=== PATIENT | female | born 2000 | race Caucasian/White ===

== ENCOUNTER 2018-02-20 19:41 | Emergency (ER) | payer OTHER ==
[2018-02-20 21:13] LABS: Urine Blood NEGATIVE (NEG); Urine Glucose NEGATIVE (NEG); Urine Protein NEGATIVE (NEG); Urine Specific Gravity 1.025 (1.005-1.030); Urine pH 5.5 (5.0-7.0)
[2018-02-20 21:31] LABS: Bicarbonate 26 mEq/L (21-31); Glucose Level 95 mg/dL (65-120); Lipase 22 U/L (22-51); Potassium 3.4 mEq/L (3.6-5.0); Sodium Level 139 mEq/L (135-145)
[2018-02-20 21:34] LABS: ALT/SGPT 17 IU/L (10-60); AST/SGOT 19 IU/L (10-42); Albumin 4.4 g/dL (3.2-5.5); Alkaline Phosphatase 87 IU/L (42-121); BUN Blood Urea Nitrogen 13 mg/dL (6-20); Bilirubin Total 0.6 mg/dL (0.3-1.2); Protein, Total 7.7 g/dL (6.0-8.3)
[2018-02-20 21:36] LABS: Absolute Lymphocytes (CBC) 2.9 K/uL (0.7-4.9); Absolute Monocytes 0.3 K/uL (0.1-1.3); Absolute Neutrophil 4.5 K/uL (1.8-8.0); Basophils % 0.5 % (0-1.3); Eosinophils % 0.6 % (0-4.4); Hematocrit 35.9 % (36.0-45.0); Lymphocytes % 36.6 % (15.3-44.8); MCH 25.1 pg (27.0-35.0); MCV 72.9 fL (80-100); MPV 8.1 fL (7.6-11.3); Monocytes % 4.3 % (3.3-12.3); RBC Red Blood Cell Count 4.92 M/uL (3.86-4.86)
--- NOTE | 2018-02-20 21:37 | EDPHYS ---
Physician Documentation [facility] Name: Miryam Holbrook Age: 17 yrs Sex: Female : 2000 Arrival Date: 02/20/2018 Time: 19:45 Bed 28 Private MD: Out, [facility] ED Physician Mohsen Narayanan HPI: 02/20 20:38 This 17 yrs old Female presents to ER via Ambulatory with complaints of ps1 Abdominal Pain. 20:38 Onset was a week ago and intermittent. Does not localize but is in the suprapubic area ps1 and she states taht she feels moving. She states that she has not had her normal menses this month and has taken two tests and was negative. She is on control and states that her LMP was 01/19. Associated with nausea. Rates pain when present as moderate and feels like movement. . 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 - Social history:: Smoking status: Patient uses tobacco products, smokes one-half pack cigarettes per day. - Ebola Screening: : Patient negative for fever greater than or equal to 101.5 degrees Fahrenheit, and additional compatible Ebola Virus Disease symptoms. ROS: 20:38 Constitutional: Negative for fever, chills, and weight loss, Eyes: Negative for injury, ps1 pain, redness, and discharge, ENT: Negative for injury, pain, and discharge, Cardiovascular: Negative for chest pain, palpitations, and edema, Respiratory: Negative for shortness of breath, cough, wheezing, and pleuritic chest pain. 20:38 Back: Negative for injury and pain. 20:38 MS/Extremity: Negative for injury and deformity, Skin: Negative for injury, rash, and discoloration, Neuro: Negative for headache, weakness, numbness, tingling, and seizure, Psych: Negative for depression, anxiety, suicide ideation, homicidal ideation, and hallucinations. 20:38 Abdomen/GI: Positive for abdominal pain. 20:38 : Positive for vaginal discharge. Exam: 20:38 Constitutional: This is a well developed, well nourished patient who is awake, alert, ps1 and in no acute distress. Head/Face: Normocephalic, atraumatic. Chest/axilla: Normal chest wall appearance and motion. Nontender with no deformity. No lesions are appreciated. Cardiovascular: Regular rate and rhythm. No gallops, murmurs, or rubs. Normal PMI, no JVD. No pulse deficits. Respiratory: Lungs have equal breath sounds bilaterally, clear to auscultation and percussion. No rales, rhonchi or wheezes noted. No increased work of breathing, no retractions or nasal flaring. Abdomen/GI: Soft, non-tender, with normal bowel sounds. No distension or tympany. No guarding or rebound. No evidence of tenderness throughout. Skin: Warm, dry with normal turgor. Normal color with no rashes, no lesions, and no evidence of cellulitis. MS/ Extremity: Pulses equal, no cyanosis. Neurovascular intact. Full, normal range of motion. Neuro: Awake and alert, GCS 15, oriented to person, place, time, and situation. Cranial nerves II-XII grossly intact. Sensory grossly intact. Vital Signs: 19:54 BP 133 / 83; Pulse 86; Resp 20; Temp 98.0; Pulse Ox 98% on R/A; Weight 86.18 kg; Height aj 5 ft. 3 in. (160.02 cm); 21:08 BP 128 / 80; Pulse 84; Resp 18; Pulse Ox 99% ; Pain 4/10; sr5 21:54 BP 124 / 86; Pulse 87; Resp 16; Pulse Ox 99% ; Pain 4/10; sr5 19:54 Body Mass Index 33.66 (86.18 kg, 160.02 cm) aj MDM: 21:16 Patient medically screened. ps1 21:35 Data reviewed: vital signs, nurses notes, lab test result(s). Counseling: I had a ps1 detailed discussion with the patient and/or guardian regarding: the historical points, exam findings, and any diagnostic results supporting the discharge/admit diagnosis, lab results, the need for outpatient follow up. Special discussion: Based on the patient's Hx, exam, and Dx evaluation, there is no indication for emergent surgery or inpatient Tx. It is understood by the patient/guardian that if the Sx's persist or worsen they need to return immediately for re-evaluation. 02/20 20:42 Order name: CBC with Diff ps1 02/20 20:42 Order name: CMP; Complete Time: 21:35 ps1 02/20 20:42 Order name: Lipase; Complete Time: 21:35 ps1 02/20 20:42 Order name: Urine Dipstick-Ancillary (obtain specimen); Complete Time: 21:03 ps1 02/20 21:05 Order name: Urine Dipstick--Ancillary (enter results); Complete Time: 21:16 sr5 02/20 21:05 Order name: Urine --Ancillary (enter results); Complete Time: 21:16 sr5 02/20 20:42 Order name: Urine Test (obtain specimen); Complete Time: 21:03 ps1 Administered Medications: No medications were administered Disposition: 02/20/18 21:37 Discharged to Home. Impression: Abdominal and pelvic pain. - Condition is Stable. - Discharge Instructions: Abdominal Pain, Women. - Prescriptions for Anaprox 275 mg Oral Tablet - take 1 tablet by ORAL route every 8 hours As needed; 30 tablet. - Family Work Release, Medication Reconciliation Form, Thank You Letter, Antibiotic Education, Prescription Opioid Use form. - Follow up: Private Physician; When: As needed; Reason: Recheck today's complaints, Continuance of care, Re-evaluation by your physician. Follow up: Emergency Department; When: As needed; Reason: Worsening of condition. - Problem is new. - Symptoms have improved. Signatures: Dispatcher [employer] EDTammi Zafar RN RN aj Enoc Oneill RN RN sr5 Mohsen Narayanan MD MD ps1 Corrections: (The following items were deleted from the chart) 21:56 21:37 02/20/2018 21:37 Discharged to Home. Impression: Abdominal and pelvic pain. sr5 Condition is Stable. Forms are Medication Reconciliation Form, Thank You Letter, Antibiotic Education, Prescription Opioid Use. Follow up: Private Physician; When: As needed; Reason: Recheck today's complaints, Continuance of care, Re-evaluation by your physician. Follow up: Emergency Department; When: As needed; Reason: Worsening of condition. Problem is new. Symptoms have improved. ps1
--- NOTE | 2018-02-20 21:37 | ER ---
Nurse's Notes [facility] Name: Miryam Holbrook Age: 17 yrs Sex: Female : 2000 Arrival Date: 02/20/2018 Time: 19:45 Bed 28 Private MD: Out, [facility] Diagnosis: Abdominal and pelvic pain Presentation: 02/20 19:52 Presenting complaint: Patient states: Reports period late and she has been having aj brown/red heavy discharge. Patient reports she is feeling something move around in her stomach. Negative home test. Transition of care: patient was not received from another setting of care. Onset of symptoms was February 20, 2018. Care prior to arrival: None. 19:52 Method Of Arrival: Ambulatory aj 19:52 Acuity: АНДРЕЙ 3 aj 22:43 Risk Assessment: Do you want to hurt yourself or someone else? Patient reports no sr5 desire to harm self or others. Initial Sepsis Screen: Does the patient meet any 2 criteria? No. Patient's initial sepsis screen is negative. Does the patient have a suspected source of infection? No. Patient's initial sepsis screen is negative. Triage Assessment: 19:54 General: Appears in no apparent distress. comfortable, Behavior is calm, cooperative, aj appropriate for age. Pain: Denies pain. Neuro: Level of Consciousness is awake, alert, obeys commands, Oriented to person, place, time, situation, Appropriate for age. Respiratory: Airway is patent Respiratory effort is even, unlabored, Respiratory pattern is regular, symmetrical. GI: Abdomen is non-distended, obese. : Reports discharge, bloody. Derm: Skin is intact, is healthy with good turgor, Skin is pink, warm \\T\\ dry. normal. 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 - Social history:: Smoking status: Patient uses tobacco products, smokes one-half pack cigarettes per day. - Ebola Screening: : Patient negative for fever greater than or equal to 101.5 degrees Fahrenheit, and additional compatible Ebola Virus Disease symptoms. Screenin:08 Abuse screen: Denies threats or abuse. Nutritional screening: No deficits noted. sr5 Tuberculosis screening: No symptoms or risk factors identified. Fall Risk None identified. Assessment: 21:08 Reassessment: Assumed care of pt. Pt sitting upright in chair feeding . AA\\T\\Ox4, sr5 equal unlabored resp, skin warm/dry/nc, c/o suprabpubic area pain "feels like something is moving around" reports brownish/red vaginal discharge, "should be on period right now but I'm just spotting". ER provider at bedside. Steady gait to restroom, UA collected, labs obtained via 20g RAC x1 attempt. Now awaiting lab results. Call light within reach, family at bedside. 21:54 Reassessment: Patient and/or family updated on plan of care and expected duration. Pain sr5 level reassessed. Patient is alert, oriented x 3, equal unlabored respirations, skin warm/dry/pink. No change in pt status. 22:51 GI: Bowel sounds present X 4 quads. Abd is soft and non tender. sr5 Vital Signs: 19:54 BP 133 / 83; Pulse 86; Resp 20; Temp 98.0; Pulse Ox 98% on R/A; Weight 86.18 kg; Height aj 5 ft. 3 in. (160.02 cm); 21:08 BP 128 / 80; Pulse 84; Resp 18; Pulse Ox 99% ; Pain 4/10; sr5 21:54 BP 124 / 86; Pulse 87; Resp 16; Pulse Ox 99% ; Pain 4/10; sr5 19:54 Body Mass Index 33.66 (86.18 kg, 160.02 cm) ED Course: 19:45 Patient arrived in ED. es 19:46 Out, [facility] is Private Physician. es 19:53 Triage completed. aj 19:54 Arm band placed on right wrist. Patient placed in waiting room, Patient notified of wait time. 20:32 Enoc Oneill, RN is Primary Nurse. sr5 20:34 Mohsen Narayanan MD is Attending Physician. ps1 21:08 Awaiting lab results. sr5 21:08 Patient has correct armband on for positive identification. Placed in gown. Bed in low sr5 position. Call light in reach. Side rails up X 1. Pulse ox on. NIBP on. Warm blanket given. 21:08 Initial lab(s) drawn, by me, sent to lab. Urine collected: clean catch specimen, clear. sr5 Inserted saline lock: 20 gauge in right antecubital area, using aseptic technique. Blood collected. 21:54 No provider procedures requiring assistance completed. IV discontinued, intact, sr5 bleeding controlled, No redness/swelling at site. Pressure dressing applied. Administered Medications: No medications were administered Outcome: 21:37 Discharge ordered by . ps1 21:54 Discharged to home ambulatory, with family. sr5 21:54 Condition: good 21:54 Discharge instructions given to patient, family, Instructed on discharge instructions, follow up and referral plans. medication usage, Demonstrated understanding of instructions, follow-up care, medications, Prescriptions given X 1. 21:56 Patient left the ED. sr5 Signatures: Tammi Gonzales, RN Lana Lopez Sam RN RN sr5 Mohsen Narayanan MD MD ps1
== END 2018-02-20 21:56 | disposition home or self-care (01) ==
LOC: ER 19:41
DX: R10.2 Pelvic and perineal pain (principal)
CPT/HCPCS: 36415; 80053; 81003; 81025; 83690; 85025; 99284

== ENCOUNTER 2018-09-16 06:04 | Emergency (ER) | payer OTHER, SELFPAY ==
[2018-09-16 06:50] LABS: Absolute Lymphocytes (CBC) 1.7 K/uL (0.7-4.9); Absolute Monocytes 0.7 K/uL (0.1-1.3); Absolute Neutrophil 7.8 K/uL (1.8-8.0); Basophils % 0.3 % (0-1.3); Eosinophils % 0.5 % (0-4.4); Hematocrit 38.6 % (36.0-45.0); Lymphocytes % 16.5 % (15.3-44.8); MCH 28.2 pg (27.0-35.0); MCV 80.5 fL (80-100); Monocytes % 6.8 % (3.3-12.3)
[2018-09-16 06:59] LABS: Urine Blood TRACE (NEG); Urine Glucose NEGATIVE (NEG); Urine Protein TRACE (NEG); Urine Specific Gravity >1.030 (1.005-1.030); Urine pH 6.5 (5.0-7.0)
[2018-09-16 07:02] LABS: ALT/SGPT 21 U/L (12-78); AST/SGOT 13 U/L (15-37); Albumin 4.2 g/dL (3.4-5.0); Alkaline Phosphatase 77 U/L (45-117); BUN Blood Urea Nitrogen 9 mg/dL (7-18); Bicarbonate 23 mmol/L (21-32); Bilirubin Direct 0.2 mg/dL (0-0.2); Bilirubin Total 0.9 mg/dL (0.2-1.0); Glucose Level 106 mg/dL (74-106); Lipase 64 U/L (73-393); Potassium 3.1 mmol/L (3.5-5.1); Protein, Total 7.7 g/dL (6.4-8.2); Sodium Level 141 mmol/L (136-145)
[2018-09-16] MEDS ORDERED: POTASSIUM CL SA 10 MEQ TAB PO ONE (07:36)
--- NOTE | 2018-09-16 08:01 | ER ---
Nurse's Notes [facility] Name: Miryam Holbrook Age: 17 yrs Sex: Female : 2000 Arrival Date: 09/16/2018 Time: 06:08 Bed 18 Private MD: Diagnosis: Vomiting;Unspecified abdominal pain Presentation: 09/16 06:18 Presenting complaint: Patient states: Upper abdominal pain, pointing to epigastric lp1 area, and low mid back pain x 2 days, "I'm vomiting green bile"; Denies any fever, nausea at this time. Transition of care: patient was not received from another setting of care. Onset of symptoms was September 14, 2018. Risk Assessment: Do you want to hurt yourself or someone else? Patient reports no desire to harm self or others. Initial Sepsis Screen: Does the patient meet any 2 criteria? No. Patient's initial sepsis screen is negative. Does the patient have a suspected source of infection? No. Patient's initial sepsis screen is negative. Care prior to arrival: None. 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 - Social history:: Smoking status: Patient uses tobacco products, smokes one-half pack cigarettes per day. - Ebola Screening: : No symptoms or risks identified at this time. Screenin:22 Abuse screen: Denies threats or abuse. Denies injuries from another. Nutritional lp1 screening: No deficits noted. Tuberculosis screening: No symptoms or risk factors identified. Fall Risk None identified. Assessment: 06:39 General: Appears in no apparent distress. Behavior is calm, cooperative. Pain: ak1 Complains of pain in epigastric area. Neuro: No deficits noted. Cardiovascular: No deficits noted. Respiratory: No deficits noted. GI: Abdomen is distended, non-distended, Bowel sounds present X 4 quads. Abd is soft X 4 quads Abdomen is tender to palpation in epigastric area Reports upper abdominal pain, epigastric pain, nausea. : No signs and/or symptoms were reported regarding the genitourinary system. EENT: No signs and/or symptoms were reported regarding the EENT system. Derm: No signs and/or symptoms reported regarding the dermatologic system. Musculoskeletal: Reports pain in thoracic area and lumbar area. 07:03 General: Appears in no apparent distress. comfortable, Behavior is calm, cooperative, hj appropriate for age. Pain: Complains of pain in abdomen Pain radiates to back and lumbar area Pain currently is 8 out of 10 on a pain scale. Neuro: Level of Consciousness is awake, alert, obeys commands, Oriented to person, place, time, situation, Appropriate for age. Cardiovascular: Capillary refill < 3 seconds Patient's skin is warm and dry. Respiratory: Airway is patent Respiratory effort is even, unlabored, Respiratory pattern is regular, symmetrical. GI: Abdomen is non-distended, Bowel sounds present X 4 quads. Abd is soft X 4 quads Abdomen is tender to palpation Reports upper abdominal pain, epigastric pain, nausea. : No signs and/or symptoms were reported regarding the genitourinary system. EENT: No signs and/or symptoms were reported regarding the EENT system. Derm: No signs and/or symptoms reported regarding the dermatologic system. Musculoskeletal: No signs and/or symptoms reported regarding the musculoskeletal system. Vital Signs: 06:21 BP 129 / 82; Pulse 80; Resp 16; Temp 98.6(O); Pulse Ox 98% on R/A; Weight 86.18 kg; lp1 Height 5 ft. 3 in. (160.02 cm); Pain 9/10; 07:02 BP 128 / 82; Pulse 77; Resp 18; Pulse Ox 98% on R/A; Pain 8/10; hj 08:18 BP 120 / 78; Pulse 75; Resp 18; Pulse Ox 100% on R/A; hj 06:21 Body Mass Index 33.66 (86.18 kg, 160.02 cm) lp1 ED Course: 06:08 Patient arrived in ED. es 06:17 Chris Martinez, GORDY is PHCP. pm1 06:21 Lalita Whiteside, RN is Primary Nurse. ak1 06:21 Triage completed. lp1 06:22 Arm band placed on. lp1 06:35 Basic Metabolic Panel Sent. ds4 06:35 CBC with Diff Sent. ds4 06:35 Hepatic Function Sent. ds4 06:35 Lipase Sent. ds4 06:35 Basic Metabolic Panel Sent. ds4 06:35 CBC with Automated Diff Sent. ds4 06:35 Liver (Hepatic) Function Sent. ds4 06:35 Lipase Sent. ds4 06:35 Urine Dipstick--Ancillary (enter results) Sent. ds4 06:35 Urine --Ancillary (enter results) Sent. ds4 06:37 Patient has correct armband on for positive identification. Bed in low position. Call ak1 light in reach. Side rails up X 1. Pulse ox on. NIBP on. 06:37 Inserted saline lock: 20 gauge in left antecubital area, using aseptic technique. ak1 ,using aseptic technique. placed by Bianka Eduardo Blood collected. 06:39 Door closed. Warm blanket given. ak1 06:56 Rip Cat MD is Attending Physician. pm1 07:05 Report received from RAJINDER Celis. hj 08:17 No provider procedures requiring assistance completed. IV discontinued, intact, hj bleeding controlled, No redness/swelling at site. Pressure dressing applied. Administered Medications: 07:10 Drug: Potassium Chloride 40 mEq Route: PO; hj 07:52 Follow up: Response: No adverse reaction hj 07:52 Drug: Zofran 4 mg Route: IVP; Site: left antecubital; hj 07:55 Follow up: Response: No adverse reaction; Nausea is decreased hj 08:00 Drug: TORadol 30 mg Route: IVP; Site: left antecubital; hj 08:03 Follow up: Response: No adverse reaction hj Outcome: 08:00 Discharge ordered by . pm1 08:18 Discharged to home ambulatory. hj 08:18 Condition: stable 08:18 Discharge instructions given to patient, Instructed on discharge instructions, follow up and referral plans. medication usage, Demonstrated understanding of instructions, follow-up care, medications, Prescriptions given X 2. 08:18 Patient left the ED. hj Signatures: Lana Singh Laura RN RN [email or web address] Kel Rose ds4 Lalita Whiteside RN RN ak1 Rodo Morris RN RN Chris Martinez, GORDY WIND PROJECT MANAGER pm1
--- NOTE | 2018-09-16 08:01 | EDPHYS ---
Physician Documentation [facility] Name: Miryam Holbrook Age: 17 yrs Sex: Female : 2000 Arrival Date: 09/16/2018 Time: 06:08 Bed 18 Private MD: ED Physician Rip Cat HPI: 09/16 06:47 This 17 yrs old Female presents to ER via Ambulatory with complaints of pm1 Abdominal Pain. 06:47 The patient presents with abdominal pain in the epigastric area. Onset: The pm1 symptoms/episode began/occurred 2 day(s) ago. The symptoms radiate to back. Associated signs and symptoms: Pertinent positives: nausea and vomiting, Pertinent negatives: chest pain, diarrhea, dysuria, fever, headache, shortness of breath. The symptoms are described as crampy. Modifying factors: The symptoms are alleviated by nothing, the symptoms are aggravated by nothing. Severity of pain: in the emergency department the pain is unchanged. The patient has not experienced similar symptoms in the past. The patient has not recently seen a physician. 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 - Social history:: Smoking status: Patient uses tobacco products, smokes one-half pack cigarettes per day. - Ebola Screening: : No symptoms or risks identified at this time. ROS: 06:47 Constitutional: Negative for fever, chills, and weight loss, Eyes: Negative for injury, pm1 pain, redness, and discharge, ENT: Negative for injury, pain, and discharge, Neck: Negative for injury, pain, and swelling, Cardiovascular: Negative for chest pain, palpitations, and edema, Respiratory: Negative for shortness of breath, cough, wheezing, and pleuritic chest pain. 06:47 Back: Negative for injury and pain, : Negative for injury, bleeding, discharge, and swelling, MS/Extremity: Negative for injury and deformity, Skin: Negative for injury, rash, and discoloration, Neuro: Negative for headache, weakness, numbness, tingling, and seizure. 06:47 Abdomen/GI: Positive for abdominal pain, nausea and vomiting, Negative for diarrhea, constipation. Exam: 06:47 Constitutional: This is a well developed, well nourished patient who is awake, alert, pm1 and in no acute distress. Head/Face: Normocephalic, atraumatic. Eyes: Pupils equal round and reactive to light, extra-ocular motions intact. Lids and lashes normal. Conjunctiva and sclera are non-icteric and not injected. Cornea within normal limits. Periorbital areas with no swelling, redness, or edema. ENT: Nares patent. No nasal discharge, no septal abnormalities noted. Tympanic membranes are normal and external auditory canals are clear. Oropharynx with no redness, swelling, or masses, exudates, or evidence of obstruction, uvula midline. Mucous membranes moist. Neck: Trachea midline, no thyromegaly or masses palpated, and no cervical lymphadenopathy. Supple, full range of motion without nuchal rigidity, or vertebral point tenderness. No Meningismus. Chest/axilla: Normal chest wall appearance and motion. Nontender with no deformity. No lesions are appreciated. Cardiovascular: Regular rate and rhythm with a normal S1 and S2. No gallops, murmurs, or rubs. No pulse deficits. Respiratory: Lungs have equal breath sounds bilaterally, clear to auscultation and percussion. No rales, rhonchi or wheezes noted. No increased work of breathing, no retractions or nasal flaring. 06:47 Back: No spinal tenderness. No costovertebral tenderness. Full range of motion. Skin: Warm, dry with normal turgor. Normal color with no rashes, no lesions, and no evidence of cellulitis. MS/ Extremity: Pulses equal, no cyanosis. Neurovascular intact. Full, normal range of motion. 06:47 Abdomen/GI: Inspection: obese Bowel sounds: normal, in all quadrants, Palpation: abdomen is soft and non-tender, in all quadrants, mass, is not appreciated, rebound tenderness, is not appreciated. 06:47 Neuro: Orientation: is normal, Motor: is normal, Sensation: is normal, no obvious gross deficits. Vital Signs: 06:21 BP 129 / 82; Pulse 80; Resp 16; Temp 98.6(O); Pulse Ox 98% on R/A; Weight 86.18 kg; lp1 Height 5 ft. 3 in. (160.02 cm); Pain 9/10; 07:02 BP 128 / 82; Pulse 77; Resp 18; Pulse Ox 98% on R/A; Pain 8/10; hj 08:18 BP 120 / 78; Pulse 75; Resp 18; Pulse Ox 100% on R/A; hj 06:21 Body Mass Index 33.66 (86.18 kg, 160.02 cm) lp1 MDM: 06:17 Patient medically screened. pm1 06:49 Data reviewed: vital signs. Data interpreted: Pulse oximetry: on room air is 98 %. pm1 Interpretation: normal. 08:00 Counseling: I had a detailed discussion with the patient and/or guardian regarding: the pm1 historical points, exam findings, and any diagnostic results supporting the discharge/admit diagnosis, lab results, the need for outpatient follow up, to return to the emergency department if symptoms worsen or persist or if there are any questions or concerns that arise at home. 08:00 ED course: No tenderness of abdomen on reexamination. pm1 09/16 06:20 Order name: Basic Metabolic Panel pm1 09/16 06:20 Order name: CBC with Diff pm1 09/16 06:20 Order name: Hepatic Function pm1 09/16 06:20 Order name: Lipase pm1 09/16 06:21 Order name: Basic Metabolic Panel; Complete Time: 07:10 EDMS 09/16 06:21 Order name: CBC with Automated Diff; Complete Time: 06:56 EDMS 09/16 06:20 Order name: IV Saline Lock; Complete Time: 06:34 pm1 09/16 06:21 Order name: Liver (Hepatic) Function; Complete Time: 07:10 EDMS 09/16 06:21 Order name: Lipase; Complete Time: 07:10 EDMS 09/16 06:34 Order name: Urine Dipstick--Ancillary (enter results); Complete Time: 07:10 mw2 09/16 06:34 Order name: Urine --Ancillary (enter results); Complete Time: 07:10 mw2 09/16 06:20 Order name: Labs collected and sent; Complete Time: 06:35 pm1 09/16 06:20 Order name: Urine Dipstick-Ancillary (obtain specimen); Complete Time: 06:27 pm1 09/16 06:20 Order name: Urine Test (obtain specimen); Complete Time: 06:27 pm1 Administered Medications: 07:10 Drug: Potassium Chloride 40 mEq Route: PO; hj 07:52 Follow up: Response: No adverse reaction hj 07:52 Drug: Zofran 4 mg Route: IVP; Site: left antecubital; hj 07:55 Follow up: Response: No adverse reaction; Nausea is decreased hj 08:00 Drug: TORadol 30 mg Route: IVP; Site: left antecubital; hj 08:03 Follow up: Response: No adverse reaction Disposition: 09/17 06:29 Co-signature as Attending Physician, Rip Cat MD I agree with the assessment and [facility] plan of care. Disposition: 09/16/18 08:00 Discharged to Home. Impression: Unspecified abdominal pain, Vomiting. - Condition is Stable. - Discharge Instructions: Abdominal Pain, Adult, Nausea and Vomiting, Adult. - Prescriptions for Bentyl 20 mg Oral Tablet - take 1 tablet by ORAL route every 6 hours As needed; 20 tablet. Zofran 4 mg Oral Tablet - take 1 tablet by ORAL route every 12 hours As needed; 20 tablet. - Medication Reconciliation Form, Thank You Letter form. - Follow up: Emergency Department; When: As needed; Reason: Worsening of condition. Follow up: Private Physician; When: 2 - 3 days; Reason: Recheck today's complaints, Continuance of care, Re-evaluation by your physician. - Problem is new. - Symptoms have improved. Signatures: Dispatcher [employer] Rip Mackey MD MD cha Pena, Laura, RN RN lp1 Rodo Morris RN RN Chris Martinez, G[employer] TRANSPORTATION CONSULTANT pm1 Corrections: (The following items were deleted from the chart) 09/16 08:00 08:00 09/16/2018 08:00 Discharged to Home. Impression: Vomiting; Unspecified abdominal pm1 pain. Condition is Stable. Discharge Instructions: Abdominal Pain, Adult, Nausea and Vomiting, Adult. Prescriptions for Bentyl 20 mg Oral Tablet - take 1 tablet by ORAL route every 6 hours As needed; 20 tablet, Zofran 4 mg Oral Tablet - take 1 tablet by ORAL route every 12 hours As needed; 20 tablet. and Forms are Medication Reconciliation Form, Thank You Letter, Antibiotic Education, Prescription Opioid Use. Follow up: Emergency Department; When: As needed; Reason: Worsening of condition. Follow up: Private Physician; When: 2 - 3 days; Reason: Recheck today's complaints, Continuance of care, Re-evaluation by your physician. Problem is new. Symptoms have improved. pm1 08:18 08:00 09/16/2018 08:00 Discharged to Home. Impression: Unspecified abdominal hj painVomiting. Condition is Stable. Discharge Instructions: Abdominal Pain, Adult, Nausea and Vomiting, Adult. Prescriptions for Bentyl 20 mg Oral Tablet - take 1 tablet by ORAL route every 6 hours As needed; 20 tablet, Zofran 4 mg Oral Tablet - take 1 tablet by ORAL route every 12 hours As needed; 20 tablet. and Forms are Medication Reconciliation Form, Thank You Letter, Antibiotic Education, Prescription Opioid Use. Follow up: Emergency Department; When: As needed; Reason: Worsening of condition. Follow up: Private Physician; When: 2 - 3 days; Reason: Recheck today's complaints, Continuance of care, Re-evaluation by your physician. Problem is new. Symptoms have improved. pm1
== END 2018-09-16 08:18 | disposition home or self-care (01) ==
LOC: ER 06:04
DX: R11.2 Nausea with vomiting, unspecified (principal); F17.210 Nicotine dependence, cigarettes, uncomplicated
CPT/HCPCS: 36415; 80048; 80076; 81003; 81025; 83690; 85025; 96374; 96375; 99284

== ENCOUNTER 2020-07-29 12:31 | Emergency (ER) | payer SELFPAY ==
--- OUTSIDE RECORDS SUMMARY | 2020-07-29 13:26 | XMS REPORT | Continuity of Care Document ---
:2000 Author Organization [facility] t Address [address] [place] [address] Care Team Providers Name Role Phone Kiarra Em Attending Clinician Problems This patient has no known problems. Allergies, Adverse Reactions, Alerts This patient has no known allergies or adverse reactions. Medications This patient has no known medications. Procedures This patient has no known procedures. Encounters Start End Encounter Admission Attending Care Care Encounter Source Date/Time Date/Time Type Type Clinicians Facility Department ID 2020-01-12 2020-01-12 Letter WIL Abarca [id number] 00:00:00 00:00:00 (Out) Claudette Plunkett [facility] [id number] REGIONAL [id number] MATERNAL [id number] & CHILD [facility] 2019-12-29 2019-12-29 Telephone WIL Abarca [id number] 00:00:00 00:00:00 Claudette Plunkett [facility] [id number] [facility] [id number] MATERNAL [id number] & CHILD 107 [facility] Results This patient has no known results.
[2020-07-29 13:46] LABS: Absolute Lymphocytes (CBC) 2.2 K/uL (0.7-4.9); Basophils % 0.7 % (0-1.3); Hematocrit 40.5 % (36.0-45.0); Lymphocytes % 31.2 % (15.3-44.8); RBC Red Blood Cell Count 4.85 M/uL (3.86-4.86)
[2020-07-29 13:54] LABS: Urine Blood NEGATIVE (NEG); Urine Glucose NEGATIVE (NEG); Urine Protein NEGATIVE (NEG); Urine pH 6.5 (5.0-7.0)
[2020-07-29 14:25] LABS: BUN Blood Urea Nitrogen 7 mg/dL (7-18); Bicarbonate 25 mmol/L (21-32); Glucose Level 97 mg/dL (74-106); HCG, Quantitative 12607 mIU/mL (1-3); Potassium 3.9 mmol/L (3.5-5.1); Sodium Level 138 mmol/L (136-145)
--- NOTE | 2020-07-29 15:17 | RAD REPORT ---
EXAM DESCRIPTION: US - Transvaginal OB - 07/29/2020 3:01 pm CLINICAL HISTORY: VAGINAL BLEEDING COMPARISON: Transvaginal OB dated 11/05/2016 FINDINGS: Normal shaped intrauterine gestational sac is identified. Yolk sac is seen. Within the ges tational sac is a pole corresponding to a 6 week 0 day age. Cardiac activity was difficult to o btain. Heart rate of 112 BPM was observed. No hematoma or mass within the gestational sac. No hematom a or mass in the endometrial cavity. No myometrial mass seen within the normal sized uterus. Right ovary was identified and unremarkable. Doppler evaluation shows normal blood flow. No right adn exal abnormality. Left ovary was obscured by bowel. No left adnexal mass. No blood or fluid in the cul de sac. IMPRESSION: A 6 week 0 day single IUP is identified. Calculated LESLIE would be 03/24/2021. Cardiac activity was difficult to obtain. Maximum heart rate was 112 BPM. No mass or hematoma in the endometrial cavity. No adnexal mass is seen.
--- NOTE | 2020-07-29 15:26 | ER ---
Nurse's Notes [facility] Name: Miryam Holbrook Age: 19 yrs Sex: Female : 2000 Arrival Date: 07/29/2020 Time: 12:34 Bed 17 Private MD: Diagnosis: Threatened Presentation: 07/29 12:52 Chief complaint: Patient states: vaginal bleeding started last night, using 1 pad in an sv hour. Denies vaginal bleeding at this time. Unsure of how many weeks she is. Coronavirus screen: Client denies travel out of the [place] in the last 14 days. At this time, the client does not indicate any symptoms associated with coronavirus-19. Ebola Screen: No symptoms or risks identified at this time. Risk Assessment: Do you want to hurt yourself or someone else? Patient reports no desire to harm self or others. Onset of symptoms was July 28, 2020. 12:52 Method Of Arrival: Ambulatory sv 12:52 Acuity: АНДРЕЙ 3 sv 12:54 Initial Sepsis Screen: Does the patient meet any 2 criteria? No. Patient's initial sv sepsis screen is negative. Does the patient have a suspected source of infection? No. Patient's initial sepsis screen is negative. 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 - Social history:: Smoking status: Patient denies any tobacco usage or history of. Screenin:09 Abuse screen: Denies threats or abuse. Nutritional screening: No deficits noted. ll2 Tuberculosis screening: No symptoms or risk factors identified. Fall Risk None identified. Assessment: 13:07 General: Appears in no apparent distress. Behavior is calm, cooperative, appropriate ll2 for age. Pain: Denies pain. Neuro: Level of Consciousness is awake, alert, obeys commands, Oriented to person, place, time, situation. Cardiovascular: Capillary refill < 3 seconds Patient's skin is warm and dry. Respiratory: Airway is patent Respiratory effort is even, unlabored, Respiratory pattern is regular, symmetrical. GI: Reports cramping. : Reports vaginal bleeding that is bright red, light flow. EENT: No signs and/or symptoms were reported regarding the EENT system. Derm: Skin is intact, is healthy with good turgor, Skin is dry, Skin is pink, warm \T\ dry. Skin temperature is warm. Musculoskeletal: Circulation, motion, and sensation intact. Range of motion: intact in all extremities. 13:43 Reassessment: Patient and/or family updated on plan of care and expected duration. Pain ll2 level reassessed. Patient is alert, oriented x 3, equal unlabored respirations, skin warm/dry/pink. 14:05 Reassessment: Patient appears in no apparent distress at this time. wheeled to US via em wheelchair. 15:25 Reassessment: Patient and/or family updated on plan of care and expected duration. Pain ll2 level reassessed. Patient is alert, oriented x 3, equal unlabored respirations, skin warm/dry/pink. ERP to bedside discussing US results with pt. Vital Signs: 12:54 BP 119 / 78; Pulse 77; Resp 16; Temp 98.1(TE); Pulse Ox 99% ; Weight 88.45 kg; Height 5 sv ft. 3 in. (160.02 cm); 13:45 BP 120 / 66; Pulse 73; Resp 16; Pulse Ox 98% on R/A; ll2 15:26 BP 114 / 74; Pulse 78; Resp 16; Pulse Ox 100% on R/A; ll2 12:54 Body Mass Index 34.54 (88.45 kg, 160.02 cm) sv ED Course: 12:34 Patient arrived in ED. rg4 12:52 Arm band placed on. sv 12:53 Triage completed. sv 13:00 Smooth Franklin, RN is Primary Nurse. em 13:09 Patient has correct armband on for positive identification. Placed in gown. Bed in low ll2 position. Call light in reach. Side rails up X 1. Pulse ox on. NIBP on. 13:10 Rip Espinoza PA is PHCP. cp 13:10 Shane Odom MD is Attending Physician. cp 13:33 Initial lab(s) drawn, by nc, sent to lab. T\T\S collected, blood band applied to patient. jp3 Urine collected: clean catch specimen, clear, li colored. Inserted saline lock: 20 gauge in right forearm, using aseptic technique. Blood collected. 13:48 Warm blanket given. Verbal reassurance given. jp3 13:53 Radiology exam delayed due to lab results not completed at this time. (HCG) aa4 test not completed at this time. 15:02 US Transvaginal Ob In Process Unspecified. EDMS 15:41 No provider procedures requiring assistance completed. IV discontinued, intact, ll2 bleeding controlled, No redness/swelling at site. Pressure dressing applied. Administered Medications: No medications were administered Point of Care Testing: Urine : 13:15 hCG Reading: Positive; Control Reading: Positive; jp3 Outcome: 15:26 Discharge ordered by MD. cp 15:42 Discharged to home ambulatory. ll2 15:42 Condition: stable 15:42 Discharge instructions given to patient, Instructed on discharge instructions, follow up and referral plans. medication usage, Demonstrated understanding of instructions, follow-up care, medications, Prescriptions given X 1. 15:42 Patient left the ED. ll2 Signatures: Dispatcher [employer] Lexis Deras RN RN Smooth Brown RN RN Tammi Velasquez aa4 Rip Espinoza PA PA cp Garcia, Rubi rg4 Benedict Barrientos jp3 Jayleen Reyna RN RN ll2 Corrections: (The following items were deleted from the chart) 12:56 12:54 Resp 16bpm; Pulse Ox 99%; Temp 98.1F Temporal; 88.45 kg; Height 5 ft. 3 in.; BMI: sv 34.5; sv
--- NOTE | 2020-07-29 15:27 | EDPHYS ---
Physician Documentation [facility] Name: Miryam Holbrook Age: 19 yrs Sex: Female : 2000 Arrival Date: 07/29/2020 Time: 12:34 Bed 17 Private MD: ED Physician Shane Odom HPI: 07/29 13:15 This 19 yrs old Female presents to ER via Ambulatory with complaints of cp Vaginal Bleeding, + Preg <12wks. 13:15 The patient presents to the emergency department with vaginal bleeding, that is light, cp reports using 1 pads or tampons per day. course: care: none, Leakage of Fluid: none appreciated, Ultrasound: the patient has not had an ultrasound. Previous pregnancies: in previous pregnancies patient has had . Associated signs and symptoms: Pertinent negatives: abdominal pain, dysuria, fever, ruptured membranes. 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 - Social history:: Smoking status: Patient denies any tobacco usage or history of. ROS: 13:20 Constitutional: Negative for body aches, chills, fever, poor PO intake. cp 13:20 Eyes: Negative for injury, pain, redness, and discharge. cp 13:20 ENT: Negative for ear pain, sore throat, difficulty swallowing, difficulty handling secretions. 13:20 Cardiovascular: Negative for chest pain. 13:20 Respiratory: Negative for cough, shortness of breath, wheezing. 13:20 : Positive for vaginal bleeding, Negative for urinary symptoms. 13:20 Neuro: Negative for weakness. 13:20 All other systems are negative. Exam: 13:25 Constitutional: The patient appears in no acute distress, alert, awake, comfortable, cp non-toxic, well developed, well nourished. 13:25 Head/Face: Normocephalic, atraumatic. cp 13:25 Eyes: Periorbital structures: appear normal, Conjunctiva: normal, no exudate, no injection, Lids and lashes: appear normal, bilaterally. 13:25 ENT: External ear(s): are unremarkable, Nose: is normal, Posterior pharynx: Airway: no evidence of obstruction, patent. 13:25 Chest/axilla: Inspection: normal. 13:25 Cardiovascular: Rate: normal. 13:25 Respiratory: the patient does not display signs of respiratory distress, Respirations: normal, no use of accessory muscles, labored breathing, is not present. 13:25 Abdomen/GI: Inspection: abdomen appears normal, Palpation: abdomen is soft and non-tender, in all quadrants. 13:25 Back: CVA tenderness, is absent. Vital Signs: 12:54 BP 119 / 78; Pulse 77; Resp 16; Temp 98.1(TE); Pulse Ox 99% ; Weight 88.45 kg; Height 5 sv ft. 3 in. (160.02 cm); 13:45 BP 120 / 66; Pulse 73; Resp 16; Pulse Ox 98% on R/A; ll2 15:26 BP 114 / 74; Pulse 78; Resp 16; Pulse Ox 100% on R/A; ll2 12:54 Body Mass Index 34.54 (88.45 kg, 160.02 cm) sv MDM: 13:20 Patient medically screened. cp 14:00 Differential diagnosis: STD, ectopic . cp 15:25 Data reviewed: vital signs, nurses notes, lab test result(s), radiologic studies, cp ultrasound, and as a result, I will discharge patient. 15:25 Counseling: I had a detailed discussion with the patient and/or guardian regarding: the cp historical points, exam findings, and any diagnostic results supporting the discharge/admit diagnosis, lab results, radiology results, the need for outpatient follow up, an OB/Gyne specialist, to return to the emergency department if symptoms worsen or persist or if there are any questions or concerns that arise at home. 15:25 ED course: VSS. Discussed results of labs and US showing IUP. Will discharge to home cp with instructions for pelvic rest and to f/u with OB. 07/29 13:19 Order name: Urine Dipstick--Ancillary (enter results); Complete Time: 15:22 eb 07/29 13:19 Order name: Urine --Ancillary (enter results); Complete Time: 15:22 eb 07/29 13:20 Order name: Quantitative Hcg; Complete Time: 15:22 cp 07/29 13:20 Order name: Abo/rh Typing; Complete Time: 15:22 cp 07/29 13:20 Order name: Basic Metabolic Panel; Complete Time: 15:22 cp 07/29 13:20 Order name: CBC with Diff; Complete Time: 13:49 cp 07/29 13:49 Interpretation: Normal except: MCV 83.5. cp 07/29 13:13 Order name: Urine Dipstick-Ancillary (obtain specimen); Complete Time: 13:14 cp 07/29 13:13 Order name: Urine Test (obtain specimen); Complete Time: 13:14 cp 07/29 13:20 Order name: IV Saline Lock; Complete Time: 13:43 cp 07/29 13:20 Order name: Labs collected and sent; Complete Time: 13:43 cp 07/29 13:20 Order name: NPO; Complete Time: 13:43 cp 07/29 13:50 Order name: US Transvaginal Ob; Complete Time: 15:22 cp Administered Medications: No medications were administered Point of Care Testing: Urine : 13:15 hCG Reading: Positive; Control Reading: Positive; jp3 Disposition: 07/29/20 15:26 Discharged to Home. Impression: Threatened . - Condition is Stable. - Discharge Instructions: Threatened Miscarriage, Vaginal Bleeding During , First Trimester, Pelvic Rest. - Prescriptions for Vitamin 27- 0.8 mg Oral Tablet - take 1 tablet by ORAL route once daily; 60 tablet. - Medication Reconciliation Form, Thank You Letter, Antibiotic Education, Prescription Opioid Use, Work release form form. - Follow up: Private Physician; When: 1 week; Reason: Recheck today's complaints. - Problem is new. - Symptoms have improved. Addendum: 07/30/2020 16:02 Co-signature as Attending Physician, Shane Odom MD I agree with the assessment and k dr plan of care. Signatures: Dispatcher [employer] Lexis Deras RN RN sv Rittger, Kevin, MD MD kdr Rip Espinoza PA PA Jayleen Jurado RN RN ll2 Corrections: (The following items were deleted from the chart) 07/29 15:25 13:15 2, Premature 1, Living 1, LMP 06/15/2020, Verified, EDC cp 03/22/2021, Gestational age from LMP: 6 weeks 2 days cp 15:42 15:26 07/29/2020 15:26 Discharged to Home. Impression: Threatened . Condition ll2 is Stable. Forms are Medication Reconciliation Form, Thank You Letter, Antibiotic Education, Prescription Opioid Use. Follow up: Private Physician; When: 1 week; Reason: Recheck today's complaints. Problem is new. Symptoms have improved. cp
[2020-07-29 16:07] VITALS: TEMP 98.1
[2020-07-29 16:13] VITALS: BP 114/74; O2SAT 100
== END 2020-07-29 15:42 | disposition home or self-care (01) ==
LOC: ER 12:31
DX: O20.0 Threatened abortion (principal); Z3A.01 Less than 8 weeks gestation of pregnancy
CPT/HCPCS: 36415; 76817; 80048; 81003; 81025; 84702; 85025; 86900; 86901; 99284

== ENCOUNTER 2022-06-20 10:41 | Observation (INO) | payer OTHER ==
--- OUTSIDE RECORDS SUMMARY | 2022-06-20 10:52 | XMS REPORT | Continuity of Care Document ---
:2000 Author Organization [facility] t Address [address] [place] [address] Care Team Providers Name Role Phone BRENDA DAVIES Primary Care Physician Unavailable BONI DANIELLE Attending Clinician Unavailable Jackie Ballard MA Attending Clinician Unavailable Boni Danielle MD Attending Clinician Hector Villeda CRNA Attending Clinician Kevin QUIÑONES, EQUIPMENT COORDINATOR, Sharifa Attending Clinician Osorio Alexandre MD Attending Clinician 2, [facility] Attending Clinician Unavailable Doctor Unassigned, [place] Attending Clinician Unavailable Brenda Russell Attending Clinician Nurse, [facility] Attending Clinician Unavailable Daisy Calvo MD Attending Clinician Torsten Correa PA-C Attending Clinician Louisa Ag RN Attending Clinician Unavailable TORSTEN CORREA Attending Clinician Unavailable Rachael Dye MD Attending Clinician Cely Segal RN Attending Clinician Unavailable Ultrasound, [facility] Attending Clinician Unavailable Maria Estrada MD Attending Clinician ARABELLA SANCHEZ Attending Clinician Unavailable Sandeep Rodriguez DO Attending Clinician DEONTE DESIR Attending Clinician Unavailable [facility], [facility] Attending Clinician Unavailable Huber Ashley MD Attending Clinician [address] [place] [address] Us Room Attending Clinician Unavailable Lashawn Soliman Attending Clinician [facility] Attending Clinician [phone] BRENDA DAVIES Attending Clinician Unavailable Thang FLANAGAN, Deonte Skaggs Attending Clinician ROBERT ABARCA Attending Clinician Unavailable DAISY CALVO Admitting Clinician Unavailable BONI DANIELLE Admitting Clinician Unavailable RACHAEL DYE Admitting Clinician Unavailable Boni Danielle MD Admitting Clinician Daisy Calvo MD Admitting Clinician Rachael Dye MD Admitting Clinician Payers Payer Name Policy Type Policy Number Effective Date Expiration Date Rochelle HAMMER [id number] 2020 HEALTH 00:00:00 [place]ICAID OF [place] [id number] 2020 00:00:00 Problems Condition Condition Condition Status Onset Resolution Last Treating Co mments Source Name Details Category Date Date Treatment Clinician Date Rash Rash Disease Active Univers 5-12 ity of 00:00: [place] [address] Medical Branch Epigastric Epigastric Disease Active U nivers pain pain 5-12 ity of 00:00: [place] [address] Medical Branch Other Other Disease Active Univers headache headache 5-12 ity of syndrome syndrome 00:00: [place] [address] [facility] [place] Anemia due Anemia due Disease Active U nivers to acute to acute 5-06 [place]y of blood [place] Other Other Disease Active Univers immediate immediate 5-06 [place] hemorrhage hemorrhage 00 Ri dical Branch Disease Active Univers demise, demise, 5-04 ity of greater greater 00:00: [place] than 22 than 22 00 Medical weeks, weeks, Branch antepartum antepartum , single , single or or unspecifie unspecifie d fetus d fetus Disease Active Univers demise > demise > 5-04 ity of 22 weeks, 22 weeks, 00:[place] delivered[place], 00 Me dical current current [facility] ation ation Liveborn Liveborn Disease Active Unive rs infant, of infant, of 5-22 it y of [place] 00:[place] , , 00 Me dical born in born in [facility] by by delivery delivery 20 weeks 20 weeks Disease Active Unive rs gestation gestation 2-10 ity of of of 00:00: [place] 00 [facility] Placenta Placenta Disease Active Unive rs previa previa 2-10 ity of antepartum antepartum 00:[place] , , 00 Medical unspecifie unspecifie Br anch d d trimester trimester 22 weeks 22 weeks Disease Active Unive rs gestation gestation 2-10 ity of of of 00:00: [place] 00 [facility] 34 weeks 34 weeks Disease Active Unive rs gestation gestation 2-10 ity of of of 00:00: [place] 00 [facility] 35 weeks 35 weeks Disease Active Unive rs gestation gestation 2-10 ity of of of 00:00: [place] 00 [facility] Morbid Morbid Disease Active 2019-10 Univers obesity obesity 2-16 ity of with body [place] body 00:[place] mass index mass index 00 Me dical of of Branch 40.0-49.9 40.0-49.9 Morbid Morbid Disease Active 2019-10 Univers obesity obesity 2-16 ity of with body with body 00:[place] mass index mass index 00 Me dical of of Branch 40.0-49.9 40.0-49.9 UTI in UTI in Disease Active 2019-10 Univers 2-01 ity of 00:00: [place] 00 Medical Branch Supervisio Supervisio Disease Active 2019-10 U nivers n of n of 1-02 ity of high-risk high-risk 00:00: [place] 00 [facility] Branch History of History of Disease Active 2019-10 Overview : Univers - Formattin ity o f delivery delivery 00:00: g of this [place] 00 note Medical might be Branch different from the original. At 32 weeks, marginal placenta previa, vaginal bleeding Multiparit Multiparit Disease Active 2019-10 U nivers y y - ity of 00:00: [place] [facility] History of History of Disease Active 2019-10 U nivers placenta placenta -02 ity of previa previa 00:00: [place] 00 Medical Branch Encounter Encounter Disease Active 2018-10 Uni vers for for 2-09 ity of initial initial 00:00: [place] prescripti prescripti 00 Me dical on of on of Branch contracept contracept francisco pills francisco pills Previous Previous Disease Active Unive rs 9-09 ity of section section 00:00: [address] Obesity Obesity Disease Active Univers (BMI (BMI 8-08 ity of 30-39.9) 30-39.9) 00:00: [place] 00 [facility] Obesity in Obesity in Disease Active U nivers 8-08 ity of 00:00: [place] 00 Medical [place] Vaginal Vaginal Disease Active Univers bleeding bleeding 6-09 ity of in in 00:00: [place] , , 00 Me dical third third Branch trimester trimester Allergies, Adverse Reactions, Alerts Allergy Allergy Status Severity Reaction(s) Onset Inactive Treating Comm ents Source Name Type Date Date Clinician NO KNOWN Drug Active Univers ALLERGIE Class ity of S [facility] [place] [facility] Social History Social Habit Start Date Stop Date Quantity Comments Source ASSERTION 2021-08-22 [facility] 00:00:00 [facility] Exposure to 2022-01-30 2022-02-09 Not sure [facility] SARS-CoV-2 (event) 00:00:00 10:14:00 Medica l [place] Alcohol intake 2022-02-09 2022-02-09 0 /d [facility] 00:00:00 00:00:00 [facility] Tobacco use and 2016-12-20 2016-12-20 Never used [facility] exposure 00:00:00 00:00:00 Medical Branch Sex Ass[birth year] At [birth year] [facility] [place] 00:00:00 00:00:00 Medical Branch Smoking Status Start Date Stop Date Source Never smoker [facility] Medical Branch Medications Ordered Filled Start Stop Current Ordering Indication Dosage Frequency Signature Comments Components Source Medication Medication Date Date Medication? Clinician (SIG) Name Name docmehreen Yes [id number] 100mg Take 1 Un key (COLACE) 5-12 capsule by ity o f 100 mg 00:00: mouth once [place] capsule 00 daily as Medical needed for Branch Constipati on. famotidine Yes [id number] 20mg Take 1 U nivers 20 mg 5-12 tablet by ity of tablet 00:00: mouth 2 [place] 00 (two) Medical times Branch daily. docusate Yes [id number] 100mg Take 1 Un key (COLACE) 5-12 capsule by ity o f 100 mg 00:00: mouth once [place] capsule 00 daily as Medical needed for Branch Constipati on. famotidine Yes [id number] 20mg Take 1 U nivers 20 mg 5-12 tablet by ity of tablet 00:00: mouth 2 [place] 00 (two) Medical times Branch daily. docusate Yes [id number] 100mg Take 1 Un key (COLACE) 5-12 capsule by ity o f 100 mg 00:00: mouth once [place] capsule 00 daily as Medical needed for Branch Constipati on. famotidine Yes [id number] 20mg Take 1 U nivers 20 mg 5-12 tablet by ity of tablet 00:00: mouth 2 [place] 00 (two) Medical times Branch daily. docusate 0 Yes [id number] 240mg Take 1 U nivers calcium 240 5-06 capsule by it y of mg capsule 00:00: mouth once [place] 00 daily as Medical needed for Branch Constipati on. ferrous 2021-0 Yes [id number] 325mg Take 1 Un key sulfate 325 5-06 tablet by ity of mg (65 mg 00:00: mouth 2 [place] iron) 00 (two) Medical tablet times Branch daily. ibuprofen Yes [id number] 600mg Take 1 Univers 600 mg 5-06 tablet by ity of tablet 00:00: mouth [place] 00 every 6 Medical (six) Branch hours as needed (Pain). Take with food or milk. docusate 2021-0 Yes [id number] 240mg Take 1 U nivers calcium 240 5-06 capsule by it y of mg capsule 00:00: mouth once [place] 00 daily as Medical needed for Branch Constipati on. ferrous 2021-0 Yes [id number] 325mg Take 1 Un key sulfate 325 5-06 tablet by ity of mg (65 mg 00:00: mouth 2 [place] iron) 00 (two) Medical tablet times Branch daily. ibuprofen 2021-0 Yes [id number] 600mg Take 1 Univers 600 mg 5-06 tablet by ity of tablet 00:00: mouth [place] 00 every 6 Medical (six) Branch hours as needed (Pain). Take with food or milk. docusate 2021-0 Yes [id number] 240mg Take 1 U nivers calcium 240 5-06 capsule by it y of mg capsule 00:00: mouth once [place] 00 daily as Medical needed for Branch Constipati on. ferrous 2021-0 Yes [id number] 325mg Take 1 Un key sulfate 325 5-06 tablet by ity of mg (65 mg 00:00: mouth 2 [place] iron) 00 (two) Medical tablet times Branch daily. ibuprofen 2021-0 Yes [id number] 600mg Take 1 Univers 600 mg 5-06 tablet by ity of tablet 00:00: mouth [place] 00 every 6 Medical (six) Branch hours as needed (Pain). Take with food or milk. docusate 2021-0 Yes [id number] 240mg Take 1 U nivers calcium 240 5-06 capsule by it y of mg capsule 00:00: mouth once [place] 00 daily as Medical needed for Branch Constipati on. ferrous 2021-0 Yes [id number] 325mg Take 1 Un key sulfate 325 5-06 tablet by ity of mg (65 mg 00:00: mouth 2 [place] iron) 00 (two) Medical tablet times Branch daily. ibuprofen 2-0 Yes [id number] 600mg Take 1 Univers 600 mg 5-06 tablet by ity of tablet 00:00: mouth [place] 00 every 6 Medical (six) Branch hours as needed (Pain). Take with food or milk. docusate 2-0 Yes [id number] 240mg Take 1 U nivers calcium 240 5-06 capsule by it y of mg capsule 00:00: mouth once [place] 00 daily as Medical needed for Branch Constipati on. ferrous 2021-0 Yes [id number] 325mg Take 1 Un key sulfate 325 5-06 tablet by ity of mg (65 mg 00:00: mouth 2 [place] iron) 00 (two) Medical tablet times Branch daily. ibuprofen 2021- Yes [id number] 600mg Take 1 Univers 600 mg 5-06 tablet by ity of tablet 00:00: mouth [place] 00 every 6 Medical (six) Branch hours as needed (Pain). Take with food or milk. docusate 2021- Yes [id number] 240mg Take 1 U nivers calcium 240 5-06 capsule by it y of mg capsule 00:00: mouth once [place] 00 daily as Medical needed for Branch Constipati on. ferrous Yes [id number] 325mg Take 1 Un key sulfate 325 5-06 tablet by ity of mg (65 mg 00:00: mouth 2 [place] iron) 00 (two) Medical tablet times Branch daily. ibuprofen Yes [id number] 600mg Take 1 Univers 600 mg 5-06 tablet by ity of tablet 00:00: mouth [place] 00 every 6 Medical (six) Branch hours as needed (Pain). Take with food or milk. rho(D) Yes 300ug 300 mcg, Univer s immune 5-05 Intramuscu ity of globulin 18:34: lar, ONCE, [place] (RHOGAM) 29 For 1 Medical syringe 300 dose, Branch mcg Conditiona l, Routine HYDROcodone Yes 1{tbl} 1 tablet, Univers -acetaminop 5-05 Oral, ity of hen (NORCO 18:34: Q6HPRN, [place] 5) 5-325 mg 28 Starting Medi fabio tablet 1 on [place] Branch tablet 02/02/22 at 1334, Until Discontinu ed, Routine, Pain (scale 7-10) ibuprofen 2021-0 Yes 600mg 600 mg, Univ ers (IBU) 5-05 Oral, ity of tablet 600 18:34: Q6HPRN, [place] mg 28 Starting Medical on [place] Branch 02/02/22 at 1334, Until Discontinu ed, Routine, Pain (scale 4-6) acetaminoph 2021-0 Yes 650mg 650 mg, Un key en 5-05 Oral, ity of (TYLENOL) 18:34: Q6HPRN, [place] tablet 650 28 Starting Medic al mg on [facility] Branch 02/02/22 at 1334, Until Discontinu ed, Routine, Pain (scale 1-3) diphenhydrA 2021-0 Yes 25mg 25 mg, Univ ers MINE 5-05 Oral, ity of (BENADRYL) 18:34: Q6HPRN, [place] tablet 25 28 Starting Medica l mg on [facility] Branch 02/02/22 at 1334, Until Discontinu ed, Routine, Sleep, Itching ondansetron 2021-0 Yes 4mg 4 mg, Slow Univers (ZOFRAN 5-05 IV Push, ity of (PF)) 18:34: Q8HPRN, [place] injection 4 28 Starting Medi fabio mg on [facility]3] 02/02/22 at 1334, Until Discontinu ed, Routine, Nausea and Vomiting (N/V) simethicone 0 Yes 160mg 160 mg, Un key (GAS RELIEF 5-05 Oral, ity of (SIMETHICON 18:34: PC+HSPRN, [place] E)) 28 Starting Medical chewable on [facility]3] tablet 160 02/02/22 at mg 1334, Until Discontinu ed, Routine, Gas docusate 2021-0 Yes 240mg 240 mg, Unive rs calcium 5-05 Oral, ity of (SURFAK) 18:34: QDAILYPRN, [place] capsule 240 28 Starting Medi fabio mg on [facility]3] 02/02/22 at 1334, Until Discontinu ed, Routine, Constipati on magnesium 0 Yes 30mL 30 mL, Univer s hydroxide 5-05 Oral, ity of (MILK OF 18:34: QDAILYPRN, [place] MAGNESIA) 28 Starting Medica l 400 mg/5 mL on [facility]3] suspension 02/02/22 at 30 mL 1334, Until Discontinu ed, Routine, Constipati on benzocaine- 0 Yes Topical, Un key menthol 5-05 PRN, ity of (DERMOPLAST 18:34: [place] ) 20-0.5 % 28 on [facility] Medical topical 02/02/22 at Branch spray 1334, Until Discontinu ed, Routine, Perineum discomfort wittammy Samson Yes Topical, Un key (TUCKS) 50 5-05 Q4HPRN, ity of % topical 18:02: [place] pad 13 on [place] Medical 02/02/22 at Branch 1302, Until Discontinu ed, Routine, rectal/hem orrhoidal pain diphenoxyla 2021- No 1{tbl} 1 tablet, Univers te-atropine 02-02 05-06 Oral, ity of (LOMOTIL) 17:00: 16:59 Q6HPRN X [place] 2.5-0.025 00 :00 24 HOURS, Medic al mg tablet 1 Starting Bran ch tablet on [place] 02/02/22 at 1200, Until Sun02/03/22 at 1159, Routine, after hemabate carboprost 2021- No 250ug 250 mcg, U nivers (HEMABATE) 02-02 05-05 Intramuscu it y of injection 17:00: 16:57 lar, ONCE, [place] 250 mcg 00 :00 1 dose, On Medica l [facility] 02/02/22 [place] at 1200, MARILYN oxytocin 2021- No 20U 20 Units, Uni vers (PITOCIN) 02-02 05-05 IV ity of injection 17:00: 16:53 Piggyback, [place] 20 Units 00 :00 ONCE, 1 [facility] 1200, Routine PIB 2021- No Epidural, Univers fentaNYL-ro 02-02 05-05 CONTINUOUS i ty of pivacaine 2 13:30: 21:54 PRN, [place] mcg/mL-0.1 00 :00 Starting Medic al % (PF) in on [place] Branch NS 200 mL 02/02/22 at epidural 0830, infusion Until [place] RTU 02/02/22 at 1654, Routine, Intra-op PIB 2021- No Epidural, Univers fentaNYL-ro 02-02 05-05 ONCE INTRA i ty of pivacaine 2 13:30: 21:54 PROCEDURE, [place] mcg/mL-0.1 00 :00 Starting Medic al % (PF) in on [place] Branch NS 200 mL 02/02/22 at epidural 0830, infusion Until [place] RTU 02/02/22 at 1654, Routine, Intra-op lidocaine-e 2021- No Intravenou Univers pinephrine 02-02 s, ONCE ity o f (XYLOCAINE 13:24: 21:54 INTRA [place] W/EPINEPHRI 00 :00 PROCEDURE, Me dical NE) 2 Starting Branch %-1:200,000 on [place] injection 02/02/22 at 0824, Until [place] 02/02/22 at 1654, Routine, Intra-op lidocaine 2021- No Infiltrati U nivers 1% 02-02 on, ONCE ity of (XYLOCAINE) 13:18: 21:54 INTRA [place] 100 mg/10 00 :00 PROCEDURE, Medi fabio mL (1 %) Starting Branch injection on [place] 02/02/22 at 0818, Until [place] 02/02/22 at 1654, Routine, Intra-op misoprostol 2021- No 25ug 25 mcg, Un key (CYTOTEC) 02-02 Vaginal, ity o f quarter-tab 10:30: 18:02 Q4H ABX, [place] let 25 mcg 00 :13 First dose Med ical (after Branch last reorder) on [place] 02/02/22 at 0530, Until Discontinu ed, Routine misoprostol 2021- No 25ug 25 mcg, Un key (CYTOTEC) 02-01 Vaginal, ity o f quarter-tab 23:30: 02:48 ONCE, 1 [place] let 25 mcg 00 :00 dose, On Medic al Sun02/01/22 Branch at 1830, Routine D5W-LR IV 2021- No 1000mL at 125 Uni vers infusion 02-01-05 mL/hr, IV ity o f 1,000 mL 23:30: 18:02 Infusion, [place] 00 :20 CONTINUOUS Medical , Starting Branch on Sun02/01/22 at 1830, Until [place] 02/02/22 at 1302, Routine FENTanyl PF 2021- No 100ug 100 mcg, Univers (SUBLIMAZE 02-01 Slow IV ity o f (PF)) 23:22: 18:02 Push, [place] injection 51 :13 Q1HPRN, Medical 100 mcg Starting Branch on Sun02/01/22 at 1822, Until [place] 02/02/22 at 1302, Routine, contractio n pain without an epidural lactated 2021- No 500mL at 999 Unive rs ringers IV 5-04 05-05 mL/hr, 500 it y of infusion 23:14: 18:02 mL, IV [place] 500 mL 32 :20 Infusion, Medical PRN - SEE Branch INSTRUCTIO NS, Starting on Sun02/01/22 at 1814, Until [place] 02/02/22 at 1302, Routine PNV 2020-10 Yes [id number] Take 1 Univers 102-iron-fo 2-20 TAB-CAP/M2 it y of late-dha 00:00: by mouth [place] (VITAFOL FE 00 daily. Medica l PLUS) 90 mg Branch iron- 1 mg-200 mg Cap PNV 2020-10 Yes [id number] Take 1 Univers 102-iron-fo 2-20 TAB-CAP/M2 it y of late-dha 00:00: by mouth [place] (VITAFOL FE 00 daily. Medica l PLUS) 90 mg Branch iron- 1 mg-200 mg Cap PNV 2020-10 Yes [id number] Take 1 Univers 102-iron-fo 2-20 TAB-CAP/M2 it y of late-dha 00:00: by mouth [place] (VITAFOL FE 00 daily. Medica l PLUS) 90 mg Branch iron- 1 mg-200 mg Cap PNV 2020-10 Yes [id number] Take 1 Univers 102-iron-fo 2-20 TAB-CAP/M2 it y of late-dha 00:00: by mouth [place] (VITAFOL FE 00 daily. Medica l PLUS) 90 mg Branch iron- 1 mg-200 mg Cap PNV 2020-10 Yes [id number] Take 1 Univers 102-iron-fo 2-20 TAB-CAP/M2 it y of late-dha 00:00: by mouth [place] (VITAFOL FE 00 daily. Medica l PLUS) 90 mg Branch iron- 1 mg-200 mg Cap PNV 2020-10 Yes [id number] Take 1 Univers 102-iron-fo 2-20 TAB-CAP/M2 it y of late-dha 00:00: by mouth [place] (VITAFOL FE 00 daily. Medica l PLUS) 90 mg Branch iron- 1 mg-200 mg Cap PNV 2020-10 Yes [id number] Take 1 Univers 102-iron-fo 2-20 TAB-CAP/M2 it y of late-dha 00:00: by mouth [place] (VITAFOL FE 00 daily. Medica l PLUS) 90 mg Branch iron- 1 mg-200 mg Cap PNV 2020-10 Yes [id number] Take 1 Univers 102-iron-fo 2-20 TAB-CAP/M2 it y of late-dha 00:00: by mouth [place] (VITAFOL FE 00 daily. Medica l PLUS) 90 mg Branch iron- 1 mg-200 mg Cap PNV 2020-10 Yes [id number] Take 1 Univers 102-iron-fo 2-20 TAB-CAP/M2 it y of late-dha 00:00: by mouth [place] (VITAFOL FE 00 daily. Medica l PLUS) 90 mg Branch iron- 1 mg-200 mg Cap PNV 2020-10 Yes [id number] Take 1 Univers 102-iron-fo 2-20 TAB-CAP/M2 it y of late-dha 00:00: by mouth [place] (VITAFOL FE 00 daily. Medica l PLUS) 90 mg Branch iron- 1 mg-200 mg Cap PNV 2020-10 Yes [id number] Take 1 Univers 102-iron-fo 2-20 TAB-CAP/M2 it y of late-dha 00:00: by mouth [place] (VITAFOL FE 00 daily. Medica l PLUS) 90 mg Branch iron- 1 mg-200 mg Cap PNV 2020-10 Yes [id number] Take 1 Univers 102-iron-fo 2-20 TAB-CAP/M2 it y of late-dha 00:00: by mouth [place] (VITAFOL FE 00 daily. Medica l PLUS) 90 mg Branch iron- 1 mg-200 mg Cap PNV 2020-10 Yes [id number] Take 1 Univers 102-iron-fo 2-20 TAB-CAP/M2 it y of late-dha 00:00: by mouth [place] (VITAFOL FE 00 daily. Medica l PLUS) 90 mg Branch iron- 1 mg-200 mg Cap PNV 2020-10 Yes [id number] Take 1 Univers 102-iron-fo 2-20 TAB-CAP/M2 it y of late-dha 00:00: by mouth [place] (VITAFOL FE 00 daily. Medica l PLUS) 90 mg Branch iron- 1 mg-200 mg Cap PNV 2020-10 Yes [id number] Take 1 Univers 102-iron-fo 2-20 TAB-CAP/M2 it y of late-dha 00:00: by mouth [place] (VITAFOL FE 00 daily. Medica l PLUS) 90 mg Branch iron- 1 mg-200 mg Cap PNV 2020-10 Yes [id number] Take 1 Univers 102-iron-fo 2-20 TAB-CAP/M2 it y of late-dha 00:00: by mouth [place] (VITAFOL FE 00 daily. Medica l PLUS) 90 mg Branch iron- 1 mg-200 mg Cap PNV 2020-10 Yes [id number] Take 1 Univers 102-iron-fo 2-20 TAB-CAP/M2 it y of late-dha 00:00: by mouth [place] (VITAFOL FE 00 daily. Medica l PLUS) 90 mg Branch iron- 1 mg-200 mg Cap PNV 2020-10 Yes [id number] Take 1 Univers 102-iron-fo 2-20 TAB-CAP/M2 it y of late-dha 00:00: by mouth [place] (VITAFOL FE 00 daily. Medica l PLUS) 90 mg Branch iron- 1 mg-200 mg Cap PNV 2020-10- No [id number] Take 1 Univer s 102-iron-fo 2-20 05-12 TAB-CAP/M2 i ty of late-dha 00:00: 00:00 [place] mouth [place] (VITAFOL FE 00 :00 daily. Medica l PLUS) 90 mg Branch iron- 1 mg-200 mg Cap ferrous Yes 325mg 325 mg, Univer s sulfate 5-24 Oral, BID, ity of tablet 325 13:00: First dose [place] mg 00 on [facility] 02/21/21 at Branch 0800, Until Discontinu ed, Routine ferrous Yes 325mg 325 mg, Univer s sulfate 5-24 Oral, BID, ity of tablet 325 13:00: First dose [place] mg 00 on [facility] 02/21/21 at Branch 0800, Until Discontinu ed, Routine ibuprofen Yes 600mg 600 mg, Univ ers (IBU) 5-24 Oral, Q6H ity of tablet 600 05:00: ABX, First [place] mg 00 dose on [facility] Branch 02/21/21 at 0000, Until Discontinu ed, Routine ibuprofen Yes 600mg 600 mg, Univ ers (IBU) 5-24 Oral, Q6H ity of tablet 600 05:00: ABX, First [place] mg 00 dose on [facility] Branch 02/21/21 at 0000, Until Discontinu ed, Routine acetaminoph Yes [id number] 650mg Take 2 Univers en 325 mg 5-24 tablets by ity of tablet 00:00: mouth [place] 00 every 6 Medical (six) Branch hours as needed for Pain (scale 1-3) or Pain (scale 4-6). acetaminoph Yes [id number] 650mg Take 2 Univers en 325 mg 5-24 tablets by ity of tablet 00:00: mouth [place] 00 every 6 Medical (six) Branch hours as needed for Pain (scale 1-3) or Pain (scale 4-6). Yes [id number] 1{tbl} Take 1 Univers vitamin 5-24 tablet by ity of w/FA tablet 00:00: mouth [place] 00 daily. Medical Branch docusate Yes [id number] 240mg Take 1 U nivers calcium 240 5-24 capsule by it y of mg capsule 00:00: mouth once [place] 00 daily as Medical needed for Branch Constipati on. ferrous Yes [id number] 325mg Take 1 Un key sulfate 325 5-24 tablet by ity of mg (65 mg 00:00: mouth 2 [place] iron) 00 (two) Medical tablet times Branch daily. ibuprofen Yes [id number] 600mg Take 1 Univers 600 mg 5-24 tablet by ity of tablet 00:00: mouth [place] 00 every 6 Medical (six) Branch hours as needed (Pain). Take with food or milk. foLIC acid Yes [id number] 1mg Take 1 Univers 1 mg tablet 5-24 tablet by ity of 00:00: mouth [place] 00 daily. Medical Branch ascorbic Yes [id number] 500mg Take 1 U nivers acid, 5-24 tablet by ity of vitamin C, 00:00: mouth [place] (VITAMIN C) 00 daily. Medica l 500 mg Branch tablet acetaminoph 0 Yes [id number] 650mg Take 2 Univers en 325 mg 5-24 tablets by ity of tablet 00:00: mouth [place] 00 every 6 Medical (six) Branch hours as needed for Pain (scale 1-3) or Pain (scale 4-6). 2020-0 Yes [id number] 1{tbl} Take 1 Univers vitamin 5-24 tablet by ity of w/FA tablet 00:00: mouth [place] 00 daily. Medical Branch docusate 0 Yes [id number] 240mg Take 1 U nivers calcium 240 5-24 capsule by it y of mg capsule 00:00: mouth once [place] 00 daily as Medical needed for Branch Constipati on. ferrous Yes [id number] 325mg Take 1 Un key sulfate 325 5-24 tablet by ity of mg (65 mg 00:00: mouth 2 [place] iron) 00 (two) Medical tablet times Branch daily. ibuprofen Yes [id number] 600mg Take 1 Univers 600 mg 5-24 tablet by ity of tablet 00:00: mouth [place] 00 every 6 Medical (six) Branch hours as needed (Pain). Take with food or milk. foLIC acid Yes [id number] 1mg Take 1 Univers 1 mg tablet 5-24 tablet by ity of 00:00: mouth [place] 00 daily. Medical Branch ascorbic 0 Yes [id number] 500mg Take 1 U nivers acid, 5-24 tablet by ity of vitamin C, 00:00: mouth [place] (VITAMIN C) 00 daily. Medica l 500 mg Branch tablet acetaminoph Yes [id number] 650mg Take 2 Univers en 325 mg 5-24 tablets by ity of tablet 00:00: mouth [place] 00 every 6 Medical (six) Branch hours as needed for Pain (scale 1-3) or Pain (scale 4-6). 0 Yes [id number] 1{tbl} Take 1 Univers vitamin 5-24 tablet by ity of w/FA tablet 00:00: mouth [place] 00 daily. Medical Branch docusate 0 Yes [id number] 240mg Take 1 U nivers calcium 240 5-24 capsule by it y of mg capsule 00:00: mouth once [place] 00 daily as Medical needed for Branch Constipati on. ferrous Yes [id number] 325mg Take 1 Un key sulfate 325 5-24 tablet by ity of mg (65 mg 00:00: mouth 2 [place] iron) 00 (two) Medical tablet times Branch daily. ibuprofen Yes [id number] 600mg Take 1 [facility] 600 mg 5-24 tablet by ity of tablet 00:00: mouth [place] 00 every 6 Medical (six) Branch hours as needed (Pain). Take with food or milk. foLIC acid Yes [id number] 1mg Take 1 [facility] 1 mg tablet 5-24 tablet by ity of 00:00: mouth [place] 00 daily. Medical Branch ascorbic Yes [id number] 500mg Take 1 U nivers acid, 5-24 tablet by ity of vitamin C, 00:00: mouth [place] (VITAMIN C) 00 daily. Medica l 500 mg Branch tablet acetaminoph Yes [id number] 650mg Take 2 [facility] en 325 mg 5-24 tablets by ity of tablet 00:00: mouth [place] 00 every 6 Medical (six) Branch hours as needed for Pain (scale 1-3) or Pain (scale 4-6). Yes [id number] 1{tbl} Take 1 [facility] vitamin 5-24 tablet by ity of w/FA tablet 00:00: mouth [place] 00 daily. Medical Branch docusate Yes [id number] 240mg Take 1 U nivers calcium 240 5-24 capsule by it y of mg capsule 00:00: mouth once [place] 00 daily as Medical needed for Branch Constipati on. ferrous Yes [id number] 325mg Take 1 Un key sulfate 325 5-24 tablet by ity of mg (65 mg 00:00: mouth 2 [place] iron) 00 (two) Medical tablet times Branch daily. ibuprofen Yes [id number] 600mg Take 1 [facility] 600 mg 5-24 tablet by ity of tablet 00:00: mouth [place] 00 every 6 Medical (six) Branch hours as needed (Pain). Take with food or milk. foLIC acid 0 Yes [id number] 1mg Take 1 [facility] 1 mg tablet 5-24 tablet by ity of 00:00: mouth [place] 00 daily. Medical Branch ascorbic Yes [id number] 500mg Take 1 U nivers acid, 5-24 tablet by ity of vitamin C, 00:00: mouth [place] (VITAMIN C) 00 daily. Medica l 500 mg Branch tablet acetaminoph Yes [id number] 650mg Take 2 [facility] en 325 mg 5-24 tablets by ity of tablet 00:00: mouth [place] 00 every 6 Medical (six) Branch hours as needed for Pain (scale 1-3) or Pain (scale 4-6). acetaminoph 2021- No [id number] 650mg Take 2 [facility] en 325 mg 5-24 01-06 tablets by ity of tablet 00:00: 00:00 mouth [place] 00 :00 every 6 Medical (six) Branch hours as needed for Pain (scale 1-3) or Pain (scale 4-6). 2020- No [id number] 1{tbl} Take 1 [facility] vitamin 5-24 12-20 tablet by ity of w/FA tablet 00:00: 00:00 mouth [place] 00 :00 daily. Medical Branch docusate 2020- No [id number] 240mg Take 1 [facility] calcium 240 5-24 12-20 capsule by i ty of mg capsule 00:00: 00:00 mouth once [place] 00 :00 daily as Medical needed for Branch Constipati on. ferrous 2020- No [id number] 325mg Take 1 U nivers sulfate 325 5-24 12-20 tablet by it y of mg (65 mg 00:00: 00:00 mouth 2 [place] iron) 00 :00 (two) Medical tablet times Branch daily. ibuprofen 2020- No [id number] 600mg Take 1 [facility] 600 mg 5-24 12-20 tablet by ity of tablet 00:00: 00:00 mouth [place] 00 :00 every 6 Medical (six) Branch hours as needed (Pain). Take with food or milk. foLIC acid 2020- No [id number] 1mg Take 1 [facility] 1 mg tablet 5-24 12-20 tablet by it y of 00:00: 00:00 mouth [place] 00 :00 daily. Medical Branch ascorbic 2020- No [id number] 500mg Take 1 [facility] acid, 5-24 12-20 tablet by ity of vitamin C, 00:00: 00:00 mouth [place] (VITAMIN C) 00 :00 daily. Medica l 500 mg Branch tablet HYDROcodone 2020- No [id number] 1{tbl} Take 1 U nivers -acetaminop 5-24 - tablet by it y of hen 5-325 00:00: 04:59 mouth [place] mg tablet 00 :00 every 6 Medical (six) Branch hours as needed for Pain (scale 7-10) for up to 7 days. Indication s: acute pain HYDROcodone 2020- No [id number] 1{tbl} Take 1 U nivers -acetaminop 5-24 - tablet by it y of hen 5-325 00:00: 04:59 mouth [place] mg tablet 00 :00 every 6 Medical (six) Branch hours as needed for Pain (scale 7-10) for up to 7 days. Indication s: acute pain gabapentin 2020- No [id number] 300mg Take 1 [facility] 300 mg 5-24 05-30 capsule by ity of capsule 00:00: 04:59 mouth 3 [place] 00 :00 (three) Medical times Branch daily for 5 days. gabapentin 2020- No [id number] 300mg Take 1 [facility] 300 mg 5-24 05-30 capsule by ity of capsule 00:00: 04:59 mouth 3 [place] 00 :00 (three) Medical times Branch daily for 5 days. lactated No 1000mL at 125 Univ ers ringers IV 02-20 05-23 mL/hr, ity of infusion 05:00: 04:23 1,000 mL, [place] 1,000 mL 00 :00 IV Medical Infusion, Branch ONCE, 1 dose, 02/20/21 at 0000, Routine ketorolac No 30mg 30 mg, Unive rs (TORADOL) 02-20 05-23 Slow IV ity of injection 05:00: 23:03 Push, Q6H [place] 30 mg 00 :00 ABX, 4 Medical doses, Branch First dose on 02/20/21 at 0000, Last dose on 02/20/21 at 1800, Routine
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 Restricted medication : DANIELLE, BONI CAM acetaminoph Yes 650mg 650 mg, Un key en -22 Oral, Q6H ity of (TYLENOL) 23:00: ABX, First [place] tablet 650 00 dose on Medica l mg Sat Branch 02/19/21 at 1800, Until Discontinu ed, Routine HYDROcodone 2020-0 Yes 1{tbl} 1 tablet, Univers -acetaminop 5-22 Oral, ity of hen (NORCO 23:00: Q6HPRN, [place] 5) 5-325 mg 00 Starting Medi fabio tablet 1 Sat Branch tablet 02/19/21 at 1800, Until Discontinu ed, Routine, Pain (scale 7-10) acetaminoph Yes 650mg 650 mg, Un key en -22 Oral, Q6H ity of (TYLENOL) 23:00: ABX, First [place] tablet 650 00 dose on Medica l mg Sat Branch 02/19/21 at 1800, Until Discontinu ed, Routine HYDROcodone 0 Yes 1{tbl} 1 tablet, Univers -acetaminop 5-22 Oral, ity of hen (NORCO 23:00: Q6HPRN, [place] 5) 5-325 mg 00 Starting Medi fabio tablet 1 Sat Branch tablet 02/19/21 at 1800, Until Discontinu ed, Routine, Pain (scale 7-10) oxytocin 2020- No at 125 Univer s (PITOCIN) 02-19- mL/hr, IV ity of 40 Units in 22:45: 21:40 Infusion, [place] lactated 00 :00 ONCE, 1 Medical ringers dose, Sat Branch 1,000 mL IV 02/19/21 at infusion 1745, Routine FENTanyl PF 2020- No 50ug 50 mcg, Un key (SUBLIMAZE 02-19 Slow IV ity o f (PF)) 19:00: 16:49 Push, [place] injection 00 :00 ONCE, 1 Medical 50 mcg dose, Sat Branch 02/19/21 at 1400, Routine methylergon 2020- No .2mg 0.2 mg, Un key ovine 02-19 Intramuscu ity of (METHERGINE 18:45: 17:37 lar, ONCE, [place] ) injection 00 :00 1 dose, Medic al 0.2 mg Sat Branch 02/19/21 at 1345, Routine ceFAZolin 2020- No 2000mg 2 g (2,000 Univers in dextrose 02-19 05-22 mg), IV ity of (iso-os) 18:30: 17:42 Piggyback, [place] (ANCEF) 2 00 :00 ONCE, 1 Medical gram/100 mL dose, Sat Bra [facility] Piggyback 2 02/19/21 at g 1330, 100 mL
Reas on for Anti-Infec tive: Empiric Non-Surgic al Prophylaxi s
Durat ion of therapy: 72 hours acetaminoph 2020- No 650mg 650 mg, U nivers en 02-19 Oral, ity of (TYLENOL) 17:15: 17:25 ONCE, 1 [place] tablet 650 00 :00 dose, Sat Medi fabio mg 02/19/21 at Branch 1215, Routine diphenhydrA 2020- No 25mg 25 mg, Uni vers MINE 02-19 Slow IV ity of (BENADRYL) 17:15: 17:26 Push, [place] injection 00 :00 ONCE, 1 Medical 25 mg dose, Sat Branch 02/19/21 at 1215, Routine lactated 2020- No 1000mL at 999 Univ ers ringers IV 02-19 mL/hr, ity of infusion 17:15: 16:16 1,000 mL, [place] 1,000 mL 00 :00 IV Medical Infusion, [place] ONCE, 1 dose, 02/19/21 at 1215, Routine simethicone Yes 160mg 160 mg, Un key (GAS RELIEF 02-19 Oral, ity of (SIMETHICON 14:00: PC+HS, [place] E)) 00 First dose Medical chewable on Sat Branch tablet 160 02/19/21 at mg 0900, Until Discontinu ed, Routine simethicone Yes 160mg 160 mg, Un key (GAS RELIEF 22 Oral, ity of (SIMETHICON 14:00: PC+HS, [place] E)) 00 First dose Medical chewable on Sat Branch tablet 160 02/19/21 at mg 0900, Until Discontinu ed, Routine gabapentin Yes 300mg 300 mg, Uni vers (NEURONTIN) 5-22 Oral, TID, it y of capsule 300 13:00: First dose [place] mg 00 on [facility] Medical 02/19/21 at Branch 0800, Until Discontinu ed, Routine gabapentin 2020-0 Yes 300mg 300 mg, Uni vers (NEURONTIN) 02-19 Oral, TID, it y of capsule 300 13:00: First dose [place] mg 00 on [facility] Medical 02/19/21 at Branch 0800, Until Discontinu ed, Routine rho(D) 0 Yes 300ug 300 mcg, Univer s immune 5-22 Intramuscu ity of globulin 12:03: lar, ONCE, [place] (RHOGAM) 48 For 1 Medical syringe 300 dose, Branch mcg Conditiona l, Routine rho(D) Yes 300ug 300 mcg, Univer s immune 5-22 Intramuscu ity of globulin 12:03: lar, ONCE, [place] (RHOGAM) 48 For 1 Medical syringe 300 dose, Branch mcg Conditiona l, Routine ondansetron 0 Yes 4mg 4 mg, Slow Univers (ZOFRAN 5-22 IV Push, ity of (PF)) 12:03: Q8HPRN, [place] injection 4 43 Starting Medi fabio mg Sat Branch 02/19/21 at 0703, Until Discontinu ed, Routine, Nausea and Vomiting (N/V) magnesium 2020-0 Yes 30mL 30 mL, Univer s hydroxide 5-22 Oral, ity of (MILK OF 12:03: QDAILYPRN, [place] MAGNESIA) 43 Starting Medica l 400 mg/5 mL Sat Branch suspension 02/19/21 at 30 mL 0703, Until Discontinu ed, Routine, Constipati on ondansetron 0 Yes 4mg 4 mg, Slow Univers (ZOFRAN 5-22 IV Push, ity of (PF)) 12:03: Q8HPRN, [place] injection 4 43 Starting Medi fabio mg Sat Branch 02/19/21 at 0703, Until Discontinu ed, Routine, Nausea and Vomiting (N/V) magnesium 2020-0 Yes 30mL 30 mL, Univer s hydroxide 5-22 Oral, ity of (MILK OF 12:03: QDAILYPRN, [place] MAGNESIA) 43 Starting Medica l 400 mg/5 mL Sat Branch suspension 02/19/21 at 30 mL 0703, Until Discontinu ed, Routine, Constipati on diphenhydrA 2020-0 Yes 25mg 25 mg, Univ ers MINE 5-22 Oral, ity of (BENADRYL) 12:03: Q6HPRN, [place] tablet 25 42 Starting Medica l mg Sat Branch 02/19/21 at 0703, Until Discontinu ed, Routine, Sleep, Itching bisacodyL 2020-0 Yes 10mg 10 mg, Univer s (DULCOLAX) 5-22 Rectal, ity of suppository 12:03: QDAILYPRN, [place] 10 mg 42 Starting Medical Sat Branch 02/19/21 at 0703, Until Discontinu ed, Routine, Constipati on diphenhydrA 2020-0 Yes 25mg 25 mg, Univ ers MINE 5-22 Oral, ity of (BENADRYL) 12:03: Q6HPRN, [place] tablet 42 Starting Medica l mg Sat Branch 02/19/21 at 0703, Until Discontinu ed, Routine, Sleep, Itching bisacodyL 0 Yes 10mg 10 mg, Univer s (DULCOLAX) 5-22 Rectal, ity of suppository 12:03: QDAILYPRN, [place] 10 mg 42 Starting Medical Sat Branch 02/19/21 at 0703, Until Discontinu ed, Routine, Constipati on ondansetron 2020- No 4mg 4 mg, Slow Univers (ZOFRAN 02-19 05-22 IV Push, ity of (PF)) 12:03: 13:18 PRN, 1 [place] injection 4 34 :00 dose, Medical mg Starting Branch 02/19/21 at 0703, Until 02/19/21 at 0818, Routine, Nausea and Vomiting (N/V), PACU FENTanyl PF 2020-0 Yes 25ug 25 mcg, Uni vers (SUBLIMAZE 5-22 Slow IV ity of (PF)) 12:03: Push, [place] injection 33 Q5MIN PRN, Medi fabio 25 mcg 4 doses, Branch Starting 02/19/21 at 0703, Until Discontinu ed, Routine, Pain (scale 4-6), PACU FENTanyl PF 2020-0 Yes 25ug 25 mcg, Uni vers (SUBLIMAZE 5-22 Slow IV ity of (PF)) 12:03: Push, [place] injection 33 Q5MIN PRN, Medi fabio 25 mcg 4 doses, Branch Starting 02/19/21 at 0703, Until Discontinu ed, Routine, Pain (scale 4-6), PACU sodium Yes PRN, Univers chloride 02-19 Starting ity of 0.9 % 11:15: Sat [place] irrigation 00 02/19/21 at Med ical solution 0615, Branch Until Discontinu ed, Intra-op sodium Yes PRN, Univers chloride 02-19 Starting ity of 0.9 % 11:15: Sat [place] irrigation 00 02/19/21 at Med ical solution 0615, Branch Until Discontinu ed, Intra-op azithromyci 2020- No 500mg 500 mg, IV Univers n 02-19 Piggyback, ity of (ZITHROMAX) 10:04: 11:14 O.R. [place] 500 mg in 56 :00 HOLDING Medical NaCl 0.9% ONCE, 1 Branch (NS) 250 mL dose, VIAL-MATE Starting IV Sat piggyback 02/19/21 at 0504, Until Discontinu ed, 250 mL
Reas on for Anti-Infec tive: Surgical Prophylaxi s
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
Reason for Anti-Infec tive: Surgical Prophylaxi s sodium 2020- No 30mL 30 mL, Univers citrate-cit 02-19 Oral, ity of ailyn acid 09:15: 10:13 PRE-PROCED [place] (BICITRA) 42 :00 URE ONCE, Medic al 500-334 1 dose, Branch mg/5 mL Starting solution 30 Sat mL 02/19/21 at 0415, Until Discontinu ed, Routine, Surgery/Pr ocedure lactated 2020- No 500mL at 999 Unive rs ringers IV 02-19 mL/hr, 500 it y of infusion 09:15: 12:03 mL, IV [place] 500 mL 41 :48 Infusion, Medical PRN - SEE Branch INSTRUCTIO NS, Starting 02/19/21 at 0415, Until 02/19/21 at 0703, Routine betamethaso 2020- No 12mg 12 mg, Uni vers ne acet,sod 02-16 Intramuscu i ty of phos 15:00: 14:50 lar, ONCE, [place] (CELESTONE 00 :00 1 dose, Medica l SOLUSPAN) 6 Sun Branch mg/mL 02/16/21 at injection 1000, 12 mg Routine betamethaso 2020- No 12mg 12 mg, Uni vers ne acet,sod 02-15 05-20 Intramuscu i ty of phos 13:00: 12:59 lar, Q24H, [place] (CELESTONE 00 :00 2 doses, Medic al SOLUSPAN) 6 First dose Br anch mg/mL on Sun injection 02/15/21 at 12 mg 0800, Last dose on Sun02/16/21 at 0800, Routine D5W-LR IV Yes 1000mL at 125 Univ ers infusion 5-18 mL/hr, IV ity of 1,000 mL 02:00: Infusion, [place] 00 CONTINUOUS Medical , Starting Branch 02/14/21 at 2100, Until Discontinu ed, Routine metroNIDAZO Yes 500mg 500 mg, Un key LE (FLAGYL) 5-18 Oral, BID, it y of tablet 500 01:00: First dose [place] mg 00 on Sun Medical 02/14/21 at Branch 2000, Until Discontinu ed, Routine
Reason for Anti-Infec tive: Documented Infection< br>Documen arielle Infection Site: Other
O ther site: vaginitis< br>Duratio n of Therapy: 7 days metroNIDAZO Yes [id number] 500mg Take 1 [facility] LE 500 mg 5-17 tablet by ity o f tablet 00:00: mouth [place] 00 every 12 Medical (twelve) Branch hours. metroNIDAZO 2020-0 Yes [id number] 500mg Take 1 [facility] LE 500 mg 5-17 tablet by ity o f tablet 00:00: mouth [place] 00 every 12 Medical (twelve) Branch hours. metroNIDAZO 2020-0 Yes [id number] 500mg Take 1 [facility] LE 500 mg 5-17 tablet by ity o f tablet 00:00: mouth [place] 00 every 12 Medical (twelve) Branch hours. metroNIDAZO 2020-0 Yes [id number] 500mg Take 1 [facility] LE 500 mg 5-17 tablet by ity o f tablet 00:00: mouth [place] 00 every 12 Medical (twelve) Branch hours. metroNIDAZO 2020-0 Yes [id number] 500mg Take 1 [facility] LE 500 mg 5-17 tablet by ity o f tablet 00:00: mouth [place] 00 every 12 Medical (twelve) Branch hours. metroNIDAZO 2020-0 Yes [id number] 500mg Take 1 [facility] LE 500 mg 5-17 tablet by ity o f tablet 00:00: mouth [place] 00 every 12 Medical (twelve) Branch hours. metroNIDAZO 2020-0 Yes [id number] 500mg Take 1 [facility] LE 500 mg 5-17 tablet by ity o f tablet 00:00: mouth [place] 00 every 12 Medical (twelve) Branch hours. metroNIDAZO 2020-0 Yes [id number] 500mg Take 1 [facility] LE 500 mg 5-17 tablet by ity o f tablet 00:00: mouth [place] 00 every 12 Medical (twelve) Branch hours. metroNIDAZO 2020-0 2021- No [id number] 500mg Take 1 [facility] LE 500 mg 5-17 12-20 tablet by ity of tablet 00:00: 00:00 mouth [place] 00 :00 every 12 Medical (twelve) Branch hours. albuterol 2019-10 Yes [id number] 2{puff} Inhale 2 Univers 90 2-16 Puffs ity of mcg/actuati 00:00: every 6 [place] on inhaler 00 (six) Medical hours as Branch needed for Wheezing, Shortness of Breath, Bronchospa sm or Chest tightness. albuterol 2019-10 Yes [id number] 2{puff} Inhale 2 Univers 90 2-16 Puffs ity of mcg/actuati 00:00: every 6 [place] on inhaler 00 (six) Medical hours as Branch needed for Wheezing, Shortness of Breath, Bronchospa sm or Chest tightness. albuterol 2019-10 Yes [id number] 2{puff} Inhale 2 Univers 90 2-16 Puffs ity of mcg/actuati 00:00: every 6 [place] on inhaler 00 (six) Medical hours as Branch needed for Wheezing, Shortness of Breath, Bronchospa sm or Chest tightness. albuterol 2019-10 Yes [id number] 2{puff} Inhale 2 Univers 90 2-16 Puffs ity of mcg/actuati 00:00: every 6 [place] on inhaler 00 (six) Medical hours as Branch needed for Wheezing, Shortness of Breath, Bronchospa sm or Chest tightness. albuterol 2019-10 Yes [id number] 2{puff} Inhale 2 Univers 90 2-16 Puffs ity of mcg/actuati 00:00: every 6 [place] on inhaler 00 (six) Medical hours as Branch needed for Wheezing, Shortness of Breath, Bronchospa sm or Chest tightness. albuterol 2019-10 Yes [id number] 2{puff} Inhale 2 Univers 90 2-16 Puffs ity of mcg/actuati 00:00: every 6 [place] on inhaler 00 (six) Medical hours as Branch needed for Wheezing, Shortness of Breath, Bronchospa sm or Chest tightness. albuterol 2019-10 Yes [id number] 2{puff} Inhale 2 [facility] 90 2-16 Puffs ity of mcg/actuati 00:00: every 6 [place] on inhaler 00 (six) Medical hours as Branch needed for Wheezing, Shortness of Breath, Bronchospa sm or Chest tightness. albuterol 2019-10 Yes [id number] 2{puff} Inhale 2 [facility] 90 2-16 Puffs ity of mcg/actuati 00:00: every 6 [place] inhaler 00 (six) Medical hours as Branch needed for Wheezing, Shortness of Breath, Bronchospa sm or Chest tightness. albuterol 2019-10 Yes [id number] 2{puff} Inhale 2 Univers 90 2-16 Puffs ity of mcg/actuati 00:00: every 6 [place] inhaler 00 (six) Medical hours as Branch needed for Wheezing, Shortness of Breath, Bronchospa sm or Chest tightness. albuterol 2019-10 Yes [id number] 2{puff} Inhale 2 Univers 90 2-16 Puffs ity of mcg/actuati 00:00: every 6 [place] inhaler 00 (six) Medical hours as Branch needed for Wheezing, Shortness of Breath, Bronchospa sm or Chest tightness. albuterol 2019-10 Yes [id number] 2{puff} Inhale 2 Univers 90 2-16 Puffs ity of mcg/actuati 00:00: every 6 [place] inhaler 00 (six) Medical hours as Branch needed for Wheezing, Shortness of Breath, Bronchospa sm or Chest tightness. albuterol 2019-10 Yes [id number] 2{puff} Inhale 2 Univers 90 2-16 Puffs ity of mcg/actuati 00:00: every 6 [place] inhaler 00 (six) Medical hours as Branch needed for Wheezing, Shortness of Breath, Bronchospa sm or Chest tightness. albuterol 2019-10 Yes [id number] 2{puff} Inhale 2 Univers 90 2-16 Puffs ity of mcg/actuati 00:00: every 6 [place] inhaler 00 (six) Medical hours as Branch needed for Wheezing, Shortness of Breath, Bronchospa sm or Chest tightness. albuterol 2019-10 Yes [id number] 2{puff} Inhale 2 [facility] 90 2-16 Puffs ity of mcg/actuati 00:00: every 6 [place] inhaler 00 (six) Medical hours as Branch needed for Wheezing, Shortness of Breath, Bronchospa sm or Chest tightness. albuterol 2019-10 Yes [id number] 2{puff} Inhale 2 [facility] 90 2-16 Puffs ity of mcg/actuati 00:00: every 6 [place] inhaler 00 (six) Medical hours as Branch needed for Wheezing, Shortness of Breath, Bronchospa sm or Chest tightness. albuterol 2019-10 Yes [id number] 2{puff} Inhale 2 [facility] 90 2-16 Puffs ity of mcg/actuati 00:00: every 6 [place] inhaler 00 (six) Medical hours as Branch needed for Wheezing, Shortness of Breath, Bronchospa sm or Chest tightness. albuterol 2019-10 Yes [id number] 2{puff} Inhale 2 [facility] 90 2-16 Puffs ity of mcg/actuati 00:00: every 6 [place] inhaler 00 (six) Medical hours as Branch needed for Wheezing, Shortness of Breath, Bronchospa sm or Chest tightness. albuterol 2019-10 Yes [id number] 2{puff} Inhale 2 [facility] 90 2-16 Puffs ity of mcg/actuati 00:00: every 6 [place] inhaler 00 (six) Medical hours as Branch needed for Wheezing, Shortness of Breath, Bronchospa sm or Chest tightness. albuterol 2019-10 Yes [id number] 2{puff} Inhale 2 [facility] 90 2-16 Puffs ity of mcg/actuati 00:00: every 6 [place] inhaler 00 (six) Medical hours as Branch needed for Wheezing, Shortness of Breath, Bronchospa sm or Chest tightness. albuterol 2019-10 Yes [id number] 2{puff} Inhale 2 [facility] 90 2-16 Puffs ity of mcg/actuati 00:00: every 6 [place] inhaler 00 (six) Medical hours as Branch needed for Wheezing, Shortness of Breath, Bronchospa sm or Chest tightness. albuterol 2019-10 Yes [id number] 2{puff} Inhale 2 [facility] 90 2-16 Puffs ity of mcg/actuati 00:00: every 6 [place] inhaler 00 (six) Medical hours as Branch needed for Wheezing, Shortness of Breath, Bronchospa sm or Chest tightness. albuterol 2019-10 Yes [id number] 2{puff} Inhale 2 [facility] 90 2-16 Puffs ity of mcg/actuati 00:00: every 6 [place] inhaler 00 (six) Medical hours as Branch needed for Wheezing, Shortness of Breath, Bronchospa sm or Chest tightness. albuterol 2019-10 Yes [id number] 2{puff} Inhale 2 [facility] 90 2-16 Puffs ity of mcg/actuati 00:00: every 6 [place] inhaler 00 (six) Medical hours as Branch needed for Wheezing, Shortness of Breath, Bronchospa sm or Chest tightness. albuterol 2019-10 Yes [id number] 2{puff} Inhale 2 [facility] 90 2-16 Puffs ity of mcg/actuati 00:00: every 6 [place] inhaler 00 (six) Medical hours as Branch needed for Wheezing, Shortness of Breath, Bronchospa sm or Chest tightness. albuterol 2019-10- No [id number] 2{puff} Inhale 2 [facility] 90 2-16 05-24 Puffs ity of mcg/actuati 00:00: 00:00 every 6 [place] on inhaler 00 :00 (six) Medical hours as Branch needed for Wheezing, Shortness of Breath, Bronchospa sm or Chest tightness. albuterol 2019-10- No [id number] 2{puff} Inhale 2 [facility] 90 2-16 05-24 Puffs ity of mcg/actuati 00:00: 00:00 every 6 [place] on inhaler 00 :00 (six) Medical hours as Branch needed for Wheezing, Shortness of Breath, Bronchospa sm or Chest tightness. Nitrofurant 2019-10 Yes [id number] 100mg Take 1 Univers oin&Nit. 2-01 capsule by ity o f Macrocryst 00:00: mouth 2 [place] (MACROBID) 00 (two) Medical 100 mg times Branch capsule daily. Nitrofurant 2019-10 Yes [id number] 100mg Take 1 Univers oin&Nit. 2-01 capsule by ity o f Macrocryst 00:00: mouth 2 [place] (MACROBID) 00 (two) Medical 100 mg times Branch capsule daily. Nitrofurant 2019-10 Yes [id number] 100mg Take 1 Univers oin&Nit. 2-01 capsule by ity o f Macrocryst 00:00: mouth 2 [place] (MACROBID) 00 (two) Medical 100 mg times Branch capsule daily. Nitrofurant 2019-10 Yes [id number] 100mg Take 1 Univers oin&Nit. 2-01 capsule by ity o f Macrocryst 00:00: mouth 2 [place] (MACROBID) 00 (two) Medical 100 mg times Branch capsule daily. Nitrofurant 2019-10 Yes [id number] 100mg Take 1 Univers oin&Nit. 2-01 capsule by ity o f Macrocryst 00:00: mouth 2 [place] (MACROBID) 00 (two) Medical 100 mg times Branch capsule daily. Nitrofurant 2019-10 Yes [id number] 100mg Take 1 Univers oin&Nit. 2-01 capsule by ity o f Macrocryst 00:00: mouth 2 [place] (MACROBID) 00 (two) Medical 100 mg times Branch capsule daily. Nitrofurant 2019-10 Yes [id number] 100mg Take 1 Univers oin&Nit. 2-01 capsule by ity o f Macrocryst 00:00: mouth 2 [place] (MACROBID) 00 (two) Medical 100 mg times Branch capsule daily. Nitrofurant 2019-10 Yes [id number] 100mg Take 1 Univers oin&Nit. 2-01 capsule by ity o f Macrocryst 00:00: mouth 2 [place] (MACROBID) 00 (two) Medical 100 mg times Branch capsule daily. Nitrofurant 2019-10 Yes [id number] 100mg Take 1 [facility] oin&Nit. 2-01 capsule by ity o f Macrocryst 00:00: mouth 2 [place] (MACROBID) 00 (two) Medical 100 mg times Branch capsule daily. Nitrofurant 2019-10 Yes [id number] 100mg Take 1 Univers oin&Nit. 2-01 capsule by ity o f Macrocryst 00:00: mouth 2 [place] (MACROBID) 00 (two) Medical 100 mg times Branch capsule daily. Nitrofurant 2019-10- No [id number] 100mg Take 1 Univers oin&Nit. 2-01 02-03 capsule by ity of Macrocryst 00:00: 00:00 mouth 2 [place] (MACROBID) 00 :00 (two) Medical 100 mg times Branch capsule daily. Nitrofurant 2019-10- No [id number] 100mg Take 1 Univers oin&Nit. 1-05 11-16 capsule by ity of Macrocryst 00:00: 05:59 mouth 2 [place] (MACROBID) 00 :00 (two) Medical 100 mg times Branch capsule daily for 10 days. Nitrofurant 2019-10- No [id number] 100mg Take 1 Univers oin&Nit. 1-05 11-16 capsule by ity of Macrocryst 00:00: 05:59 mouth 2 [place] (MACROBID) 00 :00 (two) Medical 100 mg times Branch capsule daily for 10 days. Nitrofurant 2019-10- No [id number] 100mg Take 1 Univers oin&Nit. 1-05 11-16 capsule by ity of Macrocryst 00:00: 05:59 mouth 2 [place] (MACROBID) 00 :00 (two) Medical 100 mg times Branch capsule daily for 10 days. Nitrofurant 2019-10 2020- No [id number] 100mg Take 1 Univers oin&Nit. 1-05 11-16 capsule by ity of Macrocryst 00:00: 05:59 mouth 2 [place] (MACROBID) 00 :00 (two) Medical 100 mg times Branch capsule daily for 10 days. norgestimat 2018-10 Yes [id number] 1{tbl} Take 1 Univers e-ethinyl 2-09 tablet by ity o f estradiol 00:00: mouth [place] (TRI-LO-SPR 00 daily. Medica l INTEC) Branch 0.18/0.215/ 0.25 mg-25 mcg tablet norgestimat 2018-10 Yes [id number] 1{tbl} Take 1 Univers e-ethinyl 2-09 tablet by ity o f estradiol 00:00: mouth [place] (TRI-LO-SPR 00 daily. Medica l INTEC) Branch 0.18/0.215/ 0.25 mg-25 mcg tablet norgestimat 2018-10 Yes [id number] 1{tbl} Take 1 Univers e-ethinyl 2-09 tablet by ity o f estradiol 00:00: mouth [place] (TRI-LO-SPR 00 daily. Medica l INTEC) Branch 0.18/0.215/ 0.25 mg-25 mcg tablet norgestimat 2018-10 Yes [id number] 1{tbl} Take 1 Univers e-ethinyl 2-09 tablet by ity o f estradiol 00:00: mouth [place] (TRI-LO-SPR 00 daily. Medica l INTEC) Branch 0.18/0.215/ 0.25 mg-25 mcg tablet norgestimat 2018-10 Yes [id number] 1{tbl} Take 1 [facility] e-ethinyl 2-09 tablet by ity o f estradiol 00:00: mouth [place] (TRI-LO-SPR 00 daily. [facility]) Branch 0.18/0.215/ 0.25 mg-25 mcg tablet norgestimat 2018-10 Yes [id number] 1{tbl} Take 1 [facility] e-ethinyl 2-09 tablet by ity o f estradiol 00:00: mouth [place] (TRI-LO-SPR 00 daily. [facility]) Branch 0.18/0.215/ 0.25 mg-25 mcg tablet norgestimat 2018-10 Yes [id number] 1{tbl} Take 1 [facility] e-ethinyl 2-09 tablet by ity o f estradiol 00:00: mouth [place] (TRI-LO-SPR 00 daily. [facility]) Branch 0.18/0.215/ 0.25 mg-25 mcg tablet norgestimat 2018-10 Yes [id number] 1{tbl} Take 1 [facility] e-ethinyl 2-09 tablet by ity o f estradiol 00:00: mouth [place] (TRI-LO-SPR 00 daily. [facility]) Branch 0.18/0.215/ 0.25 mg-25 mcg tablet norgestimat 2018-10 Yes [id number] 1{tbl} Take 1 [facility] e-ethinyl 2-09 tablet by ity o f estradiol 00:00: mouth [place] (TRI-LO-SPR 00 daily. [facility]) Branch 0.18/0.215/ 0.25 mg-25 mcg tablet norgestimat 2018-10 Yes [id number] 1{tbl} Take 1 [facility] e-ethinyl 2-09 tablet by ity o f estradiol 00:00: mouth [place] (TRI-LO-SPR 00 daily. [facility]) Branch 0.18/0.215/ 0.25 mg-25 mcg tablet norgestimat 2018-10 Yes [id number] 1{tbl} Take 1 [facility] e-ethinyl 2-09 tablet by ity o f estradiol 00:00: mouth [place] (TRI-LO-SPR 00 daily. [facility]) Branch 0.18/0.215/ 0.25 mg-25 mcg tablet norgestimat 2018-10 Yes [id number] 1{tbl} Take 1 [facility] e-ethinyl 2-09 tablet by ity o f estradiol 00:00: mouth [place] (TRI-LO-SPR 00 daily. [facility]) Branch 0.18/0.215/ 0.25 mg-25 mcg tablet norgestimat 2018-10 Yes [id number] 1{tbl} Take 1 [facility] e-ethinyl 2-09 tablet by ity o f estradiol 00:00: mouth [place] (TRI-LO-SPR 00 daily. [facility]) Branch 0.18/0.215/ 0.25 mg-25 mcg tablet norgestimat 2018-10 Yes [id number] 1{tbl} Take 1 [facility] e-ethinyl 2-09 tablet by ity o f estradiol 00:00: mouth [place] (TRI-LO-SPR 00 daily. [facility]) Branch 0.18/0.215/ 0.25 mg-25 mcg tablet norgestimat 2018-10 2020- No [id number] 1{tbl} Take 1 [facility] e-ethinyl 2-09 12-16 tablet by ity of estradiol 00:00: 00:00 mouth [place] (TRI-LO-SPR 00 :00 daily. Med[facility] INT[facility]) Branch 0.18/0.215/ 0.25 mg-25 mcg tablet norgestimat 2018-10 2020- No [id number] 1{tbl} Take 1 [facility] e-ethinyl 2-09 12-16 tablet by ity of estradiol 00:00: 00:00 mouth [place] (TRI-LO-SPR 00 :00 daily. Med[facility]) Branch 0.18/0.215/ 0.25 mg-25 mcg tablet Immunizations Ordered Filled Immunization Date Status Comments [facility] Immunization Name Name TDAP 2020-12-23 Completed [facility] 00:00:00 [facility] [place] [facility] TDAP 2020-12-23 Completed [facility] 00:00:00 [facility] [place] [facility] TDAP 2020-12-23 Completed [facility] 00:00:00 [facility] [place] [facility] TDAP 2020-12-23 Completed [facility] 00:00:00 [facility] [place] [facility] TDAP 2020-12-23 Completed [facility] of 00:00:00 [facility] [place] [facility] TDAP 2020-12-23 Completed [facility] 00:00:00 [facility] [place] [facility] TDAP 2020-12-23 Completed [facility] 00:00:00 [facility] [place] [facility] TDAP 2020-12-23 Completed [facility] 00:00:00 [facility] [place] [facility] TDAP 2020-12-23 Completed [facility] 00:00:00 [facility] [place] [facility] TDAP 2020-12-23 Completed [facility] 00:00:00 [facility] [place] [facility] TDAP 2020-12-23 Completed [facility] 00:00:00 [facility] [place] [facility] TDAP 2020-12-23 Completed [facility] of 00:00:00 [facility] [place] [facility] TDAP 2020-12-23 Completed [facility] of 00:00:00 [facility] TDAP 2020-12-23 Completed [facility] 00:00:00 [facility] [place] [facility] TDAP 2020-12-23 Completed [facility] of 00:00:00 [facility] TDAP 2020-12-23 Completed [facility] 00:00:00 [facility] [place] [facility] TDAP 2020-12-23 Completed [facility] 00:00:00 [facility] [place] [facility] TDAP 2020-12-23 Completed [facility] 00:00:00 [facility] [place] [facility] TDAP 2020-12-23 Completed [facility] 00:00:00 [facility] [place] [facility] TDAP 2020-12-23 Completed [facility] of 00:00:00 [facility] [place] [facility] TDAP 2020-12-23 Completed [facility] of 00:00:00 [facility] [place] [facility] TDAP 2020-12-23 Completed [facility] 00:00:00 [facility] [place] [facility] TDAP 2020-12-23 Completed [facility] of 00:00:00 [facility] [place] [facility] TDAP 2020-12-23 Completed [facility] 00:00:00 [facility] [place] [facility] TDAP 2020-12-23 Completed [facility] 00:00:00 [facility] [place] [facility] TDAP 2020-12-23 Completed [facility] 00:00:00 [facility] [place] [facility] TDAP 2020-12-23 Completed [facility] 00:00:00 [facility] [place] [facility] TDAP 2020-12-23 Completed [facility] 00:00:00 [facility] [place] [facility] TDAP 2020-12-23 Completed [facility] 00:00:00 [facility] [place] [facility] TDAP 2020-12-23 Completed [facility] 00:00:00 [facility] [place] [facility] TDAP 2020-12-23 Completed [facility] 00:00:00 [facility] [place] [facility] TDAP 2020-12-23 Completed [facility] 00:00:00 [facility] [place] [facility] TDAP 2020-12-23 Completed [facility] of 00:00:00 [facility] [place] [facility] TDAP 2020-12-23 Completed [facility] 00:00:00 [facility] [place] [facility] TDAP 2020-12-23 Completed [facility] 00:00:00 [facility] TDAP 2020-12-23 Completed [facility] 00:00:00 [facility] [place] [facility] TDAP 2020-12-23 Completed [facility] 00:00:00 [facility] [place] [facility] TDAP 2020-12-23 Completed [facility] 00:00:00 [facility] [place] [facility] Influenza Virus 2019-09-08 Completed [facility]it [facility] of [facility] .5 mL 00:00:00 [place] [facility] Influenza Virus 2019-09-08 Completed [facility] .5 mL 00:00:00 [place] [facility] Influenza Virus 2019-09-08 Completed [facility] .5 mL 00:00:00 [place] [facility] Influenza Virus 2019-09-08 Completed [facility] .5 mL 00:00:00 [place] [facility] Influenza Virus 2019-09-08 Completed [facility] .5 mL 00:00:00 [place] [facility] Influenza Virus 2019-09-08 Completed [facility] .5 mL 00:00:00 [place] [facility] Influenza Virus 2019-09-08 Completed [facility] .5 mL 00:00:00 [place] [facility] Influenza Virus 2019-09-08 Completed [facility] of [facility] .5 mL 00:00:00 [place] [facility] Influenza Virus 2019-09-08 Completed [facility] .5 mL 00:00:00 [place] [facility] Influenza Virus 2019-09-08 Completed [facility] .5 mL 00:00:00 [place] [facility] Influenza Virus 2019-09-08 Completed [facility] of [facility] .5 mL 00:00:00 [place] [facility] Influenza Virus 2019-09-08 Completed [facility] .5 mL 00:00:00 [place] [facility] Influenza Virus 2019-09-08 Completed [facility] .5 mL 00:00:00 [place] [facility] Influenza Virus 2019-09-08 Completed [facility] .5 mL 00:00:00 [place] [facility] Influenza Virus 2019-09-08 Completed [facility] .5 mL 00:00:00 [place] [facility] Influenza Virus 2019-09-08 Completed [facility] .5 mL 00:00:00 [place] [facility] Influenza Virus 2019-09-08 Completed [facility] .5 mL 00:00:00 [place] [facility] Influenza Virus 2019-09-08 Completed [facility] .5 mL 00:00:00 [place] [facility] Influenza Virus 2019-09-08 Completed [facility] .5 mL 00:00:00 [place] [facility] Influenza Virus 2019-09-08 Completed [facility] .5 mL 00:00:00 [place] [facility] Influenza Virus 2019-09-08 Completed [facility] .5 mL 00:00:00 [place] [facility] Influenza Virus 2019-09-08 Completed [facility] .5 mL 00:00:00 [place] [facility] Influenza Virus 2019-09-08 Completed [facility] .5 mL 00:00:00 [place] [facility] Influenza Virus 2019-09-08 Completed [facility] .5 mL 00:00:00 [place] [facility] Influenza Virus 2019-09-08 Completed [facility] .5 mL 00:00:00 [place] [facility] Influenza Virus 2019-09-08 Completed [facility] .5 mL 00:00:00 [place] [facility] Influenza Virus 2019-09-08 Completed [facility] .5 mL 00:00:00 [place] [facility] Influenza Virus 2019-09-08 Completed [facility] .5 mL 00:00:00 [place] [facility] Influenza Virus 2019-09-08 Completed [facility] .5 mL 00:00:00 [place] [facility] Influenza Virus 2019-09-08 Completed [facility] .5 mL 00:00:00 [place] [facility] Influenza Virus 2019-09-08 Completed [facility] .5 mL 00:00:00 [place] [facility] Influenza Virus 2019-09-08 Completed [facility] .5 mL 00:00:00 [place] [facility] Influenza Virus 2019-09-08 Completed [facility] .5 mL 00:00:00 [place] [facility] Influenza Virus 2019-09-08 Completed [facility] .5 mL 00:00:00 [place] [facility] Influenza Virus 2019-09-08 Completed [facility] .5 mL 00:00:00 [place] [facility] Influenza Virus 2019-09-08 Completed [facility] .5 mL 00:00:00 [place] [facility] Influenza Virus 2019-09-08 Completed [facility] .5 mL 00:00:00 [place] [facility] Influenza Virus 2019-09-08 Completed [facility] .5 mL 00:00:00 [place] [facility] Influenza Virus 2019-09-08 Completed [facility] .5 mL 00:00:00 [place] [facility] Influenza Virus 2019-09-08 Completed [facility] .5 mL 00:00:00 [place] [facility] Influenza Virus 2019-09-08 Completed [facility] .5 mL 00:00:00 [place] [facility] Influenza Virus 2019-09-08 Completed [facility] .5 mL 00:00:00 [place] [facility] Influenza Virus 2019-09-08 Completed [facility] .5 mL 00:00:00 [place] [facility] Influenza Virus 2019-09-08 Completed [facility] .5 mL 00:00:00 [place] [facility] Influenza Virus 2019-09-08 Completed [facility] .5 mL 00:00:00 [place] [facility] Influenza Virus 2019-09-08 Completed [facility] .5 mL 00:00:00 [place] [facility] Influenza Virus 2019-09-08 Completed [facility] .5 mL 00:00:00 [place] [facility] Influenza Virus 2019-09-08 Completed [facility] .5 mL 00:00:00 [place] [facility] Influenza Virus 2019-09-08 Completed [facility] .5 mL 00:00:00 [place] [facility] Influenza Virus 2019-09-08 Completed [facility] .5 mL 00:00:00 [place] [facility] Influenza Virus 2019-09-08 Completed [facility] .5 mL 00:00:00 [place] [facility] Influenza Virus 2019-09-08 Completed [facility] .5 mL 00:00:00 [place] [facility] Influenza Virus 2019-09-08 Completed [facility] .5 mL 00:00:00 [place] [facility] Influenza Virus 2019-09-08 Completed [facility] .5 mL 00:00:00 [place] [facility] Influenza Virus 2019-09-08 Completed [facility] .5 mL 00:00:00 [place] [facility] Influenza Virus 2019-09-08 Completed [facility] .5 mL 00:00:00 [place] [facility] Influenza Virus 2019-09-08 Completed [facility] .5 mL 00:00:00 [place] [facility] Influenza Virus 2019-09-08 Completed [facility] .5 mL 00:00:00 [place] [facility] Influenza Virus 2019-09-08 Completed [facility] .5 mL 00:00:00 [place] [facility] Influenza Virus 2019-09-08 Completed [facility] .5 mL 00:00:00 [place] [facility] Influenza Virus 2019-09-08 Completed [facility] .5 mL 00:00:00 [place] [facility] Influenza Virus 2019-09-08 Completed [facility] .5 mL 00:00:00 [place] [facility] Influenza Virus 2019-09-08 Completed [facility] .5 mL 00:00:00 [facility] HPV9 2017-05-09 Completed [facility] 00:00:00 [facility] HPV9 2017-05-09 Completed [facility] 00:00:00 [facility] HPV9 2017-05-09 Completed [facility] 00:00:00 [facility] HPV9 2017-05-09 Completed [facility] 00:00:00 [facility] HPV9 2017-05-09 Completed [facility] 00:00:00 [facility] HPV9 2017-05-09 Completed [facility] 00:00:00 [facility] HPV9 2017-05-09 Completed [facility] 00:00:00 [facility] HPV9 2017-05-09 Completed [facility] 00:00:00 [facility] HPV9 2017-05-09 Completed [facility] 00:00:00 [facility] HPV9 2017-05-09 Completed [facility] 00:00:00 [place] [facility] HPV9 2017-05-09 Completed [facility] 00:00:00 [place] [facility] HPV9 2017-05-09 Completed [facility] 00:00:00 [place] [facility] HPV9 2017-05-09 Completed [facility] 00:00:00 [place] [facility] HPV9 2017-05-09 Completed [facility] 00:00:00 [place] [facility] HPV9 2017-05-09 Completed [facility] 00:00:00 [place] [facility] HPV9 2017-05-09 Completed [facility] 00:00:00 [place] [facility] HPV9 2017-05-09 Completed [facility] 00:00:00 [place] [facility] HPV9 2017-05-09 Completed [facility] 00:00:00 [place] [facility] HPV9 2017-05-09 Completed [facility] 00:00:00 [place] [facility] HPV9 2017-05-09 Completed [facility] 00:00:00 [place] [facility] HPV9 2017-05-09 Completed [facility] 00:00:00 [place] [facility] HPV9 2017-05-09 Completed [facility] 00:00:00 [place] [facility] HPV9 2017-05-09 Completed [facility] 00:00:00 [place] [facility] HPV9 2017-05-09 Completed [facility] 00:00:00 [place] [facility] HPV9 2017-05-09 Completed [facility] 00:00:00 [place] [facility] HPV9 2017-05-09 Completed [facility] 00:00:00 [place] [facility] HPV9 2017-05-09 Completed [facility] 00:00:00 [place] [facility] HPV9 2017-05-09 Completed [facility] 00:00:00 [place] [facility] HPV9 2017-05-09 Completed [facility] 00:00:00 [place] [facility] HPV9 2017-05-09 Completed [facility] 00:00:00 [place] [facility] HPV9 2017-05-09 Completed [facility] 00:00:00 [place] [facility] HPV9 2017-05-09 Completed [facility] 00:00:00 [place] [facility] HPV9 2017-05-09 Completed [facility] 00:00:00 [place] [facility] HPV9 2017-05-09 Completed [facility] 00:00:00 [place] [facility] HPV9 2017-05-09 Completed [facility] 00:00:00 [place] [facility] HPV9 2017-05-09 Completed [facility] 00:00:00 [place] [facility] HPV9 2017-05-09 Completed [facility] 00:00:00 [place] [facility] HPV9 2017-05-09 Completed [facility] 00:00:00 [facility] HPV9 2017-05-09 Completed [facility] 00:00:00 [facility] HPV9 2017-05-09 Completed [facility] 00:00:00 [place] [facility] HPV9 2017-05-09 Completed [facility] 00:00:00 [place] [facility] HPV9 2017-05-09 Completed [facility] 00:00:00 [facility] HPV9 2017-05-09 Completed [facility] 00:00:00 [facility] HPV9 2017-05-09 Completed [facility] 00:00:00 [place] [facility] HPV9 2017-05-09 Completed [facility] 00:00:00 [facility] HPV9 2017-05-09 Completed [facility] 00:00:00 [facility] HPV9 2017-05-09 Completed [facility] 00:00:00 [facility] HPV9 2017-05-09 Completed [facility] 00:00:00 [facility] HPV9 2017-05-09 Completed [facility] 00:00:00 [facility] HPV9 2017-05-09 Completed [facility] 00:00:00 [facility] HPV9 2017-05-09 Completed [facility] 00:00:00 [place] [facility] HPV9 2017-05-09 Completed [facility] 00:00:00 [facility] HPV9 2017-05-09 Completed [facility] 00:00:00 [place] [facility] HPV9 2017-05-09 Completed [facility] 00:00:00 [facility] HPV9 2017-05-09 Completed [facility] 00:00:00 [facility] HPV9 2017-05-09 Completed [facility] 00:00:00 [facility] HPV9 2017-05-09 Completed [facility] 00:00:00 [place] [facility] HPV9 2017-05-09 Completed [facility] 00:00:00 [facility] HPV9 2017-05-09 Completed [facility] 00:00:00 [facility] HPV9 2017-05-09 Completed [facility] 00:00:00 [facility] HPV9 2017-05-09 Completed [facility] 00:00:00 [place] [facility] HPV9 2017-05-09 Completed [facility] 00:00:00 [facility] HPV9 2017-05-09 Completed [facility] 00:00:00 [facility] TDAP 2017-04-11 Completed [facility] 00:00:00 [facility] TDAP 2017-04-11 Completed [facility] 00:00:00 [facility] TDAP 2017-04-11 Completed [facility] 00:00:00 [facility] TDAP 2017-04-11 Completed [facility] 00:00:00 [facility] TDAP 2017-04-11 Completed [facility] 00:00:00 [facility] TDAP 2017-04-11 Completed [facility] 00:00:00 [facility] TDAP 2017-04-11 Completed [facility] 00:00:00 [facility] TDAP 2017-04-11 Completed [facility] 00:00:00 [facility] TDAP 2017-04-11 Completed [facility] 00:00:00 [facility] TDAP 2017-04-11 Completed [facility] 00:00:00 [facility] TDAP 2017-04-11 Completed [facility] 00:00:00 [facility] TDAP 2017-04-11 Completed [facility] 00:00:00 [facility] TDAP 2017-04-11 Completed [facility] 00:00:00 [facility] TDAP 2017-04-11 Completed [facility] 00:00:00 [facility] TDAP 2017-04-11 Completed [facility] 00:00:00 [facility] TDAP 2017-04-11 Completed [facility] 00:00:00 [facility] TDAP 2017-04-11 Completed [facility] 00:00:00 [facility] TDAP 2017-04-11 Completed [facility] 00:00:00 [facility] Tdap 2017-04-11 Completed [facility] 00:00:00 [facility] TDAP 2017-04-11 Completed [facility] 00:00:00 [facility] TDAP 2017-04-11 Completed [facility] 00:00:00 [facility] Tdap 2017-04-11 Completed [facility] 00:00:00 [facility] TDAP 2017-04-11 Completed [facility] 00:00:00 [facility] TDAP 2017-04-11 Completed [facility] 00:00:00 [facility] TDAP 2017-04-11 Completed [facility] 00:00:00 [facility] TDAP 2017-04-11 Completed [facility] 00:00:00 [facility] TDAP 2017-04-11 Completed [facility] 00:00:00 [facility] TDAP 2017-04-11 Completed [facility] 00:00:00 [facility] TDAP 2017-04-11 Completed [facility] 00:00:00 [facility] TDAP 2017-04-11 Completed [facility] 00:00:00 [facility] TDAP 2017-04-11 Completed [facility] 00:00:00 [facility] TDAP 2017-04-11 Completed [facility] 00:00:00 [facility] TDAP 2017-04-11 Completed [facility] 00:00:00 [facility] TDAP 2017-04-11 Completed [facility] 00:00:00 [facility] TDAP 2017-04-11 Completed [facility] 00:00:00 [facility] TDAP 2017-04-11 Completed [facility] 00:00:00 [facility] TDAP 2017-04-11 Completed [facility] 00:00:00 [facility] TDAP 2017-04-11 Completed [facility] 00:00:00 [facility] TDAP 2017-04-11 Completed [facility] 00:00:00 [facility] TDAP 2017-04-11 Completed [facility] 00:00:00 [facility] TDAP 2017-04-11 Completed [facility] 00:00:00 [facility] TDAP 2017-04-11 Completed [facility] 00:00:00 [facility] TDAP 2017-04-11 Completed [facility] 00:00:00 [facility] TDAP 2017-04-11 Completed [facility] 00:00:00 [facility] TDAP 2017-04-11 Completed [facility] 00:00:00 [facility] TDAP 2017-04-11 Completed [facility] 00:00:00 [facility] TDAP 2017-04-11 Completed [facility] 00:00:00 [facility] TDAP 2017-04-11 Completed [facility] 00:00:00 [facility] TDAP 2017-04-11 Completed [facility] 00:00:00 [facility] TDAP 2017-04-11 Completed [facility] 00:00:00 [facility] TDAP 2017-04-11 Completed [facility] 00:00:00 [facility] TDAP 2017-04-11 Completed [facility] 00:00:00 [facility] TDAP 2017-04-11 Completed [facility] 00:00:00 [facility] TDAP 2017-04-11 Completed [facility] 00:00:00 [facility] TDAP 2017-04-11 Completed [facility] 00:00:00 [facility] TDAP 2017-04-11 Completed [facility] 00:00:00 [facility] TDAP 2017-04-11 Completed [facility] 00:00:00 [facility] TDAP 2017-04-11 Completed [facility] 00:00:00 [facility] TDAP 2017-04-11 Completed [facility] 00:00:00 [facility] TDAP 2017-04-11 Completed [facility] 00:00:00 [facility] TDAP 2017-04-11 Completed [facility] 00:00:00 [facility] TDAP 2017-04-11 Completed [facility] 00:00:00 [facility] TDAP 2017-04-11 Completed [facility] 00:00:00 [facility] HPV 2012-02-27 Completed [facility] 00:00:00 [facility] HPV 2012-02-27 Completed [facility] 00:00:00 [facility] HPV 2012-02-27 Completed [facility] 00:00:00 [facility] HPV 2012-02-27 Completed [facility] 00:00:00 [facility] HPV 2012-02-27 Completed [facility] 00:00:00 [facility] HPV 2012-02-27 Completed [facility] 00:00:00 [facility] HPV 2012-02-27 Completed [facility] 00:00:00 [facility] HPV 2012-02-27 Completed [facility] 00:00:00 [facility] HPV 2012-02-27 Completed [facility] 00:00:00 [facility] HPV 2012-02-27 Completed [facility] 00:00:00 [facility] HPV 2012-02-27 Completed [facility] 00:00:00 [facility] HPV 2012-02-27 Completed [facility] 00:00:00 [facility] HPV 2012-02-27 Completed [facility] 00:00:00 [facility] HPV 2012-02-27 Completed [facility] 00:00:00 [facility] HPV 2012-02-27 Completed [facility] 00:00:00 [facility] HPV 2012-02-27 Completed [facility] 00:00:00 [facility] HPV 2012-02-27 Completed [facility] 00:00:00 [facility] HPV 2012-02-27 Completed [facility] 00:00:00 [facility] HPV 2012-02-27 Completed [facility] 00:00:00 [facility] HPV 2012-02-27 Completed [facility] 00:00:00 [facility] HPV 2012-02-27 Completed [facility] 00:00:00 [facility] HPV 2012-02-27 Completed [facility] 00:00:00 [facility] HPV 2012-02-27 Completed [facility] 00:00:00 [facility] HPV 2012-02-27 Completed [facility] 00:00:00 [facility] HPV 2012-02-27 Completed [facility] 00:00:00 [facility] HPV 2012-02-27 Completed [facility] 00:00:00 [facility] HPV 2012-02-27 Completed [facility] 00:00:00 [facility] HPV 2012-02-27 Completed [facility] 00:00:00 [facility] HPV 2012-02-27 Completed [facility] 00:00:00 [facility] HPV 2012-02-27 Completed [facility] 00:00:00 [facility] HPV 2012-02-27 Completed [facility] 00:[facility]:00 [place] [facility] HPV 2012-02-27 Completed [facility] 00:00:00 [facility] HPV 2012-02-27 Completed [facility] 00[facility]00:00 [facility] HPV 2012-02-27 Completed [facility] 00:00:00 [facility] HPV 2012-02-27 Completed [facility] 00:00:00 [facility] HPV 2012-02-27 Completed [facility] 00:00:00 [facility] HPV 2012-02-27 Completed [facility] 00[facility]00:00 [facility] HPV 2012-02-27 Completed [facility] 00:00:00 [facility] HPV 2012-02-27 Completed [facility] 00:00:00 [facility] HPV 2012-02-27 Completed [facility] 00:00:00 [facility] HPV 2012-02-27 Completed [facility] 00:00:00 [facility] HPV 2012-02-27 Completed [facility] 00[facility]00:00 [facility] HPV 2012-02-27 Completed [facility] 00:00:00 [facility] HPV 2012-02-27 Completed [facility] 00:00:00 [facility] HPV 2012-02-27 Completed [facility] 00:00:00 [facility] HPV 2012-02-27 Completed [facility] 00:00:00 [facility] HPV 2012-02-27 Completed [facility] 00:00:00 [facility] HPV 2012-02-27 Completed [facility] 00:00:00 [facility] HPV 2012-02-27 Completed [facility] 00[facility]00:00 [facility] HPV 2012-02-27 Completed [facility] 00:00:00 [facility] HPV 2012-02-27 Completed [facility] 00:00:00 [facility] HPV 2012-02-27 Completed [facility] 00[facility]00:00 [facility] HPV 2012-02-27 Completed [facility] 00:00:00 [facility] HPV 2012-02-27 Completed [facility] 00:00:00 [facility] HPV 2012-02-27 Completed [facility] 00:00:00 [facility] HPV 2012-02-27 Completed [facility] 00:00:00 [facility] HPV 2012-02-27 Completed [facility] 00:00:00 [facility] HPV 2012-02-27 Completed [facility] 00:00:00 [facility] HPV 2012-02-27 Completed [facility] 00:00:00 [facility] HPV 2012-02-27 Completed [facility] 00:00:00 [facility] HPV 2012-02-27 Completed [facility] 00:00:00 [facility] HPV 2012-02-27 Completed [facility] 00:00:00 [facility] HPV 2012-02-27 Completed [facility] 00:00:00 [facility] Vital Signs Vital Name Observation Time Observation Value Comments Source Systolic blood 2022-02-09 15:49:00 111 mm[Hg] [facility]iver [facility]ity of [facility] Diastolic blood 2022-02-09 15:49:00 70 mm[Hg] Unive rsity of [facility] Heart rate 2022-02-09 15:49:00 61 /min [facility] Body temperature 2022-02-09 15:49:00 36.89 Lorene [facility] Respiratory rate 2022-02-09 15:49:00 19 /min [facility] Body height 2022-02-09 15:49:00 160 cm [facility] Body weight 2022-02-09 15:49:00 108.41 kg [facility] BMI 2022-02-09 15:49:00 42.34 kg/m2 [facility] Systolic blood 2022-02-04 01:20:00 106 mm[Hg] Univer sity of pressure [facility] Diastolic blood 2022-02-04 01:20:00 75 mm[Hg] Unive rsity of [facility] Body temperature 2022-02-04 01:20:00 36.5 Lorene [facility] Respiratory rate 2022-02-04 01:20:00 16 /min [facility] Oxygen saturation in 2022-02-04 01:20:00 100 /min [facility] Arterial blood by [facility] Pulse oximetry Branch Heart rate 2022-02-03 22:52:00 81 /min [facility] Systolic blood 2022-02-01 16:38:00 122 mm[Hg] Univer sity of [facility] Diastolic blood 2022-02-01 16:38:00 78 mm[Hg] Unive rsity of [facility] Heart rate 2022-02-01 16:38:00 99 /min [facility] Body temperature 2022-02-01 16:38:00 37.28 Lorene [facility] ers[facility] Respiratory rate 2022-02-01 16:38:00 18 /min Univ ers[facility] Body height 2022-02-01 16:38:00 160 cm [facility] Body weight 2022-02-01 16:38:00 107.775 kg [facility] BMI 2022-02-01 16:38:00 42.09 kg/m2 [facility] Systolic blood 2022-01-02 13:26:00 128 mm[Hg] [facility]iver [facility]ity [facility] Diastolic blood 2022-01-02 13:26:00 75 mm[Hg] Unive rsity of [facility] Heart rate 2022-01-02 13:26:00 90 /min [facility] Body temperature 2022-01-02 13:26:00 36.56 Lorene [facility] Respiratory rate 2022-01-02 13:26:00 18 /min Univ ers[facility] Body height 2022-01-02 13:26:00 160 cm [facility] Body weight 2022-01-02 13:26:00 110.224 kg [facility] BMI 2022-01-02 13:26:00 43.05 kg/m2 [facility] Systolic blood 2021-12-01 17:04:00 122 mm[Hg] [facility]ity [facility] Diastolic blood 2021-12-01 17:04:00 62 mm[Hg] Unive rsity of [facility] Heart rate 2021-12-01 17:04:00 66 /min [facility] Body temperature 2021-12-01 17:04:00 36.89 Lorene [facility] Body height 2021-12-01 17:04:00 160 cm [facility] Body weight 2021-12-01 17:04:00 111.494 kg [facility] BMI 2021-12-01 17:04:00 43.54 kg/m2 [facility] Systolic blood 2021-11-03 14:41:00 121 mm[Hg] [facility]ity [facility] Diastolic blood 2021-11-03 14:41:00 79 mm[Hg] [facility]ive rsity [facility] Heart rate 2021-11-03 14:41:00 84 /min [facility] Body temperature 2021-11-03 14:41:00 37.22 Lorene [facility] Respiratory rate 2021-11-03 14:41:00 18 /min Univ ers[facility] Body height 2021-11-03 14:41:00 160 cm [facility] Body weight 2021-11-03 14:41:00 112.946 kg [facility] BMI 2021-11-03 14:41:00 44.11 kg/m2 [facility] Systolic blood 2021-10-06 17:25:00 122 mm[Hg] Univer [facility]ity of [facility] Diastolic blood 2021-10-06 17:25:00 80 mm[Hg] Unive rsity of [facility] Heart rate 2021-10-06 17:08:00 77 /min [facility] Body temperature 2021-10-06 17:08:00 37.22 Lorene [facility] Respiratory rate 2021-10-06 17:08:00 18 /min Univ ers[facility] Body height 2021-10-06 17:08:00 160 cm [facility] Body weight 2021-10-06 17:08:00 114.306 kg [facility] BMI 2021-10-06 17:08:00 44.64 kg/m2 [facility] Body height 2021-09-19 20:10:00 160 cm [facility] Body weight 2021-09-19 20:10:00 113.399 kg [facility] BMI 2021-09-19 20:10:00 44.29 kg/m2 [facility] Systolic blood 2021-09-19 20:10:00 124 mm[Hg] Univer [facility]ity of [facility] Diastolic blood 2021-09-19 20:10:00 79 mm[Hg] Unive rsity of [facility] Heart rate 2021-09-19 20:10:00 80 /min [facility] Body temperature 2021-09-19 20:10:00 36.89 Lorene [facility] Respiratory rate 2021-09-19 20:10:00 18 /min [facility] Systolic blood 2021-03-01 19:43:00 118 mm[Hg] [facility]iver [facility]ity of [facility] Diastolic blood 2021-03-01 19:43:00 75 mm[Hg] Unive rsity of [facility] Heart rate 2021-03-01 19:43:00 86 /min [facility] Respiratory rate 2021-03-01 19:43:00 18 /min [facility] ers[facility] Body height 2021-03-01 19:43:00 160 cm [facility] Body weight 2021-03-01 19:43:00 102.059 kg [facility] BMI 2021-03-01 19:43:00 39.86 kg/m2 [facility] Systolic blood 2021-02-21 11:45:00 95 mm[Hg] [facility]iver [facility]ity [facility] Diastolic blood 2021-02-21 11:45:00 40 mm[Hg] Unive rsity of [facility] Heart rate 2021-02-21 11:45:00 81 /min [facility] Body temperature 2021-02-21 11:45:00 36.39 Lorene [facility] Respiratory rate 2021-02-21 11:45:00 16 /min [facility] Oxygen saturation in 2021-02-21 11:45:00 100 /min University of Arterial blood by [facility] Pulse oximetry Branch Body height 2021-02-19 08:55:00 160 cm [facility] Body weight 2021-02-19 08:55:00 110.678 kg [facility] BMI 2021-02-19 08:55:00 43.22 kg/m2 [facility] Systolic blood 2021-02-19 12:15:00 110 mm[Hg] Univer sity of [facility] Diastolic blood 2021-02-19 12:15:00 61 mm[Hg] Unive rsity of [facility] Heart rate 2021-02-19 12:15:00 71 /min [facility] Oxygen saturation in 2021-02-19 12:15:00 100 /min [facility] of Arterial blood by [place] [employer] Pulse oximetry [facility] Respiratory rate 2021-02-19 11:45:00 18 /min Univ ersity [facility] Body temperature 2021-02-19 11:45:00 36.5 Lorene [facility] Body height 2021-02-19 08:55:00 160 cm [facility] Body weight 2021-02-19 08:55:00 110.678 kg [facility] BMI 2021-02-19 08:55:00 43.22 kg/m2 [facility] Heart rate 2021-02-16 15:00:00 93 /min [facility] Oxygen saturation in 2021-02-16 14:15:00 100 /min [facility] of Arterial blood by [place] [employer] [facility] P[facility]xim[facility] Systolic blood 2021-02-16 14:00:00 121 mm[Hg] Univer sity of [facility] Diastolic blood 2021-02-16 14:00:00 52 mm[Hg] Unive rsity of [facility] Body temperature 2021-02-16 14:00:00 37 Lorene [facility] Respiratory rate 2021-02-16 14:00:00 18 /min [facility] Heart rate 2021-02-15 14:00:00 85 /min [facility] Oxygen saturation in 2021-02-15 14:00:00 100 /min [facility] of Arterial blood by [place] [employer] [facility] P[facility] Systolic blood 2021-02-15 12:33:00 122 mm[Hg] Univer sity of [facility] Diastolic blood 2021-02-15 12:33:00 74 mm[Hg] Unive rsity of [facility] Body temperature 2021-02-15 12:30:00 37 Lorene [facility] Respiratory rate 2021-02-15 12:30:00 14 /min Univ ers[facility] Body height 2021-02-15 00:05:00 160 cm [facility] Body weight 2021-02-15 00:05:00 109.77 kg [facility] BMI 2021-02-15 00:05:00 42.87 kg/m2 [facility] Systolic blood 2021-02-09 16:46:00 115 mm[Hg] Univer [facility]ity of [facility] Diastolic blood 2021-02-09 16:46:00 75 mm[Hg] Unive rsity of [facility] Heart rate 2021-02-09 16:46:00 99 /min [facility] Body temperature 2021-02-09 16:46:00 36.44 Lorene [facility] Respiratory rate 2021-02-09 16:46:00 18 /min Univ ers[facility] Body height 2021-02-09 16:46:00 162.6 cm [facility] Body weight 2021-02-09 16:46:00 110.224 kg [facility] BMI 2021-02-09 16:46:00 41.71 kg/m2 [facility] Systolic blood 2021-02-06 15:42:00 114 mm[Hg] Univer sity of [facility] Diastolic blood 2021-02-06 15:42:00 71 mm[Hg] Unive rsity of [facility] Heart rate 2021-02-06 15:42:00 95 /min [facility] Body temperature 2021-02-06 15:42:00 36.94 Lorene [facility] Respiratory rate 2021-02-06 15:42:00 18 /min Univ [facility] Systolic blood 2021-01-20 19:08:00 114 mm[Hg] Univer [facility]ity of [facility] Diastolic blood 2021-01-20 19:08:00 72 mm[Hg] Unive rsity of [facility] Heart rate 2021-01-20 19:08:00 95 /min [facility] Body temperature 2021-01-20 19:08:00 36.78 Lorene [facility] Respiratory rate 2021-01-20 19:08:00 18 /min [facility] ers[facility] Body height 2021-01-20 19:08:00 160 cm [facility] Body weight 2021-01-20 19:08:00 110.678 kg [facility] BMI 2021-01-20 19:08:00 43.22 kg/m2 [facility] Systolic blood 2020-11-24 22:14:00 114 mm[Hg] Univer [facility]ity of [facility] Diastolic blood 2020-11-24 22:14:00 72 mm[Hg] Unive rsity of [facility] Heart rate 2020-11-24 22:14:00 119 /min [facility] Body temperature 2020-11-24 22:14:00 37.11 Lorene [facility] Respiratory rate 2020-11-24 22:14:00 18 /min [facility] ers[facility] Body height 2020-11-24 22:14:00 160 cm [facility] Body weight 2020-11-24 22:14:00 108.863 kg [facility] BMI 2020-11-24 22:14:00 42.51 kg/m2 [facility] Systolic blood 2020-11-10 19:44:00 129 mm[Hg] Univer [facility]ity of [facility] Diastolic blood 2020-11-10 19:44:00 78 mm[Hg] Unive rsity of [facility] Heart rate 2020-11-10 19:44:00 120 /min [facility] Body temperature 2020-11-10 19:44:00 37.17 Lorene [facility] Respiratory rate 2020-11-10 19:44:00 18 /min Univ [facility] Oxygen saturation in 2020-11-10 19:44:00 100 /min University Arterial blood by [facility] Pulse oximetry Branch Systolic blood 2020-11-03 19:35:00 127 mm[Hg] Univer sity of [facility] Diastolic blood 2020-11-03 19:35:00 74 mm[Hg] Unive rsity of [facility] Heart rate 2020-11-03 19:35:00 99 /min Universi ty of [facility] Body temperature 2020-11-03 19:35:00 36.94 Lorene Univ ersity of [facility] Respiratory rate 2020-11-03 19:35:00 18 /min Univ ersity of [facility] Body height 2020-11-03 19:35:00 160 cm [facility] Body weight 2020-11-03 19:35:00 110.224 kg [facility] BMI 2020-11-03 19:35:00 43.05 kg/m2 [facility] ty of [facility] Systolic blood 2020-10-26 22:46:00 132 mm[Hg] Univer sity of pressure [facility] Diastolic blood 2020-10-26 22:46:00 77 mm[Hg] Unive rsity of [facility] Heart rate 2020-10-26 22:46:00 100 /min [facility] Body temperature 2020-10-26 22:46:00 37.17 Lorene Univ [facility] of [facility] Respiratory rate 2020-10-26 22:46:00 18 /min Univ ersity of [facility] Body height 2020-10-26 22:46:00 160 cm [facility] Body weight 2020-10-26 22:46:00 109.317 kg [facility] BMI 2020-10-26 22:46:00 42.69 kg/m2 [facility]i [facility] of [facility] Systolic blood 2020-09-15 16:24:00 113 mm[Hg] Univer sity of [facility] Diastolic blood 2020-09-15 16:24:00 83 mm[Hg] Unive rsity of [facility] Heart rate 2020-09-15 16:24:00 100 /min [facility] Body temperature 2020-09-15 16:24:00 37.11 Lorene [facility] of [facility] Respiratory rate 2020-09-15 16:24:00 18 /min Univ ersity of [facility] Body height 2020-09-15 16:24:00 160 cm [facility] Body weight 2020-09-15 16:24:00 110.678 kg [facility] BMI 2020-09-15 16:24:00 43.22 kg/m2 [facility]i ty of [facility] Systolic blood 2020-08-31 18:58:00 123 mm[Hg] Univer [facility]ity of [facility] Diastolic blood 2020-08-31 18:58:00 72 mm[Hg] Unive rsity of pressure [facility] Heart rate 2020-08-31 18:58:00 81 /min [facility]i ty of [facility] Body temperature 2020-08-31 18:58:00 36.78 Lorene [facility] of [facility] Respiratory rate 2020-08-31 18:58:00 16 /min Univ ersity of [facility] Body height 2020-08-31 18:58:00 160 cm [facility] Body weight 2020-08-31 18:58:00 112.038 kg [facility] BMI 2020-08-31 18:58:00 43.75 kg/m2 [facility]i ty of [facility] Systolic blood 2020-08-02 16:29:00 110 mm[Hg] Univer [facility]ity of [facility] Diastolic blood 2020-08-02 16:29:00 67 mm[Hg] Unive rsity of pressure [facility] Heart rate 2020-08-02 16:29:00 72 /min [facility] Body temperature 2020-08-02 16:29:00 36.5 Lorene [facility] Respiratory rate 2020-08-02 16:29:00 16 /min Univ ersity of [facility] Body height 2020-08-02 16:29:00 160 cm [facility] Body weight 2020-08-02 16:29:00 112.634 kg [facility] BMI 2020-08-02 16:29:00 43.99 kg/m2 [facility] Procedures Procedure Date / Time Performing Clinician Source Performed POCT URINALYSIS W/O 2022-02-09 16:03:00 Boni Danielle [facility] SPECIFIC GRAVITY [facility] CBC WITH DIFF 2022-02-04 02:42:00 [facility]le [facility] PREPARE PACKED RBC 2022-02-03 18:02:41 Daisy Calvo [facility] CBC WITH DIFF 2022-02-03 10:04:00 Boni Danielle [facility] CENTRAL NEURAXIAL BLOCK 2022-02-02 13:48:31 Sharifa Brown [facility] CMV BY PCR 2022-02-02 02:46[facility]00 [facility] 2022-02-02 02:10:00 Boni Danielle [facility] HORMONE [facility] COMP. METABOLIC PANEL 2022-02-02 02:10:00 Boni Danielle [facility] ([id number]) [facility] CBC WITH DIFF 2022-02-02 02:10:00 Boni [facility]le [facility] HEPATITIS B SURFACE 2022-02-02 02:10:00 Boni Danielle [facility] ANTIGEN [facility] GLYCOSYLATED HEMOGLOBIN 2022-02-02 02:09[facility] TOXOPLASMA IGG ANTIBODY 2022-02-02 02:09:00 Serena Danielleen Ritesh [facility] TOXOPLASMA AB, IGM 2022-02-02 02:09:00 Boni Danielle [facility] HSV 1 AND 2 GLYCOPROTEIN 2022-02-02 02:09:00 Boni Danielle [facility] G IGG Medical Branch ADC OR ZAINA ONLY - RPR 2022-02-02 02:08:00 [facility] 2022-02-02 02:00:00 Boni [facility]le [facility] HB HEMOGLOBIN 2022-02-02 02:00:00 Boni Danielle [facility] STAINS [facility] RHO (D) IMMUNE GLOBULIN 2022-02-02 02:00[facility] ([facility]MUNOASSAY) 2022-02-02 01:43:00 Boni Danielle [facility] - COMPREHENSIVE DRUG Medical [facility] SCREEN COVID-19 (ID NOW RAPID 2022-02-02 01:41:00 Boni Danielle [facility] TESTING) Medical Branch LAB ONLY COVID 2022-02-02 01:41:00 Boni Danielle [place] INTERPRETATION [facility] NOTICE OF PRIVACY 2022-02-01 23:01:42 Doctor Unassigned, [facility] PRACTICES [facility] CONSENT/REFUSAL FOR 2022-02-01 23:01:33 Doctor Unassmiracle, [facility] DIAGNOSIS AND TREATMENT [facility] ASSIGNMENT OF BENEFITS 2022-02-01 23:01:24 Doctor Unassigned, [facility] POCT URINALYSIS W/O 2022-02-01 16:40:00 Boni Danielle [facility] SPECIFIC GRAVITY Medical Branch POCT URINALYSIS W/O 2022-01-02 00:00:00 Boni Danielle [facility] SPECIFIC GRAVITY Medical [facility] POCT URINALYSIS W/O 2021-12-01 00:00:00 Boni Danielle [facility] SPECIFIC GRAVITY [facility] ASSIGNMENT OF BENEFITS 2021-11-03 15:50:42 Doctor Unassigned, [facility] POCT URINALYSIS W/O 2021-11-03 00:00:00 Boni Danielle [facility] SPECIFIC GRAVITY Medical Branch US OB TRANSVAGINAL 2021-10-06 21:20:47 Boni Danielle [facility] HEARING AIDE TECHNICIAN CLINIC ULTRASOUND 2021-10-06 06:01:00 Doctor Alida, [facility] POCT URINALYSIS W/O 2021-10-06 00:00:00 Boni Danielle [facility] SPECIFIC GRAVITY Medical Branch HEARING AIDE TECHNICIAN CLINIC ULTRASOUND 2021-09-19 06:01:00 Doctor Alida, [facility] POCT TEST 2021-09-19 00:00:00 Boni Danielle [facility] POCT URINALYSIS W/O 2021-09-19 00:00:00 Serena Danielleen [facility] CBC WITHOUT DIFF 2021-02-20 20:20:00 [facility]FF 2021-02-20 20:20:00 [facility] RBC 2021-02-20 13:22:40 DanielleBoni [facility] PREPARE PACKED RBC 2021-02-20 13:22:40 Danielle [facility] CBC WITH DIFF 2021-02-20 09:27:00 [facility]FF 2021-02-20 09:27:00 [facility] 2021-02-20 00:59:26 Danielle [facility] PREPARE PACKED RBC 2021-02-20 00:59:26 Danielle [facility] CBC WITHOUT DIFF 2021-02-19 23:25:00 Shashi [facility] CBC WITHOUT DIFF 2021-02-19 23:25:00 Shashi [facility] PREPARE PACKED RBC 2021-02-19 17:27:17 [facility] 2021-02-19 17:27:17 Shashi [facility] CBC WITHOUT DIFF 2021-02-19 16:21:00 [facility] CBC WITHOUT DIFF 2021-02-19 16:21:00 Shashi [facility] VENOUS CORD GAS 2021-02-19 11:01:00 Shashi [facility] VENOUS CORD GAS 2021-02-19 11:01:00 Shashi [facility] SECTION 2021-02-19 10:09:00 Danielle [facility] SECTION 2021-02-19 10:09:00 Danielle [facility] CBC WITH DIFF 2021-02-19 09:58:00 Danielle [facility] HEPATITIS B SURFACE 2021-02-19 09:58:00 Boni Danielle Ritesh [facility] ANTIGEN [facility] HB ABO GROUPING 2021-02-19 09:58:00 Boni Danielle Ritesh [facility] RHO (D) IMMUNE GLOBULIN 2021-02-19 09:58:00 DanielleBoni Ritesh [facility] HIV 1/2 AG-AB WITH REFLEX 2021-02-19 09:58:00 [facility]Boni [facility] WITH DIFF 2021-02-19 09:58:00 DanielleBoin Ritesh [facility] HEPATITIS B SURFACE 2021-02-19 09:58:00 Boni Danielle Ritesh [facility] ANTIGEN [facility] HB ABO GROUPING 2021-02-19 09:58:00 DanielleBoni Ritesh [facility] RHO (D) IMMUNE GLOBULIN 2021-02-19 09:58:00 Boni Danielle Ritesh [facility] HIV 1/2 AG-AB WITH REFLEX 2021-02-19 09:58:00 [facility]Boni [facility] 2021-02-19 08:27:00 Doctor [facility]igned, [facility] CONSENT/REFUSAL FOR 2021-02-19 08:26:40 Doctor Unatrinoigned, [facility] DIAGNOSIS AND TREATMENT [facility] [facility] NON-STRESS TEST 2021-02-16 16:02:13 Shashi Bonileonila Awad [facility] ASSIGNMENT OF BENEFITS 2021-02-16 13:29:20 Doctor Unassigned, [facility] US PELVIS > 14 2021-02-15 02:54:06 Boni [facility] HB ABO GROUPING 2021-02-15 01:15:00 Shashi Bonileonila Awad [facility] CBC WITH DIFF 2021-02-15 01:14:00 Shashi Bonileonila Awad [facility] COVID-19 (ID NOW RAPID 2021-02-15 01:14:00 Boni Danielle [facility] TESTING) Medical Branch CONSENT/REFUSAL FOR 2021-02-14 23:54:37 Doctor Unassigned, [facility] DIAGNOSIS AND TREATMENT [facility] CONSENT/REFUSAL FOR 2021-02-14 23:53:58 Doctor Tae Irwin [facility] DIAGNOSIS AND TREATMENT [facility] CONSENT/REFUSAL FOR 2021-02-06 15:19:45 Doctor Tae Irwin [facility] DIAGNOSIS AND TREATMENT [facility] POCT URINALYSIS W/O 2020-11-24 00:00:00 Boni Danielle [facility] SPECIFIC GRAVITY Medical Branch ASSIGNMENT OF BENEFITS 2020-11-10 19:25:12 Doctor Unassigned, Un [facility] POCT URINALYSIS W/O 2020-09-15 00:00:00 Boni Danielle [facility] SPECIFIC GRAVITY Medical Branch ASSIGNMENT OF BENEFITS 2020-09-13 19:51:38 Doctor Unassigned, Adam [facility] POCT URINALYSIS 2020-08-31 18:59:00 Robert Abarca [facility] POCT TEST 2020-08-02 16:22:00 [facility] W/O 2020-08-02 16:22:00 Robert Abarca [facility] REPORT OF 2020-08-02 06:01:00 Doctor Tae Irwin [facility] Encounters Start End Encounter Admission Attending Care Care Encounter Source Date/Time Date/Time Type Type Clinicians Facility Department ID 2021-07-31 Outpatient P [facility] [id number] Univers 19:56:56 [facility]y of [facility] 2021-07-31 Outpatient P [facility] [id number] Univers 19:37:37 [facility]y of [facility] 2021-07-31 Outpatient P [facility] [id number] Univers 17:58:49 [facility]y of [facility] 2021-07-31 Outpatient P [facility] [id number] Univers 17:58:31 ity of [facility] 2021-07-30 Outpatient P [facility] [id number] Univers 22:55:02 ity of [facility] 2021-07-30 Outpatient P [facility] [id number] Univers 22:51:27 ity of [facility] 2022-03-06 2022-03-06 Outpatient R BONI DANIELLE [facility] [id number] 4Q-20 Univers 11:15:00 11:15:00 [id number] ity [facility] 2022-03-06 2022-03-06 Outpatient R BONI DANIELLE [facility] [id number] Univers 10:00:00 10:00:00 ity [facility] 2022-02-17 2022-02-17 Patient Elio [facility] 1.2.840.114 [id number] Univers 00:00:00 00:00:00 Secure Msg Jackie [place] 350.1.13.10 [place] [phone] [facility] NAL [address] [place] [address] 2022-02-15 2022-02-15 Outpatient R BONI DANIELLE [facility] [id number] 4Q-20 Univers 10:30:00 10:30:00 [id number] ity [facility] 2022-02-15 2022-02-15 Outpatient R BONI DANIELLE [facility] [id number] Univers 10:30:00 10:30:00 ity [facility] 2022-02-13 2022-02-13 Patient Boni Danielle [facility] 1.2.848.743 [id number] Univers 00:00:00 00:00:00 Secure Msg Cam [place] 350.1.13.10 ity of [facility] [place]7.2.[place] [phone] Ri dical NAL [address] [place] [address] 2022-02-09 2022-02-09 Outpatient R BONI DANIELLE [facility] [id number] Univers 10:00:00 11:31:22 ity [facility] 2022-02-09 2022-02-09 Routine Shashi [facility] 1.2.581.377 [id number] Univers 10:00:00 11:31:22 Cam [place] 350.1.13.10 ity of [place] [id number] Ri dical [address] 2022-02-09 2022-02-09 Outpatient R BONI DAINELLE [facility] [id number] 4Q-20 Univers 10:00:00 10:00:00 [id number] ity of [facility] 2022-02-08 2022-02-08 Telephone Boni Danielle [facility] 1.2.840.114 [id number] Univers 00:00:00 00:00:00 Cam [place] 350.1.13.10 i ty of [place] [id number] Ri dical [address] 2022-02-06 2022-02-06 Outpatient P [facility] [id number] Univers 10:15:00 10:15:00 [id number] ity [facility] 2022-02-06 2022-02-06 Outpatient P [facility] [id number] Univers 10:15:00 10:15:00 ity of [facility] 2022-02-01 2022-02-03 [facility] Boni Danielle [facility] 1.2.840.114 [id number] Univers 17:58:00 22:45:00 Encounter Ritesh CABRERATON 350.1.13.10 ity of [facility] [place]7.2.[place] [id number] [address] 2022-02-03 2022-02-03 Anesthesia [place], [facility] 1.2.840.114 [id number] Univers 20:03:41 20:03:41 Event Hector ROSALES 350.1.13.10 i ty of [facility] 4[place]2.7.2.[place] [id number] [address] 2022-02-02 2022-02-02 Anesthesia Raimundotanilla, R [facility] 1.2.840.1 14 [id number] Univers 08:15:00 16:41:00 Event Osorio Alexandre 350.1.13.10 it[place] [id number] [address] 2022-02-01 2022-02-01 Outpatient R SHASHI BONI [facility] [id number] Univers 11:00:00 12:48:36 ity of [facility] 2022-02-01 2022-02-01 Routine Shashi [facility] 1.2.871.437 [id number] Univers 11:00:00 12:48:36 Cam [place] 350.1.13.10 ity of [place] [id number] Ri dical NAL [address] [place] [address] 2022-02-01 2022-02-01 Outpatient R SHASHI [facility] JAIR [id number] Univers 11:00:00 12:48:36 ity of [facility] 2022-02-01 2022-02-01 Outpatient R SHASHI BONI [facility] [id number] 4Q-20 Univers 11:00:00 11:00:00 [id number] ity [facility] 2022-01-30 2022-01-30 Outpatient R [facility] [id number] Univers 10:00:00 10:00:00 [id number] ity of [facility] 2022-01-30 2022-01-30 Outpatient P [facility] [id number] Univers 10:00:00 10:00:00 ity of [facility] 2022-01-02 2022-01-02 Outpatient R SHASHI BONI [facility] [id number] Univers 08:00:00 08:44:30 ity of [facility] 2022-01-02 2022-01-02 Routine Shashi [facility] 1.2.306.276 [id number] Univers 08:00:00 08:44:30 Cam [place] 350.1.13.10 ity of [place] [phone] Ri dical NAL [address] [place] [address] 2022-01-02 2022-01-02 Outpatient R SHASHI BONI [facility] [id number] 4Q-20 Univers 08:00:00 08:00:00 [id number] ity of [facility] 2021-12-29 2021-12-29 Outpatient R SHASHI [facility] [id number] 4Q-20 Univers 11:15:00 11:15:00 [id number] ity of [facility] 2021-12-29 2021-12-29 Outpatient R BONI DANIELLE [facility] [id number] Univers 11:15:00 11:15:00 ity of [facility] 2021-12-07 2021-12-07 Outpatient R [facility] [id number] Univers 09:00:00 09:00:00 [id number] ity of [facility] 2021-12-07 2021-12-07 Outpatient R [facility] [id number] Univers 09:00:00 09:00:00 ity of [facility] 2021-12-01 2021-12-01 Outpatient R BONI DANIELLE [facility] [id number] Univers 11:00:00 11:28:33 ity of [facility] 2021-12-01 2021-12-01 Routine Boni Danielle [facility] 1..279.502 [id number] Univers 11:00:00 11:28:33 Cam [place] 350.1.13.10 ity of [place] [phone] Ri dical NAL [address] [place] [address] 2021-12-01 2021-12-01 Outpatient R BONI DANIELLE [facility] [id number] 4Q-20 Univers 11:00:00 11:00:00 [id number] ity of [facility] 2021-11-18 2021-11-18 Case Boni Danielle [facility] 1.2.033.119 [id number] Univers 00:00:00 00:00:00 Management Cam [place] 350.1.13.10 ity of [facility] 4[place]7.[place] [phone] Ri dical NAL [address] [place] [address] 2021-11-15 2021-11-15 Telephone Boni Danielle [facility] 1.2.840.114 [id number] Univers 00:00:00 00:00:00 Cam [place] 350.1.13.10 i ty of [facility] 4[place]7.2.[place] [id number] Ri dical NAL [address] [place] [address] 2021-11-10 2021-11-10 Telephone Boni Danielle [facility] 1.2.840.114 [id number] Univers 00:00:00 00:00:00 Cam [place] 350.1.13.10 i ty of [facility] 4.2.7.2.[place] [phone] Ri dical NAL [address] [facility] 2021-11-07 2021-11-07 Telephone Boni Danielle [facility] 1.2.840.114 [id number] Univers 00:00:00 00:00:00 Cam [place] 350.1.13.10 i ty of [facility] 4.2.[place] [phone] Ri dical NAL [address] [facility] 2021-11-03 2021-11-03 Manager Switch 2, Adc Lab [facility] 1.2.840.114 [id number] Univers 09:45:00 10:00:00 Visit Boni Danielle Ritesh ROSALES 350.1.13.10 ity of [facility] 4.2.7.[place] [id number] Ri dical NAL [address] [facility] 2021-11-03 2021-11-03 Outpatient R BONI DANIELLE [facility] [id number] 4Q-20 Univers 09:45:00 09:45:00 [id number] ity of [facility] 2021-11-03 2021-11-03 Outpatient R SHASHI [facility] [id number] Univers 08:45:00 09:37:45 ity of [facility] 2021-11-03 2021-11-03 Routine Shashi [facility] 1.2.112.584 [id number] Univers 08:45:00 09:37:45 Ritesh ROSALES 350.1.13.10 ity of [place] [phone] Ri dical NAL 134 [facility] 2021-11-03 2021-11-03 Orders Doctor OSORIO 1.2.840.114 [id number] Univers 00:00:00 00:00:00 Only Unassigned, XU 350.1.13.10 ity of [place] [facility] 4.2.7.2.686 Niko as [phone] [address] 2021-10-06 2021-10-06 Outpatient R BONI DANIELLE [facility] [id number] Univers 11:15:00 11:48:50 ity [facility] 2021-10-06 2021-10-06 Routine Boni Danielle [facility] 1.2.206.113 [id number] Univers 11:15:00 11:48:50 Cam [place] 350.1.13.10 ity of [place] [phone] Ri dical [address] 2021-10-06 2021-10-06 Outpatient R BONI DANIELLE [facility] [id number] 4Q-20 Univers 11:15:00 11:15:00 [id number] ity [facility] 2021-10-06 2021-10-06 Orders Doctor OSORIO 1.2.840.114 [id number] Univers 00:00:00 00:00:00 Only Unassigned, XU 350.1.13.10 ity of [place] [facility] 4.2.7.2.686 Niko as [phone] [address] 2021-09-26 2021-09-26 Outpatient R [facility] [id number] Univers 11:30:00 11:30:00 [id number] ity of [facility] 2021-09-26 2021-09-26 Outpatient R [facility] [id number] Univers 11:30:00 11:30:00 ity of [facility] 2021-09-22 2021-09-22 Outpatient R [facility] [id number] Univers 11:30:00 11:30:00 [id number] ity of [facility] 2021-09-22 2021-09-22 Outpatient R [facility] [id number] Univers 11:30:00 11:30:00 ity [facility] 2021-09-19 2021-09-19 Outpatient R BONI DANIELLE [facility] [id number] 4Q-20 Univers 15:15:00 15:15:00 [id number] ity of [facility] 2021-09-19 2021-09-19 Outpatient R SHASHI BONI [facility] [id number] Univers 15:15:00 15:15:00 ity [facility] 2021-09-19 2021-09-19 Initial Boni Danielle [facility] 1.2.013.098 [id number] Univers 14:00:00 15:13:04 Cam [place] 350.1.13.10 ity [place] [id number] Ri dical [address] 2021-09-19 2021-09-19 Orders Doctor OSORIO 1.2.840.114 [id number] Univers 00:00:00 00:00:00 Only Unassigned, XU 350.1.13.10 ity of [place] [facility] 4.2.7.2.686 Niko as [id number] [address] 2021-05-05 2021-05-05 [facility] 1.2.102.376 [id number] Univers 00:00:00 00:00:00 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 ical & CHILD [address] [place] [address] 2021-04-19 2021-04-19 Outpatient BONI WEI [facility] [id number] 4Q-20 Univers 16:15:00 16:15:00 [id number] ity [facility] 2021-04-19 2021-04-19 Outpatient BONI WEI [facility] [id number] Univers 16:15:00 16:15:00 ity [facility] 2021-03-31 2021-03-31 Outpatient BONI WEI [facility] [id number] 4Q-20 Univers 16:15:00 16:15:00 [id number] ity [facility] 2021-03-31 2021-03-31 Outpatient BONI WEI [facility] [id number] Univers 16:15:00 16:15:00 ity of [facility] 2021-03-22 2021-03-22 Outpatient BONI WEI [facility] [id number] 4Q-20 Univers 15:30:00 15:30:00 [id number] ity [facility] 2021-03-22 2021-03-22 Outpatient BONI WEI [facility] [id number] Univers 15:30:00 15:30:00 ity of [facility] 2021-03-01 2021-03-01 Outpatient BONI WEI [facility] [id number] Univers 15:00:00 15:00:00 ity of [facility] 2021-03-01 2021-03-01 Nurse Nurse, [facility] 1.2.840.114 [id number] Univers 14:13:35 14:39:12 Visit Boni Danielle [place] 350.1.13.10 ity of [place] [phone] Ri dical [address] 2021-02-23 2021-02-23 Outpatient BONI WEI [facility] [id number] 4Q-20 Univers 13:15:00 13:15:00 [id number] ity of [facility] 2021-02-23 2021-02-23 Outpatient BONI WEI [facility] [id number] Univers 13:15:00 13:15:00 ity of [facility] 2021-02-19 2021-02-21 Hospital Boni Danielle [facility] 1.2.840.114 [id number] Univers 03:27:00 11:00:00 Encounter Ritesh Rosales 350.1.13.10 ity of [place] [id number] [facility] fabio 083 Branch 2021-02-19 2021-02-19 Surgery Boni Danielle [facility] 1.2.408.197 [id number] Univers 05:35:00 07:19:00 Cam [place] 350.1.13.10 i ty of [place]2.[place] [phone] [facility] fabio 013 Branch 2021-02-19 2021-02-19 Orders Doctor AC 1.2.840.114 [id number] Univers 00:00:00 00:00:00 Only Unassigned, XU 350.1.13.10 ity of [place] [facility] 4.2.7.2.[id number] [facility] [address] [place] 2021-02-16 2021-02-16 [facility] 1.2.840.114 [id number] Univers 08:29:00 10:25:00 Encounter Daisy Rosales 350.1.13.10 ity of [place] 4.2.7.2.686 [facility] [id number] [place] 8[place] 2021-02-16 2021-02-16 Outpatient R [facility] [id number] Univers 10:00:00 10:00:00 [id number] ity of [facility] 2021-02-16 2021-02-16 Outpatient R SHASHI BONI [facility] [id number] Univers 10:00:00 10:00:00 ity of [facility] 2021-02-14 2021-02-15 [facility] Boni Danielle [facility] 1.2.840.114 [id number] Univers 18:55:00 09:30:00 Encounter Ritesh Rosales 350.1.13.10 ity of [place] 4.2.7.2.686 [facility] [phone] [address] 2021-02-14 2021-02-14 Case Sunny [facility] 1.2.982.000 [id number] Univers 00:00:00 00:00:00 Management Torsten Rosales 350.1.13.10 ity of [place] [id number] Ri dical [facility] 134 [facility] 2021-02-14 2021-02-14 Nurse OSORIO Ag 1.2.840.114 [id number] Univers 00:00:00 00:00:00 Triage Louisa S XU 350.1.13.10 ity of [facility] 4.2.7.2.[id number] [facility] 019 [place] 2021-02-14 2021-02-14 Orders Doctor AC 1.2.840.114 [id number] Univers 00:00:00 00:00:00 Only Unassigned, XU 350.1.13.10 ity of [place] [facility] 4.2.7.2.[phone] [facility] 009 [place] 2021-02-09 2021-02-09 Routine Sunny [facility] 1.2.972.973 [id number] Univers 11:23:12 12:07:22 Torsten Rosales 350.1.13.10 ity of [place] [id number] Ri dical nal 134 [facility] 2021-02-09 2021-02-09 Outpatient R SUNNY [facility] [id number] 4Q-20 Univers 11:15:00 11:15:00 TORSTEN [id number] ity of [facility] 2021-02-09 2021-02-09 Outpatient R SUNNY [facility] [id number] Univers 11:15:00 11:15:00 TORSTEN [facility] 2021-02-08 2021-02-08 Joseph Danielle [facility] 1.2.840.114 [id number] Univers 00:00:00 00:00:00 Cam Manjit 350.1.13.10 i ty of [place] [phone] Ri dical nal 134 [facility] 2021-02-06 2021-02-06 Hospital Rachael Dye [facility] 1.2.840.114 [id number] Univers 10:18:00 11:30:00 Encounter Manjit 350.1.13.10 ity of [place] [id number] [facility] 083 [place] 2021-02-06 2021-02-06 Nurse OSORIO Segal 1.2.840.114 [id number] Univers 00:00:00 00:00:00 Triage Cely MCNAIR 350.1.13.10 i ty of [facility] 4.2.7.2.[phone] [facility] 019 [place] 2021-02-03 2021-02-03 Outpatient BONI WEI [facility] [id number] 4Q-20 Univers 14:00:00 14:00:00 [id number] ity [facility] 2021-02-03 2021-02-03 Outpatient Sharifa DANIELLE BONI [facility] [id number] Univers 14:00:00 14:00:00 ity [facility] 2021-01-27 2021-01-27 Manager Switch Ultrasound, [facility] 1.2 .840.114 [id number] Univers 12:54:57 13:43:13 Visit Maria Estrada HEARING AIDE TECHNICIAN 350.1.13.10 ity of [facility] 4.2.7.2.686 Niko as MATERNAL [phone] Med ical & CHILD [address] [place] [address] 2021-01-27 2021-01-27 Outpatient R [facility] [id number] Univers 13:00:00 13:00:00 [id number] ity [facility] 2021-01-27 2021-01-27 Outpatient P [facility] [id number] Univers 13:00:00 13:00:00 [facility] 2021-01-26 2021-01-26 Outpatient R [facility] [id number] Univers 13:00:00 13:00:00 [id number] ity [facility] 2021-01-26 2021-01-26 Outpatient R [facility] [id number] Univers 13:00:00 13:00:00 [facility] 2021-01-20 2021-01-20 [facility] 1.2.062.604 [id number] Univers 13:38:51 14:32:51 [facility] 350.1.13.10 ity of [place]2.[place] [phone] Ri dic[address] 2021-01-20 2021-01-20 Outpatient R SUNNY [facility] [id number] 4Q-20 Univers 13:30:00 13:30:00 TORSTEN [id number] [facility] 2021-01-20 2021-01-20 Outpatient R SUNNY [facility] [id number] Univers 13:30:00 13:30:00 TORSTEN [facility] 2021-01-11 2021-01-11 Outpatient R [facility] [id number] Univers 18:20:00 18:20:00 [id number] [facility] 2021-01-11 2021-01-11 Outpatient R LAURA [facility] [id number] Univers 18:20:00 18:20:00 ARBAELLA ity [facility] 2020-12-29 2020-12-29 Outpatient R [facility] [id number] Univers 14:00:00 14:00:00 ity [facility] 2020-12-29 2020-12-29 Outpatient R BONI DANIELLE [facility] [id number] 4Q-20 Univers 13:45:00 13:45:00 [id number] ity [facility] 2020-12-23 2020-12-23 Outpatient R BONI DANIELLE [facility] [id number] 4Q-20 Univers 13:15:00 13:15:00 [id number] [facility] 2020-12-23 2020-12-23 Outpatient BONI WEI [facility] [id number] Univers 13:15:00 13:15:00 [facility] 2020-12-21 2020-12-21 Patient Michael [facility] 1.2.840.114 [id number] Univers 00:00:00 00:00:00 Outreach Sandeep PRIMARY 350.1.13.10 i ty of [facility] 4.2.7.2.[place] [phone] Ri dical [address] [place] 2020-11-24 2020-11-24 Routine Shashi [facility] 1.2.815.211 [id number] Univers 16:01:00 16:37:24 Cam [place] 350.1.13.10 ity of [place].2.[place] [phone] Ri dical nal [address] [facility] 2020-11-24 2020-11-24 Outpatient R BONI DANIELLE [facility] [id number] 4Q-20 Univers 16:00:00 16:00:00 [id number] [facility] 2020-11-24 2020-11-24 Outpatient Sharifa DANIELLE BONI [facility] [id number] Univers 16:00:00 16:00:00 ity [facility] 2020-11-23 2020-11-23 Outpatient R BONI DANIELLE [facility] [id number] 4Q-20 Univers 15:30:00 15:30:00 [id number] ity of [facility] 2020-11-11 2020-11-11 Outpatient R [facility] [id number] Univers 15:00:00 15:00:00 [id number] ity of [facility] 2020-11-11 2020-11-11 Outpatient R [facility] [id number] Univers 15:00:00 15:00:00 ity of [facility] 2020-11-10 2020-11-10 [facility] 1.2.840.114 [id number] Univers 13:27:00 15:10:00 Encounter Daisy Rosales 350.1.13.10 ity of [place].2.[place] [phone] [facility] [address] 2020-11-10 2020-11-10 Orders Doctor OSORIO [id number] Univers 00:00:00 00:00:00 Only Unassigned, XU [id number] ity of [place] [facility] [phone] [facility] [address] 2020-11-10 2020-11-10 Telephone Boni Danielle [facility] [id number] Univers 00:00:00 00:00:00 Ritesh Rosales [id number] i ty of [place] [id number] [facility] Professio [phone] Ri dical nal [address] [facility] 2020-11-04 2020-11-04 Manager Switch Ultrasound, [facility] 1.2 .840.114 [id number] Univers 13:26:54 14:41:54 Visit Maria Estrada HEARING AIDE TECHNICIAN [id number] ity of [facility] [id number] Niko as MATERNAL [phone] Med ical & CHILD [address] [place] [address] 2020-11-04 2020-11-04 Outpatient R [facility] [id number] Univers 13:30:00 13:30:00 [id number] ity of [facility] 2020-11-04 2020-11-04 Outpatient P [facility] [id number] Univers 13:30:00 13:30:00 ity of [facility] 2020-11-03 2020-11-03 Outpatient R BONI DANIELLE [facility] [id number] Univers 14:15:00 14:15:00 [id number] ity [facility] 2020-11-03 2020-11-03 Outpatient R BONI DANIELLE [facility] [id number] Univers 14:15:00 14:15:00 ity [facility] 2020-11-03 2020-11-03 Routine Boni Danielle [facility] [id number] Univers 13:23:48 14:01:06 Ritesh Rosales [id number] ity of [place]7.2.[place] [phone] Me dical nal [address] [place] [address] 2020-11-03 2020-11-03 Telephone Boni Danielle [facility] 1.2.840.114 [id number] Univers 00:00:00 00:00:00 [place] 350.1.13.10 i ty of [place] [phone] Ri dical nal [address] [place] [address] 2020-10-26 2020-10-26 Routine Torsten Correa [facility] [id number] Univers 16:11:29 16:26:29 Boni Danielle Ritesh Rosales 350.1.13.10 ity of [place] [phone] Ri dical nal [address] [place] [address] 2020-10-26 2020-10-26 Outpatient R BONI DANIELLE [facility] [id number] 4Q-20 Univers 16:15:00 16:15:00 [id number] ity [facility] 2020-10-26 2020-10-26 Outpatient R BONI DANIELLE [facility] [id number] Univers 16:15:00 16:15:00 ity of [facility] [place] [facility] 2020-10-13 2020-10-13 Outpatient R BONI DANIELLE [facility] [id number] 4Q-20 Univers 16:15:00 16:15:00 [id number] ity of [facility] 2020-09-28 2020-09-28 Outpatient R THANG [facility] [id number] -[id number] Univers 12:45:00 12:45:00 ERANDSathya [id number] ity o f [facility] 2020-09-28 2020-09-28 Outpatient R THANG [facility] [id number] Univers 12:45:00 12:45:00 ROSNDA ity o f [facility] 2020-09-15 2020-09-15 Initial Shashi [facility] 1.2.942.358 [id number] Univers 09:56:27 10:57:17 [facility] 350.1.13.10 ity of [place] [phone] Ri dic[address] 2020-09-15 2020-09-15 Outpatient R BONI DANIELLE [facility] [id number] 4Q-20 Univers 10:00:00 10:00:00 [id number] ity of [facility] 2020-09-15 2020-09-15 Outpatient R SHASHI BONI [facility] [id number] Univers 10:00:00 10:00:00 ity of [facility] 2020-09-13 2020-09-13 Manager [facility] 1.2.84 0.114 [id number] Univers 14:55:50 15:11:55 Visit Dion Huber [facility] 350.1.13.10 ity of CLINICS [place].[address] [place] [phone] [facility] [address] 2020-09-13 2020-09-13 Manager Switch 1, [facility] Room UNIVERSIT 1 .2.840.114 [id number] Univers 13:53:16 14:54:07 Visit DionHuber [facility] 350.1.13.10 ity of CLIN[place].[address] [place] [phone] [facility] [address] 2020-09-13 2020-09-13 Outpatient R [facility] [id number] -[id number] Univers 13:45:00 13:45:00 [id number] ity of [facility] 2020-09-13 2020-09-13 Outpatient P [facility] [id number] Univers 13:45:00 13:45:00 ity of [facility] 2020-09-13 2020-09-13 Orders Doctor OSORIO 1.2.840.114 [id number] Univers 00:00:00 00:00:00 Only Unassigned, XU 350.1.13.10 ity of [place] [facility] 4.2.7.2.686 Niko as [phone] [address] 2020-09-13 2020-09-13 Case Jar[facility] 1.2.913.452 [id number] Univers 00:00:00 00:00:00 Management Lashawn Y HEALTH 350.1.13.10 it[place] [phone] [address] 2020-09-13 2020-09-13 Abstract [facility] 1.2.840.114 [id number] Univers 00:00:00 00:00:00 Robert Plunkett HEARING AIDE TECHNICIAN 350.1.13.10 ity of REGIONAL 4.2.7.2.686 Niko as MATERNAL [phone] Med ical & CHILD [address] [place] [address] 2020-08-31 2020-08-31 Routine Robert Abarca [facility] 1.2.8 40.114 [id number] Univers 12:46:01 13:22:00 Brenda Davies HEARING AIDE TECHNICIAN 350.1.13.10 ity of Visit REGIONAL 4.2.7.2.686 Niko as MATERNAL [phone] Med ical & CHILD [address] [place] [address] 2020-08-31 2020-08-31 Outpatient R SAMSON [facility] [id number] Univers 12:45:00 12:45:00 BRENDA yip of [facility] 2020-08-05 2020-08-05 Telephone [facility] 1.2.899.514 [id number] Univers 00:00:00 00:00:00 Deonte Skaggs HEARING AIDE TECHNICIAN 350.1.13.10 ity of REGIONAL 4.2.7.2.686 [place]o as MATERNAL [phone] [facility] & CHILD [address] [place] [address] 2020-08-02 2020-08-[address] [facility] 1.2.460.572 [id number] Univers 10:17:21 11:21:52 Robert C HEARING AIDE TECHNICIAN 350.1.13.10 ity of Visit REGIONAL 4.2.7.2.686 Niko as MATERNAL [phone] [facility] & CHILD [address] [place] [address] 2020-08-02 2020-08-02 [facility]patient [facility] [id number] 4Q-20 Univers 10:30:00 10:30:00 ROBERT ity o [facility] 2020-08-02 2020-08-02 Outpatient R [facility] [id number] Univers 10:00:00 10:00:00 ROBERT yip o [facility] 2020-08-02 2020-08-02 Orders Doctor OSORIO 1.2.840.114 [id number] Univers 00:00:00 00:00:00 Only Unassigned, XU 350.1.13.10 ity of [place] [facility] 4.2.7.2.686 Niko as [phone] [address] 2020-01-12 2020-01-[address] [facility] 1.2.581.636 [id number] 00:00:00 00:00:00 (Out) Robert C HEARING AIDE TECHNICIAN 350.1.13.10 REGIONAL 4.2.7.2.686 MATERNAL [phone] & CHILD [address] [place] [address] 2020-01-12 2020-01-[address] [facility] 1.2.083.483 [id number] Univers 00:00:00 00:00:00 (Out) Robert C HEARING AIDE TECHNICIAN 350.1.13.10 ity of REGIONAL 4.2.7.2.686 Niko as MATERNAL [phone] [facility] & CHILD [address] [place] [address] 2019-12-29 2019-12-29 [facility] [id number] 4Q-20 Univers 10:30:00 10:30:00 ROBERT ity o f [facility] 2019-12-29 2019-12-29 Outpatient R RIMA [facility] [id number] Univers 10:30:00 10:30:00 ROBERT cabrera f [facility] 2019-12-29 2019-12-29 Telephone [facility] 1.2.840.114 [id number] 00:00:00 00:00:00 Robert Kiarra HEARING AIDE TECHNICIAN 350.1.13.10 REGIONAL 4.2.7.2.686 MATERNAL [phone] & CHILD [address] [place] [address] 2019-12-29 2019-12-29 Telephone [facility] 1.2.840.114 [id number] Univers 00:00:00 00:00:00 Robert C HEARING AIDE TECHNICIAN 350.1.13.10 ity [facility] 4.2.7.2.686 Niko as MATERNAL [phone] Med ical & CHILD [address] [place] [address] 2019-12-04 2019-12-04 Outpatient R SAMSON [facility] [id number] Univers 13:00:00 13:00:00 BRENDA [facility] Results Test Description Test Time Test Comments Results Result Comments Source POCT URINALYSIS W/O SPECIFIC GRAVITY 2022-02-09 16:04:00 Test Item Value Reference Range Interpretation Comme nts POCT PH U (test code = 3254) 7 mg/dl 5-8 POCT U LEUK EST (test code = 3263) trace Negative - Negative POCT U NIT (test code = 3262) negative Negative - Negative POCT U PROT (test code = 3259) negative Negative - Negative POCT U GLU (test code = 3256) negative Negative - Negative POCT U KETONE (test code = 3258) negative Negative - Negative POCT U BLD (test code = 3257) trace Negative - Negative [facility] WITH [id number] 02:56:47 Test Item Value Reference Range Interpretation Comments WBC (test code = See_Comment [Automated 5258-2) message] The sy stem which generated this result transmitted reference range : 4.30 - 11.10 10*3/?L. The reference range was not used to interpret this result as normal/abnormal . RBC (test code = See_Comment L [Automated 789-8) message] The sy stem which generated this result transmitted reference range : 3.93 - 5.25 10*6/?L. The reference range was not used to interpret this result as normal/abnormal . HGB (test code = 9.3 g/dL 11.6-15.0 L 718-7) HCT (test code = 28.5 % 35.7-45.2 L 4544-3) MCV (test code = 82.8 fL 80.6-95.5 787-2) MCH (test code = 27.0 pg 25.9-32.8 785-6) MCHC (test code = 32.6 g/dL 31.6-35.1 786-4) RDW-SD (test code = 47.2 fL 39.0-49.9 58377-5) RDW-CV (test code = 15.8 % 12.0-15.5 H 788-0) PLT (test code = See_Comment [Automated 777-3) message] The sy stem which generated this result transmitted reference range : 166 - 358 10*3/ ?L. The reference r jayne was not used to interpret this result as normal/abnormal . MPV (test code = 10.3 fL 9.5-12.9 15553-1) NRBC/100 WBC (test See_Comment [Automat ed code = 6518235363) message] The system which generated this result transmitted reference range : 0.0 - 10.0 /100 WBCs. The refer ence range was not u sed to interpret th is result as normal/abnormal . NRBC x10^3 (test code <0.01 See_Comment [Auto mated = 1664275612) message] The s ystem which generated this result transmitted reference range : 10*3/?L. The reference range was not used to interpret this result as normal/abnormal . GRAN MAT (NEUT) % 63.1 % (test code = 770-8) IMM GRAN % (test code 0.50 % = 1613358367) LYMPH % (test code = 29.7 % 736-9) MONO % (test code = 6.4 % 5905-5) EOS % (test code = 0.2 % 713-8) BASO % (test code = 0.1 % 706-2) GRAN MAT x10^3(ANC) 5.40 10*3/uL 1.88-7.09 (test code = 8198962433) IMM GRAN x10^3 (test 0.04 10*3/uL 0.00-0.06 code = 6168278533) LYMPH x10^3 (test code 2.54 10*3/uL 1.32-3.29 = 731-0) MONO x10^3 (test code 0.55 10*3/uL 0.33-0.92 = 742-7) EOS x10^3 (test code = <0.03 0.03-0.39 L 711-2) BASO x10^3 (test code <0.03 0.01-0.07 = 704-7) Lab Interpretation Abnormal (test code = 19569-9) [facility] Packed RBC (in units), 2 Units 2022-02-03 18:02:41 Test Item Value Reference Range Interpretation Comments Cross Match Result Compatible (test code = 4409) ISBT Blood Type Code (test code = 098767) Unit Blood Type (test O Pos code = 4410) Unit Number (test [id number] code = 4411) Blood Expiration Date & Time (test code = 279564) Status Information Issued (test code = 4412) Product Red Blood Cells Identification (test code = 4413) Product Code (test O2651G09 Performed at [facility] code = 4414) Laboratory Services - [facility] Blood [address] [place], [place] [address]Toll Free: [phone] A No. [id number] [facility] DallasCMV BY [id number] 17:26:21 Test Item Value Reference Range Interpretation Comments Specimen Tested Plasma (test code = 9461734990) CMV PCR - log <2.5 See_Comment [Automated IU/mL (test message] The code = 87310-8) system which generated this result transmitted reference range : <2.5 log IU/mL. The reference range was not used to interpr et this result as normal/abnormal . CMV PCR - IU/mL <300 See_Comment [Automated (test code = message] The 63046-7) system which generated this result transmitted reference range : <300 IU/mL. The reference range was not used to interpret this result as normal/abnormal . CMV PCR - log <2.7 See_Comment [Automated copies/mL (test message] The code = 75661-9) system which generated this result transmitted reference range : <2.7 log copies/mL. The reference range was not used to interpret this result as normal/abnormal . CMV PCR - <516 See_Comment [Automated copies/mL (test message] The code = 59847-2) system which generated this result transmitted reference range : <516 copies/mL. The reference range was not used to interpr et this result as normal/abnormal . VERN (test code Test Information: = VERN) Cytomegalovirus (CMV) DNA, Quantitation. The quantitative range of this assay is 2.5 - 6.5 log IU/mL (300 - 3,000,000 IU/mL) ?or 2.7 - 6.7 log copies/mL (516 - 5,160,000 copies/mL). ?One IU/mL of CMV DNA is approximately 1.72 copies/mL. ?A negative result (less than 2.5 log IU/mL or less than 300 IU/mL) does not rule out the presence of PCR inhibitors in the patient specimen or CMV DNA concentrations below the level of detection by the assay. Inhibition may also lead to underestimation of viral quantitation. ?The limit of quantification for this DNA assay is 2.5 log IU/mL (300 IU/mL) or 2.7 log copies/mL (516 copies/mL). ?If the assay DID NOT DETECT the virus, the test result will be reported as "<2.5 log IU/mL (<300 IU/mL)" and "<2.7 log copies/mL (<516 copies/mL)." ?If the assay DETECTED the presence of the virus but was not able to accurately quantify the number of copies, the test result will be reported as "Detected, not quantifiable." Indeterminate: ?Unable to generate a valid test result on this specimen. ?Please submit a new specimen for repeat testing if clinically indicated. This is a laboratory-developed test using a solvent plant treater labeled ASR (Analyte Specific Reagent) as the reagent providing the specificity of the assay. ?This test was developed and its performance characteristics determined by [facility] Clinical Microbiology Laboratory. It has not been cleared or approved by the U.S. Food and Drug Administration; however, the FDA has determined that such clearance or approval is not necessary. This test is used for clinical purposes. It should not be regarded as investigational or for research. This laboratory is certified under the Clinical Laboratory Improvement Amendments of 1988 (CLIA-88) as qualified to perform high complexity clinical laboratory testing. [facility] with [id number] 12:33:16 Test Item Value Reference Range Interpretation Comments WBC (test code = See_Comment [Automated 6690-2) message] The sy stem which generated this result transmitted reference range : 4.30 - 11.10 10*3/?L. The reference range was not used to interpret this result as normal/abnormal . RBC (test code = See_Comment L [Automated 789-8) message] The sy stem which generated this result transmitted reference range : 3.93 - 5.25 10*6/?L. The reference range was not used to interpret this result as normal/abnormal . HGB (test code = 5.0 g/dL 11.6-15.0 LL 718-7) HCT (test code = 16.3 % 35.7-45.2 L 4544-3) MCV (test code = 83.6 fL 80.6-95.5 787-2) MCH (test code = 25.6 pg 25.9-32.8 L 785-6) MCHC (test code = 30.7 g/dL 31.6-35.1 L 786-4) RDW-SD (test code = 47.8 fL 39.0-49.9 23385-7) RDW-CV (test code = 15.9 % 12.0-15.5 H 788-0) PLT (test code = See_Comment L [Automated 777-3) message] The sy stem which generated this result transmitted reference range : 166 - 358 10*3/ ?L. The reference r jayne was not used to interpret this result as normal/abnormal . MPV (test code = 10.6 fL 9.5-12.9 58846-5) NRBC/100 WBC (test See_Comment [Automat ed code = 5490452061) message] The system which generated this result transmitted reference range : 0.0 - 10.0 /100 WBCs. The refer ence range was not u sed to interpret th is result as normal/abnormal . NRBC x10^3 (test code <0.01 See_Comment [Auto mated = 3052860120) message] The s ystem which generated this result transmitted reference range : 10*3/?L. The reference range was not used to interpret this result as normal/abnormal . GRAN MAT (NEUT) % 59.4 % (test code = 770-8) IMM GRAN % (test code 0.20 % = 7835622387) LYMPH % (test code = 33.2 % 736-9) MONO % (test code = 6.6 % 5905-5) EOS % (test code = 0.4 % 713-8) BASO % (test code = 0.2 % 706-2) GRAN MAT x10^3(ANC) 2.97 10*3/uL 1.88-7.09 (test code = 3810373193) IMM GRAN x10^3 (test <0.03 0.00-0.06 code = 5482957610) LYMPH x10^3 (test code 1.66 10*3/uL 1.32-3.29 = 731-0) MONO x10^3 (test code 0.33 10*3/uL 0.33-0.92 = 742-7) EOS x10^3 (test code = <0.03 0.03-0.39 L 711-2) BASO x10^3 (test code <0.03 0.01-0.07 = 704-7) Lab Interpretation Abnormal (test code = 14890-4) [facility] Dallas[facility]V 1 and 2 Glycoprotein G [id number] 20:18:47 Test Item Value Reference Range Interpretation Comments HSV I IgG (test code Positive Negative = 9842192154) HSV II IgG (test code Negative Negative = 0299996039) VERN (test code = VERN) Positive - IgG antibody to HSV 1 and/or HSV 2 detected.Negative - No HSV 1 and/or HSV 2 antibody detected.Equivocal - A second sample should be sent. [facility] DallasTOXOPLASMA AB, [id number] 20:17:46 Test Item Value Reference Range Interpretation Comments Toxoplasma Antibody Negative Negative IgM (test code = 87208-8) VERN (test code = VERN) Negative - No anti-Toxoplasma gondii IgM detected. A negative IgM result may be due to delayed seroconversion and does not rule out current infection. Equivocal - A second sample should be sent. Positive - Indicative of a current or recent infection with Toxoplasma gondii. ?False positive results may occur. ? The results of the test must be taken within the context of the patient's clinical history, symptomology, and other laboratory findings. For additional information, refer to the CDC website (https://www.cdc.gov/dpd x/toxoplasmosis/index.ht ml) or to [facility] website (http://www.pamf.org/ser ology). [facility] DallasTOXOPLASMA IGG [id number] 20:16:05 Test Item Value Reference Range Interpretation Comments TOXO IGG (test code Negative = 5082230106) VERN (test code = Positive - Indicates VERN) current or past T. gondii infection.Negative - No serologic evidence of T. gondii infection. Cannot exclude acute T. gondii infection. Equivocal - A second sample should be sent. [facility] DallasRHO (D) IMMUNE [id number] 19:50:27 Test Item Value Reference Range Interpretation Comments RHIG CANDIDATE? No- see comment Patient i s not a (test code = candidate for [facility]) Patient is Rh Positive.Perfor med at [facility] Laboratory Services - [facility] Blood [address] [place] [address]Qfcg Free: [phone] A No. [id number] [facility] DallasHepatitis B Surface [id number] 10:45:12 Test Item Value Reference Range Interpretation Comments HBsAg Semi-Quantitative (test code = Negative Negative 5195-3) [facility]FEL[facility] HGB STAIN/KB [id number] 10:07:00 Test Item Value Reference Range Interpretation Comments HGB STAIN Negative Performed at [facility] (test code = 843) Laboratory Services - [facility] Blood Bank[address] [place] [address]Clsr Free: [phone] A No. [id number] BLEED IN MLS See comment 0 mLPerfo rmed at [facility] (test code = 5045) Laborator y Services - [facility] Blood Bank3 [address] [facility] s [address]Dgbx Free: [phone] A No. [id number] RHIG REQUIRED? 0 Syringes Patient is no t a (test code = 1747) candidate for RhIg- Patient is Rh Positive.Perfor med at [facility] Laboratory Services - [facility] Blood Ban k[address] [facility] s [address]Ztmd Free: [phone] A No. [id number] [facility] DallasADC OR ZAINA ONLY - [id number] 09:05:44 Test Item Value Reference Range Interpretation Comments RPR (Qualitative) (test code = Nonreactive Nonreactive 13232-3) Lab Interpretation (test code = Normal 82073-8) [facility] DallasTHYROID STIMULATING [id number] 03:19:59 Test Item Value Reference Range Interpretation Comments TSH (test code = See_Comment [Automated message] 5441764716) The system [employer] generated this result transmitted ref erence range: 0.45 - 4 .70 mIU/L. The refe rence range was not u sed to interpret this result as normal/abnor mal. Lab Interpretation (test Normal code = 38398-9) [facility] DallasType and Screen - ONCE [id number] 03:05:00 Test Item Value Reference Range Interpretation Comments ABO & RH (test code O Positive Performe d at [facility] = 20) Laboratory Serv [facility] Blood Bank1 [address] [place], [place] [address]Tfao Free: [phone] A No. [id number] IAT (test code = Negative Performed a t [facility] 1185) Laboratory Serv [facility] Blood Bank1 [address] [place], [place] [address]Vdnq Free: [phone] A No. [id number] [facility] DallasCOMP. METABOLIC PANEL (80006)2022-02-02 02:50:17 Test Item Value Reference Range Interpretation Comments NA (test code = 137 mmol/L 135-145 5435429805) K (test code = 3.5 mmol/L 3.5-5.0 1921207629) CL (test code = 105 mmol/L 98-108 9776603722) CO2 TOTAL (test code = 19 mmol/L 23-31 L 9277976328) AGAP (test code = 2-16 1820137381) BUN (test code = 4 mg/dL 7-23 L 9971869689) GLUCOSE (test code = 97 mg/dL 70-110 8693495740) CREATININE (test code = 0.42 mg/dL 0.50-1.04 L 4891597936) TOTAL BILI (test code = 1.3 mg/dL 0.1-1.1 H 6917517209) CALCIUM (test code = 9.4 mg/dL 8.6-10.6 7375201450) T PROTEIN (test code = 7.6 g/dL 6.3-8.2 9876084829) ALBUMIN (test code = 4.1 g/dL 3.5-5.0 3536476607) ALK PHOS (test code = 95 U/L 34-122 9026708891) ALTv (test code = 15 U/L 5-35 1742-6) AST(SGOT) (test code = 25 U/L 13-40 8295174993) eGFR (test code = mL/min/1.73m2 1589070869) VERN (test code = VERN) Association of Glomerular Filtration Rate (GFR) and Staging of Kidney Disease* + --+ --+ ------+| GFR (mL/min/1.73 m2) ?| With Kidney Damage ?| ?Without Kidney Damage+ --------+ --------+ +| ?>90 ?| ?Stage one ?| ? Normal ?+ ---+ ---+ -------+| ?60-89 ?| ?Stage two ?| ? Decreased GFR ? + --+ --+ ------+| ?30-59 ?| ?Stage three ?| ? Stage three ? + --+ --+ ------+| ?15-29 ?| ?Stage four ? | ? Stage four ?+ ---+ ---+ -------+| ?<15 (or dialysis) ? ?| ?Stage five ? | ? Stage five ?+ ---+ ---+ -------+ *Each stage assumes the associated GFR level has been in effect for at least three months. ?Stages 1 to 5, with or without kidney disease, indicate chronic kidney disease. Notes: Determination of stages one and two (with eGFR >59mL/min/1.73 m2) requires estimation of kidney damage for at least three months as defined by structural or functional abnormalities of the kidney, manifested by either:Pathological abnormalities or Markers of kidney damage (including abnormalities in the composition of the blood or urine or abnormalities in imaging tests). Lab Interpretation Abnormal (test code = 28126-7) [facility] DallasGLYCOSYLATED HEMOGLOBIN (A1C)2022-02-02 02:40:54 Test Item Value Reference Range Interpretation Comments HGB A1C (test code = 4.8 % 4.0-5.7 4548-4) VERN (test code = VERN) Reference RangesNormal: <5.7%Prediabetes: 5.7 - 6.4%Diabetes: > 6.5% Lab Interpretation (test Normal code = 62370-0) [facility] DallasCBC with [id number] 02:27:20 Test Item Value Reference Range Interpretation Comments WBC (test code = See_Comment [Automated 6690-2) message] The sy stem which generated this result transmitted reference range : 4.30 - 11.10 10*3/?L. The reference range was not used to interpret this result as normal/abnormal . RBC (test code = See_Comment L [Automated 789-8) message] The sy stem which generated this result transmitted reference range : 3.93 - 5.25 10*6/?L. The reference range was not used to interpret this result as normal/abnormal . HGB (test code = 9.2 g/dL 11.6-15.0 L 718-7) HCT (test code = 28.8 % 35.7-45.2 L 4544-3) MCV (test code = 79.3 fL 80.6-95.5 L 787-2) MCH (test code = 25.3 pg 25.9-32.8 L 785-6) MCHC (test code = 31.9 g/dL 31.6-35.1 786-4) RDW-SD (test code = 43.8 fL 39.0-49.9 40035-6) RDW-CV (test code = 15.4 % 12.0-15.5 788-0) PLT (test code = See_Comment [Automated 777-3) message] The sy stem which generated this result transmitted reference range : 166 - 358 10*3/ ?L. The reference r jayne was not used to interpret this result as normal/abnormal . MPV (test code = 10.4 fL 9.5-12.9 32479-3) NRBC/100 WBC (test See_Comment [Automat ed code = 8249182270) message] The system which generated this result transmitted reference range : 0.0 - 10.0 /100 WBCs. The refer ence range was not u sed to interpret th is result as normal/abnormal . NRBC x10^3 (test code <0.01 See_Comment [Auto mated = 2566175090) message] The s ystem which generated this result transmitted reference range : 10*3/?L. The reference range was not used to interpret this result as normal/abnormal . GRAN MAT (NEUT) % 68.4 % (test code = 770-8) IMM GRAN % (test code 0.30 % = 9306227568) LYMPH % (test code = 25.0 % 736-9) MONO % (test code = 5.7 % 5905-5) EOS % (test code = 0.3 % 713-8) BASO % (test code = 0.3 % 706-2) GRAN MAT x10^3(ANC) 4.97 10*3/uL 1.88-7.09 (test code = 7685537241) IMM GRAN x10^3 (test <0.03 0.00-0.06 code = 4278422994) LYMPH x10^3 (test code 1.81 10*3/uL 1.32-3.29 = 731-0) MONO x10^3 (test code 0.41 10*3/uL 0.33-0.92 = 742-7) EOS x10^3 (test code = <0.03 0.03-0.39 L 711-2) BASO x10^3 (test code <0.03 0.01-0.07 = 704-7) Lab Interpretation Abnormal (test code = 01763-9) [facility] URINALYSIS W/O SPECIFIC [id number] 16:40:00 Test Item Value Reference Range Interpretation Comments POCT PH U (test code = 3254) n/ 5-8 POCT U LEUK EST (test code = an/a Negative - Negative 3263) POCT U NIT (test code = 3262) n/a Negative - Negative POCT U PROT (test code = 3259) trace Negative - Negative POCT U GLU (test code = 3256) negative Negative - Negative POCT U KETONE (test code = 3258) n/a Negative - Negative POCT U BLD (test code = 3257) n/a Negative - Negative [facility] URINALYSIS W/O SPECIFIC [id number] 13:28:00 Test Item Value Reference Range Interpretation Comments POCT PH U (test code = 3254) n/a 5-8 POCT U LEUK EST (test code = n/a Negative - Negative 3263) POCT U NIT (test code = 3262) n/a Negative - Negative POCT U PROT (test code = 3259) negative Negative - Negative POCT U GLU (test code = 3256) negaitve Negative - Negative POCT U KETONE (test code = 3258) n/a Negative - Negative POCT U BLD (test code = 3257) n/a Negative - Negative [facility] URINALYSIS W/O SPECIFIC [id number] 17:01:00 Test Item Value Reference Range Interpretation Comments POCT PH U (test code = 3254) n/a 5-8 POCT U LEUK EST (test code = n/a Negative - Negative 3263) POCT U NIT (test code = 3262) n/a Negative - Negative POCT U PROT (test code = 3259) Negative Negative - Negative POCT U GLU (test code = 3256) normal Negative - Negative POCT U KETONE (test code = 3258) n/a Negative - Negative POCT U BLD (test code = 3257) n/a Negative - Negative [facility] URINALYSIS W/O SPECIFIC [id number] 14:57:00 Test Item Value Reference Range Interpretation Comments POCT PH U (test code = 3254) n/a 5-8 POCT U LEUK EST (test code = 3263) n/a Negative - Negative POCT U NIT (test code = 3262) n/a Negative - Negative POCT U PROT (test code = 3259) neg Negative - Negative POCT U GLU (test code = 3256) neg Negative - Negative POCT U KETONE (test code = 3258) n/a Negative - Negative POCT U BLD (test code = 3257) n/a Negative - Negative [facility] URINALYSIS W/O SPECIFIC [id number] 17:26:00 Test Item Value Reference Range Interpretation Comments POCT PH U (test code = 3254) n/a 5-8 POCT U LEUK EST (test code = 3263) n/a Negative - Negative POCT U NIT (test code = 3262) n/a Negative - Negative POCT U PROT (test code = 3259) neg Negative - Negative POCT U GLU (test code = 3256) neg Negative - Negative POCT U KETONE (test code = 3258) n/a Negative - Negative POCT U BLD (test code = 3257) n/a Negative - Negative [facility] [id number] 20:28:00 Test Item Value Reference Range Interpretation Comments POCT PREG (test code = 1605) Positive On board controls acceptable with C Yes Line (test code = 3574) POCT PREG LOT # (test code = 3575) POCT PREG TEST DATE (test code = 3576) [facility] URINALYSIS W/O SPECIFIC [id number] 20:27:00 Test Item Value Reference Range Interpretation Comments POCT PH U (test code = 3254) n/a 5-8 POCT U LEUK EST (test code = 3263) n/a Negative - Negative POCT U NIT (test code = 3262) n/a Negative - Negative POCT U PROT (test code = 3259) neg Negative - Negative POCT U GLU (test code = 3256) neg Negative - Negative POCT U KETONE (test code = 3258) n/a Negative - Negative POCT U BLD (test code = 3257) n/a Negative - Negative [facility] WITHOUT [id number] 20:29:03 Test Item Value Reference Range Interpretation Comments WBC (test code = 6690-2) See_Comment [A utomated message] The system [employer] generated this result transmit arielle reference range : 4.30 - 11.10 10*3/?L. The reference range was not used to interpret this result as normal/abnormal . RBC (test code = 789-8) See_Comment L [Au tomated message] The system [employer] generated this result transmit arielle reference range : 3.93 - 5.25 10* 6/?L. The reference r jayne was not used to interpret this result as normal/abnormal . HGB (test code = 718-7) 6.8 g/dL 11.6-15.0 L HCT (test code = 4544-3) 20.0 % 35.7-45.2 L MCH (test code = 785-6) 27.6 pg 25.9-32.8 MCV (test code = 787-2) 81.3 fL 80.6-95.5 MCHC (test code = 786-4) 34.0 g/dL 31.6-35.1 PLT (test code = 777-3) See_Comment [Au tomated message] The system [employer] generated this result transmit arielle reference range : 166 - 358 10*3/?L. The reference range was not used to interpret this result as normal/abnormal . MPV (test code = 10.6 fL 9.5-12.9 50395-7) RDW-CV (test code = 14.3 % 12.0-15.5 788-0) RDW-SD (test code = 41.8 fL 39.0-49.9 74067-3) NRBC x10^3 (test code = <0.01 See_Comment [Au tomated message] [id number]) The system [employer] generated this result transmit arielle reference range : 10*3/?L. The reference range was not used to interpret this result as normal/abnormal . NRBC/100 WBC (test code See_Comment [Au tomated message] = 3303445917) The system [employer] generated this result transmit arielle reference range : 0.0 - 10.0 /100 WBC s. The reference r jayne was not used to interpret this result as normal/abnormal . IPF % (test code = 3896479013) Lab Interpretation (test Abnormal code = 78358-7) [facility] WITHOUT [id number] 20:29:03 Test Item Value Reference Range Interpretation Comments WBC (test code = 6690-2) See_Comment [A utomated message] The system [employer] generated this result transmit arielle reference range : 4.30 - 11.10 10*3/?L. The reference range was not used to interpret this result as normal/abnormal . RBC (test code = 789-8) See_Comment L [Au tomated message] The system [employer] generated this result transmit arielle reference range : 3.93 - 5.25 10* 6/?L. The reference r jayne was not used to interpret this result as normal/abnormal . HGB (test code = 718-7) 6.8 g/dL 11.6-15.0 L HCT (test code = 4544-3) 20.0 % 35.7-45.2 L MCH (test code = 785-6) 27.6 pg 25.9-32.8 MCV (test code = 787-2) 81.3 fL 80.6-95.5 MCHC (test code = 786-4) 34.0 g/dL 31.6-35.1 PLT (test code = 777-3) See_Comment [Au tomated message] The system [employer] generated this result transmit arielle reference range : 166 - 358 10*3/?L. The reference range was not used to interpret this result as normal/abnormal . MPV (test code = 10.6 fL 9.5-12.9 44367-0) RDW-CV (test code = 14.3 % 12.0-15.5 788-0) RDW-SD (test code = 41.8 fL 39.0-49.9 69015-6) NRBC x10^3 (test code = <0.01 See_Comment [Au tomated message] [id number]) The system [employer] generated this result transmit arielle reference range : 10*3/?L. The reference range was not used to interpret this result as normal/abnormal . NRBC/100 WBC (test code See_Comment [Au tomated message] = 8640812132) The system [employer] generated this result transmit arielle reference range : 0.0 - 10.0 /100 WBC s. The reference r jayne was not used to interpret this result as normal/abnormal . IPF % (test code = 2582947533) Lab Interpretation (test Abnormal code = 30692-8) [facility] Packed RBC (in units), 1 Units 2021-02-20 13:22:40 Test Item Value Reference Range Interpretation Comments Cross Match Result Compatible (test code = 4409) ISBT Blood Type Code (test code = 233719) Unit Blood Type (test O Pos code = 4410) Unit Number (test [id number] code = 4411) Blood Expiration Date & Time (test code = 550141) Status Information Issued (test code = 4412) Product Red Blood Cells Identification (test code = 4413) Product Code (test P7919S96 Performed at [facility] code = 4414) Laboratory Services [facility] Blood [address] Free: [phone] A No. [id number] [facility] Packed RBC (in units), 1 Units 2021-02-20 13:22:40 Test Item Value Reference Range Interpretation Comments Cross Match Result Compatible (test code = 4409) ISBT Blood Type Code (test code = 656703) Unit Blood Type (test O Pos code = 4410) Unit Number (test [id number] code = 4411) Blood Expiration Date & Time (test code = 638856) Status Information Issued (test code = 4412) Product Red Blood Cells Identification (test code = 4413) Product Code (test [id number] Performed at [facility] code = 4414) Laboratory Services - [facility] Blood [place] [address]Toll Free: [phone] A No. [id number] [facility] with [id number] 10:11:56 Test Item Value Reference Range Interpretation Comments WBC (test code = See_Comment [Automated 6690-2) message] The sy stem which generated this result transmitted reference range : 4.30 - 11.10 10*3/?L. The reference range was not used to interpret this result as normal/abnormal . RBC (test code = See_Comment L [Automated 789-8) message] The sy stem which generated this result transmitted reference range : 3.93 - 5.25 10*6/?L. The reference range was not used to interpret this result as normal/abnormal . HGB (test code = 6.0 g/dL 11.6-15.0 L 718-7) HCT (test code = 18.0 % 35.7-45.2 L 4544-3) MCV (test code = 81.1 fL 80.6-95.5 787-2) MCH (test code = 27.0 pg 25.9-32.8 785-6) MCHC (test code = 33.3 g/dL 31.6-35.1 786-4) RDW-SD (test code = 41.5 fL 39.0-49.9 36103-0) RDW-CV (test code = 14.3 % 12.0-15.5 788-0) PLT (test code = See_Comment [Automated 777-3) message] The sy stem which generated this result transmitted reference range : 166 - 358 10*3/ ?L. The reference r jayne was not used to interpret this result as normal/abnormal . MPV (test code = 10.4 fL 9.5-12.9 52087-2) NRBC/100 WBC (test See_Comment [Automat ed code = 6538927739) message] The system which generated this result transmitted reference range : 0.0 - 10.0 /100 WBCs. The refer ence range was not u sed to interpret th is result as normal/abnormal . NRBC x10^3 (test code <0.01 See_Comment [Auto mated = 0981552182) message] The s ystem which generated this result transmitted reference range : 10*3/?L. The reference range was not used to interpret this result as normal/abnormal . GRAN MAT (NEUT) % 64.6 % (test code = 770-8) IMM GRAN % (test code 0.70 % = 9938798456) LYMPH % (test code = 24.7 % 736-9) MONO % (test code = 9.6 % 5905-5) EOS % (test code = 0.2 % 713-8) BASO % (test code = 0.2 % 706-2) GRAN MAT x10^3(ANC) 5.91 10*3/uL 1.88-7.09 (test code = 0398635374) IMM GRAN x10^3 (test 0.06 10*3/uL 0.00-0.06 code = 7302840427) LYMPH x10^3 (test code 2.26 10*3/uL 1.32-3.29 = 731-0) MONO x10^3 (test code 0.88 10*3/uL 0.33-0.92 = 742-7) EOS x10^3 (test code = <0.03 0.03-0.39 L 711-2) BASO x10^3 (test code <0.03 0.01-0.07 = 704-7) Lab Interpretation Abnormal (test code = 56916-0) [facility] with [id number] 10:11:56 Test Item Value Reference Range Interpretation Comments WBC (test code = See_Comment [Automated 6690-2) message] The sy stem which generated this result transmitted reference range : 4.30 - 11.10 10*3/?L. The reference range was not used to interpret this result as normal/abnormal . RBC (test code = See_Comment L [Automated 789-8) message] The sy stem which generated this result transmitted reference range : 3.93 - 5.25 10*6/?L. The reference range was not used to interpret this result as normal/abnormal . HGB (test code = 6.0 g/dL 11.6-15.0 L 718-7) HCT (test code = 18.0 % 35.7-45.2 L 4544-3) MCV (test code = 81.1 fL 80.6-95.5 787-2) MCH (test code = 27.0 pg 25.9-32.8 785-6) MCHC (test code = 33.3 g/dL 31.6-35.1 786-4) RDW-SD (test code = 41.5 fL 39.0-49.9 97389-9) RDW-CV (test code = 14.3 % 12.0-15.5 788-0) PLT (test code = See_Comment [Automated 777-3) message] The sy stem which generated this result transmitted reference range : 166 - 358 10*3/ ?L. The reference r jayne was not used to interpret this result as normal/abnormal . MPV (test code = 10.4 fL 9.5-12.9 62279-4) NRBC/100 WBC (test See_Comment [Automat ed code = 7402698794) message] The system which generated this result transmitted reference range : 0.0 - 10.0 /100 WBCs. The refer ence range was not u sed to interpret th is result as normal/abnormal . NRBC x10^3 (test code <0.01 See_Comment [Auto mated = 9381782621) message] The s ystem which generated this result transmitted reference range : 10*3/?L. The reference range was not used to interpret this result as normal/abnormal . GRAN MAT (NEUT) % 64.6 % (test code = 770-8) IMM GRAN % (test code 0.70 % = 9230329796) LYMPH % (test code = 24.7 % 736-9) MONO % (test code = 9.6 % 5905-5) EOS % (test code = 0.2 % 713-8) BASO % (test code = 0.2 % 706-2) GRAN MAT x10^3(ANC) 5.91 10*3/uL 1.88-7.09 (test code = 6800103666) IMM GRAN x10^3 (test 0.06 10*3/uL 0.00-0.06 code = 1200645683) LYMPH x10^3 (test code 2.26 10*3/uL 1.32-3.29 = 731-0) MONO x10^3 (test code 0.88 10*3/uL 0.33-0.92 = 742-7) EOS x10^3 (test code = <0.03 0.03-0.39 L 711-2) BASO x10^3 (test code <0.03 0.01-0.07 = 704-7) Lab Interpretation Abnormal (test code = 16135-9) [facility] 1 Units 2021-02-20 00:59:26 Test Item Value Reference Range Interpretation Comments Cross Match Result Compatible (test code = 4409) ISBT Blood Type Code (test code = 671269) Unit Blood Type (test O Pos code = 4410) Unit Number (test [id number] code = 4411) Blood Expiration Date & Time (test code = 451011) Status Information Issued (test code = 4412) Product Red Blood Cells Identification (test code = 4413) Product Code (test S0130I41 Performed at [facility] code = 4414) Laboratory [facility] Blood [address] [place], [place] [address]Toll Free: [phone] A No. [id number] [facility] RBC (in units), 1 Units 2021-02-20 00:59:26 Test Item Value Reference Range Interpretation Comments Cross Match Result Compatible (test code = 4409) ISBT Blood Type Code (test code = 824042) Unit Blood Type (test O Pos code = 4410) Unit Number (test [id number] code = 4411) Blood Expiration Date & Time (test code = 287488) Status Information Issued (test code = 4412) Product Red Blood Cells Identification (test code = 4413) Product Code (test P3179O72 Performed at [facility] code = 4414) Laboratory [facility] Blood [address] [place], [place] [address]Toll Free: [phone] A No. [id number] [facility] WITHOUT [id number] 00:03:52 Test Item Value Reference Range Interpretation Comments WBC (test code = 6690-2) See_Comment H [A utomated message] The system [employer] generated this result transmit arielle reference range : 4.30 - 11.10 10*3/?L. The reference range was not used to interpret this result as normal/abnormal . RBC (test code = 789-8) See_Comment L [Au tomated message] The system [employer] generated this result transmit arielle reference range : 3.93 - 5.25 10* 6/?L. The reference r jayne was not used to interpret this result as normal/abnormal . HGB (test code = 718-7) 7.3 g/dL 11.6-15.0 L HCT (test code = 4544-3) 21.5 % 35.7-45.2 L MCH (test code = 785-6) 27.3 pg 25.9-32.8 MCV (test code = 787-2) 80.5 fL 80.6-95.5 L MCHC (test code = 786-4) 34.0 g/dL 31.6-35.1 PLT (test code = 777-3) See_Comment [Au tomated message] The system [employer] generated this result transmit arielle reference range : 166 - 358 10*3/?L. The reference range was not used to interpret this result as normal/abnormal . MPV (test code = 10.4 fL 9.5-12.9 55837-0) RDW-CV (test code = 14.5 % 12.0-15.5 788-0) RDW-SD (test code = 42.0 fL 39.0-49.9 27021-5) NRBC x10^3 (test code = <0.01 See_Comment [Au tomated message] 7122630916) The system [employer] generated this result transmit arielle reference range : 10*3/?L. The reference range was not used to interpret this result as normal/abnormal . NRBC/100 WBC (test code See_Comment [Au tomated message] = 9878443765) The system [employer] generated this result transmit arielle reference range : 0.0 - 10.0 /100 WBC s. The reference r jayne was not used to interpret this result as normal/abnormal . IPF % (test code = 8221512117) Lab Interpretation (test Abnormal code = 59356-7) [facility] WITHOUT [id number] 00:03:52 Test Item Value Reference Range Interpretation Comments WBC (test code = 6690-2) See_Comment H [A utomated message] The system [employer] generated this result transmit arielle reference range : 4.30 - 11.10 10*3/?L. The reference range was not used to interpret this result as normal/abnormal . RBC (test code = 789-8) See_Comment L [Au tomated message] The system [employer] generated this result transmit arielle reference range : 3.93 - 5.25 10* 6/?L. The reference r jayne was not used to interpret this result as normal/abnormal . HGB (test code = 718-7) 7.3 g/dL 11.6-15.0 L HCT (test code = 4544-3) 21.5 % 35.7-45.2 L MCH (test code = 785-6) 27.3 pg 25.9-32.8 MCV (test code = 787-2) 80.5 fL 80.6-95.5 L MCHC (test code = 786-4) 34.0 g/dL 31.6-35.1 PLT (test code = 777-3) See_Comment [Au tomated message] The system [employer] generated this result transmit arielle reference range : 166 - 358 10*3/?L. The reference range was not used to interpret this result as normal/abnormal . MPV (test code = 10.4 fL 9.5-12.9 26079-0) RDW-CV (test code = 14.5 % 12.0-15.5 788-0) RDW-SD (test code = 42.0 fL 39.0-49.9 63947-8) NRBC x10^3 (test code = <0.01 See_Comment [Au tomated message] 7351971538) The system [employer] generated this result transmit arielle reference range : 10*3/?L. The reference range was not used to interpret this result as normal/abnormal . NRBC/100 WBC (test code See_Comment [Au tomated message] = 6986469858) The system [employer] generated this result transmit arielle reference range : 0.0 - 10.0 /100 WBC s. The reference r jayne was not used to interpret this result as normal/abnormal . IPF % (test code = 0929263461) Lab Interpretation (test Abnormal code = 41962-5) [facility] Surface [id number] 17:32:12 Test Item Value Reference Range Interpretation Comments HBsAg Semi-Quantitative (test code = Negative Negative 5195-3) [facility] Surface [id number] 17:32:12 Test Item Value Reference Range Interpretation Comments HBsAg Semi-Quantitative (test code = Negative Negative 5195-3) [facility] Packed RBC (in units), 1 Units 2021-02-19 17:27:17 Test Item Value Reference Range Interpretation Comments Cross Match Result Compatible (test code = 4409) ISBT Blood Type Code (test code = 571825) Unit Blood Type (test O Pos code = 4410) Unit Number (test [id number] code = 4411) Blood Expiration Date & Time (test code = 635301) Status Information Issued (test code = 4412) Product Red Blood Cells Identification (test code = 4413) Product Code (test [id number] Performed at [facility] code = 4414) Laboratory [facility] Blood [address] Free: [phone] A No. [id number] [facility] Packed RBC (in units), 1 Units 2021-02-19 17:27:17 Test Item Value Reference Range Interpretation Comments Cross Match Result Compatible (test code = 4409) ISBT Blood Type Code (test code = 354884) Unit Blood Type (test O Pos code = 4410) Unit Number (test [id number] code = 4411) Blood Expiration Date & Time (test code = 607638) Status Information Issued (test code = 4412) Product Red Blood Cells Identification (test code = 4413) Product Code (test G7861S45 Performed at [facility] code = 4414) Laboratory [facility] Blood [address] Free: [phone] A No. [id number] [facility] WITHOUT [id number] 16:28:06 Test Item Value Reference Range Interpretation Comments WBC (test code = 6690-2) See_Comment H [A utomated message] The system [employer] generated this result transmit arielle reference range : 4.30 - 11.10 10*3/?L. The reference range was not used to interpret this result as normal/abnormal . RBC (test code = 789-8) See_Comment L [Au tomated message] The system [employer] generated this result transmit arielle reference range : 3.93 - 5.25 10* 6/?L. The reference r jayne was not used to interpret this result as normal/abnormal . HGB (test code = 718-7) 8.2 g/dL 11.6-15.0 L HCT (test code = 4544-3) 24.6 % 35.7-45.2 L MCH (test code = 785-6) 26.9 pg 25.9-32.8 MCV (test code = 787-2) 80.7 fL 80.6-95.5 MCHC (test code = 786-4) 33.3 g/dL 31.6-35.1 PLT (test code = 777-3) See_Comment [Au tomated message] The system [facility] generated this result transmit arielle reference range : 166 - 358 10*3/?L. The reference range was not used to interpret this result as normal/abnormal . MPV (test code = 10.4 fL 9.5-12.9 28887-8) RDW-CV (test code = 14.2 % 12.0-15.5 788-0) RDW-SD (test code = 41.6 fL 39.0-49.9 68692-8) NRBC x10^3 (test code = <0.01 See_Comment [Au tomated message] [id number]) The [facility] generated this result transmit arielle reference range : 10*3/?L. The reference range was not used to interpret this result as normal/abnormal . NRBC/100 WBC (test code See_Comment [Au tomated message] = 1301976971) The system [facility] generated this result transmit arielle reference range : 0.0 - 10.0 /100 WBC s. The reference r jayne was not used to interpret this result as normal/abnormal . IPF % (test code = 0062347437) Lab Interpretation (test Abnormal code = 86360-5) [facility] WITHOUT [id number] 16:28:06 Test Item Value Reference Range Interpretation Comments WBC (test code = 6690-2) See_Comment H [A utomated message] The system [facility] generated this result transmit arielle reference range : 4.30 - 11.10 10*3/?L. The reference range was not used to interpret this result as normal/abnormal . RBC (test code = 789-8) See_Comment L [Au tomated message] The system [employer] generated this result transmit arielle reference range : 3.93 - 5.25 10* 6/?L. The reference r jayne was not used to interpret this result as normal/abnormal . HGB (test code = 718-7) 8.2 g/dL 11.6-15.0 L HCT (test code = 4544-3) 24.6 % 35.7-45.2 L MCH (test code = 785-6) 26.9 pg 25.9-32.8 MCV (test code = 787-2) 80.7 fL 80.6-95.5 MCHC (test code = 786-4) 33.3 g/dL 31.6-35.1 PLT (test code = 777-3) See_Comment [Au tomated message] The system [facility] generated this result transmit arielle reference range : 166 - 358 10*3/?L. The reference range was not used to interpret this result as normal/abnormal . MPV (test code = 10.4 fL 9.5-12.9 53434-9) RDW-CV (test code = 14.2 % 12.0-15.5 788-0) RDW-SD (test code = 41.6 fL 39.0-49.9 53872-8) NRBC x10^3 (test code = <0.01 See_Comment [Au tomated message] [id number]) The system [employer] generated this result transmit arielle reference range : 10*3/?L. The reference range was not used to interpret this result as normal/abnormal . NRBC/100 WBC (test code See_Comment [Au tomated message] = 4465467805) The system [facility] generated this result transmit arielle reference range : 0.0 - 10.0 /100 WBC s. The reference r jayne was not used to interpret this result as normal/abnormal . IPF % (test code = 8019466763) Lab Interpretation (test Abnormal code = 19022-5) [facility] (D) IMMUNE [id number] 13:26:34 Test Item Value Reference Range Interpretation Comments RHIG CANDIDATE? No- see comment Patient i s not a (test code = candidate for R hIg- 5055) Patient is Rh Positive.Perfor med at [facility] Laboratory Services - [facility] Blood [address] [place] [address] Free: [phone] A No. [id number] [facility] IMM[facility]E [id number] 13:26:34 Test Item Value Reference Range Interpretation Comments RHIG CANDIDATE? No- see comment Patient i s not a (test code = candidate for R hIg- 5055) Patient is Rh Positive.Perfor med at [facility] Laboratory [facility] - [facility] Blood [address] [place] [address] Free: [phone] A No. [id number] [facility] WITH [id number] 12:03:32 Test Item Value Reference Range Interpretation Comments HIV Negative Negative Semi-quantitative (test code = 98032-6) VERN (test code = Non-reactive for HIV-1 VERN) antigen and HIV-1/HIV-2 antibodies. ?No laboratory evidence of HIV infection. ?Repeat in 2-4 weeks if acute HIV infection is suspected. [facility] [id number] 12:03:32 Test Item Value Reference Range Interpretation Comments HIV Negative Negative Semi-quantitative (test code = 32951-2) VERN (test code = Non-reactive for HIV-1 VERN) antigen and HIV-1/HIV-2 antibodies. ?No laboratory evidence of HIV infection. ?Repeat in 2-4 weeks if acute HIV infection is suspected. [facility] Dallas[facility] Cord [id number] 11:05:00 Test Item Value Reference Range Interpretation Comments VENOUS BASE EXCESS, mEq/L CORD (test code = 4608367146) VENOUS PH, CORD (test 7.25-7.45 code = 5967360469) VENOUS PC02, CORD See_Comment [Automate d message] The (test code = system which ge nerated 0816271870) this result tra nsmitted reference range : 27 - 49 mmHg. The refer ence range was not used to interpret this result as normal/abnormal . VENOUS PO2, CORD (test See_Comment [Aut omated message] The code = 7812259757) system [facility] generated this result tra nsmitted reference range : 17 - 41 mmHg. The refer ence range was not used to interpret this result as normal/abnormal . VENOUS BICARBONATE, See_Comment [Automa arielle message] The CORD (test code = system [facility] generated 2261845835) this result tra nsmitted reference range : 12 - 29 mEq/L. The refe rence range was not used to interpret this result as normal/abnormal . [facility] Cord [id number] 11:05:00 Test Item Value Reference Range Interpretation Comments VENOUS BASE EXCESS, mEq/L CORD (test code = 8735388116) VENOUS PH, CORD (test 7.25-7.45 code = 9955623087) VENOUS PC02, CORD See_Comment [Automate d message] The (test code = system which ge nerated 2392858761) this result tra nsmitted reference range : 27 - 49 mmHg. The refer ence range was not used to interpret this result as normal/abnormal . VENOUS PO2, CORD (test See_Comment [Aut omated message] The code = 1293319556) system [facility] generated this result tra nsmitted reference range : 17 - 41 mmHg. The refer ence range was not used to interpret this result as normal/abnormal . VENOUS BICARBONATE, See_Comment [Automa arielle message] The CORD (test code = system [facility] generated 6779161680) this result tra nsmitted reference range : 12 - 29 mEq/L. The refe rence range was not used to interpret this result as normal/abnormal . [facility] DallasType and Screen - ONCE [id number] 10:44:56 Test Item Value Reference Range Interpretation Comments ABO & RH (test code O Positive Performe d at [facility] = 20) Laboratory Serv [facility] [address] [place], [place] [id number] Free: [phone] A No. [id number] IAT (test code = Negative Performed [place] t [place] 1185) Laboratory Serv [facility] [address] [place], [place] [address]Toll Free: [phone] A No. [id number] [facility] Screen - ONCE [id number] 10:44:56 Test Item Value Reference Range Interpretation Comments ABO & RH (test code O Positive Performe d at [facility] = 20) Laboratory [facility] [place], [place] [address]Toll Free: [phone] A No. [id number] IAT (test code = Negative Performed a t [facility] 1185) Laboratory Serv [facility] [place], [place] [id number] Free: [phone] A No. [id number] [facility] DallasCBC with [id number] 10:08:07 Test Item Value Reference Range Interpretation Comments WBC (test code = See_Comment H [Automated 2990-2) message] The sy stem which generated this result transmitted reference range : 4.30 - 11.10 10*3/?L. The reference range was not used to interpret this result as normal/abnormal . RBC (test code = See_Comment [Automated 789-8) message] The sy stem which generated this result transmitted reference range : 3.93 - 5.25 10*6/?L. The reference range was not used to interpret this result as normal/abnormal . HGB (test code = 10.6 g/dL 11.6-15.0 L 718-7) HCT (test code = 32.3 % 35.7-45.2 L 4544-3) MCV (test code = 80.1 fL 80.6-95.5 L 787-2) MCH (test code = 26.3 pg 25.9-32.8 785-6) MCHC (test code = 32.8 g/dL 31.6-35.1 786-4) RDW-SD (test code = 40.6 fL 39.0-49.9 06691-8) RDW-CV (test code = 14.0 % 12.0-15.5 788-0) PLT (test code = See_Comment [Automated 777-3) message] The sy stem which generated this result transmitted reference range : 166 - 358 10*3/ ?L. The reference r jayne was not used to interpret this result as normal/abnormal . MPV (test code = 10.1 fL 9.5-12.9 37520-7) NRBC/100 WBC (test See_Comment [Automat ed code = 0549874657) message] The system which generated this result transmitted reference range : 0.0 - 10.0 /100 WBCs. The refer ence range was not u sed to interpret th is result as normal/abnormal . NRBC x10^3 (test code <0.01 See_Comment [Auto mated = 8221772769) message] The s ystem which generated this result transmitted reference range : 10*3/?L. The reference range was not used to interpret this result as normal/abnormal . GRAN MAT (NEUT) % 65.5 % (test code = 770-8) IMM GRAN % (test code 0.90 % = 5396856345) LYMPH % (test code = 25.9 % 736-9) MONO % (test code = 7.1 % 5905-5) EOS % (test code = 0.3 % 713-8) BASO % (test code = 0.3 % 706-2) GRAN MAT x10^3(ANC) 7.29 10*3/uL 1.88-7.09 H (test code = 7266633703) IMM GRAN x10^3 (test 0.10 10*3/uL 0.00-0.06 H code = 5339807250) LYMPH x10^3 (test code 2.88 10*3/uL 1.32-3.29 = 731-0) MONO x10^3 (test code 0.79 10*3/uL 0.33-0.92 = 742-7) EOS x10^3 (test code = 0.03 10*3/uL 0.03-0.39 711-2) BASO x10^3 (test code 0.03 10*3/uL 0.01-0.07 = 704-7) Lab Interpretation Abnormal (test code = 44631-9) [facility] with [id number] 10:08:07 Test Item Value Reference Range Interpretation Comments WBC (test code = See_Comment H [Automated 6690-2) message] The sy stem which generated this result transmitted reference range : 4.30 - 11.10 10*3/?L. The reference range was not used to interpret this result as normal/abnormal . RBC (test code = See_Comment [Automated 789-8) message] The sy stem which generated this result transmitted reference range : 3.93 - 5.25 10*6/?L. The reference range was not used to interpret this result as normal/abnormal . HGB (test code = 10.6 g/dL 11.6-15.0 L 718-7) HCT (test code = 32.3 % 35.7-45.2 L 4544-3) MCV (test code = 80.1 fL 80.6-95.5 L 787-2) MCH (test code = 26.3 pg 25.9-32.8 785-6) MCHC (test code = 32.8 g/dL 31.6-35.1 786-4) RDW-SD (test code = 40.6 fL 39.0-49.9 94052-7) RDW-CV (test code = 14.0 % 12.0-15.5 788-0) PLT (test code = See_Comment [Automated 777-3) message] The sy stem which generated this result transmitted reference range : 166 - 358 10*3/ ?L. The reference r jayne was not used to interpret this result as normal/abnormal . MPV (test code = 10.1 fL 9.5-12.9 11316-7) NRBC/100 WBC (test See_Comment [Automat ed code = 5593719879) message] The system which generated this result transmitted reference range : 0.0 - 10.0 /100 WBCs. The refer ence range was not u sed to interpret th is result as normal/abnormal . NRBC x10^3 (test code <0.01 See_Comment [Auto mated = 8442929715) message] The s ystem which generated this result transmitted reference range : 10*3/?L. The reference range was not used to interpret this result as normal/abnormal . GRAN MAT (NEUT) % 65.5 % (test code = 770-8) IMM GRAN % (test code 0.90 % = 6313648253) LYMPH % (test code = 25.9 % 736-9) MONO % (test code = 7.1 % 5905-5) EOS % (test code = 0.3 % 713-8) BASO % (test code = 0.3 % 706-2) GRAN MAT x10^3(ANC) 7.29 10*3/uL 1.88-7.09 H (test code = 4482479750) IMM GRAN x10^3 (test 0.10 10*3/uL 0.00-0.06 H code = 1880532972) LYMPH x10^3 (test code 2.88 10*3/uL 1.32-3.29 = 731-0) MONO x10^3 (test code 0.79 10*3/uL 0.33-0.92 = 742-7) EOS x10^3 (test code = 0.03 10*3/uL 0.03-0.39 711-2) BASO x10^3 (test code 0.03 10*3/uL 0.01-0.07 = 704-7) Lab Interpretation Abnormal (test code = 00431-9) [facility] DallasFETAL NON-STRESS [id number] 16:02:41 Reactive and reassuringtoco quiescent Boni Danielle MD ?02/16/2021 ?11:02 AM [facility] DallasUS PELVIS > 14 [id number] 03:45:19Impression: 1. ?Single viable intrauterine gestation in cephalic position, withestimated gestationalage of 36 weeks 1 day, EDC 03/13/2021. ? 2. ?Marginal retroplacental hemorrhage from marginal placental abruptionmeasures approximately 4.0 x 1.2 cm. Follow-up complete obstetricalultrasound exam is recommended. 3. No placenta previa. AFC: [id number]: [id number] Exam: Greater than 14 weeks single Ultrasound, 02/14/2021 9:15 PM. Ordering Physician: BONI DANIELLE. History: growth, please evaluate placenta as intermittent vaginalbleeding. ?Hx of anterior placenta previa that resolved on 01/27/2021 USG . Comparison: None. ? Technique: Multiple transverse and longitudinal obstetrical ultrasoundimages were obtained transabdominally. anatomic survey was notperformed. Findings: Single intrauterine gestation is identified, in cephalic presentation. heart rate is 136 beats/min. Placenta is anterior in location. Marginal retroplacental hemorrhage frommarginal placental abruption measures approximately 4.0 x 1.2 cm. No placenta previa. The maternal cervix was not visualized due to fetalposition. Amniotic fluid index is 13.5 cm. Thefollowing measurements were obtained: Biparietal Diameter 8.9 cm compatible with estimated gestational age of 36weeks 1 day. ?Head Circumference 32 cm compatible with estimated gestational age [id number] 1 day. ?Abdominal Circumference 32.1 cm compatible with estimated gestational ageof 36 weeks1 day. ?Femur Length ?7.0 cm compatible with estimated gestational age of 36 weeks1 day. ? Estimated gestational age based on sonographic criteria is 36 weeks 1 day. Estimated weight is 2833 g or6 lbs. 4 oz.. Estimated gestational agebased on last menstrual period is 34 weeks 3 days, EDC 03/25/2021. [facility], Radiant Results Inft User - 02/14/2021 10:46 PM CDTExam: Greater than 14 weeks single Ultrasound, 02/14/2021 9:15 PM.Ordering Physician: BONI DANIELLE.History: growth, please evaluate placenta as intermittent vaginalbleeding. Hx of anterior placenta previa that resolved on 01/27/2021 USG .Comparison: None. Technique: Multiple transverse and longitudinal obstetrical ultrasoundimages were obtained transabdominally. anatomic survey was notperformed.Findings: Single intrauterine gestation is identified, in cephalic presentation. heart rate is 136 beats/min.Placenta isanterior in location. Marginal retroplacental hemorrhage frommarginal placental abruption measures approximately 4.0 x 1.2 cm.No placenta previa. The maternal cervix was not visualized due to fetalposit ion.Amniotic fluid index is 13.5 cm. The following measurements were obtained:Biparietal Diameter 8.9 cm compatible with estimated gestational age of 36weeks 1 day. Head Circumference 32 cm compatible with estimated gestational age of 36weeks 1 day. Abdominal Circumference 32.1 cm compatible with estimated gestational ageof 36 weeks 1 day. Femur Length 7.0 cm compatible with estimated gestational age of 36 weeks1 day. Estimated gestational age based on sonographic criteria is 36 weeks 1 day. Estimated weight is 2833 g or 6 lbs. 4 oz.. Estimated gestational agebased on last menstrual period is 34 weeks 3 days, EDC 03/25/2021.IMPRESSIONImpression: 1. Single viable intrauterine gestation in cephalic position, withestimated gestational age of 36 weeks 1 day, EDC 03/13/2021. 2. Marginal retroplacental hemorrhage from marginal placental abruptionmeasures approximately 4.0 x 1.2 cm. Follow-up complete obstetricalultrasound exam is recommended.3. No placenta previa. [facility]: [id number]: [id number] [facility]Type [facility] Screen - ONCE [id number] 02:25:54 Test Item Value Reference Range Interpretation Comments ABO & RH (test code O Positive Performe d at [facility] = 20) Laboratory Serv [facility] [address] [place] [address] Free: [phone] A No. [id number] IAT (test code = Negative Performed a t [facility] 1185) Laboratory Serv [facility] [address] [place], [place] [address]Toll Free: [phone] A No. [id number] [facility] DallasCOVID[facility] (ID NOW RAPID TESTING)2021-02-15 01:55:42 Test Item Value Reference Range Interpretation Comments SARS-CoV-2 Rapid ID NOW Not Detected Not Detected (test code = 04449-7) VERN (test code = VERN) ID NOW COVID-19 Assay is an isothermal nucleic acid amplification test intended for the qualitative detection of nucleic acid from SARS-CoV-2 viral RNA in nasopharyngeal (REED MAN) specimens. It is used under Emergency Use Authorization (EUA) by FDA. The limit of detection (LOD) of the assay is 125 Genome Equivalents/mL. A positive result is indicative of the presence of SARS-CoV-2 RNA. ?Clinical correlation with patient history and other diagnostic information is necessary to determine patient infection status. A negative (Not Detected) result does not preclude SARS-CoV-2 infection. In patients with clinical symptoms and other tests that are consistent with SARS-CoV-2 infection, negative results should be treated as presumptive negative and a new specimen should be tested with alternative PCR molecular test. Invalid: Please collect a new specimen for repeat patient testing if clinically indicated. Lab Interpretation Normal (test code = 14584-9) [facility] WITH [id number] 01:42:18 Test Item Value Reference Range Interpretation Comments WBC (test code = See_Comment [Automated 6690-2) message] The sy stem which generated this result transmitted reference range : 4.30 - 11.10 10*3/?L. The reference range was not used to interpret this result as normal/abnormal . RBC (test code = See_Comment [Automated 789-8) message] The sy stem which generated this result transmitted reference range : 3.93 - 5.25 10*6/?L. The reference range was not used to interpret this result as normal/abnormal . HGB (test code = 11.2 g/dL 11.6-15.0 L 718-7) HCT (test code = 33.7 % 35.7-45.2 L 4544-3) MCV (test code = 80.0 fL 80.6-95.5 L 787-2) MCH (test code = 26.6 pg 25.9-32.8 785-6) MCHC (test code = 33.2 g/dL 31.6-35.1 786-4) RDW-SD (test code = 40.5 fL 39.0-49.9 21174-0) RDW-CV (test code = 14.0 % 12.0-15.5 788-0) PLT (test code = See_Comment [Automated 777-3) message] The sy stem which generated this result transmitted reference range : 166 - 358 10*3/ ?L. The reference r jayne was not used to interpret this result as normal/abnormal . MPV (test code = 10.4 fL 9.5-12.9 14475-3) NRBC/100 WBC (test See_Comment [Automat ed code = 6311917611) message] The system which generated this result transmitted reference range : 0.0 - 10.0 /100 WBCs. The refer ence range was not u sed to interpret th is result as normal/abnormal . NRBC x10^3 (test code <0.01 See_Comment [Auto mated = 7313542363) message] The s ystem which generated this result transmitted reference range : 10*3/?L. The reference range was not used to interpret this result as normal/abnormal . GRAN MAT (NEUT) % 68.8 % (test code = 770-8) IMM GRAN % (test code 0.60 % = 6694742751) LYMPH % (test code = 23.2 % 736-9) MONO % (test code = 6.9 % 5905-5) EOS % (test code = 0.3 % 713-8) BASO % (test code = 0.2 % 706-2) GRAN MAT x10^3(ANC) 6.19 10*3/uL 1.88-7.09 (test code = 6089603558) IMM GRAN x10^3 (test 0.05 10*3/uL 0.00-0.06 code = 5661970552) LYMPH x10^3 (test code 2.09 10*3/uL 1.32-3.29 = 731-0) MONO x10^3 (test code 0.62 10*3/uL 0.33-0.92 = 742-7) EOS x10^3 (test code = 0.03 10*3/uL 0.03-0.39 711-2) BASO x10^3 (test code <0.03 0.01-0.07 = 704-7) Lab Interpretation Abnormal (test code = 68925-1) [facility] URINALYSIS W/O SPECIFIC [id number] 22:15:00 Test Item Value Reference Range Interpretation Comments POCT PH U (test code = 3254) N/A 5-8 POCT U LEUK EST (test code = N/A Negative - Negative 3263) POCT U NIT (test code = 3262) N/A Negative - Negative POCT U PROT (test code = 3259) Negative Negative - Negative POCT U GLU (test code = 3256) Negative Negative - Negative POCT U KETONE (test code = 3258) N/A Negative - Negative POCT U BLD (test code = 3257) N/A Negative - Negative [facility] URINALYSIS W/O SPECIFIC [id number] 16:27:00 Test Item Value Reference Range Interpretation Comments POCT PH U (test code = 3254) n/a 5-8 POCT U LEUK EST (test code = 3263) n/a Negative - Negative POCT U NIT (test code = 3262) n/a Negative - Negative POCT U PROT (test code = 3259) neg Negative - Negative POCT U GLU (test code = 3256) neg Negative - Negative POCT U KETONE (test code = 3258) n/a Negative - Negative POCT U BLD (test code = 3257) n/a Negative - Negative Lab Interpretation (test code = Normal 36504-9) [facility] URINALYSIS W/O SPECIFIC [id number] 16:27:00 Test Item Value Reference Range Interpretation Comments POCT PH U (test code = 3254) n/a 5-8 POCT U LEUK EST (test code = 3263) n/a Negative - Negative POCT U NIT (test code = 3262) n/a Negative - Negative POCT U PROT (test code = 3259) neg Negative - Negative POCT U GLU (test code = 3256) neg Negative - Negative POCT U KETONE (test code = 3258) n/a Negative - Negative POCT U BLD (test code = 3257) n/a Negative - Negative Lab Interpretation (test code = Normal 68432-6) [facility] URINALYSIS W SPECIFIC [id number] 18:59:00 Test Item Value Reference Range Interpretation Comments POCT U SP GRAV (test code = . 1.005-1.025 3255) POCT PH U (test code = 3254) . 5-8 POCT U LEUK EST (test code = . Negative - Negative 3263) POCT U NIT (test code = 3262) . Negative - Negative POCT U PROT (test code = 3259) trace Negative - Negative POCT U GLU (test code = 3256) neg Negative - Negative POCT U KETONE (test code = 3258) . Negative - Negative POCT U UROBILI (test code = . 0.2-1 3260) POCT U BILI (test code = 3261) . Negative - Negative POCT U BLD (test code = 3257) . Negative - Negative POCT U COLOR (test code = 3266) . POCT U APPEAR (test code = 3267) Lab Interpretation (test code = Abnormal 79996-5) [facility] DallasPOFL [id number] 16:22:00 Test Item Value Reference Range Interpretation Comments POCT PREG (test code = 1605) Positive On board controls acceptable with C Yes Line (test code = 3574) POCT PREG LOT # (test code = 3575) POCT PREG TEST DATE (test code = 3576) [facility] URINALYSIS W/O SPECIFIC [id number] 16:22:00 Test Item Value Reference Range Interpretation Comments POCT PH U (test code = 3254) 6 mg/dl 5-8 POCT U LEUK EST (test code = Trace Negative - Negative 3263) POCT U NIT (test code = 3262) Neg Negative - Negative POCT U PROT (test code = 3259) Trace Negative - Negative POCT U GLU (test code = 3256) Neg Negative - Negative POCT U KETONE (test code = 3258) None Negative - Negative POCT U BLD (test code = 3257) Neg Negative - Negative [facility]
[2022-06-20 11:22] LABS: Urine Blood 2+ (Negative); Urine Glucose Negative (Negative); Urine Protein 2+ (Negative); Urine Specific Gravity >=1.030 (1.005-1.030); Urine pH 5.5 (5.0-7.0)
[2022-06-20 11:40] LABS: Absolute Lymphocytes (CBC) 1.3 K/uL (0.7-4.9); Lymphocytes % 10.7 % (15.3-44.8); MPV 7.5 fL (7.6-11.3)
[2022-06-20 11:53] LABS: Albumin 4.5 g/dL (3.4-5.0); Bilirubin Total 0.7 mg/dL (0.2-1.0); Potassium 3.7 mmol/L (3.5-5.1); Protein, Total 8.4 g/dL (6.4-8.2)
[2022-06-20] MEDS ORDERED: MORPHINE 4 MG/ML SYR ONE (12:07)
[2022-06-20] MEDS ORDERED: ONDANSETRON 4 MG/2 ML VIAL ONE ×4 (12:07→15:10)
[2022-06-20] MEDS ORDERED: NA CHLORIDE 0.9% 1,000 ML ONE (12:08)
--- NOTE | 2022-06-20 12:17 | RAD REPORT ---
EXAM DESCRIPTION: US - Abdomen Exam Limited - 06/20/2022 11:43 am CLINICAL HISTORY: ABD PAIN COMPARISON: No comparisons FINDINGS: No normal bile filled gallbladder is seen. Multiple curvilinear echogenic lines are seen w ith dense posterior acoustic shadowing. This is a finding typical for gallbladder packed with multipl e gallstones. No wall thickening or pericholecystic confirmed. No common duct stone or biliary tree dilatation identified. IMPRESSION: Gallbladder is contracted around multiple gallstones. No wall thickening or pericholecys tic fluid. No abnormal biliary tree finding.
[2022-06-20 13:09] LABS: Albumin 4.4 g/dL (3.4-5.0); Bilirubin Direct 0.2 mg/dL (0-0.2); Bilirubin Total 0.8 mg/dL (0.2-1.0); Protein, Total 8.6 g/dL (6.4-8.2)
[2022-06-20] MEDS ORDERED: METOCLOPRAMIDE 10 MG/2mL INJ ONE (13:49)
[2022-06-20] MEDS ORDERED: DIPHENHYDRAMINE 50 MG/ML VIAL ONE (13:49)
[2022-06-20] MEDS ORDERED: CEFOXITIN SODIUM 1 GM/VIAL ONE (13:52)
[2022-06-20] MEDS ORDERED: NA CHLORIDE 0.9% 0 ML ONE (13:52)
[2022-06-20] MEDS ORDERED: NA CHLORIDE 0.9% 50 ML ONE (13:53)
--- NOTE | 2022-06-20 13:53 | EDPHYS ---
Physician Documentation [facility] Name: Miryam Holbrook Age: 21 yrs Sex: Female : 2000 Arrival Date: 06/20/2022 Time: 10:44 Bed 9 Private MD: ED Physician Lexis Arrington HPI: 06/20 10:58 This 21 yrs old Female presents to ER via Ambulatory with complaints of Abdominal Pain, jmm Vomiting. 10:58 The patient presents with abdominal pain. Onset: The symptoms/episode began/occurred jmm gradually, today. The symptoms do not radiate. Associated signs and symptoms: Pertinent positives: nausea and vomiting. The symptoms are described as achy. 21-year-old female with no chronic medical conditions that presents emerged part with complaints of epigastric pain beginning earlier this morning. States having multiple episodes of vomiting. Denies any diarrhea. Denies any previous surgical abdominal history. Denies diarrhea. Denies fever. Denies any recent antibiotics. Denies any known infectious exposures.. 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 - Social history:: Smoking status: Patient denies any tobacco usage or history of. ROS: 10:58 Constitutional: Negative for fever, chills, and weight loss, Cardiovascular: Negative jmm for chest pain, palpitations, and edema, Respiratory: Negative for shortness of breath, cough, wheezing, and pleuritic chest pain. 10:58 Abdomen/GI: Positive for abdominal pain, nausea and vomiting. 10:58 All other systems are negative. Exam: 10:58 Constitutional: This is a well developed, well nourished patient who is awake, alert, jmm and in no acute distress. Head/Face: atraumatic. Eyes: EOMI, no conjunctival erythema appreciated ENT: Moist Mucus Membranes Neck: Trachea midline, Supple Chest/axilla: Normal chest wall appearance and motion. Cardiovascular: Regular rate and rhythm. No edema appreciated Respiratory: Normal respirations, no respiratory distress appreciated 10:58 Skin: General appearance color normal MS/ Extremity: Moves all extremities, no obvious deformities appreciated, no edema noted to the lower extremities Neuro: Awake and alert Psych: Behavior is normal, Mood is normal, Patient is cooperative and pleasant 10:58 Abdomen/GI: Inspection: abdomen appears normal, Bowel sounds: normal, Palpation: moderate abdominal tenderness, in the right upper quadrant, Indicators: Olivo's sign is positive. Vital Signs: 11:04 BP 114 / 61; Pulse 71; Resp 18; Temp 98.6; Pulse Ox 100% ; Weight 99.79 kg; Height 5 5 ft. 3 in. (160.02 cm); Pain 07/10; 11:04 Body Mass Index 38.97 (99.79 kg, 160.02 cm) 5 MDM: 11:24 Patient medically screened. [facility] 13:51 Data reviewed: vital signs, nurses notes. Counseling: I had a detailed discussion with lior the patient and/or guardian regarding: the historical points, exam findings, and any diagnostic results supporting the discharge/admit diagnosis, lab results, radiology results, the need for further work-up and treatment in the hospital. ED course: Patient continues to have pain, positive Olivo sign, I discussed the patient with general surgery whom accepted the patient. Recommended IV antibiotics.. 06/20 10:57 Order name: Amylase, Serum; Complete Time: 13:20 ap3 06/20 10:57 Order name: Hepatic Function; Complete Time: 13:20 ap3 06/20 10:57 Order name: Lipase; Complete Time: 13:20 [facility] 06/20 11:13 Order name: CBC with Diff; Complete Time: 11:48 [facility] 06/20 11:13 Order name: CMP; Complete Time: 13:20 [facility] 06/20 11:23 Order name: Urine Dipstick-Ancillary; Complete Time: 11:24 [facility] 06/20 13:44 Order name: SARS-COV-2 Antigen Rapid bd 06/20 13:52 Order name: Urine --Ancillary [facility] 06/20 13:58 Order name: Basic Metabolic Panel [facility] 06/20 13:58 Order name: Basic Metabolic Panel [facility] 06/20 13:58 Order name: CBC with Automated Diff [facility] 06/20 13:58 Order name: CBC with Automated Diff [facility] 06/20 13:58 Order name: Lipase [facility] 06/20 11:13 Order name: IV Saline Lock; Complete Time: 11:53 [facility] 06/20 11:13 Order name: Labs collected and sent; Complete Time: 11:53 [facility] 06/20 11:14 Order name: US Abdomen Limited; Complete Time: 12:21 [facility] 06/20 13:58 Order name: NPO EDMS 06/20 13:58 Order name: Lipase EDMS 06/20 13:58 Order name: Liver (Hepatic) Function EDMS 06/20 13:58 Order name: Liver (Hepatic) Function EDMS Administered Medications: 12:02 Drug: Zofran (Ondansetron) 4 mg Route: IVP; Site: left antecubital; ap3 13:51 Follow up: Response: No adverse reaction ap3 12:03 Drug: NS 0.9% 1000 ml Route: IV; Rate: 1 bolus; Site: left antecubital; ap3 14:18 Follow up: IV Status: Completed infusion; IV Intake: 1000ml ap3 12:03 Drug: morphine 4 mg Route: IVP; Infused Over: 4 mins; Site: left antecubital; ap3 13:51 Follow up: Response: No adverse reaction; Pain is decreased ap3 13:50 Not Given (Physician Discretion): NS 0.9% 500 ml IV at bolus once ap3 13:51 Not Given (Physician Discretion): Reglan (metoCLOPramide) 10 mg IVP once; over 1 to 2 ap3 minutes 13:51 Not Given (Physician Discretion): diphenhydrAMINE 12.5 mg IVP once ap3 13:51 Drug: Mefoxin (cefOXitin) 1 grams Route: IVPB; Infused Over: 30 mins; Site: left ap3 antecubital; 14:18 Follow up: IV Status: Infusion continued upon admission ap3 13:51 Drug: Zofran (Ondansetron) 4 mg Route: IVP; Site: left antecubital; ap3 14:18 Follow up: Response: No adverse reaction ap3 Disposition Summary: 06/20/22 13:52 Hospitalization Ordered Hospitalization Status: Observation lian Provider: Morgan Aldana Location: Telemetry/MedSurg (observation) [facility] Condition: Stable [facility] Problem: new jmm Symptoms: have improved lior Bed/Room Type: Standard [facility] Room Assignment: [facility] Diagnosis - Acute cholecystitis [facility] Forms: - Medication Reconciliation Form m - SBAR form [facility] Signatures: Dispatcher [employer] Jos Sullivan PA PA jmm Prokisch, Amanda, RN RN ap3 Louisa Vegas RN RN jh5
--- NOTE | 2022-06-20 13:53 | ER ---
Nurse's Notes [facility] Name: Miryam Holbrook Age: 21 yrs Sex: Female : 2000 Arrival Date: 06/20/2022 Time: 10:44 Bed 9 Private MD: Diagnosis: Acute cholecystitis Presentation: 06/20 11:04 Chief complaint: Patient states: abdominal pain and vomiting bile since this morning. jh5 upper abdomen. Coronavirus screen: Vaccine status: Patient reports being unvaccinated. Client denies travel out of the [place] in the last 14 days. Ebola Screen: Patient negative for fever greater than or equal to 101.5 degrees Fahrenheit, and additional compatible Ebola Virus Disease symptoms Patient denies exposure to infectious person. Patient denies travel to an Ebola-affected area in the 21 days before illness onset. Initial Sepsis Screen: Does the patient meet any 2 criteria? No. Patient's initial sepsis screen is negative. Does the patient have a suspected source of infection? No. Patient's initial sepsis screen is negative. Risk Assessment: Do you want to hurt yourself or someone else? Patient reports no desire to harm self or others. Onset of symptoms was June 20, 2022. 11:04 Method Of Arrival: Ambulatory [facility] 11:04 Acuity: [id number] 3 [facility] Triage Assessment: 11:08 General: Appears in no apparent distress. obese, well groomed, well developed, Behavior [facility] is calm, cooperative, appropriate for age. Pain: Complains of pain in abdomen. GI: No deficits noted. 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 - Social history:: Smoking status: Patient denies any tobacco usage or history of. Screenin:03 Abuse screen: Denies threats or abuse. Nutritional screening: No deficits noted. ap3 Tuberculosis screening: No symptoms or risk factors identified. Fall Risk None identified. Assessment: 12:03 General: Appears in no apparent distress. Behavior is calm, cooperative, appropriate ap3 for age. Pain: Complains of pain in right upper quadrant. Neuro: Level of Consciousness is awake, alert, obeys commands, Oriented to person, place, time, situation, Gait is steady. Cardiovascular: Patient's skin is warm and dry. Respiratory: Airway is patent Respiratory effort is even, unlabored, Respiratory pattern is regular, symmetrical. GI: Bowel sounds present X 4 quads. Abd is soft. 12:57 Reassessment: Patient and/or family updated on plan of care and expected duration. Pain ap3 level reassessed. Patient is alert, oriented x 3, equal unlabored respirations, skin warm/dry/pink. Vital Signs: 11:04 BP 114 / 61; Pulse 71; Resp 18; Temp 98.6; Pulse Ox 100% ; Weight 99.79 kg; Height 5 [facility] ft. 3 in. (160.02 cm); Pain 10; 11:04 Body Mass Index 38.97 (99.79 kg, 160.02 cm) [facility] ED Course: 10:44 Patient arrived in ED. mr 10:47 [facility] 10:47 Lexis Arrington MD is Attending Physician. [facility] 11:08 Triage completed. [facility] 11:08 Arm band placed on right wrist. 5 11:23 Inserted saline lock: 20 gauge in left. 5 11:45 US Abdomen Limited In Process Unspecified. EDMS 11:51 Tammi Jon, RAJINDER is Primary Nurse. ap3 12:04 Patient has correct armband on for positive identification. Bed in low position. Call ap3 light in reach. Side rails up X 1. Pulse ox on. NIBP on. Door closed. Noise minimized. Warm blanket given. 13:52 Morgan Aldana MD is Hospitalizing Provider. [facility] 14:17 No provider procedures requiring assistance completed. Patient transferred, IV remains ap3 in place. Administered Medications: 12:02 Drug: Zofran (Ondansetron) 4 mg Route: IVP; Site: left antecubital; ap3 13:51 Follow up: Response: No adverse reaction ap3 12:03 Drug: NS 0.9% 1000 ml Route: IV; Rate: 1 bolus; Site: left antecubital; ap3 14:18 Follow up: IV Status: Completed infusion; IV Intake: 1000ml ap3 12:03 Drug: morphine 4 mg Route: IVP; Infused Over: 4 mins; Site: left antecubital; ap3 13:51 Follow up: Response: No adverse reaction; Pain is decreased ap3 13:50 Not Given (Physician Discretion): NS 0.9% 500 ml IV at bolus once ap3 13:51 Not Given (Physician Discretion): Reglan (metoCLOPramide) 10 mg IVP once; over 1 to 2 ap3 minutes 13:51 Not Given (Physician Discretion): diphenhydrAMINE 12.5 mg IVP once ap3 13:51 Drug: Mefoxin (cefOXitin) 1 grams Route: IVPB; Infused Over: 30 mins; Site: left ap3 antecubital; 14:18 Follow up: IV Status: Infusion continued upon admission ap3 13:51 Drug: Zofran (Ondansetron) 4 mg Route: IVP; Site: left antecubital; ap3 14:18 Follow up: Response: No adverse reaction ap3 Medication: 12:04 VIS not applicable for this client. ap3 Intake: 14:18 IV: 1000ml; Total: 1000ml. ap3 Outcome: 13:52 Decision to Hospitalize by Provider. lior 14:17 Admitted to OR ap3 14:17 Condition: good 14:17 Instructed on the need for admit. 14:17 Patient left the ED. ap3 Signatures: Dispatcher [employer] EDMS Jos Yost PA PA jmm Rivera, Mary mr GideonTammi tadeo, RN RN ap3 Louisa Vegas RN RN jh5
[2022-06-20] MEDS ORDERED: ACETAMINOPHEN 500 MG TAB PO PRN (13:55)
[2022-06-20] MEDS ORDERED: ONDANSETRON 4 MG/2 ML VIAL IV PRN (13:55)
[2022-06-20] MEDS ORDERED: FENTANYL CITR 100 MCG/2 ML ONE (14:31)
[2022-06-20] MEDS ORDERED: propofoL 200 MG/20 ML VIAL IV ONE (14:32)
[2022-06-20] MEDS ORDERED: MIDAZOLAM HCL 2 MG/2 ML INJ ONE (14:32)
[2022-06-20] MEDS ORDERED: LIDOCAINE 1% MPF 5 ML VIAL ONE (14:32)
[2022-06-20] MEDS ORDERED: GLYCOPYRROLATE 0.2 MG/ML SYR ONE (14:32)
[2022-06-20] MEDS ORDERED: dexAMETHasone 4 MG/ML VIAL ONE (14:33)
[2022-06-20] MEDS ORDERED: NEOSTIGMINE 1 MG/ML -10 ML VIAL ONE (14:34)
[2022-06-20] MEDS ORDERED: ROCURONIUM 50 MG/5 ML VIAL IV ONE (14:34)
[2022-06-20] MEDS ORDERED: KETOROLAC 30 MG/ML INJ ONE (14:34)
[2022-06-20] MEDS ORDERED: MORPHINE 10 MG/ML VIAL ONE (14:34)
--- NOTE | 2022-06-20 14:40 | P.HP ---
Date of Service: 06/20/22 PC: This 21-year-old female presented emergency room with severe abdominal pain for diagnosis and treatment. HPC: Started to feel sudden right upper quadrant abdominal pain, radiating into her back. Says it was so severe she could barely catch her breath. PSHx: Negative PMHx: 3 para 3 Social Hx: No known allergies Sys R: No cough, wheeze, shortness of breath. No chest pain or palpitations. Denies any urinary complaints. Says she is never had any pain like this before. No nausea vomiting distention right upper quadrant issues until today. O/E: Awake alert vital signs are stable HEENT: Nonicteric Chest: Chest movement equal bilaterally Abd: Tender in the right upper quadrant [place]: Intact Data: Ultrasound documents multiple gallstones, white cell count elevated Impression: Acute on chronic cholecystitis with cholelithiasis, biliary colic Plan: I will taken the operating room for laparoscopic possible open cholecystectomy. The risks of this procedure have been discussed. The possibility of bleeding, infection, injury to bowel/blood vessels and intestines was described. The possible need for an open and/or further surgeries and procedures was discussed. She understands and wants to proceed.
[2022-06-20 14:50] LABS: Urine Specific Gravity/Preg >1.030 (1.005-1.030)
[2022-06-20 14:50] LABS: SARS-CoV-2 Antigen Rapid Res Negative (Negative)
[2022-06-20] MEDS ORDERED: Ringers Lactate 1,000 ML IV ONE ×2 (14:53→16:52)
[2022-06-20] MEDS ORDERED: SUCCINYLCHOLINE 20 MG/ML (10 ML) IV ONE (15:54)
--- NOTE | 2022-06-20 17:40 | P.OP ---
Preoperative diagnosis: Acute on chronic cholecystitis with cholelithiasis, biliary colic Postoperative diagnosis: Acute on chronic cholecystitis with cholelithiasis Primary procedure: Laparoscopic cholecystectomy Secondary procedure: Cholangiogram Other procedure(s): Removal of stones from the cystic duct Anesthesia: General Estimated blood loss: Some 15 cc Specimen: Gallbladder and contents Operative Technique: The patient brought the operating room and placed supine on the table. After the induction of adequate general endotracheal anesthesia, the area of the abdomen was prepped with a DuraPrep solution, she was draped in the usual aseptic manner. Attention was turned towards the right lateral side of the abdominal abdominal wall. Just lateral to the rectus sheath a small skin incision was made. We attempted to create a pneumoperitoneum with the Veress needle. We were unsuccessful and I converted back to the umbilicus. Here a subumbilical incision was made. This brought down through the skin and subcutaneous tissue. We tried a few times with the Veress needle were finally successful getting into created pneumoperitoneum to approximately 12 mmHg. We were now able to take his 5 mm trocar and placed into the peritoneal cavity. With the 5 mL, at the umbilicus, we were able to place under direct vision a 5 mm trocar in the right lateral side of the abdomen and another 1 in the upper midline. By manipulating the camera we finally we get a 12 mm camera at the trocar at the umbilicus with a 10 mm camera. The patient was now placed in reverse Trendelenburg. The table was rolled to the left. We could see a markedly distended gallbladder. It showed signs of acute inflammation. On grasping this we see that the whole of the gallbladder was occupied and filled with stone. Applying lateral traction down by Amnzano's pouch we were finally able to expose and the the cystic duct and the cystic artery. The cystic duct seemed to be quite generous in size. A clip was placed between the gallbladder and the cystic duct. An opening was made into the cystic duct. We did not encounter a big flush of bile. Gentle palpation of the duct with the [place] dissector allowed me to extract 2 stones that were impacted into the cystic duct itself. Having taken out the second stone you could see that we had decompressed extrabiliary extrahepatic biliary tree and we had a good flow of contrast into the peritoneal cavity. At this point the Cholangiocath was used to demonstrate the the extrahepatic biliary tree contained no other stones. There was good flow contrast into the duodenum. The catheter was now removed. 2 clips were placed on the distal portion of the cystic duct which is now fully transected. The cystic artery was clipped and divided in the usual manner. The gallbladder was now dissected free from the liver bed. We found another posterior branch of the cystic artery which was easily controlled with the clip surgical clip. The gallbladder was now detached, placed into an Endo Catch, and brought out through the umbilical trocar site. The irrigating fluid was aspirated from the peritoneal cavity. 0.25% Marcaine was introduced into the peritoneal cavity above the liver. It was dilated with approximately 100 cc of normal saline. The pneumoperitoneum was now collapsed, after having approximated the fascia at the umbilicus with the Endo Close. The suture was tied, the trochars removed, and stephanie were applied to the skin. At the end of the procedure she was stable was sent to the recovery room. Needle sponge and instrument count were correct. No drains were placed. Complications: None Transferred to: Recovery Room Condition: Good
[2022-06-20] MEDS: CEFOXITIN 1 GM in NA CHLORIDE 0.9% 50 ML IVPB SCH ×2 (18:00→20:28)
[2022-06-20] MEDS: D5 0.45 NS 1,000 ML IV SCH ×2 (20:28→22:00)
[2022-06-20 20:52] VITALS: BMI 42.0
[2022-06-20] MEDS: MORPHINE 4 MG/ML SYR IV PRN (20:52)
--- NOTE | 2022-06-20 20:59 | RAD REPORT ---
EXAM DESCRIPTION: RADCholangiogram Oper-Xray Or06/20/2022 8:13 pm CLINICAL HISTORY: Abdominal pain FINDINGS: The examination was performed by Dr. Aldana. The cystic duct was cannulated and contrast administered. Contrast flowed into the duodenum. The biliary tree is normal caliber . Fluoroscopy time 0.4 minutes. Sixteen fluoroscopic spot images obtained
[2022-06-21] MEDS: CEFOXITIN 1 GM in NA CHLORIDE 0.9% 50 ML IVPB SCH ×3 (01:37→11:39)
[2022-06-21] MEDS: HYDROCODONE/APAP 7.5/325 MG TAB PO PRN ×2 (03:56→12:24)
[2022-06-21] MEDS: D5 0.45 NS 1,000 ML IV SCH ×2 (03:58→05:51)
[2022-06-21] MEDS: MORPHINE 4 MG/ML SYR IV PRN ×2 (05:52→10:04)
[2022-06-21] MEDS ORDERED: PNEUMOCOCCAL VACCINE 0.5 ML IMVAC ONE (08:00)
--- NOTE | 2022-06-21 12:41 | P.DS ---
Admission Date: 06/20/22 Discharge Date: 06/21/22 Disposition: ROUTINE DISCHARGE Discharge Condition: GOOD Reason for Admission: Acute postoperative abdominal pain Procedures: Laparoscopic cholecystectomy with intraoperative cholangiogram Brief History of Present Illness: Patient presented to the emergency room with severe right upper quadrant abdominal pain, radiating into her back, for diagnosis and treatment. Hospital Course: Patient was evaluated in the emergency room. It was found she had cholecystitis with cholelithiasis. She was brought to the operating room where a laparoscopic cholecystectomy was performed. At the time of the surgery there were 2 stones impacted into her cystic duct, a cholangiogram was negative. The patient was admitted postoperatively for observation and pain control. Today she is up ambulating, tolerating a diet, and her pain is controlled on oral medication. She is deemed fit for discharge. Vital Signs/Physical Exam: Temp Pulse Resp BP Pulse Ox 97.6 F 100 H 18 112/60 99 06/21/22 12:00 06/21/22 12:00 06/21/22 12:24 06/21/22 12:00 06/21/22 12:24 Laboratory Data at Discharge: WBC 12.20 K/uL (4.3-10.9) H 06/20/22 11:22 Hgb 13.6 g/dL (12.0-15.0) 06/20/22 11:22 Hct 40.0 % (36.0-45.0) 06/20/22 11:22 Plt Count 354 K/uL (152-406) 06/20/22 11:22 Sodium 138 mmol/L (136-145) 06/20/22 11:22 Potassium 3.7 mmol/L (3.5-5.1) 06/20/22 11:22 BUN 13 mg/dL (7-18) 06/20/22 11:22 Creatinine 0.75 mg/dL (0.55-1.3) 06/20/22 11:22 Glucose 129 mg/dL (74-106) H 06/20/22 11:22 Total Bilirubin 0.7 mg/dL (0.2-1.0) 06/20/22 11:22 Total Bilirubin 0.8 mg/dL (0.2-1.0) 06/20/22 11:22 AST 34 U/L (15-37) 06/20/22 11:22 AST 37 U/L (15-37) 06/20/22 11:22 ALT 76 U/L (12-78) 06/20/22 11:22 ALT 76 U/L (12-78) 06/20/22 11:22 Alkaline Phosphatase 86 U/L (45-117) 06/20/22 11:22 Alkaline Phosphatase 87 U/L (45-117) 06/20/22 11:22 Amylase 55 U/L (25-115) 06/20/22 11: Lipase 68 U/L (73-393) L 06/20/22 11:22 Home Medications: NK [No Home Meds] 06/20/22 Physician Discharge Instructions: Regular diet, change dressings as needed. Milk of magnesia as needed. Pain medicine as directed. Any questions or problems, go to the emergency room, or contact me Diet: Regular Activity: Ad dinh Followup: Morgan Aldana MD [Primary Care Provider] - 1 Week (CAll to schedule an appointment)
[2022-06-21 17:10] VITALS: BP 114/61; TEMP 98.6; O2SAT 100
== END 2022-06-21 14:00 | disposition home or self-care (01) ==
LOC: SUPCPDRO 10:41 → ER 10:41 → DS 13:54 → 2ND 18:31
PROVIDERS: ADMIT Surgery; ATTEND Surgery
PROC: BF10YZZ Fluoroscopy of Bile Ducts using Other Contrast (ICD-10-PCS; 2022-06-20)
PROC: 0FT44ZZ Resection of Gallbladder, Percutaneous Endoscopic Approach (ICD-10-PCS; principal; 2022-06-20 14:00)
DX: K80.12 Calculus of gallbladder with acute and chronic cholecystitis without obstruction (principal); Z20.822 Contact with and (suspected) exposure to COVID-19
CPT/HCPCS: 96365; 96361; 85025; 36415; 82150; 81025; 80076; 88304; 81003; 83690; 80053; 74300; 76705; 94010; 96375; 99285; 87811; 47563; J2704; J1100; J2710; J0330; J2001; J2250; J3010; J7799 ×2; J7120 ×2; J7030; J0694 ×5; J2405 ×4; G0378; J1200; J2765; J7040

== ENCOUNTER 2022-10-30 16:56 | Emergency (ER) | payer OTHER ==
--- OUTSIDE RECORDS SUMMARY | 2022-10-30 17:06 | XMS REPORT | Continuity of Care Document ---
:2000 Author Organization [facility] t Address [facility] [place] [address] Care Team Providers Name Role Phone BRENDA DAVIES Primary Care Physician Unavailable BONI DANIELLE Attending Clinician Unavailable Jackie Ballard MA Attending Clinician Unavailable Shashi HENAO, Boni Awad Attending Clinician Hector Villeda CRNA Attending Clinician Kevin QUIÑONES, Sharifa HAMMOND Attending Clinician Osorio Alexandre MD Attending Clinician 2, [facility] Attending Clinician Unavailable Doctor Unassigned, [place] Attending Clinician Unavailable Brenda Russell Attending Clinician Nurse, [facility] Attending Clinician Unavailable Daisy Calvo MD Attending Clinician Torsten Correa PA-C Attending Clinician Ancelmo CALVILLO, Louisa Byrd Attending Clinician Unavailable TORSTEN CORREA Attending Clinician Unavailable Rachael Dye MD Attending Clinician Philipp CALVILLO, Cely Balderrama Attending Clinician Unavailable Ultrasound, [facility] Attending Clinician Unavailable Maria Estrada MD Attending Clinician ARABELLA SANCHEZ Attending Clinician Unavailable Sandeep Rodriguez DO Attending Clinician DEONTE DESIR Attending Clinician Unavailable Lab, [facility] Attending Clinician Unavailable Huber Ashley MD Attending Clinician [address] [place] [address] Us Room Attending Clinician Unavailable Lashawn Soliman Attending Clinician Akinnicolasa WHCNPRobert Attending Clinician [phone] BRENDA DAVIES Attending Clinician Unavailable Deonte Godinez Attending Clinician ROBERT ABARCA Attending Clinician Unavailable DAISY CALVO Admitting Clinician Unavailable BONI DANIELLE Admitting Clinician Unavailable RACHAEL DYE Admitting Clinician Unavailable Boni Danielle MD Admitting Clinician Daisy Calvo MD Admitting Clinician Rachael Dye MD Admitting Clinician Payers Payer Name Policy Type Policy Number Effective Date Expiration Date Rochelle HAMMER [id number] 2020 HEALTH 00:00:00 [place]ICAID OF [place] [id number] 2020 00:00:00 Problems Condition Condition Condition Status Onset Resolution Last Treating Co mments Source Name Details Category Date Date Treatment Clinician Date Rash Rash Disease Active Univers 5-12 ity of 00:00: [place] [address] Medical Branch Epigastric Epigastric Disease Active U nivers pain pain 5-12 ity of 00:00: [place] [address] Medical Branch Other Other Disease Active Univers headache headache 5-12 ity of syndrome syndrome 00:00: [place] [address] Medical Branch Anemia due Anemia due Disease Active U nivers to acute to acute 5-06 ity of blood [place] 00:[place] 00 [place] Other Other Disease Active Univers immediate immediate 5-06 ity of 00:[place] hemorrhage hemorrhage 00 Wa dical Branch Disease Active Univers demise, demise, 5-04 ity of greater greater 00:00: [place] than 22 than 22 00 Medical weeks, weeks, Branch antepartum antepartum , single , single or or unspecifie unspecifie d fetus d fetus Disease Active Univers demise > demise > 5-04 ity of 22 weeks, 22 weeks, [place] 00 Me dical current current [facility] ation ation Liveborn Liveborn Disease Active Unive rs , of infant, of 5-22 it y of [place] , , 00 Me dical born in born in [facility] by by delivery delivery 20 weeks 20 weeks Disease Active Unive rs gestation gestation 2-10 ity of of of 00:00: [place] 00 [facility] Placenta Placenta Disease Active Unive rs previa previa 2-10 ity of antepartum antepartum 00:00[place] , , 00 Medical unspecifie unspecifie Br anch d d trimester trimester 22 weeks 22 weeks Disease Active Unive rs gestation gestation 2-10 ity of of of 00:00: [place] 00 [facility] 34 weeks 34 weeks Disease Active Unive rs gestation gestation 2-10 ity of of of 00:00: [place] 00 [facility] 35 weeks 35 weeks Disease Active Unive rs gestation gestation 2-10 ity of of of 00:00: [place] 00 [facility] Morbid Morbid Disease Active 2019-10 Univers obesity [...] of 1-02 ity of high-risk high-risk 00:[place] 00 [facility] Branch History of History of Disease Active 2019-10 Overview : Univers 10-02 Formattin ity o f delivery delivery 00:00: g of this [place] 00 note Medical might be Branch different from the original. At 32 weeks, marginal placenta previa, vaginal bleeding Multiparit Multiparit Disease Active 2019-10 U nivers y y - ity of 00:00: [place] 00 Medical Branch History of History of Disease Active 2019-10 U nivers placenta placenta - ity of previa previa 00:00: [place] 00 Medical Branch Encounter Encounter Disease Active 2018-10 Uni vers for for 2-09 ity of initial initial 00:00: [place] prescripti prescripti 00 Me dical on of on of Branch contracept contracept francisco pills francisco pills Previous Previous Disease Active Unive rs 9-09 ity of section section 00:00: [address] Obesity in Obesity in Disease Active U nivers 8-08 ity of 00:00: [place] 00 [facility] Obesity Obesity Disease Active Univers (BMI (BMI 8-08 ity of 30-39.9) 30-39.9) 00:00: [place] 00 [facility] Vaginal Vaginal Disease Active Univers bleeding bleeding 6-09 ity of in in 00:00: [place] , , 00 Me dical third third Branch trimester trimester Allergies, Adverse Reactions, Alerts Allergy Allergy Status Severity Reaction(s) Onset Inactive Treating Comm ents Source Name Type Date Date Clinician NO KNOWN Drug Active Univers ALLERGIE Class ity of [facility] Social History Social Habit Start Date Stop Date Quantity Comments Source ASSERTION 2021-08-22 [facility] 00:00:00 [facility] Exposure to 2022-01-30 2022-02-09 Not sure [facility] SARS-CoV-2 (event) 00:00:00 10:14:00 [facility] [place] Alcohol intake 2022-02-09 2022-02-09 0 /d [facility] 00:00:00 00:00:00 [facility] Tobacco use and 2016-12-20 2016-12-20 Never used [facility] exposure 00:00:00 00:00:00 [facility] Branch Sex Assigned At [birth year] [facility] [place] 00:00:00 00:00:00 Medical Branch Smoking Status Start Date Stop Date Source Never smoker [facility] Medical Branch Medications Ordered Filled Start Stop Current Ordering Indication Dosage Frequency Signature Comments Components Source Medication Medication Date Date Medication? Clinician (SIG) Name Name docusate Yes [id number] 100mg Take 1 Un key (COLACE) 5-12 capsule by ity o f 100 mg 00:00: mouth once [place] capsule 00 daily as Medical needed for Branch Constipati on. famotidine Yes [id number] 20mg Take 1 U nivers 20 mg 5-12 tablet by ity of tablet 00:00: mouth 2 [place] 00 (two) Medical times Branch daily. docusate Yes [id number] 100mg Take 1 Un key (COLACE) 5-12 capsule by ity o f 100 mg 00:00: mouth once [place] capsule 00 daily as Medical needed for Branch Constipati on. famotidine Yes [id number] 20mg Take 1 U nivers 20 mg 5-12 tablet by ity of tablet 00:00: mouth 2 [place] 00 (two) Medical times Branch daily. docusate Yes [id number] 100mg Take 1 Un key (COLACE) 5-12 capsule by ity o f 100 mg 00:00: mouth once [place] capsule 00 daily as Medical needed for Branch Constipati on. famotidine Yes [id number] 20mg Take 1 U nivers 20 mg 5-12 tablet by ity of tablet 00:00: mouth 2 [place] 00 (two) Medical times Branch daily. docusate Yes [id number] 240mg Take 1 U nivers calcium 240 5-06 capsule by it y of mg capsule 00:00: mouth once [place] 00 daily as Medical needed for Branch Constipati on. ferrous 2021-0 Yes [id number] 325mg Take 1 Un key sulfate 325 5-06 tablet by ity of mg (65 mg 00:00: mouth 2 [place] iron) 00 (two) Medical tablet times Branch daily. ibuprofen Yes [id number] 600mg Take 1 Univers 600 mg 5-06 tablet by ity of tablet 00:00: mouth [place] 00 every 6 Medical (six) Branch hours as needed (Pain). Take with food or milk. docusate 2021-0 Yes [id number] 240mg Take 1 U nivers calcium 240 5-06 capsule by it y of mg capsule 00:00: mouth once [place] 00 daily as Medical needed for Branch Constipati on. ferrous 2021-0 Yes [id number] 325mg Take 1 Un key sulfate 325 5-06 tablet by ity of mg (65 mg 00:00: mouth 2 [place] iron) 00 (two) Medical tablet times Branch daily. ibuprofen 2021-0 Yes [id number] 600mg Take 1 Univers 600 mg 5-06 tablet by ity of tablet 00:00: mouth [place] 00 every 6 Medical (six) Branch hours as needed (Pain). Take with food or milk. docusate 2021-0 Yes [id number] 240mg Take 1 U nivers calcium 240 5-06 capsule by it y of mg capsule 00:00: mouth once [place] 00 daily as Medical needed for Branch Constipati on. ferrous 2021-0 Yes [id number] 325mg Take 1 Un key sulfate 325 5-06 tablet by ity of mg (65 mg 00:00: mouth 2 [place] iron) 00 (two) Medical tablet times Branch daily. ibuprofen 2021-0 Yes [id number] 600mg Take 1 Univers 600 mg 5-06 tablet by ity of tablet 00:00: mouth [place] 00 every 6 Medical (six) Branch hours as needed (Pain). Take with food or milk. docusate 2021-0 Yes [id number] 240mg Take 1 U nivers calcium 240 5-06 capsule by it y of mg capsule 00:00: mouth once [place] 00 daily as Medical needed for Branch Constipati on. ferrous 2021-0 Yes [id number] 325mg Take 1 Un key sulfate 325 5-06 tablet by ity of mg (65 mg 00:00: mouth 2 [place] iron) 00 (two) Medical tablet times Branch daily. ibuprofen 2021-0 Yes [id number] 600mg Take 1 Univers 600 mg 5-06 tablet by ity of tablet 00:00: mouth [place] 00 every 6 Medical (six) Branch hours as needed (Pain). Take with food or milk. docusate 2021-0 Yes [id number] 240mg Take 1 U nivers calcium 240 5-06 capsule by it y of mg capsule 00:00: mouth once [place] 00 daily as Medical needed for Branch Constipati on. ferrous 2021-0 Yes [id number] 325mg Take 1 Un key sulfate 325 5-06 tablet by ity of mg (65 mg 00:00: mouth 2 [place] iron) 00 (two) Medical tablet times Branch daily. ibuprofen 2021-0 Yes [id number] 600mg Take 1 Univers 600 mg 5-06 tablet by ity of tablet 00:00: mouth [place] 00 every 6 Medical (six) Branch hours as needed (Pain). Take with food or milk. docusate 2021- Yes [id number] 240mg Take 1 U nivers calcium 240 5-06 capsule by it y of mg capsule 00:00: mouth once [place] 00 daily as Medical needed for Branch Constipati on. ferrous 2021- Yes [id number] 325mg Take 1 Un key sulfate 325 5-06 tablet by ity of mg (65 mg 00:00: mouth 2 [place] iron) 00 (two) Medical tablet times Branch daily. ibuprofen Yes [id number] 600mg Take 1 Univers 600 mg 5-06 tablet by ity of tablet 00:00: mouth [place] 00 every 6 Medical (six) Branch hours as needed (Pain). Take with food or milk. rho(D) Yes 300ug 300 mcg, Univer s immune 5-05 Intramuscu ity of globulin 18:34: lar, ONCE, [place] (RHOGAM) 29 For 1 Medical syringe 300 dose, Branch mcg Conditiona l, Routine HYDROcodone 0 Yes 1{tbl} 1 tablet, Univers -acetaminop 5-05 [...] 5-05 Oral, ity of (TYLENOL) 18:34: Q6HPRN, [place] tablet 650 28 Starting Medic al mg on [facility] 02/02/22 at 1334, Until Discontinu ed, Routine, Pain (scale 1-3) diphenhydrA 2021-0 Yes 25mg 25 mg, Univ ers MINE 5-05 Oral, ity of (BENADRYL) 18:34: Q6HPRN, [place] tablet 25 28 Starting Medica l mg on [facility] 02/02/22 at 1334, Until Discontinu ed, Routine, Sleep, Itching ondansetron 2021-0 Yes 4mg 4 mg, Slow Univers (ZOFRAN 5-05 IV Push, ity of (PF)) 18:34: Q8HPRN, [place] injection 4 28 Starting Medi fabio mg on [facility] 02/02/22 at 1334, Until Discontinu ed, Routine, Nausea and Vomiting (N/V) simethicone 2021-0 Yes 160mg 160 mg, Un key (GAS RELIEF 5-05 Oral, ity of (SIMETHICON 18:34: PC+HSPRN, [place] E)) 28 Starting Medical chewable on [facility] tablet 160 02/02/22 at mg 1334, Until Discontinu ed, Routine, Gas docusate 2021-0 Yes 240mg 240 mg, Unive rs calcium 5-05 Oral, ity of (SURFAK) 18:34: QDAILYPRN, [place] capsule 240 28 Starting Medi fabio mg on [facility] 02/02/22 at 1334, Until Discontinu ed, Routine, Constipati on magnesium 2021-0 Yes 30mL 30 mL, Univer s hydroxide 5-05 Oral, ity of (MILK OF 18:34: QDAILYPRN, [place] MAGNESIA) 28 Starting Medica l 400 mg/5 mL on [facility] suspension 02/02/22 at 30 mL 1334, Until Discontinu ed, Routine, Constipati on benzocaine- 2021-0 Yes Topical, Un key menthol 5-05 PRN, ity of (DERMOPLAST 18:34: Starting [place] ) 20-0.5 % 28 on [facility] topical 02/02/22 at Branch spray 1334, Until Discontinu ed, Routine, Perineum discomfort harrison Samson Yes Topical, Un key (TUCKS) 50 5-05 Q4HPRN, ity of % topical 18:02: [place] pad 13 on [facility] 02/02/22 at Branch 1302, Until Discontinu ed, Routine, rectal/hem orrhoidal pain diphenoxyla 2021- No 1{tbl} 1 tablet, Univers te-atropine 02-02-06 Oral, ity of (LOMOTIL) 17:00: 16:59 Q6HPRN X [place] 2.5-0.025 00 :00 24 HOURS, Medic al mg tablet 1 Starting Bran ch tablet on [facility] 02/02/22 at 1200, Until Sun02/03/22 at 1159, Routine, after hemabate carboprost 2021- No 250ug 250 mcg, U nivers (HEMABATE) 02-02- Intramuscu it y of injection 17:00: 16:57 lar, ONCE, [place] 250 mcg 00 :00 1 dose, On Medica l [facility] 02/02/22 Branch at 1200, MARILYN oxytocin 2021- No 20U 20 Units, Uni vers (PITOCIN) 02-02-05 IV ity of injection 17:00: 16:53 Piggyback, [place] 20 Units 00 :00 ONCE, 1 Medical dose, On Branch [facility] 02/02/22 at 1200, Routine PIB 2021- No Epidural, Univers fentaNYL-ro 02-02-05 CONTINUOUS i ty of pivacaine 2 13:30: [...] No 25ug 25 mcg, Un key (CYTOTEC) 02-01- Vaginal, ity o f quarter-tab 23:30: 02:48 [...] 2021- No 100ug 100 mcg, Univers (SUBLIMAZE 02-01- Slow IV ity o f (PF)) 23:22: [...] 02/02/22 at 1302, Routine PNV 2020-10 Yes [id number] Take 1 Univers 102-iron-fo 2-20 TAB-CAP/M2 it y of late-dha 00:00: by mouth [place] (VITAFOL FE 00 daily. Medica l PLUS) 90 mg Branch iron- 1 mg-200 mg Cap PNV 2020-10 Yes [id number] Take 1 Univers 102-iron-fo 2-20 TAB-CAP/M2 it y of late-dha 00:00: by mouth [place] (VITAFOL FE 00 daily. Medica l PLUS) 90 mg Branch iron- 1 mg-200 mg Cap PNV 2020-10 Yes [id number] Take 1 Univers 102-iron-fo 2-20 TAB-CAP/M2 it y of late-dha 00:00: by mouth [place] (VITAFOL FE 00 daily. Medica l PLUS) 90 mg Branch iron- 1 mg-200 mg Cap PNV 2020-10 Yes [id number] Take 1 Univers 102-iron-fo 2-20 TAB-CAP/M2 it y of late-dha 00:00: by mouth [place] (VITAFOL FE 00 daily. Medica l PLUS) 90 mg Branch iron- 1 mg-200 mg Cap PNV 2020-10 Yes [id number] Take 1 Univers 102-iron-fo 2-20 TAB-CAP/M2 it y of late-dha 00:00: by mouth [place] (VITAFOL FE 00 daily. Medica l PLUS) 90 mg Branch iron- 1 mg-200 mg Cap PNV 2020-10 Yes [id number] Take 1 Univers 102-iron-fo 2-20 TAB-CAP/M2 it y of late-dha 00:00: by mouth [place] (VITAFOL FE 00 daily. Medica l PLUS) 90 mg Branch iron- 1 mg-200 mg Cap PNV 2020-10 Yes [id number] Take 1 Univers 102-iron-fo 2-20 TAB-CAP/M2 it y of late-dha 00:00: by mouth [place] (VITAFOL FE 00 daily. Medica l PLUS) 90 mg Branch iron- 1 mg-200 mg Cap PNV 2020-10 Yes [id number] Take 1 Univers 102-iron-fo 2-20 TAB-CAP/M2 it y of late-dha 00:00: by mouth [place] (VITAFOL FE 00 daily. Medica l PLUS) 90 mg Branch iron- 1 mg-200 mg Cap PNV 2020-10 Yes [id number] Take 1 Univers 102-iron-fo 2-20 TAB-CAP/M2 it y of late-dha 00:00: by mouth [place] (VITAFOL FE 00 daily. Medica l PLUS) 90 mg Branch iron- 1 mg-200 mg Cap PNV 2020-10 Yes [id number] Take 1 Univers 102-iron-fo 2-20 TAB-CAP/M2 it y of late-dha 00:00: by mouth [place] (VITAFOL FE 00 daily. Medica l PLUS) 90 mg Branch iron- 1 mg-200 mg Cap PNV 2020-10 Yes [id number] Take 1 Univers 102-iron-fo 2-20 TAB-CAP/M2 it y of late-dha 00:00: by mouth [place] (VITAFOL FE 00 daily. Medica l PLUS) 90 mg Branch iron- 1 mg-200 mg Cap PNV 2020-10 Yes [id number] Take 1 Univers 102-iron-fo 2-20 TAB-CAP/M2 it y of late-dha 00:00: by mouth [place] (VITAFOL FE 00 daily. Medica l PLUS) 90 mg Branch iron- 1 mg-200 mg Cap PNV 2020-10 Yes [id number] Take 1 Univers 102-iron-fo 2-20 TAB-CAP/M2 it y of late-dha 00:00: by mouth [place] (VITAFOL FE 00 daily. Medica l PLUS) 90 mg Branch iron- 1 mg-200 mg Cap PNV 2020-10 Yes [id number] Take 1 Univers 102-iron-fo 2-20 TAB-CAP/M2 it y of late-dha 00:00: by mouth [place] (VITAFOL FE 00 daily. Medica l PLUS) 90 mg Branch iron- 1 mg-200 mg Cap PNV 2020-10 Yes [id number] Take 1 Univers 102-iron-fo 2-20 TAB-CAP/M2 it y of late-dha 00:00: by mouth [place] (VITAFOL FE 00 daily. Medica l PLUS) 90 mg Branch iron- 1 mg-200 mg Cap PNV 2020-10 Yes [id number] Take 1 Univers 102-iron-fo 2-20 TAB-CAP/M2 it y of late-dha 00:00: by mouth [place] (VITAFOL FE 00 daily. Medica l PLUS) 90 mg Branch iron- 1 mg-200 mg Cap PNV 2020-10 Yes [id number] Take 1 Univers 102-iron-fo 2-20 TAB-CAP/M2 it y of late-dha 00:00: by mouth [place] (VITAFOL FE 00 daily. Medica l PLUS) 90 mg Branch iron- 1 mg-200 mg Cap PNV 2020-10 Yes [id number] Take 1 Univers 102-iron-fo 2-20 TAB-CAP/M2 it y of late-dha 00:00: by mouth [place] (VITAFOL FE 00 daily. Medica l PLUS) 90 mg Branch iron- 1 mg-200 mg Cap PNV 2020-10- No [id number] Take 1 Univer s 102-iron-fo 2-20 05-12 TAB-CAP/M2 i ty of late-dha 00:00: 00:00 by mouth [place] (VITAFOL FE 00 :00 daily. Medica l PLUS) 90 mg Branch iron- 1 mg-200 mg Cap ferrous Yes 325mg 325 mg, Univer s sulfate 5-24 Oral, BID, ity of tablet 325 13:00: First dose [place] mg 00 on [facility] 02/21/21 at Branch 0800, Until Discontinu ed, Routine ferrous Yes 325mg 325 mg, Univer s sulfate 5-24 Oral, BID, ity of tablet 325 13:00: First dose [place] mg 00 on [facility] 02/21/21 at Branch 0800, Until Discontinu ed, Routine ibuprofen Yes 600mg 600 mg, Univ ers (IBU) 5-24 Oral, Q6H ity of tablet 600 05:00: ABX, First [place] mg 00 dose on Medical [facility] 02/21/21 at 0000, Until Discontinu ed, Routine ibuprofen Yes 600mg 600 mg, Univ ers (IBU) 5-24 Oral, Q6H ity of tablet 600 05:00: ABX, First [place] mg 00 dose on Medical [facility] 02/21/21 at 0000, Until Discontinu ed, Routine acetaminoph Yes [id number] 650mg Take 2 Univers en 325 mg 5-24 tablets by ity of tablet 00:00: mouth [place] 00 every 6 Medical (six) Branch hours as needed for Pain (scale 1-3) or Pain (scale 4-6). acetaminoph Yes [id number] 650mg Take 2 Univers en 325 mg 5-24 tablets by ity of tablet 00:00: mouth [place] 00 every 6 Medical (six) Branch hours as needed for Pain (scale 1-3) or Pain (scale 4-6). Yes [id number] 1{tbl} Take 1 Univers vitamin 5-24 tablet by ity of w/FA tablet 00:00: mouth [place] 00 daily. Medical Branch docusate Yes [id number] 240mg Take 1 U nivers calcium 240 5-24 capsule by it y of mg capsule 00:00: mouth once [place] 00 daily as Medical needed for Branch Constipati on. ferrous Yes [id number] 325mg Take 1 Un key sulfate 325 5-24 tablet by ity of mg (65 mg 00:00: mouth 2 [place] iron) 00 (two) Medical tablet times Branch daily. ibuprofen Yes [id number] 600mg Take 1 Univers 600 mg 5-24 tablet by ity of tablet 00:00: mouth [place] 00 every 6 Medical (six) Branch hours as needed (Pain). Take with food or milk. foLIC acid Yes [id number] 1mg Take 1 Univers 1 mg tablet 5-24 tablet by ity of 00:00: mouth [place] 00 daily. Medical Branch ascorbic 0 Yes [id number] 500mg Take 1 U nivers acid, 5-24 tablet by ity of vitamin C, 00:00: mouth [place] (VITAMIN C) 00 daily. Medica l 500 mg Branch tablet acetaminoph Yes [id number] 650mg Take 2 Univers en 325 mg 5-24 tablets by ity of tablet 00:00: mouth [place] 00 every 6 Medical (six) Branch hours as needed for Pain (scale 1-3) or Pain (scale 4-6). Yes [id number] 1{tbl} Take 1 Univers vitamin 5-24 tablet by ity of w/FA tablet 00:00: mouth [place] 00 daily. Medical Branch docusate Yes [id number] 240mg Take 1 U nivers calcium 240 5-24 capsule by it y of mg capsule 00:00: mouth once [place] 00 daily as Medical needed for Branch Constipati on. ferrous Yes [id number] 325mg Take 1 Un key sulfate 325 5-24 tablet by ity of mg (65 mg 00:00: mouth 2 [place] iron) 00 (two) Medical tablet times Branch daily. ibuprofen Yes [id number] 600mg Take 1 Univers 600 mg 5-24 tablet by ity of tablet 00:00: mouth [place] 00 every 6 Medical (six) Branch hours as needed (Pain). Take with food or milk. foLIC acid Yes [id number] 1mg Take 1 Univers 1 mg tablet 5-24 tablet by ity of 00:00: mouth [place] 00 daily. Medical Branch ascorbic Yes [id number] 500mg Take 1 U nivers acid, 5-24 tablet by ity of vitamin C, 00:00: mouth [place] (VITAMIN C) 00 daily. Medica l 500 mg Branch tablet acetaminoph Yes [id number] 650mg Take 2 Univers en 325 mg 5-24 tablets by ity of tablet 00:00: mouth [place] 00 every 6 Medical (six) Branch hours as needed for Pain (scale 1-3) or Pain (scale 4-6). Yes [id number] 1{tbl} Take 1 Univers vitamin 5-24 tablet by ity of w/FA tablet 00:00: mouth [place] 00 daily. Medical Branch docusate Yes [id number] 240mg Take 1 U nivers calcium 240 5-24 capsule by it y of mg capsule 00:00: mouth once [place] 00 daily as Medical needed for Branch Constipati on. ferrous Yes [id number] 325mg Take 1 Un key sulfate 325 5-24 tablet by ity of mg (65 mg 00:00: mouth 2 [place] iron) 00 (two) Medical tablet times Branch daily. ibuprofen Yes [id number] 600mg Take 1 Univers 600 mg 5-24 tablet by ity of tablet 00:00: mouth [place] 00 every 6 Medical (six) Branch hours as needed (Pain). Take with food or milk. foLIC acid Yes [id number] 1mg Take 1 Univers 1 mg tablet 5-24 tablet by ity of 00:00: mouth [place] 00 daily. Medical Branch ascorbic Yes [id number] 500mg Take 1 U nivers acid, 5-24 tablet by ity of vitamin C, 00:00: mouth [place] (VITAMIN C) 00 daily. Medica l 500 mg Branch tablet acetaminoph Yes [id number] 650mg Take 2 Univers en 325 mg 5-24 tablets by ity of tablet 00:00: mouth [place] 00 every 6 Medical (six) Branch hours as needed for Pain (scale 1-3) or Pain (scale 4-6). Yes [id number] 1{tbl} Take 1 Univers vitamin 5-24 tablet by ity of w/FA tablet 00:00: mouth [place] 00 daily. Medical Branch docusate Yes [id number] 240mg Take 1 U nivers calcium 240 5-24 capsule by it y of mg capsule 00:00: mouth once [place] 00 daily as Medical needed for Branch Constipati on. ferrous Yes [id number] 325mg Take 1 Un key sulfate 325 5-24 tablet by ity of mg (65 mg 00:00: mouth 2 [place] iron) 00 (two) Medical tablet times Branch daily. ibuprofen Yes [id number] 600mg Take 1 Univers 600 mg 5-24 tablet by ity of tablet 00:00: mouth [place] 00 every 6 Medical (six) Branch hours as needed (Pain). Take with food or milk. foLIC acid Yes [id number] 1mg Take 1 Univers 1 mg tablet 5-24 tablet by ity of 00:00: mouth [place] 00 daily. Medical Branch ascorbic Yes [id number] 500mg Take 1 U nivers acid, 5-24 tablet by ity of vitamin C, 00:00: mouth [place] (VITAMIN C) 00 daily. Medica l 500 mg Branch tablet acetaminoph Yes [id number] 650mg Take 2 Univers en 325 mg 5-24 tablets by ity of tablet 00:00: mouth [place] 00 every 6 Medical (six) Branch hours as needed for Pain (scale 1-3) or Pain (scale 4-6). acetaminoph 2021- No [id number] 650mg Take 2 Univers en 325 mg 5-24 01-06 tablets by ity of tablet 00:00: 00:00 mouth [place] 00 :00 every 6 Medical (six) Branch hours as needed for Pain (scale 1-3) or Pain (scale 4-6). 2020- No [id number] 1{tbl} Take 1 Univers vitamin 5-24 12-20 tablet by ity of w/FA tablet 00:00: 00:00 mouth [place] 00 :00 daily. Medical Branch docusate 2020- No [id number] 240mg Take 1 Univers calcium 240 5-24 12-20 capsule by i ty of mg capsule 00:00: 00:00 mouth once [place] 00 :00 daily as Medical needed for Branch Constipati on. ferrous 2020- No [id number] 325mg Take 1 U nivers sulfate 325 5-24 12-20 tablet by it y of mg (65 mg 00:00: 00:00 mouth 2 [place] iron) 00 :00 (two) Medical tablet times Branch daily. ibuprofen 2020- No [id number] 600mg Take 1 Univers 600 mg 5-24 12-20 tablet by ity of tablet 00:00: 00:00 mouth [place] 00 :00 every 6 Medical (six) Branch hours as needed (Pain). Take with food or milk. foLIC acid 2020- No [id number] 1mg Take 1 Univers 1 mg tablet 5-24 12-20 tablet by it y of 00:00: 00:00 mouth [place] 00 :00 daily. Medical Branch ascorbic 2020- No [id number] 500mg Take 1 Univers acid, 5-24 12-20 [...] Indication s: acute pain gabapentin 2020- No [id number] 300mg Take 1 [facility] 300 mg 5-24 05-30 capsule by ity of capsule 00:00: 04:59 mouth 3 [place] 00 :00 (three) Medical times Branch daily for 5 days. gabapentin 2020- No [id number] 300mg Take 1 [facility] 300 mg 5-24 05-30 capsule by ity of capsule 00:00: 04:59 mouth 3 [place] 00 :00 (three) Medical times Branch daily for 5 days. lactated No 1000mL at 125 Univ ers ringers IV 02-20-23 mL/hr, ity of infusion 05:00: 04:23 1,000 mL, [place] 1,000 mL 00 :00 IV Medical Infusion, Branch ONCE, 1 dose, 02/20/21 at 0000, Routine ketorolac 2020- No 30mg 30 mg, Unive rs (TORADOL) 02-20 05-23 Slow IV ity of injection 05:00: 23:03 Push, Q6H [place] 30 mg 00 :00 ABX, 4 Medical doses, Branch First dose on 02/20/21 at 0000, Last dose on 02/20/21 at 1800, Routine
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 : BONI DANIELLE CAM acetaminoph Yes 650mg 650 mg, Un key en 02-19 Oral, Q6H ity of (TYLENOL) 23:00: ABX, First [place] tablet 650 00 dose on Medica l mg Sat Branch 02/19/21 at 1800, Until Discontinu ed, Routine HYDROcodone 0 Yes 1{tbl} 1 tablet, Univers -acetaminop 5-22 Oral, ity of hen (NORCO 23:00: Q6HPRN, [place] 5) 5-325 mg 00 Starting Medi afbio tablet 1 Sat Branch tablet 02/19/21 at [...] of 40 Units in 22:45: 21:40 Infusion, [place] lactated 00 :00 ONCE, 1 Medical ringers dose, Sat Branch 1,000 mL IV 02/19/21 at infusion 1745, Routine FENTanyl PF 2020- No 50ug 50 mcg, Un key (SUBLIMAZE 02-19 Slow IV ity o f (PF)) 19:00: 16:49 Push, [place] injection 00 :00 ONCE, 1 Medical 50 mcg dose, Sat Branch 02/19/21 at 1400, Routine methylergon 2020- No .2mg 0.2 mg, Un key ovine 02-19 Intramuscu ity of (METHERGINE 18:45: 17:37 lar, ONCE, [place] ) injection 00 :00 1 dose, Medic al 0.2 mg Sat Branch 02/19/21 at 1345, Routine ceFAZolin 2020- No 2000mg 2 g (2,000 Univers in dextrose 02-19 05-22 mg), IV ity of (iso-os) 18:30: 17:42 Piggyback, [place] (ANCEF) 2 00 :00 ONCE, 1 Medical gram/100 mL dose, Sat [facility] Piggyback 2 02/19/21 at g 1330, [...] Routine lactated 2020- No 1000mL at 999 [facility] [place] [facility] ers ringers IV 02-19 05 mL/hr, ity of infusion 17:15: 16:16 1,000 mL, [place] 1,000 mL 00 :00 IV Medical Infusion, [place] ONCE, 1 dose, 02/19/21 at 1215, Routine [...] 13:00: First dose [place] mg 00 on [facility] Medical 02/19/21 at Branch 0800, Until Discontinu ed, Routine gabapentin 0 Yes 300mg 300 mg, Uni vers (NEURONTIN) 5-22 Oral, TID, it y of capsule 300 13:00: First dose [place] mg 00 on [facility] Medical 02/19/21 at Branch 0800, Until Discontinu [...] dose, Branch mcg Conditiona l, Routine ondansetron Yes 4mg 4 mg, Slow Univers (ZOFRAN 5-22 IV Push, ity of (PF)) 12:03: Q8HPRN, [place] injection 4 43 Starting Medi fabio mg Sat Branch 02/19/21 at 0703, Until Discontinu ed, Routine, Nausea and Vomiting (N/V) magnesium 2020-0 Yes 30mL 30 mL, Univer s hydroxide 5-22 Oral, ity of (MILK OF 12:03: QDAILYPRN, [place] MAGNESIA) 43 Starting Medica l 400 mg/5 mL Sat Branch suspension 02/19/21 at 30 mL 0703, Until Discontinu ed, Routine, Constipati on ondansetron Yes 4mg 4 mg, Slow Univers (ZOFRAN 5-22 IV Push, ity of (PF)) 12:03: Q8HPRN, [place] injection 4 43 Starting Medi fabio mg [...] QDAILYPRN, [place] 10 mg 42 Starting Medical [facility] Branch 02/19/21 at 0703, Until Discontinu ed, Routine, Constipati on ondansetron 2020- No 4mg 4 mg, Slow Univers (ZOFRAN 02-19 05-22 IV Push, ity of (PF)) 12:03: 13:18 PRN, 1 [place] injection 4 34 :00 dose, Medical mg Starting Branch [facility] 02/19/21 at 0703, Until 02/19/21 at 0818, [...] Surgical Prophylaxi s
Surgi fabio Prophylaxi s: FORM SETTER METAL ROAD FORMS< br>Duratio n of therapy: within 24 hours [...] 500mL at 999 Unive rs ringers IV 02-19- mL/hr, 500 it y of infusion 09:15: 12:03 mL, IV [place] 500 mL 41 :48 Infusion, Medical PRN - SEE Branch INSTRUCTIO NS, Starting 02/19/21 at 0415, Until 02/19/21 at 0703, Routine betamethaso 2020- No 12mg 12 mg, Uni vers ne acet,sod 02-1619 Intramuscu i ty of phos 15:00: 14:50 lar, ONCE, [place] (CELESTONE 00 :00 1 dose, Medica l SOLUSPAN) 6 Sun Branch mg/mL 02/16/21 at injection 1000, 12 mg Routine betamethaso 2020- No 12mg 12 mg, Uni vers ne acet,sod 02-15 05-20 Intramuscu i ty of phos 13:00: 12:59 lar, Q24H, [place] (CELESTONE 00 :00 2 doses, Medic al [...] First dose [place] mg 00 on [facility] 02/14/21 at Branch 2000, Until Discontinu ed, Routine
Reason for Anti-Infec tive: Documented Infection< br>Documen arielle Infection Site: Other
O ther site: vaginitis< br>Duratio n of Therapy: 7 days metroNIDAZO 0 Yes [id number] 500mg Take 1 Univers LE 500 mg 5-17 tablet by ity o f tablet 00:00: mouth [place] 00 every 12 Medical (twelve) Branch hours. metroNIDAZO 2020-0 Yes [id number] 500mg Take 1 [facility] LE 500 mg 5-17 tablet by ity o f tablet 00:00: mouth [place] 00 every 12 Medical (twelve) Branch hours. metroNIDAZO 2020-0 Yes [id number] 500mg Take 1 [facility] LE 500 mg 5-17 tablet by ity o f tablet 00:00: mouth [place] 00 every 12 Medical (twelve) Branch hours. metroNIDAZO 2020-0 Yes [id number] 500mg Take 1 [facility] LE 500 mg 5-17 tablet by ity o f tablet 00:00: mouth [place] 00 every 12 Medical (twelve) Branch hours. metroNIDAZO 2020-0 Yes [id number] 500mg Take 1 [facility] LE 500 mg 5-17 tablet by ity o f tablet 00:00: mouth [place] 00 every 12 Medical (twelve) Branch hours. metroNIDAZO 2020-0 Yes [id number] 500mg Take 1 [facility] LE 500 mg 5-17 tablet by ity o f tablet 00:00: mouth [place] 00 every 12 Medical (twelve) Branch hours. metroNIDAZO 2020-0 Yes [id number] 500mg Take 1 [facility] LE 500 mg 5-17 tablet by ity o f tablet 00:00: mouth [place] 00 every 12 Medical (twelve) Branch hours. metroNIDAZO 2020-0 Yes [id number] 500mg Take 1 [facility] LE 500 mg 5-17 tablet by ity o f tablet 00:00: mouth [place] 00 every 12 Medical (twelve) Branch hours. metroNIDAZO 2020-0 202- No [id number] 500mg Take 1 [facility] LE 500 mg 5-17 12-20 tablet by ity of tablet 00:00: 00:00 mouth [place] 00 :00 every 12 Medical (twelve) Branch hours. albuterol 2019-10 Yes [id number] 2{puff} Inhale 2 Univers 90 2-16 Puffs ity of mcg/actuati 00:00: every 6 [place] on inhaler 00 (six) Medical hours as Branch needed for Wheezing, Shortness of Breath, Bronchospa sm or Chest tightness. albuterol 2019-10 Yes [id number] 2{puff} Inhale 2 Univers 90 2-16 Puffs ity of mcg/actuati 00:00: every 6 [place] on inhaler 00 (six) Medical hours as Branch needed for Wheezing, Shortness of Breath, Bronchospa sm or Chest tightness. albuterol 2019-10 Yes [id number] 2{puff} Inhale 2 Univers 90 2-16 Puffs ity of mcg/actuati 00:00: every 6 [place] on inhaler 00 (six) Medical hours as Branch needed for Wheezing, Shortness of Breath, Bronchospa sm or Chest tightness. albuterol 2019-10 Yes [id number] 2{puff} Inhale 2 Univers 90 2-16 Puffs ity of mcg/actuati 00:00: every 6 [place] on inhaler 00 (six) Medical hours as Branch needed for Wheezing, Shortness of Breath, Bronchospa sm or Chest tightness. albuterol 2019-10 Yes [id number] 2{puff} Inhale 2 Univers 90 2-16 Puffs ity of mcg/actuati 00:00: every 6 [place] on inhaler 00 (six) Medical hours as Branch needed for Wheezing, Shortness of Breath, Bronchospa sm or Chest tightness. albuterol 2019-10 Yes [id number] 2{puff} Inhale 2 Univers 90 2-16 Puffs ity of mcg/actuati 00:00: every 6 [place] on inhaler 00 (six) Medical hours as Branch needed for Wheezing, Shortness of Breath, Bronchospa sm or Chest tightness. albuterol 2019-10 Yes [id number] 2{puff} Inhale 2 Univers 90 2-16 Puffs ity of mcg/actuati 00:00: every 6 [place] on inhaler 00 (six) Medical hours as Branch needed for Wheezing, Shortness of Breath, Bronchospa sm or Chest tightness. albuterol 2019-10 Yes [id number] 2{puff} Inhale 2 Univers 90 2-16 Puffs ity of mcg/actuati 00:00: every 6 [place] on inhaler 00 (six) Medical hours as Branch needed for Wheezing, Shortness of Breath, Bronchospa sm or Chest tightness. albuterol 2019-10 Yes [id number] 2{puff} Inhale 2 Univers 90 2-16 Puffs ity of mcg/actuati 00:00: every 6 [place] on inhaler 00 (six) Medical hours as Branch needed for Wheezing, Shortness of Breath, Bronchospa sm or Chest tightness. albuterol 2019-10 Yes [id number] 2{puff} Inhale 2 Univers 90 2-16 Puffs ity of mcg/actuati 00:00: every 6 [place] on inhaler 00 (six) Medical hours as Branch needed for Wheezing, Shortness of Breath, Bronchospa sm or Chest tightness. albuterol 2019-10 Yes [id number] 2{puff} Inhale 2 Univers 90 2-16 Puffs ity of mcg/actuati 00:00: every 6 [place] on inhaler 00 (six) Medical hours as Branch needed for Wheezing, Shortness of Breath, Bronchospa sm or Chest tightness. albuterol 2019-10 Yes [id number] 2{puff} Inhale 2 Univers 90 2-16 Puffs ity of mcg/actuati 00:00: every 6 [place] on inhaler 00 (six) Medical hours as Branch needed for Wheezing, Shortness of Breath, Bronchospa sm or Chest tightness. albuterol 2019-10 Yes [id number] 2{puff} Inhale 2 Univers 90 2-16 Puffs ity of mcg/actuati 00:00: every 6 [place] on inhaler 00 (six) Medical hours as Branch needed for Wheezing, Shortness of Breath, Bronchospa sm or Chest tightness. albuterol 2019-10 Yes [id number] 2{puff} Inhale 2 Univers 90 2-16 Puffs ity of mcg/actuati 00:00: every 6 [place] on inhaler 00 (six) Medical hours as Branch needed for Wheezing, Shortness of Breath, Bronchospa sm or Chest tightness. albuterol 2019-10 Yes [id number] 2{puff} Inhale 2 Univers 90 2-16 Puffs ity of mcg/actuati 00:00: every 6 [place] on inhaler 00 (six) Medical hours as Branch needed for Wheezing, Shortness of Breath, Bronchospa sm or Chest tightness. albuterol 2019-10 Yes [id number] 2{puff} Inhale 2 Univers 90 2-16 Puffs ity of mcg/actuati 00:00: every 6 [place] on inhaler 00 (six) Medical hours as Branch needed for Wheezing, Shortness of Breath, Bronchospa sm or Chest tightness. albuterol 2019-10 Yes [id number] 2{puff} Inhale 2 Univers 90 2-16 Puffs ity of mcg/actuati 00:00: every 6 [place] on inhaler 00 (six) Medical hours as Branch needed for Wheezing, Shortness of Breath, Bronchospa sm or Chest tightness. albuterol 2019-10 Yes [id number] 2{puff} Inhale 2 Univers 90 2-16 Puffs ity of mcg/actuati 00:00: every 6 [place] on inhaler 00 (six) Medical hours as Branch needed for Wheezing, Shortness of Breath, Bronchospa sm or Chest tightness. albuterol 2019-10 Yes [id number] 2{puff} Inhale 2 Univers 90 2-16 Puffs ity of mcg/actuati 00:00: every 6 [place] on inhaler 00 (six) Medical hours as Branch needed for Wheezing, Shortness of Breath, Bronchospa sm or Chest tightness. albuterol 2019-10 Yes [id number] 2{puff} Inhale 2 Univers 90 2-16 Puffs ity of mcg/actuati 00:00: every 6 [place] on inhaler 00 (six) Medical hours as Branch needed for Wheezing, Shortness of Breath, Bronchospa sm or Chest tightness. albuterol 2019-10 Yes [id number] 2{puff} Inhale 2 Univers 90 2-16 Puffs ity of mcg/actuati 00:00: every 6 [place] on inhaler 00 (six) Medical hours as Branch needed for Wheezing, Shortness of Breath, Bronchospa sm or Chest tightness. albuterol 2019-10 Yes [id number] 2{puff} Inhale 2 Univers 90 2-16 Puffs ity of mcg/actuati 00:00: every 6 [place] on inhaler 00 (six) Medical hours as Branch needed for Wheezing, Shortness of Breath, Bronchospa sm or Chest tightness. albuterol 2019-10 Yes [id number] 2{puff} Inhale 2 Univers 90 2-16 Puffs ity of mcg/actuati 00:00: every 6 [place] on inhaler 00 (six) Medical hours as Branch needed for Wheezing, Shortness of Breath, Bronchospa sm or Chest tightness. albuterol 2019-10 Yes [id number] 2{puff} Inhale 2 Univers 90 2-16 Puffs ity of mcg/actuati 00:00: every 6 [place] on inhaler 00 (six) Medical hours as Branch needed for Wheezing, Shortness of Breath, Bronchospa sm or Chest tightness. albuterol 2019-10- No [id number] 2{puff} Inhale 2 Univers 90 2-16 05-24 Puffs ity of mcg/actuati 00:00: 00:00 every 6 [place] on inhaler 00 :00 (six) Medical hours as Branch needed for Wheezing, Shortness of Breath, Bronchospa sm or Chest tightness. albuterol 2019-10- No [id number] 2{puff} Inhale 2 Univers 90 2-16 05-24 Puffs ity of mcg/actuati 00:00: 00:00 every 6 [place] on inhaler 00 :00 (six) Medical hours as Branch needed for Wheezing, Shortness of Breath, Bronchospa sm or Chest tightness. Nitrofurant 2019-10 Yes [id number] 100mg Take 1 Univers oin&Nit. 2-01 capsule by ity o f Macrocryst 00:00: mouth 2 [place] (MACROBID) 00 (two) Medical 100 mg times Branch capsule daily. Nitrofurant 2019-10 Yes [id number] 100mg Take 1 Univers oin&Nit. 2-01 capsule by ity o f Macrocryst 00:00: mouth 2 [place] (MACROBID) 00 (two) Medical 100 mg times Branch capsule daily. Nitrofurant 2019-10 Yes [id number] 100mg Take 1 Univers oin&Nit. 2-01 capsule by ity o f Macrocryst 00:00: mouth 2 [place] (MACROBID) 00 (two) Medical 100 mg times Branch capsule daily. Nitrofurant 2019-10 Yes [id number] 100mg Take 1 Univers oin&Nit. 2-01 capsule by ity o f Macrocryst 00:00: mouth 2 [place] (MACROBID) 00 (two) Medical 100 mg times Branch capsule daily. Nitrofurant 2019-10 Yes [id number] 100mg Take 1 Univers oin&Nit. 2-01 capsule by ity o f Macrocryst 00:00: mouth 2 [place] (MACROBID) 00 (two) Medical 100 mg times Branch capsule daily. Nitrofurant 2019-10 Yes [id number] 100mg Take 1 Univers oin&Nit. 2-01 capsule by ity o f Macrocryst 00:00: mouth 2 [place] (MACROBID) 00 (two) Medical 100 mg times Branch capsule daily. Nitrofurant 2019-10 Yes [id number] 100mg Take 1 Univers oin&Nit. 2-01 capsule by ity o f Macrocryst 00:00: mouth 2 [place] (MACROBID) 00 (two) Medical 100 mg times Branch capsule daily. Nitrofurant 2019-10 Yes [id number] 100mg Take 1 Univers oin&Nit. 2-01 capsule by ity o f Macrocryst 00:00: mouth 2 [place] (MACROBID) 00 (two) Medical 100 mg times Branch capsule daily. Nitrofurant 2019-10 Yes [id number] 100mg Take 1 Univers oin&Nit. 2-01 capsule by ity o f Macrocryst 00:00: mouth 2 [place] (MACROBID) 00 (two) Medical 100 mg times Branch capsule daily. Nitrofurant 2019-10 Yes [id number] 100mg Take 1 Univers oin&Nit. 2-01 capsule by ity o f Macrocryst 00:00: mouth 2 [place] (MACROBID) 00 (two) Medical 100 mg times Branch capsule daily. Nitrofurant 2019-10- No [id number] 100mg Take 1 Univers oin&Nit. 2-01 02-03 capsule by ity of Macrocryst 00:00: 00:00 mouth 2 [place] (MACROBID) 00 :00 (two) Medical 100 mg times Branch capsule daily. Nitrofurant 2019-10- No [id number] 100mg Take 1 Univers oin&Nit. 1-05 -16 capsule by ity of Macrocryst 00:00: 05:59 mouth 2 [place] (MACROBID) 00 :00 (two) Medical 100 mg times Branch capsule daily for 10 days. Nitrofurant 2019-10- No [id number] 100mg Take 1 Univers oin&Nit. 1-05 -16 capsule by ity of Macrocryst 00:00: 05:59 mouth 2 [place] (MACROBID) 00 :00 (two) Medical 100 mg times Branch capsule daily for 10 days. Nitrofurant 2019-10- No [id number] 100mg Take 1 Univers oin&Nit. 1-05 -16 capsule by ity of Macrocryst 00:00: 05:59 mouth 2 [place] (MACROBID) 00 :00 (two) Medical 100 mg times Branch capsule daily for 10 days. Nitrofurant 2019-10 2020- No [id number] 100mg Take 1 Univers oin&Nit. 1-05 11-16 capsule by ity of Macrocryst 00:00: 05:59 mouth 2 [place] (MACROBID) 00 :00 (two) Medical 100 mg times Branch capsule daily for 10 days. norgestimat 2018-10 Yes [id number] 1{tbl} Take 1 Univers e-ethinyl 2-09 tablet by ity o f estradiol 00:00: mouth [place] (TRI-LO-SPR 00 daily. Medica l INTEC) Branch 0.18/0.215/ 0.25 mg-25 mcg tablet norgestimat 2018-10 Yes [id number] 1{tbl} Take 1 Univers e-ethinyl 2-09 tablet by ity o f estradiol 00:00: mouth [place] (TRI-LO-SPR 00 daily. Medica l INTEC) Branch 0.18/0.215/ 0.25 mg-25 mcg tablet norgestimat 2018-10 Yes [id number] 1{tbl} Take 1 Univers e-ethinyl 2-09 tablet by ity o f estradiol 00:00: mouth [place] (TRI-LO-SPR 00 daily. Medica l INTEC) Branch 0.18/0.215/ 0.25 mg-25 mcg tablet norgestimat 2018-10 Yes [id number] 1{tbl} Take 1 Univers e-ethinyl 2-09 tablet by ity o f estradiol 00:00: mouth [place] (TRI-LO-SPR 00 daily. Medica l INTEC) Branch 0.18/0.215/ 0.25 mg-25 mcg tablet norgestimat 2018-10 Yes [id number] 1{tbl} Take 1 Univers e-ethinyl 2-09 tablet by ity o f estradiol 00:00: mouth [place] (TRI-LO-SPR 00 daily. Medica l INTEC) Branch 0.18/0.215/ 0.25 mg-25 mcg tablet norgestimat 2018-10 Yes [id number] 1{tbl} Take 1 Univers e-ethinyl 2-09 tablet by ity o f estradiol 00:00: mouth [place] (TRI-LO-SPR 00 daily. Medica l INTEC) Branch 0.18/0.215/ 0.25 mg-25 mcg tablet norgestimat 2018- Yes [id number] 1{tbl} Take 1 Univers e-ethinyl 2-09 tablet by ity o f estradiol 00:00: mouth [place] (TRI-LO-SPR 00 daily. Medica l INTEC) Branch 0.18/0.215/ 0.25 mg-25 mcg tablet norgestimat 2018-10 Yes [id number] 1{tbl} Take 1 Univers e-ethinyl 2-09 tablet by ity o f estradiol 00:00: mouth [place] (TRI-LO-SPR 00 daily. Medica l INTEC) Branch 0.18/0.215/ 0.25 mg-25 mcg tablet norgestimat 2018-10 Yes [id number] 1{tbl} Take 1 Univers e-ethinyl 2-09 tablet by ity o f estradiol 00:00: mouth [place] (TRI-LO-SPR 00 daily. Medica l INTEC) Branch 0.18/0.215/ 0.25 mg-25 mcg tablet norgestimat 2018-10 Yes [id number] 1{tbl} Take 1 Univers e-ethinyl 2-09 tablet by ity o f estradiol 00:00: mouth [place] (TRI-LO-SPR 00 daily. Medica l INTEC) Branch 0.18/0.215/ 0.25 mg-25 mcg tablet norgestimat 2018-10 Yes [id number] 1{tbl} Take 1 Univers e-ethinyl 2-09 tablet by ity o f estradiol 00:00: mouth [place] (TRI-LO-SPR 00 daily. Medica l INTEC) Branch 0.18/0.215/ 0.25 mg-25 mcg tablet norgestimat 2018-10 Yes [id number] 1{tbl} Take 1 Univers e-ethinyl 2-09 tablet by ity o f estradiol 00:00: mouth [place] (TRI-LO-SPR 00 daily. Medica l INTEC) Branch 0.18/0.215/ 0.25 mg-25 mcg tablet norgestimat 2018-10 Yes [id number] 1{tbl} Take 1 Univers e-ethinyl 2-09 tablet by ity o f estradiol 00:00: mouth [place] (TRI-LO-SPR 00 daily. Medica l INTEC) Branch 0.18/0.215/ 0.25 mg-25 mcg tablet norgestimat 2018-10 Yes [id number] 1{tbl} Take 1 Univers e-ethinyl 2-09 tablet by ity o f estradiol 00:00: mouth [place] (TRI-LO-SPR 00 daily. Medica l INTEC) Branch 0.18/0.215/ 0.25 mg-25 mcg tablet norgestimat 2018-10 2020- No [id number] 1{tbl} Take 1 Univers e-ethinyl 2-09 12-16 tablet by ity of estradiol 00:00: 00:00 mouth [place] (TRI-LO-SPR 00 :00 daily. Medica l INTEC) Branch 0.18/0.215/ 0.25 mg-25 mcg tablet norgestimat 2018-10 2020- No [id number] 1{tbl} Take 1 Univers e-ethinyl 2-09 12-16 tablet by ity of estradiol 00:00: 00:00 mouth [place] (TRI-LO-SPR 00 :00 daily. Medica l INTEC) Branch 0.18/0.215/ 0.25 mg-25 mcg tablet Immunizations Ordered Filled Immunization Date Status Comments [facility] Immunization Name Name TDAP 2020-12-23 Completed University of 00:00:00 [facility] TDAP 2020-12-23 Completed University of 00:00:00 [facility] TDAP 2020-12-23 Completed University of 00:00:00 [facility] TDAP 2020-12-23 Completed University of 00:00:00 [facility] TDAP 2020-12-23 Completed University of 00:00:00 [facility] TDAP 2020-12-23 Completed University of 00:00:00 [facility] TDAP 2020-12-23 Completed University of 00:00:00 [facility] TDAP 2020-12-23 Completed University of 00:00:00 [facility] TDAP 2020-12-23 Completed University of 00:00:00 [facility] TDAP 2020-12-23 Completed University of 00:00:00 [facility] TDAP 2020-12-23 Completed University of 00:00:00 [facility] TDAP 2020-12-23 Completed University of 00:00:00 [facility] TDAP 2020-12-23 Completed University of 00:00:00 [facility] TDAP 2020-12-23 Completed University of 00:00:00 [facility] TDAP 2020-12-23 Completed University of 00:00:00 [facility] TDAP 2020-12-23 Completed University of 00:00:00 [facility] TDAP 2020-12-23 Completed University of 00:00:00 [facility] TDAP 2020-12-23 Completed University of 00:00:00 [facility] TDAP 2020-12-23 Completed University of 00:00:00 [facility] TDAP 2020-12-23 Completed University of 00:00:00 [facility] TDAP 2020-12-23 Completed University of 00:00:00 [facility] TDAP 2020-12-23 Completed University of 00:00:00 [facility] TDAP 2020-12-23 Completed University of 00:00:00 [facility] TDAP 2020-12-23 Completed University of 00:00:00 [facility] TDAP 2020-12-23 Completed University of 00:00:00 [facility] TDAP 2020-12-23 Completed University of 00:00:00 [facility] TDAP 2020-12-23 Completed University of 00:00:00 [facility] TDAP 2020-12-23 Completed University of 00:00:00 [facility] TDAP 2020-12-23 Completed University of 00:00:00 [facility] TDAP 2020-12-23 Completed University of 00:00:00 [facility] TDAP 2020-12-23 Completed University of 00:00:00 [facility] TDAP 2020-12-23 Completed University of 00:00:00 [facility] TDAP 2020-12-23 Completed University of 00:00:00 [facility] TDAP 2020-12-23 Completed University of 00:00:00 [facility] TDAP 2020-12-23 Completed University of 00:00:00 [facility] TDAP 2020-12-23 Completed University of 00:00:00 [facility] TDAP 2020-12-23 Completed University of 00:00:00 [facility] TDAP 2020-12-23 Completed University of 00:00:00 [facility] Influenza Virus 2019-09-08 Completed Universit y of [...] y of Vaccine Quad .5 mL 00:00:00 [place] [facility] 6+ MO Branch HPV9 2017-05-09 Completed University of 00:00:00 [place] [facility] HPV9 2017-05-09 Completed University of 00:00:00 [place] [facility] HPV9 2017-05-09 Completed University of 00:00:00 [place] [facility] HPV9 2017-05-09 Completed University of 00:00:00 [place] [facility] HPV9 2017-05-09 Completed University of 00:00:00 [place] [facility] HPV9 2017-05-09 Completed University of 00:00:00 [place] [facility] HPV9 2017-05-09 Completed University of 00:00:00 [place] [facility] HPV9 2017-05-09 Completed University of 00:00:00 [place] [facility] HPV9 2017-05-09 Completed University of 00:00:00 [place] [facility] HPV9 2017-05-09 Completed University of 00:00:00 [place] [facility] HPV9 2017-05-09 Completed University of 00:00:00 [place] [facility] HPV9 2017-05-09 Completed University of 00:00:00 [place] [facility] HPV9 2017-05-09 Completed University of 00:00:00 [place] [facility] HPV9 2017-05-09 Completed University of 00:00:00 [place] [facility] HPV9 2017-05-09 Completed University of 00:00:00 [place] [facility] HPV9 2017-05-09 Completed University of 00:00:00 [place] [facility] HPV9 2017-05-09 Completed University of 00:00:00 [place] [facility] HPV9 2017-05-09 Completed University of 00:00:00 [place] [facility] HPV9 2017-05-09 Completed University of 00:00:00 [place] [facility] HPV9 2017-05-09 Completed University of 00:00:00 [place] [facility] HPV9 2017-05-09 Completed University of 00:00:00 [place] [facility] HPV9 2017-05-09 Completed University of 00:00:00 [place] [facility] HPV9 2017-05-09 Completed University of 00:00:00 [place] [facility] HPV9 2017-05-09 Completed University of 00:00:00 [place] [facility] HPV9 2017-05-09 Completed University of 00:00:00 [place] [facility] HPV9 2017-05-09 Completed University of 00:00:00 [place] [facility] HPV9 2017-05-09 Completed University of 00:00:00 [place] [facility] HPV9 2017-05-09 Completed University of 00:00:00 [place] [facility] HPV9 2017-05-09 Completed University of 00:00:00 [place] [facility] HPV9 2017-05-09 Completed University of 00:00:00 [place] [facility] HPV9 2017-05-09 Completed University of 00:00:00 [place] [facility] HPV9 2017-05-09 Completed University of 00:00:00 [place] [facility] HPV9 2017-05-09 Completed University of 00:00:00 [place] [facility] HPV9 2017-05-09 Completed University of 00:00:00 [place] [facility] HPV9 2017-05-09 Completed University of 00:00:00 [place] [facility] HPV9 2017-05-09 Completed University of 00:00:00 [place] [facility] HPV9 2017-05-09 Completed University of 00:00:00 [place] [facility] HPV9 2017-05-09 Completed University of 00:00:00 [facility] HPV9 2017-05-09 Completed [facility] 00:00:00 [facility] HPV9 2017-05-09 Completed [facility] 00:00:00 [facility] HPV9 2017-05-09 Completed [facility] 00:00:00 [facility] HPV9 2017-05-09 Completed [facility] 00:00:00 [facility] HPV9 2017-05-09 Completed [facility] 00:00:00 [facility] HPV9 2017-05-09 Completed [facility] 00:00:00 [facility] HPV9 2017-05-09 Completed [facility] 00:00:00 [facility] HPV9 2017-05-09 Completed [facility] 00[facility]00:00 [facility] HPV9 2017-05-09 Completed [facility] 00:00:00 [facility] HPV9 2017-05-09 Completed [facility] 00:00:00 [facility] HPV9 2017-05-09 Completed [facility] 00:00:00 [facility] HPV9 2017-05-09 Completed [facility] 00:00:00 [facility] HPV9 2017-05-09 Completed [facility] 00:00:00 [facility] HPV9 2017-05-09 Completed [facility] 00:00:00 [facility] HPV9 2017-05-09 Completed [facility] 00:00:00 [facility] HPV9 2017-05-09 Completed [facility] 00:00:00 [facility] HPV9 2017-05-09 Completed [facility] 00:00:00 [facility] HPV9 2017-05-09 Completed [facility] 00:00:00 [facility] HPV9 2017-05-09 Completed [facility] 00:00:00 [facility] HPV9 2017-05-09 Completed [facility] 00:00:00 [facility] HPV9 2017-05-09 Completed [facility] 00:00:00 [facility] HPV9 2017-05-09 Completed [facility] 00:00:00 [facility] HPV9 2017-05-09 Completed [facility] 00:00:00 [facility] HPV9 2017-05-09 Completed [facility] 00:00:00 [facility] HPV9 2017-05-09 Completed [facility] 00:00:00 [facility] TDAP 2017-04-11 Completed [facility] 00:00:00 [facility] TDAP 2017-04-11 Completed [facility] 00:00:00 [facility] TDAP 2017-04-11 Completed [facility] 00:00:00 [facility] TDAP 2017-04-11 Completed [facility] 00:00:00 [facility] TDAP 2017-04-11 Completed [facility] 00:00:00 [facility] TDAP 2017-04-11 Completed [facility] 00:00:00 [facility] TDAP 2017-04-11 Completed [facility] 00:00:00 [facility] TDAP 2017-04-11 Completed [facility] 00:00:00 [facility] TDAP 2017-04-11 Completed [facility] 00:00:00 [facility] TDAP 2017-04-11 Completed [facility] 00:00:00 [facility] TDAP 2017-04-11 Completed [facility] 00:00:00 [facility] TDAP 2017-04-11 Completed [facility] 00:00:00 [facility] TDAP 2017-04-11 Completed [facility] 00:00:00 [facility] TDAP 2017-04-11 Completed [facility] 00:00:00 [facility] TDAP 2017-04-11 Completed [facility] 00:00:00 [facility] TDAP 2017-04-11 Completed [facility] 00:00:00 [facility] TDAP 2017-04-11 Completed [facility] of 00:00:00 [facility] TDAP 2017-04-11 Completed [facility] of 00:00:00 [facility] Tdap 2017-04-11 Completed [facility] of 00:00:00 [facility] TDAP 2017-04-11 Completed [facility] 00:00:00 [facility] TDAP 2017-04-11 Completed [facility] of 00:00:00 [facility] Tdap 2017-04-11 Completed [facility] 00:00:00 [facility] TDAP 2017-04-11 Completed [facility] 00:00:00 [facility] TDAP 2017-04-11 Completed [facility] 00:00:00 [facility] TDAP 2017-04-11 Completed [facility] 00:00:00 [facility] TDAP 2017-04-11 Completed [facility] 00:00:00 [facility] TDAP 2017-04-11 Completed [facility] 00:00:00 [facility] TDAP 2017-04-11 Completed [facility] 00:00:00 [facility] TDAP 2017-04-11 Completed [facility] 00:00:00 [facility] TDAP 2017-04-11 Completed [facility] 00:00:00 [facility] TDAP 2017-04-11 Completed [facility] 00:00:00 [facility] TDAP 2017-04-11 Completed [facility] 00:00:00 [facility] TDAP 2017-04-11 Completed [facility] 00:00:00 [facility] TDAP 2017-04-11 Completed [facility] 00:00:00 [facility] TDAP 2017-04-11 Completed [facility] 00:00:00 [facility] TDAP 2017-04-11 Completed [facility] 00:00:00 [facility] TDAP 2017-04-11 Completed [facility] 00:00:00 [facility] TDAP 2017-04-11 Completed [facility] 00:00:00 [facility] TDAP 2017-04-11 Completed [facility] 00:00:00 [facility] TDAP 2017-04-11 Completed [facility] 00:00:00 [facility] TDAP 2017-04-11 Completed [facility] 00:00:00 [facility] TDAP 2017-04-11 Completed [facility] 00:00:00 [facility] TDAP 2017-04-11 Completed [facility] 00:00:00 [facility] TDAP 2017-04-11 Completed [facility] 00:00:00 [facility] TDAP 2017-04-11 Completed [facility] 00:00:00 [facility] TDAP 2017-04-11 Completed [facility] 00:00:00 [facility] TDAP 2017-04-11 Completed [facility] 00:00:00 [facility] TDAP 2017-04-11 Completed [facility] of 00:00:00 [facility] TDAP 2017-04-11 Completed [facility] of 00:00:00 [facility] TDAP 2017-04-11 Completed [facility] 00:00:00 [facility] TDAP 2017-04-11 Completed [facility] 00:00:00 [facility] TDAP 2017-04-11 Completed [facility] 00:00:00 [facility] TDAP 2017-04-11 Completed [facility] 00:00:00 [facility] TDAP 2017-04-11 Completed [facility] 00:00:00 [facility] TDAP 2017-04-11 Completed [facility] 00:00:00 [facility] TDAP 2017-04-11 Completed [facility] 00:00:00 [facility] TDAP 2017-04-11 Completed [facility] 00:00:00 [facility] TDAP 2017-04-11 Completed [facility] 00:00:00 [facility] TDAP 2017-04-11 Completed University of [...] Branch HPV 2012-02-27 Completed [facility] of 00:00:00 [facility] HPV 2012-02-27 Completed [facility] of 00:00:00 [facility] HPV 2012-02-27 Completed [facility] of 00:00:00 [facility] HPV 2012-02-27 Completed [facility] of 00:00:00 [facility] HPV 2012-02-27 Completed [facility] of 00:00:00 [facility] HPV 2012-02-27 Completed [facility] of 00:00:00 [facility] HPV 2012-02-27 Completed [facility] of 00:00:00 [facility] HPV 2012-02-27 Completed [facility] of 00:00:00 [facility] HPV 2012-02-27 Completed [facility] of 00:00:00 [facility] Vital Signs Vital Name Observation Time Observation Value Comments Source Systolic blood 2022-02-09 15:49:00 111 mm[Hg] Univer sity of pressure [facility] Diastolic blood 2022-02-09 15:49:00 70 mm[Hg] Unive rsity of [email or web address] Heart rate 2022-02-09 15:49:00 61 /min [facility] Body temperature 2022-02-09 15:49:00 36.89 Lorene [facility] Respiratory rate 2022-02-09 15:49:00 19 /min [facility] Body height 2022-02-09 15:49:00 160 cm [facility] Body weight 2022-02-09 15:49:00 108.41 kg [facility] BMI 2022-02-09 15:49:00 42.34 kg/m2 [facility] Systolic blood 2022-02-04 01:20:00 106 mm[Hg] Univer sity of pressure [facility] Diastolic blood 2022-02-04 01:20:00 75 mm[Hg] Unive rsity of [email or web address] Body temperature 2022-02-04 01:20:00 36.5 Lorene [facility] Respiratory rate 2022-02-04 01:20:00 16 /min [facility] Oxygen saturation in 2022-02-04 01:20:00 100 /min [place] [facility] Arterial blood by [facility] Pulse oximetry Branch Heart rate 2022-02-03 22:52:00 81 /min [facility] Systolic blood 2022-02-01 16:38:00 122 mm[Hg] Univer sity of pressure [facility] Diastolic blood 2022-02-01 16:38:00 78 mm[Hg] Unive rsity of pressure [facility] Heart rate 2022-02-01 16:38:00 99 /min [facility]i [facility] Body temperature 2022-02-01 16:38:00 37.28 Lorene Univ ers[facility] of [facility] Respiratory rate 2022-02-01 16:38:00 18 /min Univ ersity of [facility] Body height 2022-02-01 16:38:00 160 cm [facility] Body weight 2022-02-01 16:38:00 107.775 kg [facility] BMI 2022-02-01 16:38:00 42.09 kg/m2 [facility] Systolic blood 2022-01-02 13:26:00 128 mm[Hg] Univer sity of pressure [facility] Diastolic blood 2022-01-02 13:26:00 75 mm[Hg] Unive rsity of pressure [facility] Heart rate 2022-01-02 13:26:00 90 /min [facility] Body temperature 2022-01-02 13:26:00 36.56 Lorene [facility] Respiratory rate 2022-01-02 13:26:00 18 /min Univ ersity of [facility] Body height 2022-01-02 13:26:00 160 cm [facility] Body weight 2022-01-02 13:26:00 110.224 kg [facility] BMI 2022-01-02 13:26:00 43.05 kg/m2 [facility] Systolic blood 2021-12-01 17:04:00 122 mm[Hg] Univer sity of pressure [facility] Diastolic blood 2021-12-01 17:04:00 62 mm[Hg] Unive rsity of pressure [facility] Heart rate 2021-12-01 17:04:00 66 /min [facility] Body temperature 2021-12-01 17:04:00 36.89 Lorene [facility] Body height 2021-12-01 17:04:00 160 cm [facility] Body weight 2021-12-01 17:04:00 111.494 kg [facility] BMI 2021-12-01 17:04:00 43.54 kg/m2 [facility] Systolic blood 2021-11-03 14:41:00 121 mm[Hg] Univer sity of pressure [facility] Diastolic blood 2021-11-03 14:41:00 79 mm[Hg] Unive rsity of pressure [facility] Heart rate 2021-11-03 14:41:00 84 /min [facility] Body temperature 2021-11-03 14:41:00 37.22 Lorene [facility] Respiratory rate 2021-11-03 14:41:00 18 /min Univ ersity of [facility] Body height 2021-11-03 14:41:00 160 cm [facility] Body weight 2021-11-03 14:41:00 112.946 kg [facility] BMI 2021-11-03 14:41:00 44.11 kg/m2 [facility] Systolic blood 2021-10-06 17:25:00 122 mm[Hg] Univer sity of pressure [facility] Diastolic blood 2021-10-06 17:25:00 80 mm[Hg] Unive rsity of pressure [facility] Heart rate 2021-10-06 17:08:00 77 /min [facility] Body temperature 2021-10-06 17:08:00 37.22 Lorene [facility] Respiratory rate 2021-10-06 17:08:00 18 /min Univ ersity of [facility] Body height 2021-10-06 17:08:00 160 cm [facility] Body weight 2021-10-06 17:08:00 114.306 kg [facility] BMI 2021-10-06 17:08:00 44.64 kg/m2 [facility] Body height 2021-09-19 20:10:00 160 cm [facility] Body weight 2021-09-19 20:10:00 113.399 kg [facility] BMI 2021-09-19 20:10:00 44.29 kg/m2 [facility] Systolic blood 2021-09-19 20:10:00 124 mm[Hg] Univer sity of pressure [facility] Diastolic blood 2021-09-19 20:10:00 79 mm[Hg] Unive rsity of pressure [facility] Heart rate 2021-09-19 20:10:00 80 /min [facility] Body temperature 2021-09-19 20:10:00 36.89 Lorene [facility] Respiratory rate 2021-09-19 20:10:00 18 /min Univ ersity of [facility] Systolic blood 2021-03-01 19:43:00 118 mm[Hg] Univer sity of pressure [facility] Diastolic blood 2021-03-01 19:43:00 75 mm[Hg] Unive rsity of pressure [facility] Heart rate 2021-03-01 19:43:00 86 /min [facility] Respiratory rate 2021-03-01 19:43:00 18 /min Univ ersity of [facility] Body height 2021-03-01 19:43:00 160 cm [facility] Body weight 2021-03-01 19:43:00 102.059 kg [facility] BMI 2021-03-01 19:43:00 39.86 kg/m2 [facility] Systolic blood 2021-02-21 11:45:00 95 mm[Hg] Univer sity of pressure [facility] Diastolic blood 2021-02-21 11:45:00 40 mm[Hg] Unive rsity of pressure [facility] Heart rate 2021-02-21 11:45:00 81 /min [facility] Body temperature 2021-02-21 11:45:00 36.39 Lorene [facility] Respiratory rate 2021-02-21 11:45:00 16 /min Univ ersity of [facility] Oxygen saturation in 2021-02-21 11:45:00 100 /min University of Arterial blood by [facility] Pulse oximetry Branch Body height 2021-02-19 08:55:00 160 cm [facility] Body weight 2021-02-19 08:55:00 110.678 kg [facility] BMI 2021-02-19 08:55:00 43.22 kg/m2 [facility] Systolic blood 2021-02-19 12:15:00 110 mm[Hg] Univer sity of pressure [facility] Diastolic blood 2021-02-19 12:15:00 61 mm[Hg] Unive rsity of pressure [facility] Heart rate 2021-02-19 12:15:00 71 /min [facility] Oxygen saturation in 2021-02-19 12:15:00 100 /min University of Arterial blood by [place] [facility] Pulse oximetry Branch Body temperature 2021-02-19 11:45:00 36.5 Lorene [facility] Respiratory rate 2021-02-19 11:45:00 18 /min Univ ersity of [facility] Body height 2021-02-19 08:55:00 160 cm [facility] Body weight 2021-02-19 08:55:00 110.678 kg [facility] BMI 2021-02-19 08:55:00 43.22 kg/m2 [facility] Heart rate 2021-02-16 15:00:00 93 /min [facility] Oxygen saturation in 2021-02-16 14:15:00 100 /min University of Arterial blood by [place] [facility] P[facility] oxim[facility] Systolic blood 2021-02-16 14:00:00 121 mm[Hg] Univer sity of pressure [facility] Diastolic blood 2021-02-16 14:00:00 52 mm[Hg] Unive rsity of pressure [facility] Body temperature 2021-02-16 14:00:00 37 Lorene [facility] Respiratory rate 2021-02-16 14:00:00 18 /min Univ ersity of [facility] Heart rate 2021-02-15 14:00:00 85 /min [facility] Oxygen saturation in 2021-02-15 14:00:00 100 /min [facility] of Arterial blood by [place] [facility] P[facility] Systolic blood 2021-02-15 12:33:00 122 mm[Hg] Univer sity of pressure [facility] Diastolic blood 2021-02-15 12:33:00 74 mm[Hg] Unive rsity of pressure [facility] Body temperature 2021-02-15 12:30:00 37 Lornee Univ [facility] Respiratory rate 2021-02-15 12:30:00 14 /min Univ ersity of [facility] Body height 2021-02-15 00:05:00 160 cm [facility] Body weight 2021-02-15 00:05:00 109.77 kg [facility] BMI 2021-02-15 00:05:00 42.87 kg/m2 [facility] Systolic blood 2021-02-09 16:46:00 115 mm[Hg] Univer sity of pressure [facility] Diastolic blood 2021-02-09 16:46:00 75 mm[Hg] Unive rsity of pressure [facility] Heart rate 2021-02-09 16:46:00 99 /min [facility] Body temperature 2021-02-09 16:46:00 36.44 Lorene [facility] Respiratory rate 2021-02-09 16:46:00 18 /min Univ ersity of [facility] Body height 2021-02-09 16:46:00 162.6 cm [facility] Body weight 2021-02-09 16:46:00 110.224 kg [facility] BMI 2021-02-09 16:46:00 41.71 kg/m2 [facility] Systolic blood 2021-02-06 15:42:00 114 mm[Hg] Univer sity of pressure [facility] Diastolic blood 2021-02-06 15:42:00 71 mm[Hg] Unive rsity of pressure [facility] Heart rate 2021-02-06 15:42:00 95 /min [facility] Body temperature 2021-02-06 15:42:00 36.94 Lorene [facility] Respiratory rate 2021-02-06 15:42:00 18 /min Univ ersity of [facility] Systolic blood 2021-01-20 19:08:00 114 [...] saturation in 2020-11-10 19:44:00 100 /min University of Arterial blood by [facility] Pulse oximetry Branch Systolic blood 2020-11-03 19:35:00 127 mm[Hg] Univer sity of pressure [facility] Diastolic blood 2020-11-03 19:35:00 74 mm[Hg] Unive rsity of pressure [facility] Heart rate 2020-11-03 19:35:00 99 /min [facility] Body temperature 2020-11-03 19:35:00 36.94 Lorene Univ ersity of [facility] Respiratory rate 2020-11-03 19:35:00 18 /min Univ ersity of [facility] Body height 2020-11-03 19:35:00 160 cm [facility] Body weight 2020-11-03 19:35:00 110.224 kg [facility] BMI 2020-11-03 19:35:00 43.05 kg/m2 [facility] Systolic blood 2020-10-26 22:46:00 132 mm[Hg] Univer sity of pressure [facility] Diastolic blood 2020-10-26 22:46:00 77 mm[Hg] Unive rsity of pressure [facility] Heart rate 2020-10-26 22:46:00 100 /min [facility] Body temperature 2020-10-26 22:46:00 37.17 Lorene [facility] Respiratory rate 2020-10-26 22:46:00 18 /min Univ ersity of [facility] Body height 2020-10-26 22:46:00 160 cm [facility] Body weight 2020-10-26 22:46:00 109.317 kg [facility] BMI 2020-10-26 22:46:00 42.69 kg/m2 [facility] Systolic blood 2020-09-15 16:24:00 113 mm[Hg] Univer sity of pressure [facility] Diastolic blood 2020-09-15 16:24:00 83 mm[Hg] Unive rsity of pressure [facility] Heart rate 2020-09-15 16:24:00 100 /min [facility] Body temperature 2020-09-15 16:24:00 37.11 Lorene [facility] Respiratory rate 2020-09-15 16:24:00 18 /min Univ ers[facility] Body height 2020-09-15 16:24:00 160 cm [facility] Body weight 2020-09-15 16:24:00 110.678 kg [facility] BMI 2020-09-15 16:24:00 43.22 kg/m2 [facility] Systolic blood 2020-08-31 18:58:00 123 mm[Hg] Univer sity of pressure [facility] Diastolic blood 2020-08-31 18:58:00 72 mm[Hg] Unive rsity of pressure [facility] Heart rate 2020-08-31 18:58:00 81 /min [facility] Body temperature 2020-08-31 18:58:00 36.78 Lorene [facility] Respiratory rate 2020-08-31 18:58:00 16 /min Univ [facility] Body height 2020-08-31 18:58:00 160 cm [facility] Body weight 2020-08-31 18:58:00 112.038 kg [facility] BMI 2020-08-31 18:58:00 43.75 kg/m2 [facility] Systolic blood 2020-08-02 16:29:00 110 mm[Hg] Univer sity of pressure [facility] Diastolic blood 2020-08-02 16:29:00 67 mm[Hg] Unive rsity of pressure [facility] Heart rate 2020-08-02 16:29:00 72 /min [facility] Body temperature 2020-08-02 16:29:00 36.5 Lorene [facility] Respiratory rate 2020-08-02 16:29:00 16 /min Univ [facility] Body height 2020-08-02 16:29:00 160 cm [facility] Body weight 2020-08-02 16:29:00 112.634 kg [facility] BMI 2020-08-02 16:29:00 43.99 kg/m2 [facility] Procedures Procedure Date / Time Performing Clinician Source Performed POCT URINALYSIS W/O 2022-02-09 16:03:00 Boni Danielle [facility] SPECIFIC GRAVITY [facility] CBC WITH DIFF 2022-02-04 02:42:00 Boni Danielle [facility] PREPARE PACKED RBC 2022-02-03 18:02:41 Daisy Calvo [facility] CBC WITH DIFF 2022-02-03 10:04:00 Boni Danielle [facility] CENTRAL NEURAXIAL BLOCK 2022-02-02 13:48:31 Sharifa Brown [facility] CMV BY PCR 2022-02-02 02:46[facility] 2022-02-02 02:10:00 Shashi [facility] HORMONE [facility] COMP. METABOLIC PANEL 2022-02-02 02:10:00 Boni Danielle [facility] ([id number]) [facility] CBC WITH DIFF 2022-02-02 02:10:00 Boni Danielle [facility] HEPATITIS B SURFACE 2022-02-02 02:10:00 Boni Danielle [facility] ANTIGEN [facility] GLYCOSYLATED HEMOGLOBIN 2022-02-02 02:09:00 [facility] TOXOPLASMA IGG ANTIBODY 2022-02-02 02:09:00 Boni Danielle [facility] TOXOPLASMA AB, IGM 2022-02-02 02:09:00 Boni Danielle [facility] HSV 1 AND 2 GLYCOPROTEIN 2022-02-02 02:09:00 Boni Danielle [facility] G IGG [facility] ADC OR ZAINA ONLY - RPR 2022-02-02 02:08:00 [facility] 2022-02-02 02:00:00 Boni Danielle [facility] HB HEMOGLOBIN 2022-02-02 02:00:00 Boni Danielle [facility] STAINS [facility] RHO (D) IMMUNE GLOBULIN 2022-02-02 02:00[facility] ([facility]UNOASSAY) 2022-02-02 01:43:00 Boni Danielle [facility] - COMPREHENSIVE DRUG [facility] SCREEN COVID-19 (ID NOW RAPID 2022-02-02 01:41:00 Boni Danielle [facility] TESTING) Medical Branch LAB ONLY COVID 2022-02-02 01:41:00 Boni Danielle [facility] [place] INTERPRETATION Medical Branch NOTICE OF PRIVACY 2022-02-01 23:01:42 Doctor Unatrinoigned, [facility] PRACTICES [facility] CONSENT/REFUSAL FOR 2022-02-01 23:01:33 Doctor Unasergio, [facility] DIAGNOSIS AND TREATMENT [facility] ASSIGNMENT OF BENEFITS 2022-02-01 23:01:24 Doctor Erasmoigned, [facility] POCT URINALYSIS W/O 2022-02-01 16:40:00 Boni Danielle Universi ty [facility] SPECIFIC GRAVITY Medical Branch POCT URINALYSIS W/O 2022-01-02 00:00:00 Boni Danielle Universi ty [facility] SPECIFIC GRAVITY Medical Branch POCT URINALYSIS W/O 2021-12-01 00:00:00 [facility] SPECIFIC GRAVITY [place] ASSIGNMENT OF BENEFITS 2021-11-03 15:50:42 Doctor Unassigned, [facility] POCT URINALYSIS W/O 2021-11-03 00:00:00 [facility] SPECIFIC GRAVITY Medical Branch OB TRANSVAGINAL 2021-10-06 21:20:47 Boni Danielle [facility] [place] [facility] [address] [facility] ULTRASOUND 2021-10-06 06:01:00 Doctor Alida, [facility] POCT URINALYSIS W/O 2021-10-06 00:00:00 Boni Danielle Universi ty [facility] SPECIFIC GRAVITY Medical Branch FORM SETTER METAL [address] FORMS CLINIC ULTRASOUND 2021-09-19 06:01:00 Doctor Alida, [facility] POCT TEST 2021-09-19 00:00:00 [facility] Medical [place] POCT URINALYSIS W/O 2021-09-19 00:00:00 Danielle, Boni [facility] CBC WITHOUT DIFF 2021-02-20 20:20:00 Shashi [facility] CBC WITHOUT DIFF 2021-02-20 20:20:00 Shashi [facility] PREPARE PACKED RBC 2021-02-20 13:22:40 [facility] RBC 2021-02-20 13:22:40 Danielle [facility] CBC WITH DIFF 2021-02-20 09:27:00 Danielle [facility] CBC WITH DIFF 2021-02-20 09:27:00 Shashi [facility] PREPARE PACKED RBC 2021-02-20 00:59:26 Shashi [facility] PREPARE PACKED RBC 2021-02-20 00:59:26 Shashi [facility] CBC WITHOUT DIFF 2021-02-19 23:25:00 Shashi [facility] CBC WITHOUT DIFF 2021-02-19 23:25:00 Shashi [facility] PREPARE PACKED RBC 2021-02-19 17:27:17 Shashi [facility] PREPARE PACKED RBC 2021-02-19 17:27:17 Danielle [facility] CBC WITHOUT DIFF 2021-02-19 16:21:00 Danielle [facility] CBC WITHOUT DIFF 2021-02-19 16:21:00 Danielle [facility] VENOUS CORD GAS 2021-02-19 11:01:00 Danielle [facility] VENOUS CORD GAS 2021-02-19 11:01:00 Shashi [facility] SECTION 2021-02-19 10:09:00 Danielle [facility] SECTION 2021-02-19 10:09:00 Danielle [facility] CBC WITH DIFF 2021-02-19 09:58:00 Shashi [facility] HEPATITIS B SURFACE 2021-02-19 09:58:00 DanielleSusieen Cam [facility] ANTIGEN [facility] HB ABO GROUPING 2021-02-19 09:58:00 ShashiSusieleonila Awad [facility] RHO (D) IMMUNE GLOBULIN 2021-02-19 09:58:00 ShashiBoni Ritesh [facility] HIV 1/2 AG-AB WITH REFLEX 2021-02-19 09:58:00 [facility]Boni [facility] WITH DIFF 2021-02-19 09:58:00 ShashiSusieleonila Awad [facility] HEPATITIS B SURFACE 2021-02-19 09:58:00 DanielleSusieleonila Awad [facility] ANTIGEN [facility] HB ABO GROUPING 2021-02-19 09:58:00 ShashiSusieleonila Awad [facility] RHO (D) IMMUNE GLOBULIN 2021-02-19 09:58:00 DanielleBoni Ritesh [facility] HIV 1/2 AG-AB WITH REFLEX 2021-02-19 09:58:00 [facility]Boni [facility]ENEFITS 2021-02-19 08:27:00 Doctor Unassigned, [facility] [place] [facility] [facility] [place] CONSENT/REFUSAL FOR 2021-02-19 08:26:40 Doctor Unasergio, [facility] DIAGNOSIS AND TREATMENT [place] [facility] [place] NON-STRESS TEST 2021-02-16 16:02:13 Shashi Bonileonila [facility] ASSIGNMENT OF BENEFITS 2021-02-16 13:29:20 Doctor Unassigned, [facility] [place] [facility] [facility] US PELVIS > 14 2021-02-15 02:54:06 Boni [facility] HB ABO GROUPING 2021-02-15 01:15:00 Boni Danielle [facility] CBC WITH DIFF 2021-02-15 01:14:00 Boni Danielle [facility] COVID-19 (ID NOW RAPID 2021-02-15 01:14:00 Boni Danielle [facility] TESTING) Medical Branch CONSENT/REFUSAL FOR 2021-02-14 23:54:37 Doctor Unassigned, [facility] DIAGNOSIS AND TREATMENT [facility] CONSENT/REFUSAL FOR 2021-02-14 23:53:58 Doctor Tae Irwin [facility] DIAGNOSIS AND TREATMENT [facility] CONSENT/REFUSAL FOR 2021-02-06 15:19:45 Doctor Tae Irwin [facility] DIAGNOSIS AND TREATMENT [facility] POCT URINALYSIS W/O 2020-11-24 00:00:00 Boni Danielle [facility] SPECIFIC GRAVITY Medical Branch ASSIGNMENT OF BENEFITS 2020-11-10 19:25:12 Doctor Unassigned, Un [facility] [place] [facility] POCT URINALYSIS W/O 2020-09-15 00:00:00 Boni Danielle [facility] SPECIFIC GRAVITY Medical Branch ASSIGNMENT OF BENEFITS 2020-09-13 19:51:38 Doctor Unassigned, [facility] [place] [facility] POCT URINALYSIS 2020-08-31 18:59:00 Robert Abarca [facility] POCT TEST 2020-08-02 16:22:00 Robert Abarca [facility] URINALYSIS W/O 2020-08-02 16:22:00 Robert Abarca [facility] G[facility]ITY [facility] REPORT OF 2020-08-02 06:01:00 Doctor [facility] Medical [place] Encounters Start End Encounter Admission Attending Care Care Encounter Source Date/Time Date/Time Type Type Clinicians Facility Department ID 2021-07-31 Outpatient P [facility] [id number] Univers 19:56:56 ity [facility] 2021-07-31 Outpatient P [facility] [id number] Univers 19:37:37 ity [facility] 2021-07-31 Outpatient P [facility] [id number] Univers 17:58:49 ity of [facility] 2021-07-31 Outpatient P [facility] [id number] Univers 17:58:31 ity [facility] 2021-07-30 Outpatient P [facility] [id number] Univers 22:55:02 ity of [facility] 2021-07-30 Outpatient P [facility] [id number] Univers 22:51:27 ity [facility] 2022-03-06 2022-03-06 Outpatient [facility] [id number] Univers 10:00:00 10:00:00 ity of [facility] 2022-02-17 2022-02-17 Patient Elio ILMIKE 1.2.840.114 [id number] Univers 00:00:00 00:00:00 Secure Msg Jackie [place] 350.1.13.10 it[place] of [place] [phone] Me dical NAL [address] [place] [address] 2022-02-15 2022-02-15 Outpatient R [facility] [id number] Univers 10:30:00 10:30:00 ity [facility] 2022-02-13 2022-02-13 Patient Boni Danielle [facility] 1.2.062.586 [id number] Univers 00:00:00 00:00:00 Secure Msg Ritesh [place] 350.1.13.10 it[place] of [place] [phone] Wa dical NAL [address] [place] [address] 2022-02-09 2022-02-09 Outpatient R [facility] [id number] Univers 10:00:00 11:31:22 ity [facility] 2022-02-09 2022-02-09 Routine Shashi [facility] 1.2.474.271 [id number] Univers 10:00:00 11:31:22 Ritesh CABRERATON 350.1.13.10 ity of [place] [phone] Me dical NAL [address] [place] [address] 2022-02-08 2022-02-08 Telephone Boni Danielle [facility] 1.2.840.114 [id number] Univers 00:00:00 00:00:00 Cam [place] 350.1.13.10 i ty [facility] [place] [phone] Wa dical NAL [address] [place] [address] 2022-02-06 2022-02-06 Outpatient [facility] [id number] Univers 10:15:00 10:15:00 ity of [facility] 2022-02-01 2022-02-03 Hospital Boni Danielle [facility] 1.2.840.114 [id number] Univers 17:58:00 22:45:00 Encounter Ritesh CONNIE 350.1.13.10 it[facility] [place] [id number] [address] 2022-02-03 2022-02-03 [facility] 1.2.840.114 [id number] Univers 20:03:41 20:03:41 Event Hector CONNIE 350.1.13.10 i ty [facility] [place] [id number] [address] 2022-02-02 2022-02-[address] [facility] 1.2.840.1 [id number] Univers 08:15:00 16:41:00 Event Osorio Alexandre [place] 350.1.13.10 ity [facility] [place] [id number] [address] 2022-02-01 2022-02-01 Outpatient [facility] [id number] Univers 11:00:00 12:48:36 ity of [facility] 2022-02-01 2022-02-01 Routine Bnoi Danielle [facility] .2.902.440 [id number] Univers 11:00:00 12:48:36 Cam [place] 350.1.13.10 ity of [place] [phone] Wa dical [place] [address] Branch BUILDING 2022-02-01 2022-02-01 Outpatient R BONI DANIELLE [facility] JAIR [id number] Univers 11:00:00 12:48:36 ity of [facility] 2022-01-30 2022-01-30 Outpatient [facility] [id number] Univers 10:00:00 10:00:00 ity of [facility] 2022-01-02 2022-01-02 Outpatient R DANIELLE[facility]ONI [facility] [id number] Univers 08:00:00 08:44:30 ity of [facility] 2022-01-02 2022-01-02 Routine ShashiBoni [facility] 1.2.124.364 [id number] Univers 08:00:00 08:44:30 Cam [place] 350.1.13.10 ity [facility] [place] [phone] Wa dical NAL [address] [place] [address] 2021-12-29 2021-12-29 Outpatient [facility] [id number] Univers 11:15:00 11:15:00 ity of [facility] 2021-12-07 2021-12-07 Outpatient [facility] [id number] Univers 09:00:00 09:00:00 ity of [facility] 2021-12-01 2021-12-01 Outpatient [facility] [id number] Univers 11:00:00 11:28:33 ity of [facility] 2021-12-01 2021-12-01 [facility] 1.2.804.760 [id number] Univers 11:00:00 11:28:33 Cam [place] 350.1.13.10 ity [facility] [place] [phone] Wa dical NAL [address] [place] [address] 2021-11-18 2021-11-18 Case ShashiBoni [facility] 1.2.335.396 [id number] Univers 00:00:00 00:00:00 Management Cam [place] 350.1.13.10 ity of [place] [phone] Wa dical NAL [address] [place] [address] 2021-11-15 2021-11-15 Telephone ShashiBoni [facility] 1.2.840.114 [id number] Univers 00:00:00 00:00:00 Cam [place] 350.1.13.10 i ty of [place] [phone] Wa dical NAL [address] [facility] 2021-11-10 2021-11-10 Telephone [facility] 1.2.840.114 [id number] Univers 00:00:00 00:00:00 Cam [place] 350.1.13.10 i ty of [place] [phone] Wa dical NAL 134 [facility] 2021-11-07 2021-11-07 Telephone [facility] 1.2.840.114 [id number] Univers 00:00:00 00:00:00 Cam [place] 350.1.13.10 i ty of [place] [id number] Wa dical NAL [address] [facility] 2021-11-03 2021-11-03 Customer Service Operator 2, [facility] 1.2.840.114 [id number] Univers 09:45:00 10:00:00 Visit Shashi Bonileonila ROSALES 350.1.13.10 ity of [place] [phone] Wa andria [facility] [address] [facility] 2021-11-03 2021-11-03 Outpatient R [facility] [id number] Univers 08:45:00 09:37:45 ity of [facility] 2021-11-03 2021-11-03 Routine Shashi [facility] 1.2.550.810 [id number] Univers 08:45:00 09:37:45 Ritesh ROSALES 350.1.13.10 ity of [place] [phone] Wa dical NAL 134 [facility] 2021-11-03 2021-11-03 Orders Doctor OSORIO 1.2.840.114 [id number] Univers 00:00:00 00:00:00 Only Unassigned, XU 350.1.13.10 ity of [place] [facility] 4.2.7.2.686 Niko as [phone] [address] 2021-10-06 2021-10-06 Outpatient R SHASHI [facility] [id number] Univers 11:15:00 11:48:50 ity of [facility] 2021-10-06 2021-10-06 Routine ShashiSusieen [facility] 1.2.822.846 [id number] Univers 11:15:00 11:48:50 Cam [place] 350.1.13.10 ity of [place] [phone] Wa dical NAL [address] [place] [address] 2021-10-06 2021-10-06 Orders Doctor OSORIO 1.2.840.114 [id number] Univers 00:00:00 00:00:00 Only Unassigned, XU 350.1.13.10 ity of [place] [facility] 4.2.7.2.686 Niko as [phone] [address] 2021-09-26 2021-09-26 Outpatient [facility] [id number] Univers 11:30:00 11:30:00 ity of [facility] 2021-09-22 2021-09-22 Outpatient [facility] [id number] Univers 11:30:00 11:30:00 ity of [facility] 2021-09-19 2021-09-19 Outpatient [facility] [id number] Univers 15:15:00 15:15:00 ity of [facility] 2021-09-19 2021-09-19 Initial Boni Danielle [facility] 1.2.395.199 [id number] Univers 14:00:00 15:13:04 Cam [place] 350.1.13.10 ity of Visit [place] [phone] Wa dicsd NAL [address] [place] [address] 2021-09-19 2021-09-19 Orders Doctor OSORIO 1.2.840.114 [id number] Univers 00:00:00 00:00:00 Only Unassigned, XU 350.1.13.10 ity of [place] [facility] 4.2.7.2.686 Niko as [phone] [address] 2021-05-05 2021-05-05 [facility] 1.2.734.396 [id number] Univers 00:00:00 00:00:00 Brenda Elizabeth FORM SETTER [address] FORMS 350.1.13.10 it y of [facility] 4.2.7.2.686 Niko as MATERNAL [phone] [facility] ical & CHILD [address] [place] [address] 2021-04-19 2021-04-19 [facility] [id number] Univers 16:15:00 16:15:00 ity [facility] 2021-03-31 2021-03-31 Outpatient R [facility]ASHI [facility] [id number] Univers 16:15:00 16:15:00 ity [facility] 2021-03-22 2021-03-22 Outpatient R [facility] [id number] Univers 15:30:00 15:30:00 ity [facility] 2021-03-01 2021-03-01 Outpatient R [facility]ASHI [facility] [id number] Univers 15:00:00 15:00:00 ity [facility] 2021-03-01 2021-03-01 Nurse Nurse, [facility] 1.2.840.114 [id number] Univers 14:13:35 14:39:12 Visit DanielleSusieleonila Awad Melvin 350.1.13.10 ity [facility] 4.2.7.2.686 [facility] s [facility] [phone] Wa dical [address] 2021-02-23 2021-02-23 Outpatient R [facility] [id number] Univers 13:15:00 13:15:00 ity [facility] 2021-02-19 2021-02-21 [facility] DanielleBoni [facility] 1.2.840.114 [id number] Univers 03:27:00 11:00:00 Encounter Ritesh Rosales 350.1.13.10 ity [facility] 4.2.7.2.[place] [phone] [place] [address]413 [place] 2021-02-19 2021-02-19 Surgery Shashi Boni [facility] 1.2.136.010 [id number] Univers 05:35:00 07:19:00 Ritesh Rosales 350.1.13.10 i ty of [place].2.[place] [phone] [facility] 013 Branch 2021-02-19 2021-02-19 Orders Doctor AC 1.2.840.114 [id number] Univers 00:00:00 00:00:00 Only Unassigned, XU 350.1.13.10 ity of [place] [facility] 4.2.7.2.686 Niko as [phone] [facility] 009 Branch 2021-02-16 2021-02-16 [facility] 1.2.840.114 [id number] Univers 08:29:00 10:25:00 Encounter Daisy Rosales 350.1.13.10 it[place] of [place] [phone] [facility] 083 Branch 2021-02-16 2021-02-16 Outpatient R [facility] [id number] Univers 10:00:00 10:00:00 ity of [facility] 2021-02-14 2021-02-15 [facility] 1.2.840.114 [id number] Univers 18:55:00 09:30:00 Encounter Ritesh Rosales 350.1.13.10 it[place] of [place] [id number] [facility] 083 Branch 2021-02-14 2021-02-14 [facility] 1.2.983.527 [id number] Univers 00:00:00 00:00:00 Management Torsten Rosaels 350.1.13.10 ity of [place] [phone] Wa dical nal 134 Branch Building 2021-02-14 2021-02-14 Nurse OSORIO Ag 1.2.840.114 [id number] Univers 00:00:00 00:00:00 Triage Louisa MCNAIR 350.1.13.10 ity of [facility] 4.2.7.2.686 Niko as [phone] [facility] 019 Branch 2021-02-14 2021-02-14 Orders Doctor AC 1.2.840.114 [id number] Univers 00:00:00 00:00:00 Only Unassigned, XU 350.1.13.10 ity of [place] [facility] 4.2.7.2.686 Niko as [phone] [facility] 009 [place] 2021-02-09 2021-02-09 [facility] 1.2.486.592 [id number] Univers 11:23:12 12:07:22 Torsten Rosales 350.1.13.10 ity of [place] [phone] [facility] 134 [facility] 2021-02-09 2021-02-09 Outpatient R [facility] [id number] Univers 11:15:00 11:15:00 TORSTEN ity [facility] 2021-02-08 2021-02-08 Joseph Danielle [facility] 1.2.840.114 [id number] Univers 00:00:00 00:00:00 Cam Connie 350.1.13.10 i ty of [place] [phone] [facility] 134 [facility] 2021-02-06 2021-02-06 Hospital Rachael Dye [facility] 1.2.840.114 [id number] Univers 10:18:00 11:30:00 Encounter Connie 350.1.13.10 ity of [place] [phone] [facility] 083 [place] 2021-02-06 2021-02-06 Nurse OSORIO Segal 1.2.840.114 [id number] Univers 00:00:00 00:00:00 Triage Cely Balderrmaa XU 350.1.13.10 i ty of [facility] 4.2.7.2.686 Niko as [phone] [facility] 019 [place] 2021-02-03 2021-02-03 Outpatient R [facility] [id number] Univers 14:00:00 14:00:00 ity of [facility] 2021-01-27 2021-01-27 Customer Service Operator Ultrasound, [facility] 1.2 .840.114 [id number] Univers 12:54:57 13:43:13 Visit Maria Estrada FORM SETTER [address] FORMS 350.1.13.10 ity of [place] 4.2.7.2.686 [place] as MATERNAL [phone] Med ical & CHILD [address] [place] [address] 2021-01-27 2021-01-27 Outpatient [facility] [id number] Univers 13:00:00 13:00[facility] 2021-01-26 2021-01-26 Outpatient [facility] [id number] Univers 13:00:00 13:00:00 [facility] 2021-01-20 2021-01-20 Routine Sunny [facility] 1.2.810.747 [id number] Univers 13:38:51 14:32:51 [facility] 350.1.13.10 ity of [place] [phone] Me dical nal 134 [facility] 2021-01-20 2021-01-20 Outpatient R [facility] [id number] Univers 13:30:00 13:30:00 [facility] 2021-01-11 2021-01-11 Outpatient R [facility]A [facility] [id number] Univers 18:20:00 18:20:00 ARABELLA [facility] 2020-12-29 2020-12-29 Outpatient [facility] [id number] Univers 14:00:00 14:00:00 [facility] 2020-12-23 2020-12-23 Outpatient R [facility] [id number] Univers 13:15:00 13:15:00 [facility] 2020-12-21 2020-12-21 Patient Michael [facility] 1.2.840.114 [id number] Univers 00:00:00 00:00:00 Outreach Sandeep [facility] 350.1.13.10 i ty of [facility] 4.2.7.2.[place] [phone] Me dical [address] [place] [address] 2020-11-24 2020-11-24 Routine Boni Danielle [facility] 1.2.235.828 [id number] Univers 16:01:00 16:37:24 Ritesh Rosales 350.1.13.10 ity of [place] 4[place] [phone] [facility] 134 [facility] 2020-11-24 2020-11-24 Out[facility] [id number] Univers 16:00:00 16:00:00 ity [facility] 2020-11-11 2020-11-11 Outpatient [facility] [id number] Univers 15:00:00 15:00:00 ity [facility] 2020-11-10 2020-11-10 [facility] 1.2.840.114 [id number] Univers 13:27:00 15:10:00 Encounter Daisy Rosales 350.1.13.10 ity of [place] [phone] [facility] 083 [place] 2020-11-10 2020-11-10 Orders Doctor OSORIO 1.2.840.114 [id number] Univers 00:00:00 00:00:00 Only Unassigned, XU 350.1.13.10 ity of [place] [facility] 4.2.7.2.686 Niko as [phone] [facility] 009 [place] 2020-11-10 2020-11-10 Telephone Boni Danielle [facility] 1.2.840.114 [id number] Univers 00:00:00 00:00:00 Ritesh Rosales 350.1.13.10 i ty of [place] [phone] [facility] 134 [facility] 2020-11-04 2020-11-04 Customer Service Operator Ultrasound, [facility] 1.2 .840.114 [id number] Univers 13:26:54 14:41:54 Visit Maria Estrada FORM SETTER [address] FORMS 350.1.13.10 ity of [facility] 4.2.7.2.686 Niko as MATERNAL [phone] Med ical & CHILD [address] [place] [address] 2020-11-04 2020-11-04 Outpatient [facility] [id number] Univers 13:30:00 13:30:00 ity of [facility] 2020-11-03 2020-11-03 Outpatient R [facility] [id number] Univers 14:15:00 14:15:00 ity [facility] 2020-11-03 2020-11-03 Routine Boni Danielle [facility] 1.2.307.036 [id number] Univers 13:23:48 14:01:06 Cam Melvin 350.1.13.10 ity of [place].2.[place] [phone] Wa dical nal [address] [place] [address] 2020-11-03 2020-11-03 Telephone Boni Danielle [facility] 1.2.840.114 [id number] Univers 00:00:00 00:00:00 Cam Melvin 350.1.13.10 i ty of [place] 4[place]2.7.2.[place] [phone] Wa dical nal [address] [place] [address] 2020-10-26 2020-10-26 Routine Torsten Correa [facility] 1.2.840.11 [id number] Univers 16:11:29 16:26:29 Boni Danielle Melvin 350.1.13.10 ity of [place] 4.2.7.2.[place] [phone] Wa dicabril bright [address] [place] [address] 2020-10-26 2020-10-26 Outpatient R [facility] [id number] Univers 16:15:00 16:15:00 ity [facility] 2020-09-28 2020-09-28 Outpatient R THANG [facility] [id number] Univers 12:45:00 12:45:00 DEONTE ity o f [facility] 2020-09-15 2020-09-15 Initial Boni Danielle [facility] [id number] Univers 09:56:27 10:57:17 Cam Melvin [id number] ity of [id number] [phone] Wa dical nal 134 [facility] 2020-09-15 2020-09-15 Outpatient R [facility] [id number] Univers 10:00:00 10:00:00 ity of [facility] 2020-09-13 2020-09-13 Customer Service Operator Lab, [facility] UNIVERSIT 1.2.84 [id number] [id number] Univers 14:55:50 15:11:55 Visit Huber Ashley [employer] [id number] it[place] of [id number] [phone] [facility] [address] 2020-09-13 2020-09-13 Customer Service Operator 1, [facility] UNIVERSIT [id number] .[id number] Univers 13:53:16 14:54:07 Visit Huber Ashley [employer] [id number] [place] of [id number] [phone] [facility] [address] 2020-09-13 2020-09-13 [facility] [id number] Univers 13:45:00 13:45:00 ity of [facility] 2020-09-13 2020-09-13 Orders Doctor AC 1.2.840.114 [id number] Univers 00:00:00 00:00:00 Only Unassigned, XU 350.1.13.10 ity of [facility] 4.2.7.2.686 Niko as [phone] [facility] [address] 2020-09-13 2020-09-13 Case Jarrod, UNIVERSIT 1.2.882.181 [id number] Univers 00:00:00 00:00:00 Management Lashawn Y HEALTH 350.1.13.10 ity of CL[place] [id number] [facility] [address] 2020-09-13 2020-09-13 Abstract Rima, [facility] 1.2.840.114 [id number] Univers 00:00:00 00:00:00 Robert Plunkett FORM SETTER [address] FORMS 350.1.13.10 ity of REGIONAL 4.2.7.2.686 Niko as MATERNAL [id number] [facility] ical & CHILD [address] [place] [address] 2020-08-31 2020-08-31 Routine Robert Abarca [facility] 1.2.8 40.114 [id number] Univers 12:46:01 13:22:00 Brenda Davies FORM SETTER [address] FORMS 350.1.13.10 ity of Visit REGIONAL 4.2.7.2.686 Niko as MATERNAL [id number] [facility] ical & CHILD [address] [place] [address] 2020-08-31 2020-08-31 Outpatient R [facility] [id number] Univers 12:45:00 12:45:00 BRENDA yip [facility] 2020-08-05 2020-08-05 Joseph Desir [facility] 1.2.406.997 [id number] Univers 00:00:00 00:00:00 Deonte Skaggs FORM SETTER [address] FORMS 350.1.13.10 ity of [facility] 4.2.7.2.686 Niko as MATERNAL [phone] [facility] & CHILD [address] [place] [address] 2020-08-02 2020-08-02 Initial Rima [facility] 1.2.496.549 [id number] Univers 10:17:21 11:21:52 Robert Plunkett FORM SETTER [address] FORMS 350.1.13.10 ity of Visit REGIONAL 4.2.7.2.686 Niko as MATERNAL [phone] [facility] & CHILD [address] [place] [address] 2020-08-02 2020-08-02 Outpatient R [facility] [id number] Univers 10:00:00 10:00:00 ROBERT yip o f [facility] 2020-08-02 2020-08-02 Orders Doctor OSORIO 1.2.840.114 [id number] Univers 00:00:00 00:00:00 Only Unassigned, XU 350.1.13.10 ity of [place] [facility] 4.2.7.2.686 Niko as [phone] [address] 2020-01-12 2020-01-12 Letter Rima [facility] 1.2.360.639 [id number] 00:00:00 00:00:00 (Out) Robert C FORM SETTER [address] FORMS 350.1.13.10 REGIONAL 4.2.7.2.686 MATERNAL [phone] & CHILD 107 [facility] 2020-01-12 2020-01-12 Letter [facility] 1.2.760.142 [id number] Univers 00:00:00 00:00:00 (Out) Robert C FORM SETTER [address]AL [address] FORMS 350.1.13.10 ity of REGIONAL 4.2.7.2.686 Niko as MATERNAL [id number] [facility] & CHILD [address] [place] [address] 2019-12-29 2019-12-29 [facility] [id number] Univers 10:30:00 10:30:00 ROBERT yip o f [facility] 2019-12-29 2019-12-29 Telephone [facility] 1.2.840.114 [id number] 00:00:00 00:00:00 Robert C FORM SETTER [address] FORMS 350.1.13.10 REGIONAL 4.2.7.2.686 MATERNAL [id number] & CHILD 107 [facility] 2019-12-29 2019-12-29 Telephone [facility] 1.2.840.114 [id number] Univers 00:00:00 00:00:00 Robert C FORM SETTER [address]AL [address] FORMS 350.1.13.10 ity of [facility] 4.2.7.2.686 Niko as MATERNAL [id number] [facility] & CHILD [address] [place] [address] 2019-12-04 2019-12-04 Outpatient R [facility] [id number] Univers 13:00:00 13:00:00 BRENDA yip [facility] Results Test Description Test Time Test Comments [...] code = 3257) trace Negative - Negative [facility] WITH [id number] 02:56:47 Test Item Value Reference Range Interpretation [...] RDW-SD (test code = 47.2 fL 39.0-49.9 03610-2) RDW-CV (test code = 15.8 % 12.0-15.5 H 788-0) PLT (test code = See_Comment [Automated 777-3) message] The sy stem which generated this result transmitted reference range : 166 - 358 10*3/ ?L. The reference r jayne was not used to interpret this result as normal/abnormal . MPV (test code = 10.3 fL 9.5-12.9 37850-6) NRBC/100 WBC (test See_Comment [Automat ed code = 1018371165) message] The system which generated this result transmitted reference range : 0.0 - 10.0 /100 WBCs. The refer ence range was not u sed to interpret th is result as normal/abnormal . NRBC x10^3 (test code <0.01 See_Comment [Auto mated = 8687073391) message] The s ystem which generated this result transmitted reference range : 10*3/?L. The reference range was not used to interpret this result as normal/abnormal . GRAN MAT (NEUT) % 63.1 % (test code = 770-8) IMM GRAN % (test code 0.50 % = 7321413643) LYMPH % (test code = 29.7 % 736-9) MONO % (test code = 6.4 % 5905-5) EOS % (test code = 0.2 % 713-8) BASO % (test code = 0.1 % 706-2) GRAN MAT x10^3(ANC) 5.40 10*3/uL 1.88-7.09 (test code = 5147917940) IMM GRAN x10^3 (test 0.04 10*3/uL 0.00-0.06 code = 8702012906) LYMPH x10^3 (test code 2.54 10*3/uL 1.32-3.29 = 731-0) MONO x10^3 (test code 0.55 10*3/uL 0.33-0.92 = 742-7) EOS x10^3 (test code = <0.03 0.03-0.39 L 711-2) BASO x10^3 (test code <0.03 0.01-0.07 = 704-7) Lab Interpretation Abnormal (test code = 42889-3) [facility] Packed RBC (in units), 2 Units 2022-02-03 18:02:41 Test Item Value Reference Range Interpretation Comments Cross Match Result Compatible (test code = 4409) ISBT Blood Type Code (test code = 871285) Unit Blood Type (test O Pos code = 4410) Unit Number (test [id number] code = 4411) Blood Expiration Date & Time (test code = 414728) Status Information Issued (test code = 4412) Product Red Blood Cells Identification (test code = 4413) Product Code (test [id number] Performed at [facility] code = 4414) Laboratory Services - [facility] Blood [address] [place] [address]Peso Free: [phone] A No. [id number] [facility] BY [id number] 17:26:21 Test Item Value Reference Range Interpretation Comments Specimen Tested Plasma (test code = 6408587115) CMV PCR - log <2.5 See_Comment [Automated IU/mL (test message] The code = 14558-1) system which generated this result transmitted reference range : <2.5 log IU/mL. The reference range was not used to interpr et this result as normal/abnormal . CMV PCR - IU/mL <300 See_Comment [Automated (test code = message] The 47423-5) system which generated this result transmitted reference range : <300 IU/mL. The reference range was not used to interpret this result as normal/abnormal . CMV PCR - log <2.7 See_Comment [Automated copies/mL (test message] The code = 97975-7) system which generated this result transmitted reference range : <2.7 log copies/mL. The reference range was not used to interpret this result as normal/abnormal . CMV PCR - <516 See_Comment [Automated copies/mL (test message] The code = 25160-0) system which generated this result transmitted reference [...] This is a laboratory-developed test using a project management director labeled ASR (Analyte Specific Reagent) as the reagent providing the specificity of the assay. ?This test was developed and its performance characteristics determined by [facility] Clinical Microbiology Laboratory. It has not been [...] to perform high complexity clinical laboratory testing. [facility] with [id number] 12:33:16 Test Item Value Reference Range Interpretation Comments WBC (test code = See_Comment [Automated 6690-2) message] The sy stem which generated this result transmitted reference range : 4.30 - 11.10 10*3/?L. The reference range was not used to interpret this result as normal/abnormal . RBC (test code = See_Comment L [Automated 559-8) message] The sy stem which generated this [...] RDW-SD (test code = 47.8 fL 39.0-49.9 74629-8) RDW-CV (test code = 15.9 % 12.0-15.5 H 788-0) PLT (test code = See_Comment L [Automated 777-3) message] The sy stem which generated this result transmitted reference range : 166 - 358 10*3/ ?L. The reference r jayne was not used to interpret this result as normal/abnormal . MPV (test code = 10.6 fL 9.5-12.9 11803-2) NRBC/100 WBC (test See_Comment [Automat ed code = 7822448429) message] The system which generated this result transmitted reference range : 0.0 - 10.0 /100 WBCs. The refer ence range was not u sed to interpret th is result as normal/abnormal . NRBC x10^3 (test code <0.01 See_Comment [Auto mated = 0419251102) message] The s ystem which generated this result transmitted reference range : 10*3/?L. The reference range was not used to interpret this result as normal/abnormal . GRAN MAT (NEUT) % 59.4 % (test code = 770-8) IMM GRAN % (test code 0.20 % = 7976201033) LYMPH % (test code = 33.2 % 736-9) MONO % (test code = 6.6 % 5905-5) EOS % (test code = 0.4 % 713-8) BASO % (test code = 0.2 % 706-2) GRAN MAT x10^3(ANC) 2.97 10*3/uL 1.88-7.09 (test code = 8197823216) IMM GRAN x10^3 (test <0.03 0.00-0.06 code = 7194410657) LYMPH x10^3 (test code 1.66 10*3/uL 1.32-3.29 = 731-0) MONO x10^3 (test code 0.33 10*3/uL 0.33-0.92 = 742-7) EOS x10^3 (test code = <0.03 0.03-0.39 L 711-2) BASO x10^3 (test code <0.03 0.01-0.07 = 704-7) Lab Interpretation Abnormal (test code = 51503-8) [facility] 1 and 2 Glycoprotein G [id number] 20:18:47 Test Item Value Reference Range Interpretation Comments HSV I IgG (test code Positive Negative = 3196511474) HSV II IgG (test code Negative Negative = 0394230543) VERN (test code = VERN) Positive - IgG antibody to HSV 1 and/or HSV 2 detected.Negative - No HSV 1 and/or HSV 2 antibody detected.Equivocal - A second sample should be sent. [facility] NorthwestTOXOPLASMA AB, [id number] 20:17:46 Test Item Value Reference Range Interpretation Comments Toxoplasma Antibody Negative Negative IgM (test code = 51734-4) VERN (test code = VERN) Negative - [...] CDC website (https://www.cdc.gov/dpd x/toxoplasmosis/index.ht ml) or to PAMF website (http://www.pamf.org/ser ology). [facility] NorthwestTOXOPLASMA IGG [id number] 20:16:05 Test Item Value Reference Range Interpretation Comments TOXO IGG (test code Negative = 1408014367) VERN (test code = Positive - Indicates VERN) current or past T. gondii infection.Negative - No serologic evidence of T. gondii infection. Cannot exclude acute T. gondii infection. Equivocal - A second sample should be sent. [facility] NorthwestRHO (D) IMMUNE [id number] 19:50:27 Test Item Value Reference Range Interpretation Comments RHIG CANDIDATE? No- see comment Patient i s not a (test code = candidate for R hIg- 5055) Patient is Rh Positive.Perfor med at [facility] Laboratory Services - [facility] Blood [address] [place] [address]Xzap Free: [phone] A No. [id number] [facility] NorthwestHepatitis B Surface Wtylpro4555-10-04 10:45:12 Test Item Value Reference Range Interpretation Comments HBsAg Semi-Quantitative (test code = Negative Negative 5195-3) [facility] NorthwestFETAL HGB STAIN/KB [id number] 10:07:00 Test Item Value Reference Range Interpretation Comments HGB STAIN Negative Performed at [facility] (test code = 843) Laboratory Services - [facility] Blood Bank3 [address] [facility] [address]Ayny Free: [phone] A No. [id number] BLEED IN MLS See comment 0 mLPerfo rmed at [facility] (test code = 5045) Laborator y Services - [facility] Blood Bank3 [address] [facility] [address]Jats Free: [phone] A No. [id number] RHIG REQUIRED? 0 Syringes Patient is no t a (test code = 1747) candidate for RhIg- Patient is Rh Positive.Perfor med at [facility] Laboratory Services - [facility] Blood Ban k[address] [facility] s [address]Bklq Free: [phone] A No. [id number] [facility] NorthwestADC OR ZAINA ONLY - [id number] 09:05:44 Test Item Value Reference Range Interpretation Comments RPR (Qualitative) (test code = Nonreactive Nonreactive 13904-2) Lab Interpretation (test code = Normal 95359-8) [facility] NorthwestTHYROID STIMULATING [id number] 03:19:59 Test Item Value Reference Range Interpretation Comments TSH (test code = See_Comment [Automated message] 9554712007) The system RadioFrame h generated this result transmitted ref erence range: 0.45 - 4 .70 mIU/L. The refe rence range was not u sed to interpret this result as normal/abnor mal. Lab Interpretation (test Normal code = 46059-6) [facility] NorthwestType and Screen - ONCE [id number] 03:05:00 Test Item Value Reference Range Interpretation Comments ABO & RH (test code O Positive Performe d at [facility] = 20) Laboratory Serv ices - [facility] Blood Bank[address] [place], [place] [address]Jjdw Free: [phone] A No. [id number] IAT (test code = Negative Performed a t [facility] 1185) Laboratory Serv [facility] Blood Bank[address] [place] [address]Tssw Free: [phone] A No. [id number] [facility]. METABOLIC PANEL (41947)2022-02-02 02:50:17 Test Item Value Reference Range Interpretation Comments NA (test code = 137 mmol/L 135-145 2803594065) K (test code = 3.5 mmol/L 3.5-5.0 6033252058) CL (test code = 105 mmol/L 98-108 3610393652) CO2 TOTAL (test code = 19 mmol/L 23-31 L 2758837401) AGAP (test code = 2-16 2460419132) BUN (test code = 4 mg/dL 7-23 L 5859114511) GLUCOSE (test code = 97 mg/dL 70-110 7830998159) CREATININE (test code = 0.42 mg/dL 0.50-1.04 L 6842134148) TOTAL BILI (test code = 1.3 mg/dL 0.1-1.1 H 0131293628) CALCIUM (test code = 9.4 mg/dL 8.6-10.6 5123589632) T PROTEIN (test code = 7.6 g/dL 6.3-8.2 2736272097) ALBUMIN (test code = 4.1 g/dL 3.5-5.0 7450996718) ALK PHOS (test code = 95 U/L 34-122 2946987264) ALTv (test code = 15 U/L 5-35 1742-6) AST(SGOT) (test code = 25 U/L 13-40 3360461368) eGFR (test code = mL/min/1.73m2 5615874022) VERN (test code = VERN) Association of [...] tests). Lab Interpretation Abnormal (test code = 43310-7) [facility] NorthwestGLYCOSYLATED HEMOGLOBIN (A1C)2022-02-02 02:40:54 Test Item Value Reference Range Interpretation Comments HGB A1C (test code = 4.8 % 4.0-5.7 4548-4) VERN (test code = VERN) Reference RangesNormal: <5.7%Prediabetes: 5.7 - 6.4%Diabetes: > 6.5% Lab Interpretation (test Normal code = 29573-7) [facility] NorthwestCBC with [id number] 02:27:20 Test Item Value Reference Range Interpretation Comments WBC (test code = See_Comment [Automated 0601-2) message] The sy stem which generated this result transmitted reference range : 4.30 - 11.10 10*3/?L. The reference range was not used to interpret this result as normal/abnormal . RBC (test code = See_Comment L [Automated 161-8) message] The sy stem which generated this [...] RDW-SD (test code = 43.8 fL 39.0-49.9 44686-3) RDW-CV (test code = 15.4 % 12.0-15.5 788-0) PLT (test code = See_Comment [Automated 777-3) message] The sy stem which generated this result transmitted reference range : 166 - 358 10*3/ ?L. The reference r jayne was not used to interpret this result as normal/abnormal . MPV (test code = 10.4 fL 9.5-12.9 75945-3) NRBC/100 WBC (test See_Comment [Automat ed code = 9109465749) message] The system which generated this result transmitted reference range : 0.0 - 10.0 /100 WBCs. The refer ence range was not u sed to interpret th is result as normal/abnormal . NRBC x10^3 (test code <0.01 See_Comment [Auto mated = 5420612829) message] The s ystem which generated this result transmitted reference range : 10*3/?L. The reference range was not used to interpret this result as normal/abnormal . GRAN MAT (NEUT) % 68.4 % (test code = 770-8) IMM GRAN % (test code 0.30 % = 5495859216) LYMPH % (test code = 25.0 % 736-9) MONO % (test code = 5.7 % 5905-5) EOS % (test code = 0.3 % 713-8) BASO % (test code = 0.3 % 706-2) GRAN MAT x10^3(ANC) 4.97 10*3/uL 1.88-7.09 (test code = 2523246693) IMM GRAN x10^3 (test <0.03 0.00-0.06 code = 9888869693) LYMPH x10^3 (test code 1.81 10*3/uL 1.32-3.29 = 731-0) MONO x10^3 (test code 0.41 10*3/uL 0.33-0.92 = 742-7) EOS x10^3 (test code = <0.03 0.03-0.39 L 711-2) BASO x10^3 (test code <0.03 0.01-0.07 = 704-7) Lab Interpretation Abnormal (test code = 91063-2) [facility] URINALYSIS W/O SPECIFIC [id number] 16:40:00 Test Item Value Reference Range Interpretation [...] code = 3257) n/a Negative - Negative [facility] URINALYSIS W/O SPECIFIC [id number] 13:28:00 Test Item Value Reference Range Interpretation [...] code = 3257) n/a Negative - Negative [facility] URINALYSIS W/O SPECIFIC [id number] 17:01:00 Test Item Value Reference Range Interpretation [...] code = 3257) n/a Negative - Negative [facility] URINALYSIS W/O SPECIFIC [id number] 14:57:00 Test Item Value Reference Range Interpretation [...] code = 3257) n/a Negative - Negative [facility] URINALYSIS W/O SPECIFIC [id number] 17:26:00 Test Item Value Reference Range Interpretation [...] code = 3257) n/a Negative - [id number] 20:28:00 Test Item Value Reference Range Interpretation Comments POCT PREG (test code = 1605) Positive On board controls acceptable with C Yes Line (test code = 3574) POCT PREG LOT # (test code = 3575) POCT PREG TEST DATE (test code = 3576) [facility] URINALYSIS W/O SPECIFIC [id number] 20:27:00 Test Item Value Reference Range Interpretation [...] code = 3257) n/a Negative - Negative [facility] WITHOUT [id number] 20:29:03 Test Item Value Reference Range Interpretation Comments WBC (test code = 6690-2) See_Comment [A utomated message] The system Kewen generated this result transmit arielle reference range : 4.30 - 11.10 10*3/?L. The reference range was not used to interpret this result as normal/abnormal . RBC (test code = 789-8) See_Comment L [Au tomated message] The system Kewen generated this result transmit arielle reference range [...] 777-3) See_Comment [Au tomated message] The system Kewen generated this result transmit airelle reference range : 166 - 358 10*3/?L. The reference range was not used to interpret this result as normal/abnormal . MPV (test code = 10.6 fL 9.5-12.9 28870-6) RDW-CV (test code = 14.3 % 12.0-15.5 788-0) RDW-SD (test code = 41.8 fL 39.0-49.9 89367-9) NRBC x10^3 (test code = <0.01 See_Comment [Au tomated message] 5364171781) The system RadioFrame generated this result transmit arielle reference range : 10*3/?L. The reference range was not used to interpret this result as normal/abnormal . NRBC/100 WBC (test code See_Comment [Au tomated message] = 1463390338) The system [facility] generated this result transmit arielle reference range : 0.0 - 10.0 /100 WBC s. The reference r jayne was not used to interpret this result as normal/abnormal . IPF % (test code = 2636139889) Lab Interpretation (test Abnormal code = 65338-6) [facility] WITHOUT [id number] 20:29:03 Test Item Value Reference Range Interpretation Comments WBC (test code = 6690-2) See_Comment [A utomated message] The system Qlibri generated this result transmit arielle reference range : 4.30 - 11.10 10*3/?L. The reference range was not used to interpret this result as normal/abnormal . RBC (test code = 789-8) See_Comment L [Au tomated message] The system RadioFrame generated this result transmit arielle reference range [...] 777-3) See_Comment [Au tomated message] The system RadioFrame generated this result transmit arielle reference range : 166 - 358 10*3/?L. The reference range was not used to interpret this result as normal/abnormal . MPV (test code = 10.6 fL 9.5-12.9 56904-9) RDW-CV (test code = 14.3 % 12.0-15.5 788-0) RDW-SD (test code = 41.8 fL 39.0-49.9 11532-9) NRBC x10^3 (test code = <0.01 See_Comment [Au tomated message] 3614321653) The system AcesoBeeic h generated this result transmit arielle reference range : 10*3/?L. The reference range was not used to interpret this result as normal/abnormal . NRBC/100 WBC (test code See_Comment [Au tomated message] = 6881871709) The system AcesoBeei ch generated this result transmit arielle reference range : 0.0 - 10.0 /100 WBC s. The reference r jayne was not used to interpret this result as normal/abnormal . IPF % (test code = 6366110500) Lab Interpretation (test Abnormal code = 46079-4) [facility] Packed RBC (in units), 1 Units 2021-02-20 13:22:40 Test Item Value Reference Range Interpretation Comments Cross Match Result Compatible (test code = 4409) ISBT Blood Type Code (test code = 108100) Unit Blood Type (test O Pos code = 4410) Unit Number (test [id number] code = 4411) Blood Expiration Date & Time (test code = 170935) Status Information Issued (test code = 4412) Product Red Blood Cells Identification (test code = 4413) Product Code (test [id number] Performed at [facility] code = 4414) Laboratory Services - [facility] Blood [address] [place] [address]Dpig Free: [phone] A No. [id number] [facility] Packed RBC (in units), 1 Units 2021-02-20 13:22:40 Test Item Value Reference Range Interpretation Comments Cross Match Result Compatible (test code = 4409) ISBT Blood Type Code (test code = 530115) Unit Blood Type (test O Pos code = 4410) Unit Number (test [id number] code = 4411) Blood Expiration Date & Time (test code = 157097) Status Information Issued (test code = 4412) Product Red Blood Cells Identification (test code = 4413) Product Code (test [id number] Performed at [facility] code = 4414) Laboratory Services - [facility] Blood [address] [place] [address]Muzi Free: [phone] A No. [id number] [facility] with [id number] 10:11:56 Test Item Value Reference Range Interpretation [...] RDW-SD (test code = 41.5 fL 39.0-49.9 31698-5) RDW-CV (test code = 14.3 % 12.0-15.5 788-0) PLT (test code = See_Comment [Automated 777-3) message] The sy stem which generated this result transmitted reference range : 166 - 358 10*3/ ?L. The reference r jayne was not used to interpret this result as normal/abnormal . MPV (test code = 10.4 fL 9.5-12.9 80940-1) NRBC/100 WBC (test See_Comment [Automat ed code = 8660404058) message] The system which generated this result transmitted reference range : 0.0 - 10.0 /100 WBCs. The refer ence range was not u sed to interpret th is result as normal/abnormal . NRBC x10^3 (test code <0.01 See_Comment [Auto mated = 6832412025) message] The s ystem which generated this result transmitted reference range : 10*3/?L. The reference range was not used to interpret this result as normal/abnormal . GRAN MAT (NEUT) % 64.6 % (test code = 770-8) IMM GRAN % (test code 0.70 % = 4589822874) LYMPH % (test code = 24.7 % 736-9) MONO % (test code = 9.6 % 5905-5) EOS % (test code = 0.2 % 713-8) BASO % (test code = 0.2 % 706-2) GRAN MAT x10^3(ANC) 5.91 10*3/uL 1.88-7.09 (test code = 4746131179) IMM GRAN x10^3 (test 0.06 10*3/uL 0.00-0.06 code = 0611954362) LYMPH x10^3 (test code 2.26 10*3/uL 1.32-3.29 = 731-0) MONO x10^3 (test code 0.88 10*3/uL 0.33-0.92 = 742-7) EOS x10^3 (test code = <0.03 0.03-0.39 L 711-2) BASO x10^3 (test code <0.03 0.01-0.07 = 704-7) Lab Interpretation Abnormal (test code = 80773-3) [facility] with Ohbgtcswmwsk8813-34-89 10:11:56 Test Item Value Reference Range Interpretation Comments WBC (test code = See_Comment [Automated 1584-2) message] The sy stem which generated this result transmitted reference range : 4.30 - 11.10 10*3/?L. The reference range was not used to interpret this result as normal/abnormal . RBC (test code = See_Comment L [Automated 462-8) message] The sy stem which generated this [...] RDW-SD (test code = 41.5 fL 39.0-49.9 24460-3) RDW-CV (test code = 14.3 % 12.0-15.5 788-0) PLT (test code = See_Comment [Automated 777-3) message] The sy stem which generated this result transmitted reference range : 166 - 358 10*3/ ?L. The reference r jyane was not used to interpret this result as normal/abnormal . MPV (test code = 10.4 fL 9.5-12.9 96436-5) NRBC/100 WBC (test See_Comment [Automat ed code = 7927773051) message] The system which generated this result transmitted reference range : 0.0 - 10.0 /100 WBCs. The refer ence range was not u sed to interpret th is result as normal/abnormal . NRBC x10^3 (test code <0.01 See_Comment [Auto mated = 5967924394) message] The s ystem which generated this result transmitted reference range : 10*3/?L. The reference range was not used to interpret this result as normal/abnormal . GRAN MAT (NEUT) % 64.6 % (test code = 770-8) IMM GRAN % (test code 0.70 % = 7241580747) LYMPH % (test code = 24.7 % 736-9) MONO % (test code = 9.6 % 5905-5) EOS % (test code = 0.2 % 713-8) BASO % (test code = 0.2 % 706-2) GRAN MAT x10^3(ANC) 5.91 10*3/uL 1.88-7.09 (test code = 7943958099) IMM GRAN x10^3 (test 0.06 10*3/uL 0.00-0.06 code = 2962399618) LYMPH x10^3 (test code 2.26 10*3/uL 1.32-3.29 = 731-0) MONO x10^3 (test code 0.88 10*3/uL 0.33-0.92 = 742-7) EOS x10^3 (test code = <0.03 0.03-0.39 L 711-2) BASO x10^3 (test code <0.03 0.01-0.07 = 704-7) Lab Interpretation Abnormal (test code = 24919-0) [facility] Packed RBC (in units), 1 Units 2021-02-20 00:59:26 Test Item Value Reference Range Interpretation Comments Cross Match Result Compatible (test code = 4409) ISBT Blood Type Code (test code = 485283) Unit Blood Type (test O Pos code = 4410) Unit Number (test [id number] code = 4411) Blood Expiration Date & Time (test code = 590048) Status Information Issued (test code = 4412) Product Red Blood Cells Identification (test code = 4413) Product Code (test S2069E28 Performed at [facility] code = 4414) Laboratory Services [facility] Blood [address] [place] [address] Free: [phone] A No. [id number] [facility] Packed RBC (in units), 1 Units 2021-02-20 00:59:26 Test Item Value Reference Range Interpretation Comments Cross Match Result Compatible (test code = 4409) ISBT Blood Type Code (test code = 386810) Unit Blood Type (test O Pos code = 4410) Unit Number (test [id number] code = 4411) Blood Expiration Date & Time (test code = 956331) Status Information Issued (test code = 4412) Product Red Blood Cells Identification (test code = 4413) Product Code (test X3159B92 Performed at [facility] code = 4414) Laboratory Services [facility] Blood [address] [place], [place] [address]Toll Free: [phone] A No. [id number] [facility] WITHOUT [id number] 00:03:52 Test Item Value Reference Range Interpretation Comments WBC (test code = 6690-2) See_Comment H [A utomated message] The system [employer] generated this result transmit arielle reference range : 4.30 - 11.10 10*3/?L. The reference range was not used to interpret this result as normal/abnormal . RBC (test code = 789-8) See_Comment L [Au tomated message] The system [employer] generated this result transmit arielle reference range [...] 777-3) See_Comment [Au tomated message] The system [employer] generated this result transmit arielle reference range : 166 - 358 10*3/?L. The reference range was not used to interpret this result as normal/abnormal . MPV (test code = 10.4 fL 9.5-12.9 68766-9) RDW-CV (test code = 14.5 % 12.0-15.5 788-0) RDW-SD (test code = 42.0 fL 39.0-49.9 94735-5) NRBC x10^3 (test code = <0.01 See_Comment [Au tomated message] 5984186071) The system [employer] generated this result transmit arielle reference range : 10*3/?L. The reference range was not used to interpret this result as normal/abnormal . NRBC/100 WBC (test code See_Comment [Au tomated message] = 1803376672) The [facility] generated this result transmit arielle reference range : 0.0 - 10.0 /100 WBC s. The reference r jayne was not used to interpret this result as normal/abnormal . IPF % (test code = 6142092110) Lab Interpretation (test Abnormal code = 68782-3) [facility] WITHOUT [id number] 00:03:52 Test Item Value Reference Range Interpretation Comments WBC (test code = 6690-2) See_Comment H [A utomated message] The system [employer] generated this result transmit arielle reference range : 4.30 - 11.10 10*3/?L. The reference range was not used to interpret this result as normal/abnormal . RBC (test code = 789-8) See_Comment L [Au tomated message] The system [employer] generated this result transmit arielle reference range [...] 777-3) See_Comment [Au tomated message] The system [employer] generated this result transmit arielle reference range : 166 - 358 10*3/?L. The reference range was not used to interpret this result as normal/abnormal . MPV (test code = 10.4 fL 9.5-12.9 84759-2) RDW-CV (test code = 14.5 % 12.0-15.5 788-0) RDW-SD (test code = 42.0 fL 39.0-49.9 82668-6) NRBC x10^3 (test code = <0.01 See_Comment [Au tomated message] 5773248686) The system [employer] generated this result transmit arielle reference range : 10*3/?L. The reference range was not used to interpret this result as normal/abnormal . NRBC/100 WBC (test code See_Comment [Au tomated message] = 5597588514) The system [employer] generated this result transmit arielle reference range : 0.0 - 10.0 /100 WBC s. The reference r jayne was not used to interpret this result as normal/abnormal . IPF % (test code = 7766033684) Lab Interpretation (test Abnormal code = 41088-8) [facility] B Surface [id number] 17:32:12 Test Item Value Reference Range Interpretation Comments HBsAg Semi-Quantitative (test code = Negative Negative 5195-3) [facility] B Surface [id number] 17:32:12 Test Item Value Reference Range Interpretation Comments HBsAg Semi-Quantitative (test code = Negative Negative 5195-3) [facility] Packed RBC (in units), 1 Units 2021-02-19 17:27:17 Test Item Value Reference Range Interpretation Comments Cross Match Result Compatible (test code = 4409) ISBT Blood Type Code (test code = 350070) Unit Blood Type (test O Pos code = 4410) Unit Number (test [id number] code = 4411) Blood Expiration Date & Time (test code = 603871) Status Information Issued (test code = 4412) Product Red Blood Cells Identification (test code = 4413) Product Code (test J5558C57 Performed at [facility] code = 4414) Laboratory [facility] Blood [address] Free: [phone] A No. [id number] [facility] Packed RBC (in units), 1 Units 2021-02-19 17:27:17 Test Item Value Reference Range Interpretation Comments Cross Match Result Compatible (test code = 4409) ISBT Blood Type Code (test code = 667921) Unit Blood Type (test O Pos code = 4410) Unit Number (test [id number] code = 4411) Blood Expiration Date & Time (test code = 344079) Status Information Issued (test code = 4412) Product Red Blood Cells Identification (test code = 4413) Product Code (test B6808M50 Performed at [facility] code = 4414) Laboratory Services [facility] Blood [address] Free: [phone] A No. [id number] [facility] WITHOUT [id number] 16:28:06 Test Item Value Reference Range Interpretation Comments WBC (test code = 6690-2) See_Comment H [A utomated message] The system [employer] generated this result transmit arielle reference range : 4.30 - 11.10 10*3/?L. The reference range was not used to interpret this result as normal/abnormal . RBC (test code = 789-8) See_Comment L [Au tomated message] The system [employer] generated this result transmit arielle reference range [...] 777-3) See_Comment [Au tomated message] The system [employer] generated this result transmit arielle reference range : 166 - 358 10*3/?L. The reference range was not used to interpret this result as normal/abnormal . MPV (test code = 10.4 fL 9.5-12.9 55242-9) RDW-CV (test code = 14.2 % 12.0-15.5 788-0) RDW-SD (test code = 41.6 fL 39.0-49.9 53308-9) NRBC x10^3 (test code = <0.01 See_Comment [Au tomated message] 1912630774) The system [employer] generated this result transmit arielle reference range : 10*3/?L. The reference range was not used to interpret this result as normal/abnormal . NRBC/100 WBC (test code See_Comment [Au tomated message] = 7338643186) The system [facility] generated this result transmit arielle reference range : 0.0 - 10.0 /100 WBC s. The reference r jayne was not used to interpret this result as normal/abnormal . IPF % (test code = 0717654189) Lab Interpretation (test Abnormal code = 76488-3) [facility] WITHOUT [id number] 16:28:06 Test Item Value Reference Range Interpretation Comments WBC (test code = 6690-2) See_Comment H [A utomated message] The system [employer] generated this result transmit arielle reference range : 4.30 - 11.10 10*3/?L. The reference range was not used to interpret this result as normal/abnormal . RBC (test code = 789-8) See_Comment L [Au tomated message] The system [employer] generated this result transmit arielle reference range [...] 777-3) See_Comment [Au tomated message] The system [employer] generated this result transmit arielle reference range : 166 - 358 10*3/?L. The reference range was not used to interpret this result as normal/abnormal . MPV (test code = 10.4 fL 9.5-12.9 11973-5) RDW-CV (test code = 14.2 % 12.0-15.5 788-0) RDW-SD (test code = 41.6 fL 39.0-49.9 82657-3) NRBC x10^3 (test code = <0.01 See_Comment [Au tomated message] 4154756359) The system [employer] generated this result transmit arielle reference range : 10*3/?L. The reference range was not used to interpret this result as normal/abnormal . NRBC/100 WBC (test code See_Comment [Au tomated message] = 5155620955) The system [employer] generated this result transmit arielle reference range : 0.0 - 10.0 /100 WBC s. The reference r jayne was not used to interpret this result as normal/abnormal . IPF % (test code = 4160053603) Lab Interpretation (test Abnormal code = 68891-7) [facility] (D) IMMUNE [id number] 13:26:34 Test Item Value Reference Range Interpretation Comments RHIG CANDIDATE? No- see comment Patient i s not a (test code = candidate for R hIg- 5055) Patient is Rh Positive.Perfor med at [facility] Laboratory Services [facility] Blood [address] [place] [address] Free: [phone] A No. [id number] [facility] (D) IMMUNE [id number] 13:26:34 Test Item Value Reference Range Interpretation Comments RHIG CANDIDATE? No- see comment Patient i s not a (test code = candidate for R hIg- 5055) Patient is Rh Positive.Perfor med at [facility] Laboratory Services - [facility] Blood [address] [place] [address] Free: [phone] A [facility]. [id number] [facility] [id number] 12:03:32 Test Item Value Reference Range Interpretation Comments HIV Negative Negative Semi-quantitative (test code = 38658-1) VERN (test code = Non-reactive for HIV-1 VERN) antigen and HIV-1/HIV-2 antibodies. ?No laboratory evidence of HIV infection. ?Repeat in 2-4 weeks if acute HIV infection is suspected. [facility] WITH [id number] 12:03:32 Test Item Value Reference Range Interpretation Comments HIV Negative Negative Semi-quantitative (test code = 62431-0) VERN (test code = Non-reactive for HIV-1 VERN) antigen and HIV-1/HIV-2 antibodies. ?No laboratory evidence of HIV infection. ?Repeat in 2-4 weeks if acute HIV infection is suspected. [facility] Cord [id number] 11:05:00 Test Item Value Reference Range Interpretation Comments VENOUS BASE EXCESS, mEq/L CORD (test code = 0547079075) VENOUS PH, CORD (test 7.25-7.45 code = 1019260635) VENOUS PC02, CORD See_Comment [Automate d message] The (test code = system which ge nerated 3852753890) this result tra nsmitted reference range : 27 - 49 mmHg. The refer ence range was not used to interpret this result as normal/abnormal . VENOUS PO2, CORD (test See_Comment [Aut omated message] The code = 5553200179) system [employer] generated this result tra nsmitted reference range : 17 - 41 mmHg. The refer ence range was not used to interpret this result as normal/abnormal . VENOUS BICARBONATE, See_Comment [Automa arielle message] The CORD (test code = system [employer] generated 7150744762) this result tra nsmitted reference range : 12 - 29 mEq/L. The refe rence range was not used to interpret this result as normal/abnormal . [facility] Cord [id number] 11:05:00 Test Item Value Reference Range Interpretation Comments VENOUS BASE EXCESS, mEq/L CORD (test code = 8872127616) VENOUS PH, CORD (test 7.25-7.45 code = 8419515035) VENOUS PC02, CORD See_Comment [Automate d message] The (test code = system which ge nerated 7536516197) this result tra nsmitted reference range : 27 - 49 mmHg. The refer ence range was not used to interpret this result as normal/abnormal . VENOUS PO2, CORD (test See_Comment [Aut omated message] The code = 6018606628) system [employer] generated this result tra nsmitted reference range : 17 - 41 mmHg. The refer ence range was not used to interpret this result as normal/abnormal . VENOUS BICARBONATE, See_Comment [Automa arielle message] The CORD (test code = system [facility] generated 0044151461) this result tra nsmitted reference range : 12 - 29 mEq/L. The refe rence range was not used to interpret this result as normal/abnormal . [facility] [id number] 10:44:56 Test Item Value Reference Range Interpretation Comments ABO & RH (test code O Positive Performe d at [facility] = 20) Laboratory [facility] Blood [address] [place] [address] Free: [phone] A No. [id number] IAT (test code = Negative Performed a t [facility] 1185) Laboratory [facility] Blood [address] [place], [place] [address]Toll Free: [phone] A No. [id number] [facility] and Screen - ONCE [id number] 10:44:56 Test Item Value Reference Range Interpretation Comments ABO & RH (test code O Positive Performe d at [facility] = 20) Laboratory [facility] Blood [address] Free: [phone] A No. [id number] IAT (test code = Negative Performed a t [facility] 1185) Laboratory [facility] Blood [address] [place], [place] [address]Toll Free: [phone] A No. [id number] [facility] with [id number] 10:08:07 Test Item Value Reference Range Interpretation Comments WBC (test code = See_Comment H [Automated 6390-2) message] The sy stem which generated this result transmitted reference range : 4.30 - 11.10 10*3/?L. The reference range was not used to interpret this result as normal/abnormal . RBC (test code = See_Comment [Automated 579-8) message] The sy stem which generated this [...] RDW-SD (test code = 40.6 fL 39.0-49.9 32579-5) RDW-CV (test code = 14.0 % 12.0-15.5 788-0) PLT (test code = See_Comment [Automated 777-3) message] The sy stem which generated this result transmitted reference range : 166 - 358 10*3/ ?L. The reference r jayne was not used to interpret this result as normal/abnormal . MPV (test code = 10.1 fL 9.5-12.9 55117-7) NRBC/100 WBC (test See_Comment [Automat ed code = 7749269631) message] The system which generated this result transmitted reference range : 0.0 - 10.0 /100 WBCs. The refer ence range was not u sed to interpret th is result as normal/abnormal . NRBC x10^3 (test code <0.01 See_Comment [Auto mated = 8668369325) message] The s ystem which generated this result transmitted reference range : 10*3/?L. The reference range was not used to interpret this result as normal/abnormal . GRAN MAT (NEUT) % 65.5 % (test code = 770-8) IMM GRAN % (test code 0.90 % = 1417015904) LYMPH % (test code = 25.9 % 736-9) MONO % (test code = 7.1 % 5905-5) EOS % (test code = 0.3 % 713-8) BASO % (test code = 0.3 % 706-2) GRAN MAT x10^3(ANC) 7.29 10*3/uL 1.88-7.09 H (test code = 7505892656) IMM GRAN x10^3 (test 0.10 10*3/uL 0.00-0.06 H code = 9511300008) LYMPH x10^3 (test code 2.88 10*3/uL 1.32-3.29 = 731-0) MONO x10^3 (test code 0.79 10*3/uL 0.33-0.92 = 742-7) EOS x10^3 (test code = 0.03 10*3/uL 0.03-0.39 711-2) BASO x10^3 (test code 0.03 10*3/uL 0.01-0.07 = 704-7) Lab Interpretation Abnormal (test code = 63471-3) [facility] with [id number] 10:08:07 Test Item Value Reference Range Interpretation [...] RDW-SD (test code = 40.6 fL 39.0-49.9 28584-6) RDW-CV (test code = 14.0 % 12.0-15.5 788-0) PLT (test code = See_Comment [Automated 777-3) message] The sy stem which generated this result transmitted reference range : 166 - 358 10*3/ ?L. The reference r jayne was not used to interpret this result as normal/abnormal . MPV (test code = 10.1 fL 9.5-12.9 83605-0) NRBC/100 WBC (test See_Comment [Automat ed code = 4944075709) message] The system which generated this result transmitted reference range : 0.0 - 10.0 /100 WBCs. The refer ence range was not u sed to interpret th is result as normal/abnormal . NRBC x10^3 (test code <0.01 See_Comment [Auto mated = 4580019072) message] The s ystem which generated this result transmitted reference range : 10*3/?L. The reference range was not used to interpret this result as normal/abnormal . GRAN MAT (NEUT) % 65.5 % (test code = 770-8) IMM GRAN % (test code 0.90 % = 2621926725) LYMPH % (test code = 25.9 % 736-9) MONO % (test code = 7.1 % 5905-5) EOS % (test code = 0.3 % 713-8) BASO % (test code = 0.3 % 706-2) GRAN MAT x10^3(ANC) 7.29 10*3/uL 1.88-7.09 H (test code = 0670811227) IMM GRAN x10^3 (test 0.10 10*3/uL 0.00-0.06 H code = 1425873961) LYMPH x10^3 (test code 2.88 10*3/uL 1.32-3.29 = 731-0) MONO x10^3 (test code 0.79 10*3/uL 0.33-0.92 = 742-7) EOS x10^3 (test code = 0.03 10*3/uL 0.03-0.39 711-2) BASO x10^3 (test code 0.03 10*3/uL 0.01-0.07 = 704-7) Lab Interpretation Abnormal (test code = 74085-3) [facility] [id number] 16:02:41 Reactive and reassuringtoco quiescent Boni Danielle MD ?02/16/2021 ?11:02 AM [facility] PELVIS > 14 [id number] 03:45:19Impression: 1. ?Single viable intrauterine gestation in cephalic position, withestimated gestationalage of 36 weeks 1 day, EDC 03/13/2021. ? 2. ?Marginal retroplacental hemorrhage from marginal placental abruptionmeasures approximately 4.0 x 1.2 cm. Follow-up complete obstetricalultrasound exam is recommended. 3. No placenta previa. [facility]: 59090XI: 460 Exam: Greater than 14 weeks single [...] 32 cm compatible with estimated gestational age nr09mtffd 1 day. ?Abdominal Circumference 32.1 cm compatible with estimated gestational ageof 36 weeks1 day. ?Femur Length ?7.0 cm compatible with estimated gestational age of 36 weeks1 day. ? Estimated gestational age based on sonographic criteria is 36 weeks 1 day. Estimated weight is 2833 g or6 lbs. 4 oz.. Estimated gestational agebased on last menstrual period is 34 weeks 3 days, EDC 03/25/2021. Kymb, Radiant Results Inft User - 02/14/2021 10:46 [...] placental abruptionmeasures approximately 4.0 x 1.2 cm. Follow-upcomplete obstetricalultrasound exam is recommended.3. No placenta previa. AFC: 926[address]QO: 460 [facility]CE [id number] 02:25:54 Test Item Value Reference Range Interpretation Comments ABO & RH (test code O Positive Performe d at [facility] = 20) Laboratory Serv [facility] Blood [address] [place], [place] [address]Toll Free: [phone] A No. [id number] IAT (test code = Negative Performed a t [facility] 1185) Laboratory [facility] Blood [address] [place] [address]Gucs Free: [phone] A No. [id number] [facility] NorthwestCOVID-[facility] (ID NOW RAPID TESTING)2021-02-15 01:55:42 Test Item Value Reference Range Interpretation Comments SARS-CoV-2 Rapid ID NOW Not Detected Not Detected (test code = 82514-1) VERN (test code = VERN) ID NOW COVID-19 Assay is an isothermal nucleic acid amplification test intended for the qualitative detection of nucleic acid from SARS-CoV-2 viral RNA in nasopharyngeal ([employer]) specimens. It is used under Emergency Use [...] indicated. Lab Interpretation Normal (test code = 28449-7) [facility] WITH [id number] 01:42:18 Test Item Value Reference Range Interpretation Comments WBC (test code = See_Comment [Automated 9790-2) message] The sy stem which generated this result transmitted reference range : 4.30 - 11.10 10*3/?L. The reference range was not used to interpret this result as normal/abnormal . RBC (test code = See_Comment [Automated 989-8) message] The sy stem which generated this [...] RDW-SD (test code = 40.5 fL 39.0-49.9 47763-9) RDW-CV (test code = 14.0 % 12.0-15.5 788-0) PLT (test code = See_Comment [Automated 777-3) message] The sy stem which generated this result transmitted reference range : 166 - 358 10*3/ ?L. The reference r jayne was not used to interpret this result as normal/abnormal . MPV (test code = 10.4 fL 9.5-12.9 29767-0) NRBC/100 WBC (test See_Comment [Automat ed code = 8728280514) message] The system which generated this result transmitted reference range : 0.0 - 10.0 /100 WBCs. The refer ence range was not u sed to interpret th is result as normal/abnormal . NRBC x10^3 (test code <0.01 See_Comment [Auto mated = 2827956613) message] The s ystem which generated this result transmitted reference range : 10*3/?L. The reference range was not used to interpret this result as normal/abnormal . GRAN MAT (NEUT) % 68.8 % (test code = 770-8) IMM GRAN % (test code 0.60 % = 6723703379) LYMPH % (test code = 23.2 % 736-9) MONO % (test code = 6.9 % 5905-5) EOS % (test code = 0.3 % 713-8) BASO % (test code = 0.2 % 706-2) GRAN MAT x10^3(ANC) 6.19 10*3/uL 1.88-7.09 (test code = 4499158288) IMM GRAN x10^3 (test 0.05 10*3/uL 0.00-0.06 code = 4648542088) LYMPH x10^3 (test code 2.09 10*3/uL 1.32-3.29 = 731-0) MONO x10^3 (test code 0.62 10*3/uL 0.33-0.92 = 742-7) EOS x10^3 (test code = 0.03 10*3/uL 0.03-0.39 711-2) BASO x10^3 (test code <0.03 0.01-0.07 = 704-7) Lab Interpretation Abnormal (test code = 61084-0) [facility] URINALYSIS W/O SPECIFIC [id number] 22:15:00 Test Item Value Reference Range Interpretation [...] code = 3257) N/A Negative - Negative [facility] URINALYSIS W/O SPECIFIC [id number] 16:27:00 Test Item Value Reference Range Interpretation [...] Negative Lab Interpretation (test code = Normal 96940-5) [facility] URINALYSIS W/O SPECIFIC [id number] 16:27:00 Test Item Value Reference Range Interpretation [...] Negative Lab Interpretation (test code = Normal 01439-7) [facility] URINALYSIS W SPECIFIC [id number] 18:59:00 Test Item Value Reference Range Interpretation [...] 3267) Lab Interpretation (test code = Abnormal 97891-1) [facility] NorthwestPOMD [id number] 16:22:00 Test Item Value Reference Range Interpretation Comments POCT PREG (test code = 1605) Positive On board controls acceptable with C Yes Line (test code = 3574) POCT PREG LOT # (test code = 3575) POCT PREG TEST DATE (test code = 3576) [facility] W/O SPECIFIC [id number] 16:22:00 Test Item Value Reference Range Interpretation [...] code = 3257) Neg Negative - Negative [facility]
[2022-10-30] MEDS ORDERED: ONDANSETRON 4 MG (ODT) TAB ONE ×2 (17:41→19:40)
--- NOTE | 2022-10-30 18:15 | RAD REPORT ---
EXAM DESCRIPTION: CT - Head Brain Wo Cont - 10/30/2022 6:09 pm CLINICAL HISTORY: headache COMPARISON: No comparisons TECHNIQUE: All CT scans are performed using dose optimization technique as appropriate and may inclu de automated exposure control or mA/KV adjustment according to patient size. FINDINGS: No intracranial hemorrhage, hydrocephalus or extra-axial fluid collection.No areas of brai n edema or evidence of midline shift. The paranasal sinuses and mastoids are clear. The calvarium is intact. IMPRESSION: No acute intracranial abnormality.
[2022-10-30 19:41] LABS: Urine Blood Negative (Negative); Urine Glucose Negative (Negative); Urine Protein Negative (Negative)
[2022-10-30] MEDS ORDERED: METOCLOPRAMIDE 10 MG/2mL INJ ONE (20:01)
[2022-10-30] MEDS ORDERED: DIPHENHYDRAMINE 50 MG/ML VIAL ONE (20:01)
[2022-10-30] MEDS ORDERED: KETOROLAC 30 MG/ML INJ ONE (20:01)
[2022-10-30] MEDS ORDERED: NA CHLORIDE 0.9% 1,000 ML ONE (20:01)
[2022-10-30] MEDS ORDERED: dexAMETHasone 10 MG/ML VIAL ONE (20:01)
[2022-10-30 20:27] LABS: Absolute Lymphocytes (CBC) 2.6 K/uL (0.7-4.9); Hematocrit 37.5 % (36.0-45.0); Lymphocytes % 33.5 % (15.3-44.8); MCV 74.6 fL (80-100); MPV 7.5 fL (7.6-11.3); RBC Red Blood Cell Count 5.03 M/uL (3.86-4.86)
[2022-10-30 20:39] LABS: Potassium 3.6 mmol/L (3.5-5.1)
--- NOTE | 2022-10-30 20:45 | ER ---
[facility] Name: iMryam Holbrook Age: 22 yrs Sex: Female : 2000 Arrival Date: 10/30/2022 Time: 16:59 Bed 10 Private MD: Diagnosis: Headache Presentation: 10/30 17:34 Chief complaint: Patient states: All of a sudden last night I started having headache, [facility] it comes and goes but its so bad when it comes on, I have taken tylenol and ibuprofen and it goes away for a minute but then comes back. Coronavirus screen: Vaccine status: Patient reports being unvaccinated. Client denies travel out of the [place] in the last 14 days. Ebola Screen: Patient negative for fever greater than or equal to 101.5 degrees Fahrenheit, and additional compatible Ebola Virus Disease symptoms Patient denies exposure to infectious person. Patient denies travel to an Ebola-affected area in the 21 days before illness onset. Initial Sepsis Screen: Does the patient meet any 2 criteria? No. Patient's initial sepsis screen is negative. Does the patient have a suspected source of infection? No. Patient's initial sepsis screen is negative. Risk Assessment: Do you want to hurt yourself or someone else? Patient reports no desire to harm self or others. 17:34 Method Of Arrival: [facility] 17:34 Acuity: [id number] 3 [facility] Triage Assessment: 17:36 Headache History: The patient has had previous headaches and this one is different than [facility] previous episodes. General: Appears in no apparent distress. obese, Behavior is calm, cooperative, appropriate for age. Pain: Pain currently is 4 out of 10 on a pain scale. at worst was 10 out of 10 on a pain scale. Pain began suddenly, Also complains of no other associated symptoms. Neuro: No deficits noted. 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 - Social history:: Smoking status: Patient denies any tobacco usage or history of. Screenin:19 [facility] ED Fall Risk Assessment (Adult) History of falling in the last 3 months, jb4 including since admission No falls in past 3 months (0 pts) Confusion or Disorientation No (0 pts) Score/Fall Risk Level 0 - 2 = Low Risk Oriented to surroundings, Maintained a safe environment. Abuse screen: Denies threats or abuse. Nutritional screening: No deficits noted. Tuberculosis screening: No symptoms or risk factors identified. Assessment: 20:00 General: Appears in no apparent distress. uncomfortable, Behavior is calm, cooperative, jb4 appropriate for age. Pain: Complains of pain in headache Pain does not radiate. Pain currently is 10 out of 10 on a pain scale. Pain began 1 day ago. Neuro: Level of Consciousness is awake, alert, obeys commands, Oriented to person, place, time, situation. Cardiovascular: Patient's skin is warm and dry. Respiratory: Airway is patent Respiratory effort is even, unlabored, Respiratory pattern is regular, symmetrical. GI: No signs and/or symptoms were reported involving the gastrointestinal system. : No signs and/or symptoms were reported regarding the genitourinary system. EENT: No signs and/or symptoms were reported regarding the EENT system. Derm: Skin is intact, Skin is pink, warm \T\ dry. Musculoskeletal: Circulation, motion, and sensation intact. Range of motion: intact in all extremities. 21:11 Reassessment: Patient appears in no apparent distress at this time. Patient and/or jb4 family updated on plan of care and expected duration. Pain level reassessed. Patient is alert, oriented x 3, equal unlabored respirations, skin warm/dry/pink. Vital Signs: 17:34 BP 136 / 92; Pulse 72; Resp 18; Temp 98.6; Pulse Ox 100% ; Weight 111.13 kg; Height 5 [facility] ft. 3 in. (160.02 cm); Pain 10/10; 20:18 BP 109 / 74; Pulse 74; Resp 16; Pulse Ox 100% on R/A; jb4 21:11 BP 104 / 71; Pulse 78; Resp 16; Pulse Ox 100% on R/A; jb4 17:34 Body Mass Index 43.40 (111.13 kg, 160.02 cm) [facility] ED Course: 16:59 Patient arrived in ED. as 17:21 Rip Espinoza PA is PHCP. cp 17:21 Arnold Layne MD is Attending Physician. cp 17:35 Triage completed. [facility] 17:36 Arm band placed on right wrist. jh5 18:10 CT Head Brain wo Cont In Process Unspecified. EDMS 20:00 Initial lab(s) drawn, by me, sent to lab. Inserted saline lock: 22 gauge in right jb4 forearm, using aseptic technique. Blood collected. 20:17 Morgan Rivera, RN is Primary Nurse. jb4 21:11 Patient has correct armband on for positive identification. Bed in low position. Call jb4 light in reach. Side rails up X 1. Client placed on continuous cardiac and pulse oximetry monitoring. NIBP monitoring applied. 21:11 No provider procedures requiring assistance completed. IV discontinued, intact, jb4 bleeding controlled, No redness/swelling at site. Pressure dressing applied. Administered Medications: 19:51 Drug: Zofran (Ondansetron) 4 mg Route: PO; jb4 20:15 Drug: NS 0.9% 1000 ml Route: IV; Rate: 1 bolus; Site: right forearm; jb4 20:15 Drug: Reglan (metoCLOPramide) 10 mg Route: IVP; Site: right forearm; jb4 20:15 Drug: Ketorolac 15 mg Route: IVP; Site: right forearm; jb4 20:15 Drug: Decadron - Dexamethasone 10 mg Route: IVP; Site: right forearm; jb4 20:15 Drug: Benadryl (diphenhydrAMINE) 25 mg Route: IVP; Site: right forearm; jb4 Medication: 21:11 VIS not applicable for this client. jb4 Outcome: 20:44 Discharge ordered by . moise 21:11 Discharged to home ambulatory. jb4 21:11 Condition: stable 21:11 Discharge instructions given to patient, Instructed on discharge instructions, follow up and referral plans. medication usage, Demonstrated understanding of instructions, follow-up care, medications, Prescriptions given X 2. 21:13 Patient left the ED. jb4 Signatures: Dispatcher [employer] EDMS Kelli Parkinson Corey, PA PA cp Morgan Rivera, RN RN jb4 Louisa Vegas RN RN jh5
--- NOTE | 2022-10-30 20:45 | EDPHYS ---
Physician Documentation [facility] Name: Miryam Holbrook Age: 22 yrs Sex: Female : 2000 Arrival Date: 10/30/2022 Time: 16:59 Bed 10 Private MD: ED Physician Arnold Layne HPI: 10/30 18:00 This 22 yrs old Female presents to ER via Ambulatory with complaints of Headache, cp Vomiting. 18:00 The patient complains of pain to the top of head and forehead. The patient describes cp the headache as aching. Onset: The symptoms/episode began/occurred last night. Associated signs and symptoms: Pertinent positives: nausea, vomiting. Severity of symptoms: At its worst the pain was a " 10" out of "10". [employer]: 17:36 LMP 10/2022 [facility] Historical: - PSHx: 17:36 Cholecystectomy; Appendectomy; [facility] - Immunization history:: Adult Immunizations up to date. - Social history:: Smoking status: Patient denies any tobacco usage or history of. ROS: 18:05 Constitutional: Negative for body aches, chills, fever, poor PO intake. cp 18:05 Eyes: Negative for injury, pain, redness, and discharge. cp 18:05 ENT: Negative for drainage from ear(s), ear pain, sore throat, difficulty swallowing, difficulty handling secretions. 18:05 Cardiovascular: Negative for chest pain. 18:05 Respiratory: Negative for cough, shortness of breath, wheezing. 18:05 Abdomen/GI: Positive for nausea and vomiting, Negative for abdominal pain, diarrhea, constipation. 18:05 : Negative for urinary symptoms. 18:05 Neuro: Positive for headache, Negative for altered mental status, numbness, weakness. 18:05 All other systems are negative. cp Exam: 18:10 Constitutional: The patient appears in no acute distress, alert, awake, cp non-diaphoretic, non-toxic, well developed, well nourished, obese. 18:10 Head/Face: Normocephalic, atraumatic. cp 18:10 Eyes: Periorbital structures: appear normal, Pupils: equal, round, and reactive to light and accomodation, Extraocular movements: intact throughout, Sclera: no appreciated abnormality, Lids and lashes: appear normal, bilaterally. 18:10 ENT: External ear(s): are unremarkable, Nose: is normal, Mouth: Lips: moist, Oral mucosa: pink and intact, moist, Posterior pharynx: is normal, airway is patent, no erythema, no exudate. 18:10 Neck: ROM/movement: is normal, is supple, without pain, no range of motions limitations, no meningismus, no nuchal rigidity, Lymph nodes: no appreciated lymphadenopathy. 18:10 Chest/axilla: Inspection: normal. 18:10 Cardiovascular: Rate: normal, Rhythm: regular. 18:10 Respiratory: the patient does not display signs of respiratory distress, Respirations: normal, no use of accessory muscles, no retractions, labored breathing, is not present, Breath sounds: are clear throughout, no decreased breath sounds, no stridor, no wheezing. 18:10 Abdomen/GI: Inspection: abdomen appears normal, Palpation: abdomen is soft and non-tender, in all quadrants. 18:10 Back: pain, is absent, ROM is normal. 18:10 Neuro: Orientation: to person, place \\T\\ time. Mentation: is normal, Motor: moves all fours, strength is normal, Sensation: is normal. Vital Signs: 17:34 BP 136 / 92; Pulse 72; Resp 18; Temp 98.6; Pulse Ox 100% ; Weight 111.13 kg; Height 5 jh5 ft. 3 in. (160.02 cm); Pain 10/10; 20:18 BP 109 / 74; Pulse 74; Resp 16; Pulse Ox 100% on R/A; jb4 21:11 BP 104 / 71; Pulse 78; Resp 16; Pulse Ox 100% on R/A; jb4 17:34 Body Mass Index 43.40 (111.13 kg, 160.02 cm) jh5 MDM: 17:39 Patient medically screened. cp 20:43 Data reviewed: vital signs, nurses notes, lab test result(s). Consideration of cp Admission/Observation Escalation of care including admission/observation considered. I considered the following discharge prescriptions or medication management in the emergency department Medications were administered in the Emergency Department. See MAR. Counseling: I had a detailed discussion with the patient and/or guardian regarding: the historical points, exam findings, and any diagnostic results supporting the discharge/admit diagnosis, lab results, radiology results, the need for outpatient follow up, a family practitioner, to return to the emergency department if symptoms worsen or persist or if there are any questions or concerns that arise at home. Response to treatment: the patient's symptoms have markedly improved after treatment, Headache and nausea markedly improved, and as a result, I will discharge patient. 10/30 19:41 Order name: Urine Dipstick-Ancillary; Complete Time: 19:42 EDMS 10/30 19:47 Order name: CBC with Diff; Complete Time: 20:41 cp 10/30 20:41 Interpretation: Normal except: RBC 5.03; MCV 74.6; MCH 25.2; RDW 16.8; MPV 7.5. cp 10/30 17:39 Order name: CT Head Brain wo Cont; Complete Time: 18:35 cp 10/30 18:35 Interpretation: Report reviewed. cp 10/30 19:47 Order name: BMP; Complete Time: 20:41 cp 10/30 20:43 Interpretation: Reviewed. cp 10/30 17:39 Order name: Urine Dipstick-Ancillary (obtain specimen); Complete Time: 19:50 cp 10/30 17:39 Order name: Urine Test (obtain specimen); Complete Time: 19:50 cp 10/30 19:47 Order name: IV; Complete Time: 20:20 cp Administered Medications: 19:51 Drug: Zofran (Ondansetron) 4 mg Route: PO; jb4 20:15 Drug: NS 0.9% 1000 ml Route: IV; Rate: 1 bolus; Site: right forearm; jb4 20:15 Drug: Reglan (metoCLOPramide) 10 mg Route: IVP; Site: right forearm; jb4 20:15 Drug: Ketorolac 15 mg Route: IVP; Site: right forearm; jb4 20:15 Drug: Decadron - Dexamethasone 10 mg Route: IVP; Site: right forearm; jb4 20:15 Drug: Benadryl (diphenhydrAMINE) 25 mg Route: IVP; Site: right forearm; jb4 Disposition: 10/31 07:09 Co-signature as Attending Physician, Arnold Layne MD. rn Disposition Summary: 10/30/22 20:44 Discharge Ordered Location: Home cp Problem: new cp Symptoms: have improved cp Condition: Stable cp Diagnosis - Headache cp Followup: cp - With: Private Physician - When: 2 - 3 days - Reason: Recheck today's complaints Discharge Instructions: - Discharge Summary Sheet cp - Migraine Headache cp Forms: - Medication Reconciliation Form cp - Thank You Letter cp - Antibiotic Education cp - Prescription Opioid Use cp Prescriptions: - Fioricet 50-300-40 mg Oral capsule - take 1 capsule by ORAL route every 4 hours as needed; 20 capsule; Refills: 0, cp Product Selection Permitted - Zofran 4 mg Oral Tablet - take 1 tablet by ORAL route every 12 hours As needed; 20 tablet; Refills: 0, cp Product Selection Permitted Signatures: Dispatcher [employer] EDMS Arnold Layne MD MD rn Rip Espinoza PA PA cp Bryson, James RN RN jb4 Louisa Vegas RN RN jh5
[2022-10-30 22:31] VITALS: TEMP 98.6; O2SAT 100
[2022-10-30 22:33] VITALS: BP 104/71
== END 2022-10-30 21:13 | disposition home or self-care (01) ==
LOC: ER 16:56
DX: R51.9 Headache, unspecified (principal)
CPT/HCPCS: 85025; 80048; 36415; 81003; 70450; J2765; J1200; Q0162 ×2; J1100; J7030

== ENCOUNTER 2023-01-26 10:52 | Emergency (ER) | payer OTHER ==
--- OUTSIDE RECORDS SUMMARY | 2023-01-26 11:02 | XMS REPORT | Continuity of Care Document ---
:2000 Author Organization [facility] t Address [address] [facility] [address] [place] [address] Care Team Providers Name Role Phone BRENDA DAVIES Primary Care Physician Unavailable BONI DANIELLE Attending Clinician Unavailable Jackie Ballard MA Attending Clinician Unavailable Shashi HENAO, Boni Awad Attending Clinician Hector Villeda CRNA Attending Clinician Kevin QUIÑONES CRNA, R Attending Clinician Osorio Alexandre MD Attending Clinician 2, [facility] Attending Clinician Unavailable Doctor Unassigned, [place] Attending Clinician Unavailable Brenda Russell Attending Clinician Nurse, [facility] Attending Clinician Unavailable Daisy [...] Clinician DEONTE DESIR Attending Clinician Unavailable Lab, [facility] Attending Clinician Unavailable Huber Ashley MD Attending Clinician [address] [place] [address] Us Room Attending Clinician Unavailable Lashawn Soliman Attending Clinician Akinnicolasa WHCNPRobert Attending Clinician [phone] BRENDA DAVIES Attending Clinician Unavailable Deonte Godinez Attending Clinician ROBERT ABARCA Attending Clinician Unavailable DAISY CALVO Admitting Clinician Unavailable BONI DANIELLE Admitting Clinician Unavailable RACHAEL DYE Admitting Clinician Unavailable Boni Danielle MD Admitting Clinician Daisy Calvo MD Admitting Clinician Rachael Dye MD Admitting Clinician Payers Payer Name Policy Type Policy Number Effective Date Expiration Date Rochelle HAMMER [id number] 2020 HEALTH 00:00:00 [place]ICAID OF [place] [id number] 2020 00:00:00 Problems Condition Condition Condition Status Onset Resolution Last Treating Co mments Source Name Details Category Date Date Treatment Clinician Date Rash Rash Disease Active Univers 5-12 ity of 00:00: [place] [address] Medical Branch Epigastric Epigastric Disease Active U nivers pain pain 5-12 ity of 00:00: [place] [address] Medical Branch Other Other Disease Active Univers headache headache 5-12 ity of syndrome syndrome 00:00: [place] [address] Medical Branch Anemia due Anemia due Disease [...] delivered, delivered, 00 Me dical current current [facility] ation ation Liveborn Liveborn Disease Active Unive rs infant, of infant, of 5-22 [place] y [place] dical born in born in [facility] by by delivery delivery 20 weeks 20 weeks Disease Active Unive rs gestation gestation 2-10 ity of of of 00:00: [place] 00 [facility] Placenta Placenta Disease Active Unive rs previa previa 2-10 ity of antepartum antepartum 00:[place] , 00 Medical unspecifie unspecifie Br anch d d trimester trimester 22 weeks 22 weeks Disease Active Unive rs gestation gestation 2-10 ity of of of 00:00: [place] 00 [facility] 34 weeks 34 weeks Disease Active Unive rs gestation gestation 2-10 ity of of of 00:00: [place] 00 [facility] 35 weeks 35 weeks Disease Active Unive rs gestation gestation 2-10 ity of of of 00:00: [place] 00 [facility] Morbid Morbid Disease Active 2019-10 Univers obesity [...] of high-risk high-risk 00:[place] 00 [facility] Branch History of History of Disease Active 2019-10 Overview : Univers 10-02 Formattin ity o f delivery delivery 00:00: g of this [place] 00 note Medical might be Branch different from the original. At 32 weeks, marginal placenta previa, vaginal bleeding Multiparit Multiparit Disease Active 2019-10 U nivers y y - ity of 00:00: [place] 00 Medical Branch History of History of Disease Active 2019-10 U nivers placenta placenta - ity of previa previa 00:00: [place] 00 Medical Branch Encounter Encounter Disease Active 2018-10 Uni vers for for 2-09 ity of initial initial 00:00: [place] prescripti prescripti 00 Me dical on of on of Branch contracept contracept francisco pills francisco pills Previous Previous Disease Active Unive rs 9-09 ity of section section 00:00: [address] Obesity in Obesity in Disease Active U nivers 8-08 ity of 00:00: [place] 00 [facility] Obesity Obesity Disease Active Univers (BMI (BMI 8-08 ity of 30-39.9) 30-39.9) 00:00: [place] 00 [facility] Vaginal Vaginal Disease Active Univers bleeding bleeding 6-09 ity of in in 00:00: [place] , , 00 Me dical third third Branch trimester trimester Allergies, Adverse Reactions, Alerts Allergy Allergy Status Severity Reaction(s) Onset Inactive Treating Comm ents Source Name Type Date Date Clinician NO KNOWN Drug Active Univers ALLERGIE Class ity of S [facility] Social History Social Habit Start Date Stop Date Quantity Comments Source ASSERTION 2021-08-22 [facility] 00:00:00 [facility] Exposure to 2022-01-30 2022-02-09 Not sure [facility] SARS-CoV-2 (event) 00:00:00 10:14:00 Medica l [place] Alcohol intake 2022-02-09 2022-02-09 0 /d [facility] 00:00:00 00:00:00 [facility] Tobacco use and 2016-12-20 2016-12-20 Never used [facility] exposure 00:00:00 00:00:00 [facility] Branch Sex Assigned At [birth year] [facility] [place] 00:00:00 00:00:00 Medical Branch Smoking Status Start Date Stop Date Source Never smoker [facility] Medical Branch Medications Ordered Filled Start Stop Current Ordering Indication Dosage Frequency Signature Comments Components Source Medication Medication Date Date Medication? Clinician (SIG) Name Name docusate Yes [id number] 100mg Take 1 Un key (COLACE) 5-12 capsule by ity o f 100 mg 00:00: mouth once [place] capsule 00 daily as Medical needed for Branch Constipati on. famotidine Yes [id number] 20mg Take 1 U nivers 20 mg 5-12 tablet by ity of tablet 00:00: mouth 2 [place] 00 (two) Medical times Branch daily. docusate Yes [id number] 100mg Take 1 Un key (COLACE) 5-12 capsule by ity o f 100 mg 00:00: mouth once [place] capsule 00 daily as Medical needed for Branch Constipati on. famotidine Yes [id number] 20mg Take 1 U nivers 20 mg 5-12 tablet by ity of tablet 00:00: mouth 2 [place] 00 (two) Medical times Branch daily. docusate Yes [id number] 100mg Take 1 Un key (COLACE) 5-12 capsule by ity o f 100 mg 00:00: mouth once [place] capsule 00 daily as Medical needed for Branch Constipati on. famotidine Yes [id number] 20mg Take 1 U nivers 20 mg 5-12 tablet by ity of tablet 00:00: mouth 2 [place] 00 (two) Medical times Branch daily. docusate Yes [id number] 240mg Take 1 U nivers calcium 240 5-06 capsule by it y of mg capsule 00:00: mouth once [place] 00 daily as Medical needed for Branch Constipati on. ferrous 2021-0 Yes [id number] 325mg Take 1 Un key sulfate 325 5-06 tablet by ity of mg (65 mg 00:00: mouth 2 [place] iron) 00 (two) Medical tablet times Branch daily. ibuprofen Yes [id number] 600mg Take 1 Univers 600 mg 5-06 tablet by ity of tablet 00:00: mouth [place] 00 every 6 Medical (six) Branch hours as needed (Pain). Take with food or milk. docusate 2021-0 Yes [id number] 240mg Take 1 U nivers calcium 240 5-06 capsule by it y of mg capsule 00:00: mouth once [place] 00 daily as Medical needed for Branch Constipati on. ferrous 2021-0 Yes [id number] 325mg Take 1 Un key sulfate 325 5-06 tablet by ity of mg (65 mg 00:00: mouth 2 [place] iron) 00 (two) Medical tablet times Branch daily. ibuprofen 2021-0 Yes [id number] 600mg Take 1 Univers 600 mg 5-06 tablet by ity of tablet 00:00: mouth [place] 00 every 6 Medical (six) Branch hours as needed (Pain). Take with food or milk. docusate 2021-0 Yes [id number] 240mg Take 1 U nivers calcium 240 5-06 capsule by it y of mg capsule 00:00: mouth once [place] 00 daily as Medical needed for Branch Constipati on. ferrous 2021-0 Yes [id number] 325mg Take 1 Un key sulfate 325 5-06 tablet by ity of mg (65 mg 00:00: mouth 2 [place] iron) 00 (two) Medical tablet times Branch daily. ibuprofen 2021-0 Yes [id number] 600mg Take 1 Univers 600 mg 5-06 tablet by ity of tablet 00:00: mouth [place] 00 every 6 Medical (six) Branch hours as needed (Pain). Take with food or milk. docusate 2021-0 Yes [id number] 240mg Take 1 U nivers calcium 240 5-06 capsule by it y of mg capsule 00:00: mouth once [place] 00 daily as Medical needed for Branch Constipati on. ferrous 2021-0 Yes [id number] 325mg Take 1 Un key sulfate 325 5-06 tablet by ity of mg (65 mg 00:00: mouth 2 [place] iron) 00 (two) Medical tablet times Branch daily. ibuprofen 2021-0 Yes [id number] 600mg Take 1 Univers 600 mg 5-06 tablet by ity of tablet 00:00: mouth [place] 00 every 6 Medical (six) Branch hours as needed (Pain). Take with food or milk. docusate 2021-0 Yes [id number] 240mg Take 1 U nivers calcium 240 5-06 capsule by it y of mg capsule 00:00: mouth once [place] 00 daily as Medical needed for Branch Constipati on. ferrous 2021-0 Yes [id number] 325mg Take 1 Un key sulfate 325 5-06 tablet by ity of mg (65 mg 00:00: mouth 2 [place] iron) 00 (two) Medical tablet times Branch daily. ibuprofen 2021-0 Yes [id number] 600mg Take 1 Univers 600 mg 5-06 tablet by ity of tablet 00:00: mouth [place] 00 every 6 Medical (six) Branch hours as needed (Pain). Take with food or milk. docusate 2021- Yes [id number] 240mg Take 1 U nivers calcium 240 5-06 capsule by it y of mg capsule 00:00: mouth once [place] 00 daily as Medical needed for Branch Constipati on. ferrous 2021- Yes [id number] 325mg Take 1 Un key sulfate 325 5-06 tablet by ity of mg (65 mg 00:00: mouth 2 [place] iron) 00 (two) Medical tablet times Branch daily. ibuprofen Yes [id number] 600mg Take 1 Univers 600 mg 5-06 [...] 5-05 Oral, ity of (TYLENOL) 18:34: Q6HPRN, [place] tablet 650 28 Starting Medic al mg on [facility] 02/02/22 at 1334, Until Discontinu ed, Routine, Pain (scale 1-3) diphenhydrA 2021-0 Yes 25mg 25 mg, Univ ers MINE 5-05 Oral, ity of (BENADRYL) 18:34: Q6HPRN, [place] tablet 25 28 Starting Medica l mg on [facility] 02/02/22 at 1334, Until Discontinu ed, Routine, Sleep, Itching ondansetron 2021-0 Yes 4mg 4 mg, Slow Univers (ZOFRAN 5-05 IV Push, ity of (PF)) 18:34: Q8HPRN, [place] injection 4 28 Starting Medi fabio mg on [facility] 02/02/22 at 1334, Until Discontinu ed, Routine, Nausea and Vomiting (N/V) simethicone 2021-0 Yes 160mg 160 mg, Un key (GAS RELIEF 5-05 Oral, ity of (SIMETHICON 18:34: PC+HSPRN, [place] E)) 28 Starting Medical chewable on [facility] tablet 160 02/02/22 at mg 1334, Until Discontinu ed, Routine, Gas docusate 2021-0 Yes 240mg 240 mg, Unive rs calcium 5-05 Oral, ity of (SURFAK) 18:34: QDAILYPRN, [place] capsule 240 28 Starting Medi fabio mg on [facility] 02/02/22 at 1334, Until Discontinu ed, Routine, Constipati on magnesium 2021-0 Yes 30mL 30 mL, Univer s hydroxide 5-05 Oral, ity of (MILK OF 18:34: QDAILYPRN, [place] MAGNESIA) 28 Starting Medica l 400 mg/[address] [facility] suspension 02/02/22 at 30 mL 1334, Until Discontinu ed, Routine, Constipati on benzocaine- 2021-0 Yes Topical, Un key menthol 5-05 PRN, ity of (DERMOPLAST 18:34: [place] 20-0.5 % 28 on [facility] Medical topical 02/02/22 at Branch spray [...] 00 :00 1 dose, On Medica l [facility] 02/02/22 Branch at 1200, MARILYN oxytocin 2021- [...] Starting Medic al % (PF) in on [place] Branch NS 200 mL 02/02/22 at epidural [...] 02/02/22 at 1302, Routine PNV 2020-10 Yes [id number] Take 1 Univers 102-iron-fo 2-20 TAB-CAP/M2 it y of late-dha 00:00: by mouth [place] (VITAFOL FE 00 daily. Medica l PLUS) 90 mg Branch iron- 1 mg-200 mg Cap PNV 2020-10 Yes [id number] Take 1 Univers 102-iron-fo 2-20 TAB-CAP/M2 it y of late-dha 00:00: by mouth [place] (VITAFOL FE 00 daily. Medica l PLUS) 90 mg Branch iron- 1 mg-200 mg Cap PNV 2020-10 Yes [id number] Take 1 Univers 102-iron-fo 2-20 TAB-CAP/M2 it y of late-dha 00:00: by mouth [place] (VITAFOL FE 00 daily. Medica l PLUS) 90 mg Branch iron- 1 mg-200 mg Cap PNV 2020-10 Yes [id number] Take 1 Univers 102-iron-fo 2-20 TAB-CAP/M2 it y of late-dha 00:00: by mouth [place] (VITAFOL FE 00 daily. Medica l PLUS) 90 mg Branch iron- 1 mg-200 mg Cap PNV 2020-10 Yes [id number] Take 1 Univers 102-iron-fo 2-20 TAB-CAP/M2 it y of late-dha 00:00: by mouth [place] (VITAFOL FE 00 daily. Medica l PLUS) 90 mg Branch iron- 1 mg-200 mg Cap PNV 2020-10 Yes [id number] Take 1 Univers 102-iron-fo 2-20 TAB-CAP/M2 it y of late-dha 00:00: by mouth [place] (VITAFOL FE 00 daily. Medica l PLUS) 90 mg Branch iron- 1 mg-200 mg Cap PNV 2020-10 Yes [id number] Take 1 Univers 102-iron-fo 2-20 TAB-CAP/M2 it y of late-dha 00:00: by mouth [place] (VITAFOL FE 00 daily. Medica l PLUS) 90 mg Branch iron- 1 mg-200 mg Cap PNV 2020-10 Yes [id number] Take 1 Univers 102-iron-fo 2-20 TAB-CAP/M2 it y of late-dha 00:00: by mouth [place] (VITAFOL FE 00 daily. Medica l PLUS) 90 mg Branch iron- 1 mg-200 mg Cap PNV 2020-10 Yes [id number] Take 1 Univers 102-iron-fo 2-20 TAB-CAP/M2 it y of late-dha 00:00: by mouth [place] (VITAFOL FE 00 daily. Medica l PLUS) 90 mg Branch iron- 1 mg-200 mg Cap PNV 2020-10 Yes [id number] Take 1 Univers 102-iron-fo 2-20 TAB-CAP/M2 it y of late-dha 00:00: by mouth [place] (VITAFOL FE 00 daily. Medica l PLUS) 90 mg Branch iron- 1 mg-200 mg Cap PNV 2020-10 Yes [id number] Take 1 Univers 102-iron-fo 2-20 TAB-CAP/M2 it y of late-dha 00:00: by mouth [place] (VITAFOL FE 00 daily. Medica l PLUS) 90 mg Branch iron- 1 mg-200 mg Cap PNV 2020-10 Yes [id number] Take 1 Univers 102-iron-fo 2-20 TAB-CAP/M2 it y of late-dha 00:00: by mouth [place] (VITAFOL FE 00 daily. Medica l PLUS) 90 mg Branch iron- 1 mg-200 mg Cap PNV 2020-10 Yes [id number] Take 1 Univers 102-iron-fo 2-20 TAB-CAP/M2 it y of late-dha 00:00: by mouth [place] (VITAFOL FE 00 daily. Medica l PLUS) 90 mg Branch iron- 1 mg-200 mg Cap PNV 2020-10 Yes [id number] Take 1 Univers 102-iron-fo 2-20 TAB-CAP/M2 it y of late-dha 00:00: by mouth [place] (VITAFOL FE 00 daily. Medica l PLUS) 90 mg Branch iron- 1 mg-200 mg Cap PNV 2020-10 Yes [id number] Take 1 Univers 102-iron-fo 2-20 TAB-CAP/M2 it y of late-dha 00:00: by mouth [place] (VITAFOL FE 00 daily. Medica l PLUS) 90 mg Branch iron- 1 mg-200 mg Cap PNV 2020-10 Yes [id number] Take 1 Univers 102-iron-fo 2-20 TAB-CAP/M2 it y of late-dha 00:00: by mouth [place] (VITAFOL FE 00 daily. Medica l PLUS) 90 mg Branch iron- 1 mg-200 mg Cap PNV 2020-10 Yes [id number] Take 1 Univers 102-iron-fo 2-20 TAB-CAP/M2 it y of late-dha 00:00: by mouth [place] (VITAFOL FE 00 daily. Medica l PLUS) 90 mg Branch iron- 1 mg-200 mg Cap PNV 2020-10 Yes [id number] Take 1 Univers 102-iron-fo 2-20 TAB-CAP/M2 it y of late-dha 00:00: by mouth [place] (VITAFOL FE 00 daily. Medica l PLUS) 90 mg Branch iron- 1 mg-200 mg Cap PNV 2020-10- No [id number] Take 1 Univer s 102-iron-fo 2-20 05-12 TAB-CAP/M2 i ty of late-dha 00:00: 00:00 by mouth [place] (VITAFOL FE 00 :00 daily. Medica l PLUS) 90 mg Branch iron- 1 mg-200 mg Cap ferrous Yes 325mg 325 mg, Univer s sulfate 5-24 Oral, BID, ity of tablet 325 13:00: First dose [place] mg 00 on [facility] Medical 02/21/21 at Branch 0800, Until Discontinu ed, Routine ferrous Yes 325mg 325 mg, Univer s sulfate 5-24 Oral, BID, ity of tablet 325 13:00: First dose [place] mg 00 on [facility] Medical 02/21/21 at Branch 0800, Until Discontinu ed, Routine ibuprofen Yes 600mg 600 mg, Univ ers (IBU) 5-24 Oral, Q6H ity of tablet 600 05:00: ABX, First [place] mg 00 dose on Medical [facility] Branch 02/21/21 at 0000, Until Discontinu ed, Routine ibuprofen Yes 600mg 600 mg, Univ ers (IBU) 5-24 Oral, Q6H ity of tablet 600 05:00: ABX, First [place] mg 00 dose on Medical [facility] Branch 02/21/21 at 0000, Until Discontinu ed, Routine acetaminoph Yes [id number] 650mg Take 2 Univers en 325 mg 5-24 tablets by ity of tablet 00:00: mouth [place] 00 every 6 Medical (six) Branch hours as needed for Pain (scale 1-3) or Pain (scale 4-6). acetaminoph Yes [id number] 650mg Take 2 Univers en 325 mg 5-24 tablets by ity of tablet 00:00: mouth [place] 00 every 6 Medical (six) Branch hours as needed for Pain (scale 1-3) or Pain (scale 4-6). Yes [id number] 1{tbl} Take 1 Univers vitamin 5-24 tablet by ity of w/FA tablet 00:00: mouth [place] 00 daily. Medical Branch docusate Yes [id number] 240mg Take 1 U nivers calcium 240 5-24 capsule by it y of mg capsule 00:00: mouth once [place] 00 daily as Medical needed for Branch Constipati on. ferrous Yes [id number] 325mg Take 1 Un key sulfate 325 5-24 tablet by ity of mg (65 mg 00:00: mouth 2 [place] iron) 00 (two) Medical tablet times Branch daily. ibuprofen Yes [id number] 600mg Take 1 Univers 600 mg 5-24 tablet by ity of tablet 00:00: mouth [place] 00 every 6 Medical (six) Branch hours as needed (Pain). Take with food or milk. foLIC acid Yes [id number] 1mg Take 1 Univers 1 mg tablet 5-24 tablet by ity of 00:00: mouth [place] 00 daily. Medical Branch ascorbic 0 Yes [id number] 500mg Take 1 U nivers acid, 5-24 tablet by ity of vitamin C, 00:00: mouth [place] (VITAMIN C) 00 daily. Medica l 500 mg Branch tablet acetaminoph Yes [id number] 650mg Take 2 Univers en 325 mg 5-24 tablets by ity of tablet 00:00: mouth [place] 00 every 6 Medical (six) Branch hours as needed for Pain (scale 1-3) or Pain (scale 4-6). Yes [id number] 1{tbl} Take 1 Univers vitamin 5-24 tablet by ity of w/FA tablet 00:00: mouth [place] 00 daily. Medical Branch docusate Yes [id number] 240mg Take 1 U nivers calcium 240 5-24 capsule by it y of mg capsule 00:00: mouth once [place] 00 daily as Medical needed for Branch Constipati on. ferrous Yes [id number] 325mg Take 1 Un key sulfate 325 5-24 tablet by ity of mg (65 mg 00:00: mouth 2 [place] iron) 00 (two) Medical tablet times Branch daily. ibuprofen Yes [id number] 600mg Take 1 Univers 600 mg 5-24 tablet by ity of tablet 00:00: mouth [place] 00 every 6 Medical (six) Branch hours as needed (Pain). Take with food or milk. foLIC acid Yes [id number] 1mg Take 1 Univers 1 mg tablet 5-24 tablet by ity of 00:00: mouth [place] 00 daily. Medical Branch ascorbic Yes [id number] 500mg Take 1 U nivers acid, 5-24 tablet by ity of vitamin C, 00:00: mouth [place] (VITAMIN C) 00 daily. Medica l 500 mg Branch tablet acetaminoph Yes [id number] 650mg Take 2 Univers en 325 mg 5-24 tablets by ity of tablet 00:00: mouth [place] 00 every 6 Medical (six) Branch hours as needed for Pain (scale 1-3) or Pain (scale 4-6). Yes [id number] 1{tbl} Take 1 Univers vitamin 5-24 tablet by ity of w/FA tablet 00:00: mouth [place] 00 daily. Medical Branch docusate Yes [id number] 240mg Take 1 U nivers calcium 240 5-24 capsule by it y of mg capsule 00:00: mouth once [place] 00 daily as Medical needed for Branch Constipati on. ferrous Yes [id number] 325mg Take 1 Un key sulfate 325 5-24 tablet by ity of mg (65 mg 00:00: mouth 2 [place] iron) 00 (two) Medical tablet times Branch daily. ibuprofen Yes [id number] 600mg Take 1 Univers 600 mg 5-24 tablet by ity of tablet 00:00: mouth [place] 00 every 6 Medical (six) Branch hours as needed (Pain). Take with food or milk. foLIC acid Yes [id number] 1mg Take 1 Univers 1 mg tablet 5-24 tablet by ity of 00:00: mouth [place] 00 daily. Medical Branch ascorbic Yes [id number] 500mg Take 1 U nivers acid, 5-24 tablet by ity of vitamin C, 00:00: mouth [place] (VITAMIN C) 00 daily. Medica l 500 mg Branch tablet acetaminoph Yes [id number] 650mg Take 2 Univers en 325 mg 5-24 tablets by ity of tablet 00:00: mouth [place] 00 every 6 Medical (six) Branch hours as needed for Pain (scale 1-3) or Pain (scale 4-6). Yes [id number] 1{tbl} Take 1 Univers vitamin 5-24 tablet by ity of w/FA tablet 00:00: mouth [place] 00 daily. Medical Branch docusate Yes [id number] 240mg Take 1 U nivers calcium 240 5-24 capsule by it y of mg capsule 00:00: mouth once [place] 00 daily as Medical needed for Branch Constipati on. ferrous Yes [id number] 325mg Take 1 Un key sulfate 325 5-24 tablet by ity of mg (65 mg 00:00: mouth 2 [place] iron) 00 (two) Medical tablet times Branch daily. ibuprofen Yes [id number] 600mg Take 1 Univers 600 mg 5-24 tablet by ity of tablet 00:00: mouth [place] 00 every 6 Medical (six) Branch hours as needed (Pain). Take with food or milk. foLIC acid Yes [id number] 1mg Take 1 Univers 1 mg tablet 5-24 tablet by ity of 00:00: mouth [place] 00 daily. Medical Branch ascorbic Yes [id number] 500mg Take 1 U nivers acid, 5-24 tablet by ity of vitamin C, 00:00: mouth [place] (VITAMIN C) 00 daily. Medica l 500 mg Branch tablet acetaminoph Yes [id number] 650mg Take 2 Univers en 325 mg 5-24 tablets by ity of tablet 00:00: mouth [place] 00 every 6 Medical (six) Branch hours as needed for Pain (scale 1-3) or Pain (scale 4-6). acetaminoph 2021- No [id number] 650mg Take 2 Univers en 325 mg 5-24 01-06 tablets by ity of tablet 00:00: 00:00 mouth [place] 00 :00 every 6 Medical (six) Branch hours as needed for Pain (scale 1-3) or Pain (scale 4-6). 2020- No [id number] 1{tbl} Take 1 Univers vitamin 5-24 12-20 tablet by ity of w/FA tablet 00:00: 00:00 mouth [place] 00 :00 daily. Medical Branch docusate 2020- No [id number] 240mg Take 1 Univers calcium 240 5-24 12-20 capsule by i ty of mg capsule 00:00: 00:00 mouth once [place] 00 :00 daily as Medical needed for Branch Constipati on. ferrous 2020- No [id number] 325mg Take 1 U nivers sulfate 325 5-24 12-20 tablet by it y of mg (65 mg 00:00: 00:00 mouth 2 [place] iron) 00 :00 (two) Medical tablet times Branch daily. ibuprofen 2020- No [id number] 600mg Take 1 Univers 600 mg 5-24 12-20 tablet by ity of tablet 00:00: 00:00 mouth [place] 00 :00 every 6 Medical (six) Branch hours as needed (Pain). Take with food or milk. foLIC acid 2020- No [id number] 1mg Take 1 Univers 1 mg tablet 5-24 12-20 tablet by it y of 00:00: 00:00 mouth [place] 00 :00 daily. Medical Branch ascorbic 2020- No [id number] 500mg Take 1 Univers acid, 5-24 12-20 [...] Indication s: acute pain gabapentin 2020- No [id number] 300mg Take 1 Univers 300 mg 5-24 05-30 capsule by ity of capsule 00:00: 04:59 mouth 3 [place] 00 :00 (three) Medical times Branch daily for 5 days. gabapentin 2020- No [id number] 300mg Take 1 Univers 300 mg 5-24 [...] Last dose on 02/20/21 at 1800, Routine
pricing/signage team member approving Restricted medication : BONI DANIELLE [...] of 40 Units in 22:45: 21:40 Infusion, [place] lactated 00 :00 ONCE, 1 Medical ringers dose, Sat Branch 1,000 mL IV 02/19/21 at infusion 1745, Routine FENTanyl PF 2020- No 50ug 50 mcg, Un key (SUBLIMAZE 02-19 Slow IV ity o f (PF)) 19:00: 16:49 Push, [place] injection 00 :00 ONCE, 1 Medical 50 mcg dose, Sat Branch 02/19/21 at 1400, Routine methylergon 2020- No .2mg 0.2 mg, Un key ovine 02-19 Intramuscu ity of (METHERGINE 18:45: 17:37 lar, ONCE, [place] ) injection 00 :00 1 dose, Medic al 0.2 mg Sat Branch 02/19/21 at 1345, Routine ceFAZolin 2020- No 2000mg 2 g (2,000 Univers in dextrose 02-19 05-22 mg), IV ity of (iso-os) 18:30: 17:42 [place]gyback, [place] (ANCEF) 2 00 :00 ONCE, 1 Medical gram/100 mL dose, Sat Bra [facility] Piggyback 2 02/19/21 at g 1330, 100 [...] Routine lactated 2020- No 1000mL at 999 [facility] ers ringers IV 02-19 05 mL/hr, ity of infusion 17:15: 16:16 1,000 mL, [place] 1,000 mL 00 :00 IV Medical Infusion, [place] ONCE, 1 dose, 02/19/21 at 1215, Routine [...] 13:00: First dose [place] mg 00 on [facility] Medical 02/19/21 at Branch 0800, Until Discontinu ed, Routine gabapentin 0 Yes 300mg 300 mg, Uni vers (NEURONTIN) 5-22 Oral, TID, it y of capsule 300 13:00: First dose [place] mg 00 on [facility] Medical 02/19/21 at Branch 0800, Until Discontinu [...] IV Push, ity of (PF)) 12:03: Q8HPRN, [place] injection 4 43 Starting Medi fabio mg [...] IV Push, ity of (PF)) 12:03: Q8HPRN, [place] injection 4 43 Starting Medi fabio mg [...] QDAILYPRN, [place] 10 mg 42 Starting Medical [facility] Branch 02/19/21 at 0703, Until Discontinu ed, Routine, Constipati on ondansetron 2020- No 4mg 4 mg, Slow Univers (ZOFRAN 02-19 05-22 IV Push, ity of (PF)) 12:03: 13:18 PRN, 1 [place] injection 4 34 :00 dose, Medical mg Starting Branch [facility] 02/19/21 at 0703, Until 02/19/21 at 0818, [...] Surgical Prophylaxi s
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
Reason for Anti-Infec tive: Documented Infection< br>Documen arielle Infection Site: Other
O ther site: vaginitis< br>Duratio n of Therapy: 7 days metroNIDAZO 0 Yes [id number] 500mg Take 1 Univers LE 500 mg 5-17 tablet by ity o f tablet 00:00: mouth [place] 00 every 12 Medical (twelve) Branch hours. metroNIDAZO 2020-0 Yes [id number] 500mg Take 1 Univers LE 500 mg 5-17 tablet by ity o f tablet 00:00: mouth [place] 00 every 12 Medical (twelve) Branch hours. metroNIDAZO 2020-0 Yes [id number] 500mg Take 1 Univers LE 500 mg 5-17 tablet by ity o f tablet 00:00: mouth [place] 00 every 12 Medical (twelve) Branch hours. metroNIDAZO 2020-0 Yes [id number] 500mg Take 1 Univers LE 500 mg 5-17 tablet by ity o f tablet 00:00: mouth [place] 00 every 12 Medical (twelve) Branch hours. metroNIDAZO 2020-0 Yes [id number] 500mg Take 1 Univers LE 500 mg 5-17 tablet by ity o f tablet 00:00: mouth [place] 00 every 12 Medical (twelve) Branch hours. metroNIDAZO 2020-0 Yes [id number] 500mg Take 1 Univers LE 500 mg 5-17 tablet by ity o f tablet 00:00: mouth [place] 00 every 12 Medical (twelve) Branch hours. metroNIDAZO 2020-0 Yes [id number] 500mg Take 1 Univers LE 500 mg 5-17 tablet by ity o f tablet 00:00: mouth [place] 00 every 12 Medical (twelve) Branch hours. metroNIDAZO 2020-0 Yes [id number] 500mg Take 1 Univers LE 500 mg 5-17 tablet by ity o f tablet 00:00: mouth [place] 00 every 12 Medical (twelve) Branch hours. metroNIDAZO 2020-0 202- No [id number] 500mg Take 1 Univers LE 500 mg 5-17 12-20 tablet by ity of tablet 00:00: 00:00 mouth [place] 00 :00 every 12 Medical (twelve) Branch hours. albuterol 2019-10 Yes [id number] 2{puff} Inhale 2 Univers 90 2-16 Puffs ity of mcg/actuati 00:00: every 6 [place] on inhaler 00 (six) Medical hours as Branch needed for Wheezing, Shortness of Breath, Bronchospa sm or Chest tightness. albuterol 2019-10 Yes [id number] 2{puff} Inhale 2 Univers 90 2-16 Puffs ity of mcg/actuati 00:00: every 6 [place] on inhaler 00 (six) Medical hours as Branch needed for Wheezing, Shortness of Breath, Bronchospa sm or Chest tightness. albuterol 2019-10 Yes [id number] 2{puff} Inhale 2 Univers 90 2-16 Puffs ity of mcg/actuati 00:00: every 6 [place] on inhaler 00 (six) Medical hours as Branch needed for Wheezing, Shortness of Breath, Bronchospa sm or Chest tightness. albuterol 2019-10 Yes [id number] 2{puff} Inhale 2 Univers 90 2-16 Puffs ity of mcg/actuati 00:00: every 6 [place] on inhaler 00 (six) Medical hours as Branch needed for Wheezing, Shortness of Breath, Bronchospa sm or Chest tightness. albuterol 2019-10 Yes [id number] 2{puff} Inhale 2 Univers 90 2-16 Puffs ity of mcg/actuati 00:00: every 6 [place] on inhaler 00 (six) Medical hours as Branch needed for Wheezing, Shortness of Breath, Bronchospa sm or Chest tightness. albuterol 2019-10 Yes [id number] 2{puff} Inhale 2 Univers 90 2-16 Puffs ity of mcg/actuati 00:00: every 6 [place] on inhaler 00 (six) Medical hours as Branch needed for Wheezing, Shortness of Breath, Bronchospa sm or Chest tightness. albuterol 2019-10 Yes [id number] 2{puff} Inhale 2 Univers 90 2-16 Puffs ity of mcg/actuati 00:00: every 6 [place] on inhaler 00 (six) Medical hours as Branch needed for Wheezing, Shortness of Breath, Bronchospa sm or Chest tightness. albuterol 2019-10 Yes [id number] 2{puff} Inhale 2 Univers 90 2-16 Puffs ity of mcg/actuati 00:00: every 6 [place] on inhaler 00 (six) Medical hours as Branch needed for Wheezing, Shortness of Breath, Bronchospa sm or Chest tightness. albuterol 2019-10 Yes [id number] 2{puff} Inhale 2 Univers 90 2-16 Puffs ity of mcg/actuati 00:00: every 6 [place] on inhaler 00 (six) Medical hours as Branch needed for Wheezing, Shortness of Breath, Bronchospa sm or Chest tightness. albuterol 2019-10 Yes [id number] 2{puff} Inhale 2 Univers 90 2-16 Puffs ity of mcg/actuati 00:00: every 6 [place] on inhaler 00 (six) Medical hours as Branch needed for Wheezing, Shortness of Breath, Bronchospa sm or Chest tightness. albuterol 2019-10 Yes [id number] 2{puff} Inhale 2 Univers 90 2-16 Puffs ity of mcg/actuati 00:00: every 6 [place] on inhaler 00 (six) Medical hours as Branch needed for Wheezing, Shortness of Breath, Bronchospa sm or Chest tightness. albuterol 2019-10 Yes [id number] 2{puff} Inhale 2 Univers 90 2-16 Puffs ity of mcg/actuati 00:00: every 6 [place] on inhaler 00 (six) Medical hours as Branch needed for Wheezing, Shortness of Breath, Bronchospa sm or Chest tightness. albuterol 2019-10 Yes [id number] 2{puff} Inhale 2 Univers 90 2-16 Puffs ity of mcg/actuati 00:00: every 6 [place] on inhaler 00 (six) Medical hours as Branch needed for Wheezing, Shortness of Breath, Bronchospa sm or Chest tightness. albuterol 2019-10 Yes [id number] 2{puff} Inhale 2 Univers 90 2-16 Puffs ity of mcg/actuati 00:00: every 6 [place] on inhaler 00 (six) Medical hours as Branch needed for Wheezing, Shortness of Breath, Bronchospa sm or Chest tightness. albuterol 2019-10 Yes [id number] 2{puff} Inhale 2 Univers 90 2-16 Puffs ity of mcg/actuati 00:00: every 6 [place] on inhaler 00 (six) Medical hours as Branch needed for Wheezing, Shortness of Breath, Bronchospa sm or Chest tightness. albuterol 2019-10 Yes [id number] 2{puff} Inhale 2 Univers 90 2-16 Puffs ity of mcg/actuati 00:00: every 6 [place] on inhaler 00 (six) Medical hours as Branch needed for Wheezing, Shortness of Breath, Bronchospa sm or Chest tightness. albuterol 2019-10 Yes [id number] 2{puff} Inhale 2 Univers 90 2-16 Puffs ity of mcg/actuati 00:00: every 6 [place] on inhaler 00 (six) Medical hours as Branch needed for Wheezing, Shortness of Breath, Bronchospa sm or Chest tightness. albuterol 2019-10 Yes [id number] 2{puff} Inhale 2 Univers 90 2-16 Puffs ity of mcg/actuati 00:00: every 6 [place] on inhaler 00 (six) Medical hours as Branch needed for Wheezing, Shortness of Breath, Bronchospa sm or Chest tightness. albuterol 2019-10 Yes [id number] 2{puff} Inhale 2 Univers 90 2-16 Puffs ity of mcg/actuati 00:00: every 6 [place] on inhaler 00 (six) Medical hours as Branch needed for Wheezing, Shortness of Breath, Bronchospa sm or Chest tightness. albuterol 2019-10 Yes [id number] 2{puff} Inhale 2 Univers 90 2-16 Puffs ity of mcg/actuati 00:00: every 6 [place] on inhaler 00 (six) Medical hours as Branch needed for Wheezing, Shortness of Breath, Bronchospa sm or Chest tightness. albuterol 2019-10 Yes [id number] 2{puff} Inhale 2 Univers 90 2-16 Puffs ity of mcg/actuati 00:00: every 6 [place] on inhaler 00 (six) Medical hours as Branch needed for Wheezing, Shortness of Breath, Bronchospa sm or Chest tightness. albuterol 2019-10 Yes [id number] 2{puff} Inhale 2 Univers 90 2-16 Puffs ity of mcg/actuati 00:00: every 6 [place] on inhaler 00 (six) Medical hours as Branch needed for Wheezing, Shortness of Breath, Bronchospa sm or Chest tightness. albuterol 2019-10 Yes [id number] 2{puff} Inhale 2 Univers 90 2-16 Puffs ity of mcg/actuati 00:00: every 6 [place] on inhaler 00 (six) Medical hours as Branch needed for Wheezing, Shortness of Breath, Bronchospa sm or Chest tightness. albuterol 2019-10 Yes [id number] 2{puff} Inhale 2 Univers 90 2-16 Puffs ity of mcg/actuati 00:00: every 6 [place] on inhaler 00 (six) Medical hours as Branch needed for Wheezing, Shortness of Breath, Bronchospa sm or Chest tightness. albuterol 2019-10- No [id number] 2{puff} Inhale 2 Univers 90 2-16 05-24 Puffs ity of mcg/actuati 00:00: 00:00 every 6 [place] on inhaler 00 :00 (six) Medical hours as Branch needed for Wheezing, Shortness of Breath, Bronchospa sm or Chest tightness. albuterol 2019-10- No [id number] 2{puff} Inhale 2 Univers 90 2-16 05-24 Puffs ity of mcg/actuati 00:00: 00:00 every 6 [place] on inhaler 00 :00 (six) Medical hours as Branch needed for Wheezing, Shortness of Breath, Bronchospa sm or Chest tightness. Nitrofurant 2019-10 Yes [id number] 100mg Take 1 Univers oin&Nit. 2-01 capsule by ity o f [place]roc[place] 00:[place]: [place] (MACROBID[place] 00 (two) Medical 100 mg times Branch capsule daily. Nitrofurant 2019-10 Yes [id number] 100mg Take 1 Univers oin&Nit. 2-01 capsule by ity o f [place]ryst 00:[place]: [place] (MACROBID) 00 (two) Medical 100 mg times Branch capsule daily. Nitrofurant 2019-10 Yes [id number] 100mg Take 1 Univers oin&Nit. 2-01 capsule by ity o f [place]ryst 00:00: [place] (MACROBID) 00 (two) Medical 100 mg times Branch capsule daily. Nitrofurant 2019-10 Yes [id number] 100mg Take 1 Univers oin&Nit. 2-01 capsule by ity o f [place]ryst 00:00: mouth [place] (MACROBID) 00 (two) Medical 100 mg times Branch capsule daily. Nitrofurant 2019-10 Yes [id number] 100mg Take 1 Univers oin&Nit. 2-01 capsule by ity o f [place]ryst 00:00: mouth [place] (MACROBID) 00 (two) Medical 100 mg times Branch capsule daily. Nitrofurant 2019-10 Yes [id number] 100mg Take 1 Univers oin&Nit. 2-01 capsule by ity o f [place]ryst 00:00: mouth [place] (MACROBID) 00 (two) Medical 100 mg times Branch capsule daily. Nitrofurant 2019-10 Yes [id number] 100mg Take 1 Univers oin&Nit. 2-01 capsule by ity o f [place]ryst 00:00: [place] (MACROBID) 00 (two) Medical 100 mg times Branch capsule daily. Nitrofurant 2019-10 Yes [id number] 100mg Take 1 Univers oin&Nit. 2-01 capsule by ity o f [place]ryst 00:00: mouth [place] (MACROBID) 00 (two) Medical 100 mg times Branch capsule daily. Nitrofurant 2019-10 Yes [id number] 100mg Take 1 Univers oin&Nit. 2-01 capsule by ity o f [place] 00:00: mouth [place] (MACROBID) 00 (two) Medical 100 mg times Branch capsule daily. Nitrofurant 2019-10 Yes [id number] 100mg Take 1 Univers oin&Nit. 2-01 capsule by ity o f [place] 00:00: mouth [place] (MACROBID) 00 (two) Medical 100 mg times Branch capsule daily. Nitrofurant 2019-10- No [id number] 100mg Take 1 Univers oin&Nit. 2-01 02-03 capsule by ity of Macrocryst 00:00: 00:00 mouth 2 [place] (MACROBID) 00 :00 (two) Medical 100 mg times Branch capsule daily. Nitrofurant 2019-10- No [id number] 100mg Take 1 Univers oin&Nit. 1-05 -16 capsule by ity of Macrocryst 00:00: 05:59 mouth 2 [place] (MACROBID) 00 :00 (two) Medical 100 mg times Branch capsule daily for 10 days. Nitrofurant 2019-10- No [id number] 100mg Take 1 Univers oin&Nit. 1-05 -16 capsule by ity of Macrocryst 00:00: 05:59 mouth 2 [place] (MACROBID) 00 :00 (two) Medical 100 mg times Branch capsule daily for 10 days. Nitrofurant 2019-10- No [id number] 100mg Take 1 Univers oin&Nit. 1-05 -16 capsule by ity of Macrocryst 00:00: 05:59 mouth 2 [place] (MACROBID) 00 :00 (two) Medical 100 mg times Branch capsule daily for 10 days. Nitrofurant 2019-10 2020- No [id number] 100mg Take 1 Univers oin&Nit. 1-05 11-16 capsule by ity of Macrocryst 00:00: 05:59 mouth 2 [place] (MACROBID) 00 :00 (two) Medical 100 mg times Branch capsule daily for 10 days. norgestimat 2018-10 Yes [id number] 1{tbl} Take 1 Univers e-ethinyl 2-09 tablet by ity o f estradiol 00:00: mouth [place] (TRI-LO-SPR 00 daily. Medica l INTEC) Branch 0.18/0.215/ 0.25 mg-25 mcg tablet norgestimat 2018-10 Yes [id number] 1{tbl} Take 1 Univers e-ethinyl 2-09 tablet by ity o f estradiol 00:00: mouth [place] (TRI-LO-SPR 00 daily. Medica l INTEC) Branch 0.18/0.215/ 0.25 mg-25 mcg tablet norgestimat 2018-10 Yes [id number] 1{tbl} Take 1 Univers e-ethinyl 2-09 tablet by ity o f estradiol 00:00: mouth [place] (TRI-LO-SPR 00 daily. Medica l INTEC) Branch 0.18/0.215/ 0.25 mg-25 mcg tablet norgestimat 2018-10 Yes [id number] 1{tbl} Take 1 Univers e-ethinyl 2-09 tablet by ity o f estradiol 00:00: mouth [place] (TRI-LO-SPR 00 daily. Medica l INTEC) Branch 0.18/0.215/ 0.25 mg-25 mcg tablet norgestimat 2018-10 Yes [id number] 1{tbl} Take 1 Univers e-ethinyl 2-09 tablet by ity o f estradiol 00:00: mouth [place] (TRI-LO-SPR 00 daily. Medica l INTEC) Branch 0.18/0.215/ 0.25 mg-25 mcg tablet norgestimat 2018-10 Yes [id number] 1{tbl} Take 1 Univers e-ethinyl 2-09 tablet by ity o f estradiol 00:00: mouth [place] (TRI-LO-SPR 00 daily. Medica l INTEC) Branch 0.18/0.215/ 0.25 mg-25 mcg tablet norgestimat 2018- Yes [id number] 1{tbl} Take 1 Univers e-ethinyl 2-09 tablet by ity o f estradiol 00:00: mouth [place] (TRI-LO-SPR 00 daily. Medica l INTEC) Branch 0.18/0.215/ 0.25 mg-25 mcg tablet norgestimat 2018-10 Yes [id number] 1{tbl} Take 1 Univers e-ethinyl 2-09 tablet by ity o f estradiol 00:00: mouth [place] (TRI-LO-SPR 00 daily. Medica l INTEC) Branch 0.18/0.215/ 0.25 mg-25 mcg tablet norgestimat 2018-10 Yes [id number] 1{tbl} Take 1 Univers e-ethinyl 2-09 tablet by ity o f estradiol 00:00: mouth [place] (TRI-LO-SPR 00 daily. Medica l INTEC) Branch 0.18/0.215/ 0.25 mg-25 mcg tablet norgestimat 2018-10 Yes [id number] 1{tbl} Take 1 Univers e-ethinyl 2-09 tablet by ity o f estradiol 00:00: mouth [place] (TRI-LO-SPR 00 daily. Medica l INTEC) Branch 0.18/0.215/ 0.25 mg-25 mcg tablet norgestimat 2018-10 Yes [id number] 1{tbl} Take 1 Univers e-ethinyl 2-09 tablet by ity o f estradiol 00:00: mouth [place] (TRI-LO-SPR 00 daily. Medica l INTEC) Branch 0.18/0.215/ 0.25 mg-25 mcg tablet norgestimat 2018-10 Yes [id number] 1{tbl} Take 1 Univers e-ethinyl 2-09 tablet by ity o f estradiol 00:00: mouth [place] (TRI-LO-SPR 00 daily. Medica l INTEC) Branch 0.18/0.215/ 0.25 mg-25 mcg tablet norgestimat 2018-10 Yes [id number] 1{tbl} Take 1 Univers e-ethinyl 2-09 tablet by ity o f estradiol 00:00: mouth [place] (TRI-LO-SPR 00 daily. Medica l INTEC) Branch 0.18/0.215/ 0.25 mg-25 mcg tablet norgestimat 2018-10 Yes [id number] 1{tbl} Take 1 Univers e-ethinyl 2-09 tablet by ity o f estradiol 00:00: mouth [place] (TRI-LO-SPR 00 daily. Medica l INTEC) Branch 0.18/0.215/ 0.25 mg-25 mcg tablet norgestimat 2018-10 2020- No [id number] 1{tbl} Take 1 Univers e-ethinyl 2-09 12-16 tablet by ity of estradiol 00:00: 00:00 mouth [place] (TRI-LO-SPR 00 :00 daily. Medica l INTEC) Branch 0.18/0.215/ 0.25 mg-25 mcg tablet norgestimat 2018-10 2020- No [id number] 1{tbl} Take 1 Univers e-ethinyl 2-09 12-16 tablet by ity of estradiol 00:00: 00:00 mouth [place] (TRI-LO-SPR 00 :00 daily. Medica l INTEC) Branch 0.18/0.215/ 0.25 mg-25 mcg tablet Immunizations Ordered Filled Immunization Date Status Comments [facility] e Immunization Name Name TDAP 2020-12-23 Completed University of 00:00:00 [facility] TDAP 2020-12-23 Completed University of 00:00:00 [facility] TDAP 2020-12-23 Completed University of 00:00:00 [facility] TDAP 2020-12-23 Completed University of 00:00:00 [facility] TDAP 2020-12-23 Completed University of 00:00:00 [facility] TDAP 2020-12-23 Completed University of 00:00:00 [facility] TDAP 2020-12-23 Completed University of 00:00:00 [facility] TDAP 2020-12-23 Completed University of 00:00:00 [facility] TDAP 2020-12-23 Completed University of 00:00:00 [facility] TDAP 2020-12-23 Completed University of 00:00:00 [facility] TDAP 2020-12-23 Completed University of 00:00:00 [facility] TDAP 2020-12-23 Completed University of 00:00:00 [facility] TDAP 2020-12-23 Completed University of 00:00:00 [facility] TDAP 2020-12-23 Completed University of 00:00:00 [facility] TDAP 2020-12-23 Completed University of 00:00:00 [facility] TDAP 2020-12-23 Completed University of 00:00:00 [facility] TDAP 2020-12-23 Completed University of 00:00:00 [facility] TDAP 2020-12-23 Completed University of 00:00:00 [facility] TDAP 2020-12-23 Completed University of 00:00:00 [facility] TDAP 2020-12-23 Completed University of 00:00:00 [facility] TDAP 2020-12-23 Completed University of 00:00:00 [facility] TDAP 2020-12-23 Completed University of 00:00:00 [facility] TDAP 2020-12-23 Completed University of 00:00:00 [facility] TDAP 2020-12-23 Completed University of 00:00:00 [facility] TDAP 2020-12-23 Completed University of 00:00:00 [facility] TDAP 2020-12-23 Completed University of 00:00:00 [facility] TDAP 2020-12-23 Completed University of 00:00:00 [facility] TDAP 2020-12-23 Completed University of 00:00:00 [facility] TDAP 2020-12-23 Completed University of 00:00:00 [facility] TDAP 2020-12-23 Completed University of 00:00:00 [facility] TDAP 2020-12-23 Completed University of 00:00:00 [facility] TDAP 2020-12-23 Completed University of 00:00:00 [facility] TDAP 2020-12-23 Completed University of 00:00:00 [facility] TDAP 2020-12-23 Completed University of 00:00:00 [facility] TDAP 2020-12-23 Completed University of 00:00:00 [facility] TDAP 2020-12-23 Completed University of 00:00:00 [facility] TDAP 2020-12-23 Completed University of 00:00:00 [facility] TDAP 2020-12-23 Completed University of 00:00:00 [facility] Influenza Virus 2019-09-08 Completed Universit y of [...] y of Vaccine Quad .5 mL 00:00:00 [place] [facility] 6+ MO Branch HPV9 2017-05-09 Completed University of 00:00:00 [place] [facility] HPV9 2017-05-09 Completed University of 00:00:00 [place] [facility] HPV9 2017-05-09 Completed University of 00:00:00 [place] [facility] HPV9 2017-05-09 Completed University of 00:00:00 [place] [facility] HPV9 2017-05-09 Completed University of 00:00:00 [place] [facility] HPV9 2017-05-09 Completed University of 00:00:00 [place] [facility] HPV9 2017-05-09 Completed University of 00:00:00 [place] [facility] HPV9 2017-05-09 Completed University of 00:00:00 [place] [facility] HPV9 2017-05-09 Completed University of 00:00:00 [place] [facility] HPV9 2017-05-09 Completed University of 00:00:00 [place] [facility] HPV9 2017-05-09 Completed University of 00:00:00 [place] [facility] HPV9 2017-05-09 Completed University of 00:00:00 [place] [facility] HPV9 2017-05-09 Completed University of 00:00:00 [place] [facility] HPV9 2017-05-09 Completed University of 00:00:00 [place] [facility] HPV9 2017-05-09 Completed University of 00:00:00 [place] [facility] HPV9 2017-05-09 Completed University of 00:00:00 [place] [facility] HPV9 2017-05-09 Completed University of 00:00:00 [place] [facility] HPV9 2017-05-09 Completed University of 00:00:00 [place] [facility] HPV9 2017-05-09 Completed University of 00:00:00 [place] [facility] HPV9 2017-05-09 Completed University of 00:00:00 [place] [facility] HPV9 2017-05-09 Completed University of 00:00:00 [place] [facility] HPV9 2017-05-09 Completed University of 00:00:00 [place] [facility] HPV9 2017-05-09 Completed University of 00:00:00 [place] [facility] HPV9 2017-05-09 Completed University of 00:00:00 [place] [facility] HPV9 2017-05-09 Completed University of 00:00:00 [place] [facility] HPV9 2017-05-09 Completed University of 00:00:00 [place] [facility] HPV9 2017-05-09 Completed University of 00:00:00 [place] [facility] HPV9 2017-05-09 Completed University of 00:00:00 [place] [facility] HPV9 2017-05-09 Completed University of 00:00:00 [place] [facility] HPV9 2017-05-09 Completed University of 00:00:00 [place] [facility] HPV9 2017-05-09 Completed University of 00:00:00 [place] [facility] HPV9 2017-05-09 Completed University of 00:00:00 [place] [facility] HPV9 2017-05-09 Completed University of 00:00:00 [place] [facility] HPV9 2017-05-09 Completed University of 00:00:00 [place] [facility] HPV9 2017-05-09 Completed University of 00:00:00 [place] [facility] HPV9 2017-05-09 Completed University of 00:00:00 [place] [facility] HPV9 2017-05-09 Completed University of 00:00:00 [place] [facility] HPV9 2017-05-09 Completed University of 00:00:00 [place] [facility] HPV9 2017-05-09 Completed University of 00:00:00 [place] [facility] HPV9 2017-05-09 Completed University of 00:00:00 [place] [facility] HPV9 2017-05-09 Completed University of 00:00:00 [place] [facility] HPV9 2017-05-09 Completed University of 00:00:00 [place] [facility] HPV9 2017-05-09 Completed University of 00:00:00 [place] [facility] HPV9 2017-05-09 Completed University of 00:00:00 [place] [facility] HPV9 2017-05-09 Completed University of 00:00:00 [place] [facility] HPV9 2017-05-09 Completed University of 00:00:00 [place] [facility] HPV9 2017-05-09 Completed University of 00:00:00 [place] [facility] HPV9 2017-05-09 Completed University of 00:00:00 [place] [facility] HPV9 2017-05-09 Completed University of 00:00:00 [place] [facility] HPV9 2017-05-09 Completed University of 00:00:00 [place] [facility] HPV9 2017-05-09 Completed University of 00:00:00 [place] [facility] HPV9 2017-05-09 Completed University of 00:00:00 [place] [facility] HPV9 2017-05-09 Completed University of 00:00:00 [place] [facility] HPV9 2017-05-09 Completed University of 00:00:00 [place] [facility] HPV9 2017-05-09 Completed University of 00:00:00 [place] [facility] HPV9 2017-05-09 Completed University of 00:00:00 [place] [facility] HPV9 2017-05-09 Completed University of 00:00:00 [place] [facility] HPV9 2017-05-09 Completed University of 00:00:00 [place] [facility] HPV9 2017-05-09 Completed University of 00:00:00 [place] [facility] HPV9 2017-05-09 Completed University of 00:00:00 [place] [facility] HPV9 2017-05-09 Completed University of 00:00:00 [place] [facility] HPV9 2017-05-09 Completed University of 00:00:00 [place] [facility] HPV9 2017-05-09 Completed University of 00:00:00 [facility] TDAP 2017-04-11 Completed University of 00:00:00 [place] [facility] TDAP 2017-04-11 Completed University of 00:00:00 [place] [facility] TDAP 2017-04-11 Completed University of 00:00:00 [place] [facility] TDAP 2017-04-11 Completed University of 00:00:00 [place] [facility] TDAP 2017-04-11 Completed University of 00:00:00 [place] [facility] TDAP 2017-04-11 Completed University of 00:00:00 [place] [facility] TDAP 2017-04-11 Completed University of 00:00:00 [facility] Branch TDAP 2017-04-11 Completed University of 00:00:00 [place] [facility] TDAP 2017-04-11 Completed University of 00:00:00 [place] [facility] TDAP 2017-04-11 Completed University of 00:00:00 [place] [facility] TDAP 2017-04-11 Completed University of 00:00:00 [place] [facility] TDAP 2017-04-11 Completed University of 00:00:00 [place] [facility] TDAP 2017-04-11 Completed University of 00:00:00 [place] [facility] TDAP 2017-04-11 Completed University of 00:00:00 [facility] Branch TDAP 2017-04-11 Completed University of 00:00:00 [place] [facility] TDAP 2017-04-11 Completed University of 00:00:00 [facility] Branch TDAP 2017-04-11 Completed University of 00:00:00 [facility] Branch TDAP 2017-04-11 Completed University of 00:00:00 [facility] Branch Tdap 2017-04-11 Completed University of 00:00:00 [facility] Branch TDAP 2017-04-11 Completed University of 00:00:00 [facility] Branch TDAP 2017-04-11 Completed University of 00:00:00 [facility] Branch Tdap 2017-04-11 Completed University of 00:00:00 [place] [facility] TDAP 2017-04-11 Completed University of 00:00:00 [facility] TDAP 2017-04-11 Completed [facility] 00:00:00 [facility] TDAP 2017-04-11 Completed [facility] 00:00:00 [facility] TDAP 2017-04-11 Completed [facility] of 00:00:00 [facility] TDAP 2017-04-11 Completed University of 00:00:00 [facility] TDAP 2017-04-11 Completed University of 00:00:00 [facility] TDAP 2017-04-11 Completed University of 00:00:00 [facility] TDAP 2017-04-11 Completed University of 00:00:00 [facility] TDAP 2017-04-11 Completed University of 00:00:00 [facility] TDAP 2017-04-11 Completed University of 00:00:00 [facility] TDAP 2017-04-11 Completed [facility] 00:00:00 [facility] TDAP 2017-04-11 Completed [facility] 00:00:00 [facility] TDAP 2017-04-11 Completed University [facility] 00:00:00 [facility] TDAP 2017-04-11 Completed [facility] 00:00:00 [facility] TDAP 2017-04-11 Completed [facility] 00:00:00 [facility] TDAP 2017-04-11 Completed [facility] 00:00:00 [facility] TDAP 2017-04-11 Completed [facility] 00:00:00 [facility] TDAP 2017-04-11 Completed [facility] 00:00:00 [facility] TDAP 2017-04-11 Completed [facility] 00:00:00 [facility] TDAP 2017-04-11 Completed [facility] 00:00:00 [facility] TDAP 2017-04-11 Completed [facility] 00:00:00 [facility] TDAP 2017-04-11 Completed [facility] 00:00:00 [facility] TDAP 2017-04-11 Completed [facility] 00:00:00 [facility] TDAP 2017-04-11 Completed [facility] of 00:00:00 [facility] TDAP 2017-04-11 Completed University of 00:00:00 [facility] TDAP 2017-04-11 Completed University of 00:00:00 [facility] TDAP 2017-04-11 Completed University of 00:00:00 [facility] TDAP 2017-04-11 Completed [facility] of 00:00:00 [facility] TDAP 2017-04-11 Completed [facility] 00:00:00 [facility] TDAP 2017-04-11 Completed [facility] 00:00:00 [facility] TDAP 2017-04-11 Completed [facility] of 00:00:00 [facility] TDAP 2017-04-11 Completed [facility] 00:00:00 [facility] TDAP 2017-04-11 Completed [facility] 00:00:00 [facility] TDAP 2017-04-11 Completed [facility] of 00:00:00 [facility] TDAP 2017-04-11 Completed [facility] 00:00:00 [facility] TDAP 2017-04-11 Completed [facility] of 00:00:00 [facility] TDAP 2017-04-11 Completed University of [...] Branch HPV 2012-02-27 Completed University of 00:00:00 [facility] HPV 2012-02-27 Completed University of 00:00:00 [facility] HPV 2012-02-27 Completed University of 00:00:00 [facility] HPV 2012-02-27 Completed University of 00:00:00 [facility] HPV 2012-02-27 Completed University of 00:00:00 [facility] HPV 2012-02-27 Completed University of 00:00:00 [facility] HPV 2012-02-27 Completed University of 00:00:00 [facility] HPV 2012-02-27 Completed University of 00:00:00 [facility] HPV 2012-02-27 Completed University of 00:00:00 [facility] Vital Signs Vital Name Observation Time Observation Value Comments Source Systolic blood 2022-02-09 15:49:00 111 mm[Hg] Univer sity of pressure [facility] Diastolic blood 2022-02-09 15:49:00 70 mm[Hg] Unive rsity of [facility] Heart rate 2022-02-09 15:49:00 61 /min [facility] Body temperature 2022-02-09 15:49:00 36.89 Lorene [facility] Respiratory rate 2022-02-09 15:49:00 19 /min [facility] Body height 2022-02-09 15:49:00 160 cm [facility] Body weight 2022-02-09 15:49:00 108.41 kg [facility] BMI 2022-02-09 15:49:00 42.34 kg/m2 [facility] Systolic blood 2022-02-04 01:20:00 106 mm[Hg] Univer sity of pressure [facility] Diastolic blood 2022-02-04 01:20:00 75 mm[Hg] Unive rsity of [facility] Body temperature 2022-02-04 01:20:00 36.5 Lorene [facility] Respiratory rate 2022-02-04 01:20:00 16 /min [facility] Oxygen saturation in 2022-02-04 01:20:00 100 /min [place] [facility] Arterial blood by [facility] Pulse oximetry Branch Heart rate 2022-02-03 22:52:00 81 /min Universi ty of [facility] Systolic blood 2022-02-01 16:38:00 122 mm[Hg] Univer sity of pressure [facility] Diastolic blood 2022-02-01 16:38:00 78 mm[Hg] Unive rsity of pressure [facility] Heart rate 2022-02-01 16:38:00 99 /min Universi ty of [facility] Body temperature 2022-02-01 16:38:00 37.28 Lorene Univ ersity of [facility] Respiratory rate 2022-02-01 16:38:00 18 /min Univ ersity of [facility] Body height 2022-02-01 16:38:00 160 cm [facility]i [facility] Body weight 2022-02-01 16:38:00 107.775 kg [facility] BMI 2022-02-01 16:38:00 42.09 kg/m2 [facility] Systolic blood 2022-01-02 13:26:00 128 mm[Hg] Univer sity of pressure [facility] Diastolic blood 2022-01-02 13:26:00 75 mm[Hg] Unive rsity of pressure [facility] Heart rate 2022-01-02 13:26:00 90 /min [facility]i [facility] Body temperature 2022-01-02 13:26:00 36.56 Lorene Univ ersity of [facility] Respiratory rate 2022-01-02 13:26:00 18 /min Univ ersity of [facility] Body height 2022-01-02 13:26:00 160 cm Universi ty [facility] Body weight 2022-01-02 13:26:00 110.224 kg [facility] BMI 2022-01-02 13:26:00 43.05 kg/m2 [facility] Systolic blood 2021-12-01 17:04:00 122 mm[Hg] Univer sity of pressure [facility] Diastolic blood 2021-12-01 17:04:00 62 mm[Hg] Unive rsity of pressure [facility] Heart rate 2021-12-01 17:04:00 66 /min [facility]i [facility] Body temperature 2021-12-01 17:04:00 36.89 Lorene Univ ersity of [facility] Body height 2021-12-01 17:04:00 160 cm [facility]i [facility] Body weight 2021-12-01 17:04:00 111.494 kg [facility] BMI 2021-12-01 17:04:00 43.54 kg/m2 [facility] Systolic blood 2021-11-03 14:41:00 121 mm[Hg] Univer sity of pressure [facility] Diastolic blood 2021-11-03 14:41:00 79 mm[Hg] Unive rsity of pressure [facility] Heart rate 2021-11-03 14:41:00 84 /min [facility]i [facility] Body temperature 2021-11-03 14:41:00 37.22 Lorene Univ ersity of [facility] Respiratory rate 2021-11-03 14:41:00 18 /min Univ ersity of [facility] Body height 2021-11-03 14:41:00 160 cm [facility]i [facility] Body weight 2021-11-03 14:41:00 112.946 kg [facility] BMI 2021-11-03 14:41:00 44.11 kg/m2 [facility] Systolic blood 2021-10-06 17:25:00 122 mm[Hg] Univer sity of pressure [facility] Diastolic blood 2021-10-06 17:25:00 80 mm[Hg] Unive rsity of pressure [facility] Heart rate 2021-10-06 17:08:00 77 /min [facility]i [facility] Body temperature 2021-10-06 17:08:00 37.22 Lorene Univ ersity of [facility] Respiratory rate 2021-10-06 17:08:00 18 /min Univ ersity of [facility] Body height 2021-10-06 17:08:00 160 cm [facility] Body weight 2021-10-06 17:08:00 114.306 kg [facility] BMI 2021-10-06 17:08:00 44.64 kg/m2 [facility] Body height 2021-09-19 20:10:00 160 cm [facility] Body weight 2021-09-19 20:10:00 113.399 kg [facility] BMI 2021-09-19 20:10:00 44.29 kg/m2 [facility] Systolic blood 2021-09-19 20:10:00 124 mm[Hg] Univer sity of pressure [facility] Diastolic blood 2021-09-19 20:10:00 79 mm[Hg] Unive rsity of pressure [facility] Heart rate 2021-09-19 20:10:00 80 /min [facility]i [facility] Body temperature 2021-09-19 20:10:00 36.89 Lorene Univ ers[facility] of [facility] Respiratory rate 2021-09-19 20:10:00 18 /min Univ ersity of [facility] Systolic blood 2021-03-01 19:43:00 118 mm[Hg] Univer sity of pressure [facility] Diastolic blood 2021-03-01 19:43:00 75 mm[Hg] Unive rsity of pressure [facility] Heart rate 2021-03-01 19:43:00 86 /min [facility]i [facility] Respiratory rate 2021-03-01 19:43:00 18 /min Univ ersity of [facility] Body height 2021-03-01 19:43:00 160 cm [facility] Body weight 2021-03-01 19:43:00 102.059 kg [facility] BMI 2021-03-01 19:43:00 39.86 kg/m2 [facility] Systolic blood 2021-02-21 11:45:00 95 mm[Hg] Univer sity of pressure [facility] Diastolic blood 2021-02-21 11:45:00 40 mm[Hg] Unive rsity of pressure [facility] Heart rate 2021-02-21 11:45:00 81 /min [facility]i [facility] Body temperature 2021-02-21 11:45:00 36.39 Lorene Univ ersity of [facility] Respiratory rate 2021-02-21 11:45:00 16 /min Univ ersity of [facility] Oxygen saturation in 2021-02-21 11:45:00 100 /min University of Arterial blood by [facility] Pulse oximetry Branch Body height 2021-02-19 08:55:00 160 cm [facility]i ty [facility] Body weight 2021-02-19 08:55:00 110.678 kg [facility] BMI 2021-02-19 08:55:00 43.22 kg/m2 [facility] Systolic blood 2021-02-19 12:15:00 110 mm[Hg] Univer sity of pressure [facility] Diastolic blood 2021-02-19 12:15:00 61 mm[Hg] Unive rsity of pressure [facility] Heart rate 2021-02-19 12:15:00 71 /min Universi ty [facility] Oxygen saturation in 2021-02-19 12:15:00 100 /min University of Arterial blood by [place] [facility] P[facility] Body temperature 2021-02-19 11:45:00 36.5 Lorene Univ ersity of [facility] Respiratory rate 2021-02-19 11:45:00 18 /min Univ ersity of [facility] Body height 2021-02-19 08:55:00 160 cm [facility] Body weight 2021-02-19 08:55:00 110.678 kg [facility] BMI 2021-02-19 08:55:00 43.22 kg/m2 [facility] Heart rate 2021-02-16 15:00:00 93 /min [facility] Oxygen saturation in 2021-02-16 14:15:00 100 /min University of Arterial blood by [place] [facility] Systolic blood 2021-02-16 14:00:00 121 mm[Hg] Univer sity of pressure [facility] Diastolic blood 2021-02-16 14:00:00 52 mm[Hg] Unive rsity of pressure [facility] Body temperature 2021-02-16 14:00:00 37 Lorene Univ ersity of [facility] Respiratory rate 2021-02-16 14:00:00 18 /min Univ ersity of [facility] Heart rate 2021-02-15 14:00:00 85 /min [facility] Oxygen saturation in 2021-02-15 14:00:00 100 /min University of Arterial blood by [place] [facility] Systolic blood 2021-02-15 12:33:00 122 mm[Hg] Univer sity of pressure [facility] Diastolic blood 2021-02-15 12:33:00 74 mm[Hg] Unive rsity of pressure [facility] Body temperature 2021-02-15 12:30:00 37 Lorene Univ ersity of [facility] Respiratory rate 2021-02-15 12:30:00 14 /min Univ ersity of [facility] Body height 2021-02-15 00:05:00 160 cm [facility]i [facility] Body weight 2021-02-15 00:05:00 109.77 kg [facility] BMI 2021-02-15 00:05:00 42.87 kg/m2 [facility] Systolic blood 2021-02-09 16:46:00 115 mm[Hg] Univer sity of pressure [facility] Diastolic blood 2021-02-09 16:46:00 75 mm[Hg] Unive rsity of pressure [facility] Heart rate 2021-02-09 16:46:00 99 /min [facility]i [facility] Body temperature 2021-02-09 16:46:00 36.44 Lorene Univ ersity of [facility] Respiratory rate 2021-02-09 16:46:00 18 /min Univ ersity of [facility] Body height 2021-02-09 16:46:00 162.6 cm [facility]i [facility] Body weight 2021-02-09 16:46:00 110.224 kg [facility] BMI 2021-02-09 16:46:00 41.71 kg/m2 [facility] Systolic blood 2021-02-06 15:42:00 114 mm[Hg] Univer sity of pressure [facility] Diastolic blood 2021-02-06 15:42:00 71 mm[Hg] Unive rsity of pressure [facility] Heart rate 2021-02-06 15:42:00 95 /min [facility] Body temperature 2021-02-06 15:42:00 36.94 Lorene Univ ersity of [facility] Respiratory rate 2021-02-06 15:42:00 18 /min Univ ersity of [facility] Systolic blood 2021-01-20 19:08:00 114 [...] 100 /min University of Arterial blood by [facility] Pulse oximetry Branch Systolic blood 2020-11-03 19:35:00 127 mm[Hg] Univer sity of pressure [facility] Diastolic blood 2020-11-03 19:35:00 74 mm[Hg] Unive rsity of pressure [facility] Heart rate 2020-11-03 19:35:00 99 /min [facility]i ty [facility] Body temperature 2020-11-03 19:35:00 36.94 Lorene Univ ersity of [facility] Respiratory rate 2020-11-03 19:35:00 18 /min Univ ersity of [facility] Body height 2020-11-03 19:35:00 160 cm Universi ty [facility] Body weight 2020-11-03 19:35:00 110.224 kg [facility] BMI 2020-11-03 19:35:00 43.05 kg/m2 [facility] Systolic blood 2020-10-26 22:46:00 132 mm[Hg] Univer sity of pressure [facility] Diastolic blood 2020-10-26 22:46:00 77 mm[Hg] Unive rsity of pressure [facility] Heart rate 2020-10-26 22:46:00 100 /min [facility]i ty [facility] Body temperature 2020-10-26 22:46:00 37.17 Lorene Univ ersity of [facility] Respiratory rate 2020-10-26 22:46:00 18 /min Univ ersity of [facility] Body height 2020-10-26 22:46:00 160 cm [facility]i ty [facility] Body weight 2020-10-26 22:46:00 109.317 kg [facility] BMI 2020-10-26 22:46:00 42.69 kg/m2 [facility] Systolic blood 2020-09-15 16:24:00 113 mm[Hg] Univer sity of pressure [facility] Diastolic blood 2020-09-15 16:24:00 83 mm[Hg] Unive rsity of pressure [facility] Heart rate 2020-09-15 16:24:00 100 /min [facility]i [facility] Body temperature 2020-09-15 16:24:00 37.11 Lorene Univ ersity of [facility] Respiratory rate 2020-09-15 16:24:00 18 /min Univ ersity of [facility] Body height 2020-09-15 16:24:00 160 cm [facility] Body weight 2020-09-15 16:24:00 110.678 kg [facility] BMI 2020-09-15 16:24:00 43.22 kg/m2 [facility] Systolic blood 2020-08-31 18:58:00 123 mm[Hg] Univer sity of pressure [facility] Diastolic blood 2020-08-31 18:58:00 72 mm[Hg] Unive rsity of pressure [facility] Heart rate 2020-08-31 18:58:00 81 /min [facility]i [facility] Body temperature 2020-08-31 18:58:00 36.78 Lorene Univ ersity of [facility] Respiratory rate 2020-08-31 18:58:00 16 /min Univ ersity of [facility] Body height 2020-08-31 18:58:00 160 cm [facility] Body weight 2020-08-31 18:58:00 112.038 kg [facility] BMI 2020-08-31 18:58:00 43.75 kg/m2 [facility] Systolic blood 2020-08-02 16:29:00 110 mm[Hg] Univer sity of pressure [facility] Diastolic blood 2020-08-02 16:29:00 67 mm[Hg] Unive rsity of pressure [facility] Heart rate 2020-08-02 16:29:00 72 /min [facility] Body temperature 2020-08-02 16:29:00 36.5 Lorene Univ ersity of [facility] Respiratory rate 2020-08-02 16:29:00 16 /min Univ ersity of [facility] Body height 2020-08-02 16:29:00 160 cm [facility] Body weight 2020-08-02 16:29:00 112.634 kg [facility] BMI 2020-08-02 16:29:00 43.99 kg/m2 [facility] Procedures Procedure Date / Time Performing Clinician Source Performed POCT URINALYSIS W/O 2022-02-09 16:03:00 Boni Danielle [facility] SPECIFIC GRAVITY [facility] CBC WITH DIFF 2022-02-04 02:42:00 Boni Danielle [facility] PREPARE PACKED RBC 2022-02-03 18:02:41 Daisy Calvo [facility] CBC WITH DIFF 2022-02-03 10:04:00 Boni Danielle [facility] CENTRAL NEURAXIAL BLOCK 2022-02-02 13:48:31 Sharifa Brown [facility] CMV BY PCR 2022-02-02 02:46:00 [facility] 2022-02-02 02:10:00 Shashi [facility] HORMONE [facility] COMP. METABOLIC PANEL 2022-02-02 02:10:00 Boni Danielle [facility] ([id number]) [facility] CBC WITH DIFF 2022-02-02 02:10:00 Boni Danielle [facility] HEPATITIS B SURFACE 2022-02-02 02:10:00 Boni Danielle [facility] ANTIGEN [facility] GLYCOSYLATED HEMOGLOBIN 2022-02-02 02:09:00 [facility] TOXOPLASMA IGG ANTIBODY 2022-02-02 02:09:00 Boni Danielle [facility] TOXOPLASMA AB, IGM 2022-02-02 02:09:00 Boni Danielle [facility] HSV 1 AND 2 GLYCOPROTEIN 2022-02-02 02:09:00 Boni Danielle [facility] G IGG [facility] ADC OR ZAINA ONLY - RPR 2022-02-02 02:08:00 [facility]ING 2022-02-02 02:00:00 Boni Danielle [facility] HB HEMOGLOBIN 2022-02-02 02:00:00 Boni Danielle [facility] STAINS [facility] RHO (D) IMMUNE GLOBULIN 2022-02-02 02:00:00 [facility]UNOASSAY[facility] 2022-02-02 01:43:00 Boni Danielle [facility] - COMPREHENSIVE DRUG [facility] SCREEN COVID-19 (ID NOW RAPID 2022-02-02 01:41:[address] [facility] TESTING) Medical Branch LAB ONLY COVID 2022-02-02 01:41:00 Boni Danielle [facility] [place] INTERPRETATION [facility] NOTICE OF PRIVACY 2022-02-01 23:01:42 Doctor Unatrinoigned, [facility] PRACTICES [facility] CONSENT/REFUSAL FOR 2022-02-01 23:01:33 Doctor Unasergio, [facility] DIAGNOSIS AND TREATMENT [facility] ASSIGNMENT OF BENEFITS 2022-02-01 23:01:24 Doctor Erasmoigned, [facility] POCT URINALYSIS W/O 2022-02-01 16:40:00 Boni Danielle Universi ty [facility] SPECIFIC GRAVITY Medical Branch POCT URINALYSIS W/O 2022-01-02 00:00:00 Boni Danielle Universi ty [facility] SPECIFIC GRAVITY Medical Branch POCT URINALYSIS W/O 2021-12-01 00:00:00 [facility] SPECIFIC GRAVITY [facility] [place] ASSIGNMENT OF BENEFITS 2021-11-03 15:50:42 Doctor Unassigned, [facility] POCT URINALYSIS W/O 2021-11-03 00:00:00 [facility] SPECIFIC GRAVITY Medical Branch OB TRANSVAGINAL 2021-10-06 21:20:47 Boni Danielle [facility] y [facility] [place] 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 CLINIC ULTRASOUND 2021-10-06 06:01:00 Doctor Alida, [facility] POCT URINALYSIS W/O 2021-10-06 00:00:00 Boni Danielle Universi ty [facility] SPECIFIC GRAVITY Medical Branch 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 ULTRASOUND 2021-09-19 06:01:00 Doctor Alida, [facility] POCT TEST 2021-09-19 00:00:00 [facility] [place] POCT URINALYSIS W/O 2021-09-19 00:00:00 Danielle, Boni [facility] CBC WITHOUT DIFF 2021-02-20 20:20:[address] [facility] CBC WITHOUT DIFF 2021-02-20 20:20:[address] [facility] PREPARE PACKED RBC 2021-02-20 13:22:[facility] 2021-02-20 13:22:40 Danielle [facility] CBC WITH DIFF 2021-02-20 09:27:00 Danielle [facility] CBC WITH DIFF 2021-02-20 09:27:00 Shashi [facility] PREPARE PACKED RBC 2021-02-20 00:59:26 Shashi [facility] PREPARE PACKED RBC 2021-02-20 00:59:26 Shashi [facility] CBC WITHOUT DIFF 2021-02-19 23:25:[address] [facility] CBC WITHOUT DIFF 2021-02-19 23:25:[address] [facility] PREPARE PACKED RBC 2021-02-19 17:27:17 Shashi [facility] PREPARE PACKED RBC 2021-02-19 17:27:17 Danielle [facility] CBC WITHOUT DIFF 2021-02-19 16:21:[address] [facility] CBC WITHOUT DIFF 2021-02-19 16:21:[address] [facility] VENOUS CORD GAS 2021-02-19 11:01:00 Danielle [facility] VENOUS CORD GAS 2021-02-19 11:01:00 Shashi [facility] SECTION 2021-02-19 10:09:[address] [facility] SECTION 2021-02-19 10:09:[address] [facility] CBC WITH DIFF 2021-02-19 09:58:00 Shashi [facility] HEPATITIS B SURFACE 2021-02-19 09:58:00 DanielleSusieen Cam [facility] ANTIGEN [facility] HB ABO GROUPING 2021-02-19 09:58:00 ShashiSusieleonila Awad [facility] RHO (D) IMMUNE GLOBULIN 2021-02-19 09:58:00 ShashiBoni Ritesh [facility] HIV 1/2 AG-AB WITH REFLEX 2021-02-19 09:58:00 [facility]oni [facility] WITH DIFF 2021-02-19 09:58:00 ShashiSusieleonila Awad [facility] HEPATITIS B SURFACE 2021-02-19 09:58:00 DanielleSusieleonila Awad [facility] ANTIGEN [facility] HB ABO GROUPING 2021-02-19 09:58:00 ShashiSusieleonila Awad [facility] RHO (D) IMMUNE GLOBULIN 2021-02-19 09:58:00 DanielleBoni Ritesh [facility] HIV 1/2 AG-AB WITH REFLEX 2021-02-19 09:58:00 [facility]Boni [facility]ENEFITS 2021-02-19 08:27:00 Doctor Unassigned, [facility] [place] [facility] CONSENT/REFUSAL FOR 2021-02-19 08:26:40 Doctor Unasergio, [facility] DIAGNOSIS AND TREATMENT [facility] NON-STRESS TEST 2021-02-16 16:02:13 Shashi Bonileonila Awad [facility] ASSIGNMENT OF BENEFITS 2021-02-16 13:29:20 Doctor Unassigned, [facility] [place] [facility] US PELVIS > 14 2021-02-15 02:54:06 [facility] 2021-02-15 01:15:00 Boni Danielle [facility] CBC WITH DIFF 2021-02-15 01:14:00 Boni Danielle [facility] COVID-19 (ID NOW RAPID 2021-02-15 01:14:[address] [facility] TESTING) Medical Branch CONSENT/REFUSAL FOR 2021-02-14 23:54:37 Doctor Unassigned, [facility] DIAGNOSIS AND TREATMENT [place] [facility] CONSENT/REFUSAL FOR 2021-02-14 23:53:58 Doctor Tae Irwin [facility] DIAGNOSIS AND TREATMENT [place] [facility] CONSENT/REFUSAL FOR 2021-02-06 15:19:45 Doctor Tae Irwin [facility] DIAGNOSIS AND TREATMENT [place] [facility] POCT URINALYSIS W/O 2020-11-24 00:00:00 Boni Danielle [facility] SPECIFIC GRAVITY Medical Branch ASSIGNMENT OF BENEFITS 2020-11-10 19:25:12 Doctor Unassigned, Un [facility] [place] [facility] POCT URINALYSIS W/O 2020-09-15 00:00:00 Boni Danielle [facility] SPECIFIC GRAVITY Medical Branch ASSIGNMENT OF BENEFITS 2020-09-13 19:51:38 Doctor Unassigned, [facility] [place] [facility] POCT URINALYSIS 2020-08-31 18:59:00 Robert Abarca [facility] POCT TEST 2020-08-02 16:22:00 [facility]/O 2020-08-02 16:22:00 [facility] REPORT OF 2020-08-02 06:01:00 [facility] Name Medical [place] Encounters Start End Encounter Admission Attending Care Care Encounter Source Date/Time Date/Time Type Type Clinicians Facility Department ID 2021-07-31 Outpatient P [facility] [id number] Univers 19:56:56 ity [facility] 2021-07-31 Outpatient P [facility] [id number] Univers 19:37:37 ity [facility] 2021-07-31 Outpatient P [facility] [id number] Univers 17:58:49 ity of [facility] 2021-07-31 Outpatient P [facility] [id number] Univers 17:58:31 ity [facility] 2021-07-30 Outpatient P [facility] [id number] Univers 22:55:02 ity of [facility] 2021-07-30 Outpatient P [facility] [id number] Univers 22:51:27 ity [facility] 2022-03-06 2022-03-06 Outpatient R BONI DANIELLE [facility] [id number] Univers 10:00:00 10:00:00 ity of [facility] 2022-02-17 2022-02-17 Patient Elio PRMIKE 1.2.840.114 [id number] Univers 00:00:00 00:00:00 Secure Msg Jackie [place] 350.1.13.10 ity of [place] [id number] Me dical NAL [address] [place] [address] 2022-02-15 2022-02-15 Outpatient R BONI DANIELLE [facility] [id number] Univers 10:30:00 10:30:00 ity [facility] 2022-02-13 2022-02-13 Patient Boni Danielle [facility] 1.2.611.630 [id number] Univers 00:00:00 00:00:00 Secure Msg Ritesh [place] 350.1.13.10 ity of [place] [phone] Wa dical NAL [address] [place] [address] 2022-02-09 2022-02-09 Outpatient R BONI DANIELLE [facility] [id number] Univers 10:00:00 11:31:22 ity [facility] 2022-02-09 2022-02-09 Routine Shashi [facility] 1.2.517.508 [id number] Univers 10:00:00 11:31:22 Ritesh CABRERATON 350.1.13.10 ity of [place] [phone] Me dical NAL [address] [place] [address] 2022-02-08 2022-02-08 Telephone Boni Danielle [facility] 1.2.840.114 [id number] Univers 00:00:00 00:00:00 Cam [place] 350.1.13.10 i ty [facility] 4.[place] [phone] Wa dical NAL [address] [place] [address] 2022-02-06 2022-02-06 Outpatient P [facility] [id number] Univers 10:15:00 10:15:00 ity of [facility] 2022-02-01 2022-02-03 Hospital Boni Danielle [facility] 1.2.840.114 [id number] Univers 17:58:00 22:45:00 Encounter Ritesh CONNIE 350.1.13.10 ity of [facility] 4.2.[place] [id number] [address] 2022-02-03 2022-02-03 [facility] 1.2.840.114 [id number] Univers 20:03:41 20:03:41 Event Hector CONNIE 350.1.13.10 i ty of [facility] 4.2.7.[place] [id number] [address] 2022-02-02 2022-02-02 Anesthesia Kevin [facility] 1.2.840.1 14 [id number] Univers 08:15:00 16:41:00 Event Osorio Alexandre [place] 350.1.13.10 ity of [facility] 4.2.7.2.[place] [id number] [address] 2022-02-01 2022-02-01 Outpatient R BONI DANIELLE [facility] [id number] Univers 11:00:00 12:48:36 ity of [facility] 2022-02-01 2022-02-01 Routine Boni Danielle [facility] .2.193.393 [id number] Univers 11:00:00 12:48:36 Cam [place] 350.1.13.10 ity of [place] [id number] Wa dical [place] [address] Branch BUILDING 2022-02-01 2022-02-01 Outpatient R BONI DANIELLE [facility] JAIR [id number] Univers 11:00:00 12:48:36 ity of [facility] 2022-01-30 2022-01-30 Outpatient P [facility] [id number] Univers 10:00:00 10:00:00 ity of [facility] 2022-01-02 2022-01-02 Outpatient R DANIELLEBONI [facility] [id number] Univers 08:00:00 08:44:30 ity of [facility] 2022-01-02 2022-01-02 Routine ShashiBoni [facility] 1.2.270.984 [id number] Univers 08:00:00 08:44:30 Cam [place] 350.1.13.10 ity of [facility] 4.[place] [phone] Wa dical NAL [address] [place] [address] 2021-12-29 2021-12-29 Outpatient R SHASHIBONI [facility] [id number] Univers 11:15:00 11:15:00 ity of [facility] 2021-12-07 2021-12-07 Outpatient R [facility] [id number] Univers 09:00:00 09:00:00 ity of [facility] 2021-12-01 2021-12-01 Outpatient R SHASHIBONI [facility] [id number] Univers 11:00:00 11:28:33 ity of [facility] 2021-12-01 2021-12-01 [facility] 1.2.521.194 [id number] Univers 11:00:00 11:28:33 Cam [place] 350.1.13.10 ity of [facility] 4.2.[place] [phone] Wa dical NAL [address] [place] [address] 2021-11-18 2021-11-18 Case ShashiBoni [facility] 1.2.357.123 [id number] Univers 00:00:00 00:00:00 Management Cam [place] 350.1.13.10 ity of [place] [phone] Wa dical NAL [address] [place] [address] 2021-11-15 2021-11-15 Telephone ShashiBoni [facility] 1.2.840.114 [id number] Univers 00:00:00 00:00:00 Cam [place] 350.1.13.10 i ty of [place] [phone] Wa dical NAL [address] [employer] 2021-11-10 2021-11-10 Telephone [facility] 1.2.840.114 [id number] Univers 00:00:00 00:00:00 Cam [place] 350.1.13.10 i ty of [place] [phone] Wa dical NAL [address] [employer] 2021-11-07 2021-11-07 Telephone [facility] 1.2.840.114 [id number] Univers 00:00:00 00:00:00 Cam [place] 350.1.13.10 i ty of [place] [phone] Wa dical NAL [address] [employer] 2021-11-03 2021-11-03 Backshoe Person 2, Adc Lab [facility] 1.2.840.114 [id number] Univers 09:45:00 10:00:00 Visit Shashi Bonileonila ROSALES 350.1.13.10 ity of [place] [phone] Wa andria [facility] [address] [employer] 2021-11-03 2021-11-03 Outpatient R BONI DANIELLE [facility] [id number] Univers 08:45:00 09:37:45 ity of [facility] 2021-11-03 2021-11-03 Routine Shashi [facility] 1.2.229.092 [id number] Univers 08:45:00 09:37:45 Ritesh ROSALES 350.1.13.10 ity of [place] [phone] Wa dical NAL [address] [employer] 2021-11-03 2021-11-03 Orders Doctor OSORIO 1.2.840.114 [id number] Univers 00:00:00 00:00:00 Only Unassigned, XU 350.1.13.10 ity of [place] [facility] 4.2.7.2.686 Niko as [phone] [address] 2021-10-06 2021-10-06 Outpatient R SHASHI BONI [facility] [id number] Univers 11:15:00 11:48:50 ity of [facility] 2021-10-06 2021-10-06 Routine ShashiSusieen [facility] 1.2.063.948 [id number] Univers 11:15:00 11:48:50 Cam [place] 350.1.13.10 ity of [place] [phone] Wa dical NAL [address] [place] [address] 2021-10-06 2021-10-06 Orders Doctor OSORIO 1.2.840.114 [id number] Univers 00:00:00 00:00:00 Only Unassigned, XU 350.1.13.10 ity of [place] [facility] 4.2.7.2.686 Niko as [phone] [address] 2021-09-26 2021-09-26 Outpatient R [facility] [id number] Univers 11:30:00 11:30:00 ity of [facility] 2021-09-22 2021-09-22 Outpatient R [facility] [id number] Univers 11:30:00 11:30:00 ity of [facility] 2021-09-19 2021-09-19 Outpatient R DANIELLESUSIEEN [facility] [id number] Univers 15:15:00 15:15:00 ity of [facility] 2021-09-19 2021-09-19 Initial Boni Danielle [facility] 1.2.556.941 [id number] Univers 14:00:00 15:13:04 Cam [place] 350.1.13.10 ity of [place] [phone] Wa dicmt NAL [address] [place] [address] 2021-09-19 2021-09-19 Orders Doctor OSORIO 1.2.840.114 [id number] Univers 00:00:00 00:00:00 Only Unassigned, XU 350.1.13.10 ity of [place] [facility] 4.2.7.2.686 Niko as [phone] [address] 2021-05-05 2021-05-05 [facility] 1.2.184.471 [id number] Univers 00:00:00 00:00:00 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 Elizabeth 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 350.1.13.10 it y of [facility] 4.2.7.2.686 Niko as MATERNAL [phone] [facility] ical & CHILD [address] [place] [address] 2021-04-19 2021-04-19 Outpatient R SUSIE DANIELLEEN [facility] [id number] Univers 16:15:00 16:15:00 ity [facility] 2021-03-31 2021-03-31 Outpatient R [facility]ASHI [facility] [id number] Univers 16:15:00 16:15:00 ity [facility] 2021-03-22 2021-03-22 Outpatient R SHASHI [facility] [id number] Univers 15:30:00 15:30:00 ity [facility] 2021-03-01 2021-03-01 Outpatient R SHASHI [facility] [id number] Univers 15:00:00 15:00:00 ity [facility] 2021-03-01 2021-03-01 Nurse Nurse, [facility] 1.2.840.114 [id number] Univers 14:13:35 14:39:12 Visit DanielleSusieleonila Awad [place] 350.1.13.10 ity [facility] 4.2.7.2.686 [facility] [phone] Wa dical [address] 2021-02-23 2021-02-23 Outpatient R BONI DANIELLE [facility] [id number] Univers 13:15:00 13:15:00 ity [facility] 2021-02-19 2021-02-21 [facility] DanielleBoni [facility] 1.2.840.114 [id number] Univers 03:27:00 11:00:00 Encounter Ritesh Rosales 350.1.13.10 ity [facility] [place]2.7.2.686 [place] [phone] [place] [id number] [place] 2021-02-19 2021-02-19 Surgery Shashi Boni [facility] 1.2.871.743 [id number] Univers 05:35:00 07:19:00 Ritesh Rosales 350.1.13.10 i ty of [place] [phone] [facility] 013 Branch 2021-02-19 2021-02-19 Orders Doctor AC 1.2.840.114 [id number] Univers 00:00:00 00:00:00 Only Unassigned, XU 350.1.13.10 ity of [place] [facility] 4.2.7.2.686 Niko as [phone] [facility] 009 Branch 2021-02-16 2021-02-16 [facility] 1.2.840.114 [id number] Univers 08:29:00 10:25:00 Encounter Daisy Rosales 350.1.13.10 ity of [place] [phone] [facility] 083 Branch 2021-02-16 2021-02-16 Outpatient R BONI DANIELLE [facility] [id number] Univers 10:00:00 10:00:00 ity of [facility] 2021-02-14 2021-02-15 [facility] 1.2.840.114 [id number] Univers 18:55:00 09:30:00 Encounter Ritesh Rosales 350.1.13.10 ity of [place] [phone] [facility] 083 Branch 2021-02-14 2021-02-14 Case [facility] 1.2.549.701 [id number] Univers 00:00:00 00:00:00 Management Torsten Rosales 350.1.13.10 ity of [place] [phone] Wa dical nal 134 [address] Building 2021-02-14 2021-02-14 Nurse OSORIO Ag 1.2.840.114 [id number] Univers 00:00:00 00:00:00 Triage Louisa MCNAIR 350.1.13.10 ity of [facility] 4.2.7.2.686 Niko as [phone] [facility] 019 Branch 2021-02-14 2021-02-14 Orders Doctor AC 1.2.840.114 [id number] Univers 00:00:00 00:00:00 Only Unassigned, XU 350.1.13.10 ity of [place] [facility] 4.2.7.2.686 Niko as [id number] [facility] 009 [place] 2021-02-09 2021-02-09 [facility] 1.2.740.458 [id number] Univers 11:23:12 12:07:22 Torsten Rosales 350.1.13.10 ity of [place] [phone] [facility] 134 [facility] 2021-02-09 2021-02-09 Outpatient R SUNNY [facility] [id number] Univers 11:15:00 11:15:00 TORSTEN ity [facility] 2021-02-08 2021-02-08 Joseph Danielle [facility] 1.2.840.114 [id number] Univers 00:00:00 00:00:00 Cam Connie 350.1.13.10 i ty of [place] [phone] [facility] 134 [facility] 2021-02-06 2021-02-06 Hospital Rachael Dye [facility] 1.2.840.114 [id number] Univers 10:18:00 11:30:00 Encounter Connie 350.1.13.10 ity of [place].2.[place] [phone] [facility] 083 [place] 2021-02-06 2021-02-06 Nurse OSORIO Segal 1.2.840.114 [id number] Univers 00:00:00 00:00:00 Triage Cely Balderrama XU 350.1.13.10 i ty of [facility] 4.2.7.2.686 Niko as [phone] [facility] 019 [place] 2021-02-03 2021-02-03 Outpatient R BONI DANIELLE [facility] [id number] Univers 14:00:00 14:00:00 ity of [facility] 2021-01-27 2021-01-27 Backshoe Person Ultrasound, [facility] 1.2 .840.114 [id number] Univers 12:54:57 13:43:13 Visit Maria Estrada 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 350.1.13.10 ity of REGIONAL 4.2.7.2.686 Niko as MATERNAL [phone] Med ical & CHILD [address] [place] [address] 2021-01-27 2021-01-27 Outpatient P [facility] [id number] Univers 13:00:00 [facility]:00[facility] 2021-01-26 2021-01-26 Outpatient R [facility] [id number] Univers 13:00:00 13:00:00 [facility] 2021-01-20 2021-01-20 Routine Sunny [facility] 1.2.540.761 [id number] Univers 13:38:51 14:32:51 [facility] 350.1.13.10 ity of [place] [phone] Me dical nal 134 [facility] 2021-01-20 2021-01-20 Outpatient R SUNNY [facility] [id number] Univers 13:30:00 [facility]:30[facility] 2021-01-11 2021-01-11 Outpatient R LAURA [facility] [id number] Univers 18:20:00 18:20:00 ARABELLA [facility] 2020-12-29 2020-12-29 Outpatient R [facility] [id number] Univers 14:00:00 14:00:00 [facility] 2020-12-23 2020-12-23 Outpatient R BONI DANIELLE [facility] [id number] Univers 13:15:00 13:15:00 [facility] 2020-12-21 2020-12-21 Patient Michael [facility] 1.2.840.114 [id number] Univers 00:00:00 00:00:00 Outreach Sandeep [facility] 350.1.13.[address] [facility] 4.2.7.2.[place] [phone] Me dical [address] [place] [address] 2020-11-24 2020-11-24 Routine Boni Danielle [facility] 1.2.702.817 [id number] Univers 16:01:00 16:37:24 Ritesh Rosales 350.1.13.10 ity of [place].2.[place] [phone] [facility] 134 [facility] 2020-11-24 2020-11-24 Outpatient R SUSIE DANIELLEEN [facility] [id number] Univers 16:00:00 16:00:00 ity [facility] 2020-11-11 2020-11-11 Outpatient R [facility] [id number] Univers 15:00:00 15:00:00 ity [facility] 2020-11-10 2020-11-10 Hospital [facility] 1.2.840.114 [id number] Univers 13:27:00 15:10:00 Encounter Daisy Rosales 350.1.13.10 ity of [place] [phone] [facility] 083 [place] 2020-11-10 2020-11-10 Orders Doctor OSORIO 1.2.840.114 [id number] Univers 00:00:00 00:00:00 Only Unassigned, XU 350.1.13.10 ity of [place] [facility] 4.2.7.2.686 Niko as [phone] [facility] 009 [place] 2020-11-10 2020-11-10 Telephone Boni Danielle [facility] 1.2.840.114 [id number] Univers 00:00:00 00:00:00 Ritesh Rosales 350.1.13.10 i ty of [place].2.[place] [phone] [facility] 134 [facility] 2020-11-04 2020-11-04 Backshoe Person Ultrasound, [facility] 1.2 .840.114 [id number] Univers 13:26:54 14:41:54 Visit Maria Estrada 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 350.1.13.10 ity of [facility] 4.2.7.2.686 Niko as MATERNAL [phone] Med ical & CHILD [address] [place] [address] 2020-11-04 2020-11-04 Outpatient P [facility] [id number] Univers 13:30:00 13:30:00 ity of [facility] 2020-11-03 2020-11-03 Outpatient R BONI DANIELLE [facility] [id number] Univers 14:15:00 14:15:00 ity [facility] 2020-11-03 2020-11-03 Routine Boni Danielle [facility] 1.2.024.171 [id number] Univers 13:23:48 14:01:06 Cam [place] 350.1.13.10 ity of [place].2.[place] [phone] Wa dical nal [address] [place] [address] 2020-11-03 2020-11-03 Telephone Boni Danielle [facility] 1.2.840.114 [id number] Univers 00:00:00 00:00:00 Cam [place] 350.1.13.10 i ty of [place] 4[place].2.[place] [phone] Wa dical nal [address] [place] [address] 2020-10-26 2020-10-26 Routine Torsten Correa [facility] 1.2.840.11 [id number] Univers 16:11:29 16:26:29 Boni Danielle [place] 350.1.13.10 ity of [place] 4.2.7.2.[place] [phone] Wa dicabril bright [address] [place] [address] 2020-10-26 2020-10-26 Outpatient R BONI DANIELLE [facility] [id number] Univers 16:15:00 16:15:00 ity [facility] 2020-09-28 2020-09-28 Outpatient R THANG [facility] [id number] Univers 12:45:00 12:45:00 DEONTE ity o f [facility] 2020-09-15 2020-09-15 Initial Boni Danielle [facility] 1.2.447.705 [id number] Univers 09:56:27 10:57:17 Cam [place] 350.1.13.10 ity of [place].2.686 [place] [phone] Wa dical nal 134 [facility] 2020-09-15 2020-09-15 Outpatient R BONI DANIELLE [facility] [id number] Univers 10:00:00 10:00:00 ity of [facility] 2020-09-13 2020-09-13 Backshoe Person Lab, [facility] 1.2.84 0.114 [id number] Univers 14:55:50 15:11:55 Visit Huber Ashley zlien 350.1.13.10 ity of CL[place].2.[place] [phone] [facility] 113 [place] 2020-09-13 2020-09-13 Backshoe Person 1, [facility]ERS[facility] 1 .2.840.114 [id number] Univers 13:53:16 14:54:07 Visit Huber Ashley [employer] 350.1.13.10 ity of CL[place] 4[place]2.7.2.[place] [phone] [facility] 104 [place] 2020-09-13 2020-09-13 Outpatient P [facility] [id number] Univers 13:45:00 13:45:00 ity of [facility] 2020-09-13 2020-09-13 Orders Doctor AC 1.2.840.114 [id number] Univers 00:00:00 00:00:00 Only Unassigned, XU 350.1.13.10 ity of [place] [facility] 4.2.7.2.686 Niko as [phone] [facility] 009 [address] 2020-09-13 2020-09-13 Case Jarrod, [facility] 1.2.223.382 [id number] Univers 00:00:00 00:00:00 Management Lashawn Y HEALTH 350.1.13.10 ity of CL[place].2.[place] [id number] [facility] 113 [place] 2020-09-13 2020-09-13 Abstract Rima, [facility] 1.2.840.114 [id number] Univers 00:00:00 00:00:00 Robert Plunkett 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 350.1.13.10 ity of [facility] 4.2.7.2.686 Niko as MATERNAL [phone] [facility] ical & CHILD [address] [place] [address] 2020-08-31 2020-08-31 Routine Robert Abarca [facility] 1.2.8 40.114 [id number] Univers 12:46:01 13:22:00 Brenda Davies 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 350.1.13.10 ity of Visit [facility]AL 4.2.7.2.686 Niko as MATERNAL [phone] [facility] ical & CHILD [address] [place] [address] 2020-08-31 2020-08-31 Outpatient R SAMSON [facility] [id number] Univers 12:45:00 12:45:00 BRENDA yip [facility] 2020-08-05 2020-08-05 Joseph Desir [facility] 1.2.461.898 [id number] Univers 00:00:00 00:00:00 Deonte Skaggs 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 350.1.13.10 ity of [facility] 4.2.7.2.686 Niko as MATERNAL [phone] [facility] & CHILD [address] [place] [address] 2020-08-02 2020-08-02 Initial Rima [facility] 1.2.548.985 [id number] Univers 10:17:21 11:21:52 Robert Plunkett 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 350.1.13.10 ity of Visit [facility]IONAL 4.2.7.2.686 Niko as MATERNAL [phone] [facility] & CHILD [address] [place] [address] 2020-08-02 2020-08-02 Outpatient R RIMA [facility] [id number] Univers 10:00:00 10:00:00 ROBERT yip o f [facility] 2020-08-02 2020-08-02 Orders Doctor OSORIO [id number] Univers 00:00:00 00:00:00 Only Unassigned, XU 350.1.13.10 ity of [place] [facility] 4.2.7.2.686 Niko as [phone] [address] 2020-01-12 2020-01-12 Letter Rima [facility] [id number] 00:00:00 00:00:00 (Out) Robert C 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 350.1.13.10 REGIONAL 4.2.7.2.686 MATERNAL [id number] & CHILD [address] 2020-01-12 2020-01-12 Letter [facility] [id number] Univers 00:00:00 00:00:00 (Out) Robert C 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 350.1.13.10 ity of REGIONAL 4.2.7.2.686 Niko as MATERNAL [phone] [facility] & CHILD [address] [place] [address] 2019-12-29 2019-12-29 [facility] [id number] Univers 10:30:00 10:30:00 ROBERT yip o f [facility] 2019-12-29 2019-12-29 Telephone [facility] [id number] 00:00:00 00:00:00 Robert C 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 350.1.13.10 REGIONAL 4.2.7.2.686 MATERNAL [id number] & CHILD [address] 2019-12-29 2019-12-29 Telephone [facility] [id number] [id number] Univers 00:00:00 00:00:00 Robert C 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 350.1.13.10 ity of [facility] 4.2.7.2.686 Niko as MATERNAL [phone] [facility] & CHILD [address] [place] [address] 2019-12-04 2019-12-04 Outpatient R [facility] [id number] Univers 13:00:00 13:00:00 BRENDA yip [facility] Results Test Description Test Time Test Comments [...] code = 3257) trace Negative - Negative [facility] WITH [id number] 02:56:47 Test Item Value Reference Range Interpretation [...] RDW-SD (test code = 47.2 fL 39.0-49.9 56069-9) RDW-CV (test code = 15.8 % 12.0-15.5 H 788-0) PLT (test code = See_Comment [Automated 777-3) message] The sy stem which generated this result transmitted reference range : 166 - 358 10*3/ ?L. The reference r jayne was not used to interpret this result as normal/abnormal . MPV (test code = 10.3 fL 9.5-12.9 20247-9) NRBC/100 WBC (test See_Comment [Automat ed code = 4865336841) message] The system which generated this result transmitted reference range : 0.0 - 10.0 /100 WBCs. The refer ence range was not u sed to interpret th is result as normal/abnormal . NRBC x10^3 (test code <0.01 See_Comment [Auto mated = 1540538151) message] The s ystem which generated this result transmitted reference range : 10*3/?L. The reference range was not used to interpret this result as normal/abnormal . GRAN MAT (NEUT) % 63.1 % (test code = 770-8) IMM GRAN % (test code 0.50 % = 3806191837) LYMPH % (test code = 29.7 % 736-9) MONO % (test code = 6.4 % 5905-5) EOS % (test code = 0.2 % 713-8) BASO % (test code = 0.1 % 706-2) GRAN MAT x10^3(ANC) 5.40 10*3/uL 1.88-7.09 (test code = 2895019509) IMM GRAN x10^3 (test 0.04 10*3/uL 0.00-0.06 code = 3589648471) LYMPH x10^3 (test code 2.54 10*3/uL 1.32-3.29 = 731-0) MONO x10^3 (test code 0.55 10*3/uL 0.33-0.92 = 742-7) EOS x10^3 (test code = <0.03 0.03-0.39 L 711-2) BASO x10^3 (test code <0.03 0.01-0.07 = 704-7) Lab Interpretation Abnormal (test code = 27254-7) [facility] Packed RBC (in units), 2 Units 2022-02-03 18:02:41 Test Item Value Reference Range Interpretation Comments Cross Match Result Compatible (test code = 4409) ISBT Blood Type Code (test code = 567978) Unit Blood Type (test O Pos code = 4410) Unit Number (test [id number] code = 4411) Blood Expiration Date & Time (test code = 424769) Status Information Issued (test code = 4412) Product Red Blood Cells Identification (test code = 4413) Product Code (test [id number] Performed at [facility] code = 4414) Laboratory Services - [facility] Blood [address] [place] [address]Jutu Free: [phone] A No. [id number] [facility] CenterCMV BY [id number] 17:26:21 Test Item Value Reference Range Interpretation Comments Specimen Tested Plasma (test code = 2008820067) CMV PCR - log <2.5 See_Comment [Automated IU/mL (test message] The code = 71789-6) system which generated this result transmitted reference range : <2.5 log IU/mL. The reference range was not used to interpr et this result as normal/abnormal . CMV PCR - IU/mL <300 See_Comment [Automated (test code = message] The 79380-2) system which generated this result transmitted reference range : <300 IU/mL. The reference range was not used to interpret this result as normal/abnormal . CMV PCR - log <2.7 See_Comment [Automated copies/mL (test message] The code = 88938-4) system which generated this result transmitted reference range : <2.7 log copies/mL. The reference range was not used to interpret this result as normal/abnormal . CMV PCR - <516 See_Comment [Automated copies/mL (test message] The code = 46818-7) system which generated this result transmitted reference [...] This is a laboratory-developed test using a medical services assistant labeled ASR (Analyte Specific Reagent) as the reagent providing the specificity of the assay. ?This test was developed and its performance characteristics determined by [facility] Clinical Microbiology Laboratory. It has not [...] to perform high complexity clinical laboratory testing. [facility] with Iuycpbrgbmck9019-44-40 12:33:16 Test Item Value Reference Range Interpretation Comments WBC (test code = See_Comment [Automated 6690-2) message] The sy stem which generated this result transmitted reference range : 4.30 - 11.10 10*3/?L. The reference range was not used to interpret this result as normal/abnormal . RBC (test code = See_Comment L [Automated 709-8) message] The sy stem which generated this [...] RDW-SD (test code = 47.8 fL 39.0-49.9 03629-0) RDW-CV (test code = 15.9 % 12.0-15.5 H 788-0) PLT (test code = See_Comment L [Automated 777-3) message] The sy stem which generated this result transmitted reference range : 166 - 358 10*3/ ?L. The reference r jayne was not used to interpret this result as normal/abnormal . MPV (test code = 10.6 fL 9.5-12.9 99992-7) NRBC/100 WBC (test See_Comment [Automat ed code = 7588351318) message] The system which generated this result transmitted reference range : 0.0 - 10.0 /100 WBCs. The refer ence range was not u sed to interpret th is result as normal/abnormal . NRBC x10^3 (test code <0.01 See_Comment [Auto mated = 2959327258) message] The s ystem which generated this result transmitted reference range : 10*3/?L. The reference range was not used to interpret this result as normal/abnormal . GRAN MAT (NEUT) % 59.4 % (test code = 770-8) IMM GRAN % (test code 0.20 % = 1573018975) LYMPH % (test code = 33.2 % 736-9) MONO % (test code = 6.6 % 5905-5) EOS % (test code = 0.4 % 713-8) BASO % (test code = 0.2 % 706-2) GRAN MAT x10^3(ANC) 2.97 10*3/uL 1.88-7.09 (test code = 1257570878) IMM GRAN x10^3 (test <0.03 0.00-0.06 code = 1095556131) LYMPH x10^3 (test code 1.66 10*3/uL 1.32-3.29 = 731-0) MONO x10^3 (test code 0.33 10*3/uL 0.33-0.92 = 742-7) EOS x10^3 (test code = <0.03 0.03-0.39 L 711-2) BASO x10^3 (test code <0.03 0.01-0.07 = 704-7) Lab Interpretation Abnormal (test code = 40495-8) [facility] CenterHSV 1 and 2 Glycoprotein G [id number] 20:18:47 Test Item Value Reference Range Interpretation Comments HSV I IgG (test code Positive Negative = 1942046574) HSV II IgG (test code Negative Negative = 8506078386) VERN (test code = VERN) Positive - IgG antibody to HSV 1 and/or HSV 2 detected.Negative - No HSV 1 and/or HSV 2 antibody detected.Equivocal - A second sample should be sent. [facility] [place] [facility] CenterTOXOPLASMA AB, [id number] 20:17:46 Test Item Value Reference Range Interpretation Comments Toxoplasma Antibody Negative Negative IgM (test code = 48677-6) VERN (test code = VERN) Negative - [...] ml) or to PAMF website (http://www.pamf.org/ser ology). [facility] CenterTOXOPLASMA IGG OWPRETYP6374-97-66 20:16:05 Test Item Value Reference Range Interpretation Comments TOXO IGG (test code Negative = 4082921782) VERN (test code = Positive - Indicates VERN) current or past T. gondii infection.Negative - No serologic evidence of T. gondii infection. Cannot exclude acute T. gondii infection. Equivocal - A second sample should be sent. [facility] CenterRHO (D) IMMUNE [id number] 19:50:27 Test Item Value Reference Range Interpretation Comments RHIG CANDIDATE? No- see comment Patient i s not a (test code = candidate for R hIg- 5055) Patient is Rh Positive.Perfor med at [facility] Laboratory Services - [facility] Blood [address] [place] [address]Ihbf Free: [phone] A No. [id number] [facility] CenterHepatitis B Surface Iibslpg7756-21-14 10:45:12 Test Item Value Reference Range Interpretation Comments HBsAg Semi-Quantitative (test code = Negative Negative 5195-3) [facility] CenterFETAL HGB STAIN/KB [id number] 10:07:00 Test Item Value Reference Range Interpretation Comments HGB STAIN Negative Performed at [facility] (test code = 843) Laboratory Services - [facility] Blood Bank3 [address] [facility] [address]Vlfr Free: [phone] A No. [id number] BLEED IN MLS See comment 0 mLPerfo rmed at [facility] (test code = 5045) Laborator y Services - [facility] Blood Bank[address] [facility] [address]Ywfu Free: [phone] A No. [id number] RHIG REQUIRED? 0 Syringes Patient is no t a (test code = 1747) candidate for RhIg- Patient is Rh Positive.Perfor med at [facility] Laboratory Services - [facility] Blood Ban [address] [facility] s [address]Aqvf Free: [phone] A No. [id number] [facility] CenterADC OR ZAINA ONLY - [id number] 09:05:44 Test Item Value Reference Range Interpretation Comments RPR (Qualitative) (test code = Nonreactive Nonreactive 24009-4) Lab Interpretation (test code = Normal 95341-1) [facility] CenterTHYROID STIMULATING [id number] 03:19:59 Test Item Value Reference Range Interpretation Comments TSH (test code = See_Comment [Automated message] 2324655592) The system [employer] h generated this result transmitted ref erence range: 0.45 - 4 .70 mIU/L. The refe rence range was not u sed to interpret this result as normal/abnor mal. Lab Interpretation (test Normal code = 58462-6) [facility] CenterType and Screen - ONCE [id number] 03:05:00 Test Item Value Reference Range Interpretation Comments ABO & RH (test code O Positive Performe d at [facility] = 20) Laboratory Serv ices - [facility] Blood [address] [place], [place] [address]Vmsg Free: [phone] A No. [id number] IAT (test code = Negative Performed a t [facility] 1185) Laboratory Serv [facility] Blood Bank[address] [place] [address]Qsuv Free: [phone] A No. [id number] [facility]. METABOLIC PANEL (81510)2022-02-02 02:50:17 Test Item Value Reference Range Interpretation Comments NA (test code = 137 mmol/L 135-145 7182325992) K (test code = 3.5 mmol/L 3.5-5.0 1405319536) CL (test code = 105 mmol/L 98-108 3871501500) CO2 TOTAL (test code = 19 mmol/L 23-31 L 5132891553) AGAP (test code = 2-16 8866405109) BUN (test code = 4 mg/dL 7-23 L 9669067876) GLUCOSE (test code = 97 mg/dL 70-110 6559117753) CREATININE (test code = 0.42 mg/dL 0.50-1.04 L 3128135458) TOTAL BILI (test code = 1.3 mg/dL 0.1-1.1 H 8238074168) CALCIUM (test code = 9.4 mg/dL 8.6-10.6 6693187325) T PROTEIN (test code = 7.6 g/dL 6.3-8.2 2473906766) ALBUMIN (test code = 4.1 g/dL 3.5-5.0 1013381374) ALK PHOS (test code = 95 U/L 34-122 0763775528) ALTv (test code = 15 U/L 5-35 1742-6) AST(SGOT) (test code = 25 U/L 13-40 1800830801) eGFR (test code = mL/min/1.73m2 6426555297) VERN (test code = VERN) Association of [...] tests). Lab Interpretation Abnormal (test code = 33285-4) [facility] CenterGLYCOSYLATED HEMOGLOBIN (A1C)2022-02-02 02:40:54 Test Item Value Reference Range Interpretation Comments HGB A1C (test code = 4.8 % 4.0-5.7 4548-4) VERN (test code = VERN) Reference RangesNormal: <5.7%Prediabetes: 5.7 - 6.4%Diabetes: > 6.5% Lab Interpretation (test Normal code = 56808-8) [facility] CenterCBC with Iqhjaftgqwlr5106-40-85 02:27:20 Test Item Value Reference Range Interpretation Comments WBC (test code = See_Comment [Automated 0016-2) message] The sy stem which generated this result transmitted reference range : 4.30 - 11.10 10*3/?L. The reference range was not used to interpret this result as normal/abnormal . RBC (test code = See_Comment L [Automated 233-8) message] The sy stem which generated this [...] RDW-SD (test code = 43.8 fL 39.0-49.9 78185-9) RDW-CV (test code = 15.4 % 12.0-15.5 788-0) PLT (test code = See_Comment [Automated 777-3) message] The sy stem which generated this result transmitted reference range : 166 - 358 10*3/ ?L. The reference r jayne was not used to interpret this result as normal/abnormal . MPV (test code = 10.4 fL 9.5-12.9 12860-5) NRBC/100 WBC (test See_Comment [Automat ed code = 1088807442) message] The system which generated this result transmitted reference range : 0.0 - 10.0 /100 WBCs. The refer ence range was not u sed to interpret th is result as normal/abnormal . NRBC x10^3 (test code <0.01 See_Comment [Auto mated = 0375119689) message] The s ystem which generated this result transmitted reference range : 10*3/?L. The reference range was not used to interpret this result as normal/abnormal . GRAN MAT (NEUT) % 68.4 % (test code = 770-8) IMM GRAN % (test code 0.30 % = 2203029033) LYMPH % (test code = 25.0 % 736-9) MONO % (test code = 5.7 % 5905-5) EOS % (test code = 0.3 % 713-8) BASO % (test code = 0.3 % 706-2) GRAN MAT x10^3(ANC) 4.97 10*3/uL 1.88-7.09 (test code = 2809158642) IMM GRAN x10^3 (test <0.03 0.00-0.06 code = 9736942728) LYMPH x10^3 (test code 1.81 10*3/uL 1.32-3.29 = 731-0) MONO x10^3 (test code 0.41 10*3/uL 0.33-0.92 = 742-7) EOS x10^3 (test code = <0.03 0.03-0.39 L 711-2) BASO x10^3 (test code <0.03 0.01-0.07 = 704-7) Lab Interpretation Abnormal (test code = 45768-7) [facility] URINALYSIS W/O SPECIFIC [id number] 16:40:00 Test Item Value Reference Range Interpretation [...] code = 3257) n/a Negative - Negative [facility] URINALYSIS W/O SPECIFIC [id number] 13:28:00 Test Item Value Reference Range Interpretation [...] code = 3257) n/a Negative - Negative [facility] URINALYSIS W/O SPECIFIC [id number] 17:01:00 Test Item Value Reference Range Interpretation [...] code = 3257) n/a Negative - Negative [facility] URINALYSIS W/O SPECIFIC [id number] 14:57:00 Test Item Value Reference Range Interpretation [...] code = 3257) n/a Negative - Negative [facility] URINALYSIS W/O SPECIFIC [id number] 17:26:00 Test Item Value Reference Range Interpretation [...] code = 3257) n/a [facility] - [facility] [id number] 20:28:00 Test Item Value Reference Range Interpretation Comments POCT PREG (test code = 1605) Positive On board controls acceptable with C Yes Line (test code = 3574) POCT PREG LOT # (test code = 3575) POCT PREG TEST DATE (test code = 3576) [facility] URINALYSIS W/O SPECIFIC [id number] 20:27:00 Test Item Value Reference Range Interpretation [...] code = 3257) n/a Negative - Negative [facility] WITHOUT [id number] 20:29:03 Test Item Value Reference Range Interpretation Comments WBC (test code = 6690-2) See_Comment [A utomated message] The system [employer] generated this result transmit arielle reference range : 4.30 - 11.10 10*3/?L. The reference range was not used to interpret this result as normal/abnormal . RBC (test code = 789-8) See_Comment L [Au tomated message] The system [employer] generated this result transmit arielle reference range [...] 777-3) See_Comment [Au tomated message] The system [employer] generated this result transmit arielle reference range : 166 - 358 10*3/?L. The reference range was not used to interpret this result as normal/abnormal . MPV (test code = 10.6 fL 9.5-12.9 68841-9) RDW-CV (test code = 14.3 % 12.0-15.5 788-0) RDW-SD (test code = 41.8 fL 39.0-49.9 67863-7) NRBC x10^3 (test code = <0.01 See_Comment [Au tomated message] 7565674262) The system [employer] generated this result transmit arielle reference range : 10*3/?L. The reference range was not used to interpret this result as normal/abnormal . NRBC/100 WBC (test code See_Comment [Au tomated message] = 9247476286) The system [facility] generated this result transmit arielle reference range : 0.0 - 10.0 /100 WBC s. The reference r jayne was not used to interpret this result as normal/abnormal . IPF % (test code = 8061581175) Lab Interpretation (test Abnormal code = 67034-7) [facility] WITHOUT [id number] 20:29:03 Test Item Value Reference Range Interpretation Comments WBC (test code = 6690-2) See_Comment [A utomated message] The system [employer] generated this result transmit arielle reference range : 4.30 - 11.10 10*3/?L. The reference range was not used to interpret this result as normal/abnormal . RBC (test code = 789-8) See_Comment L [Au tomated message] The system [employer] generated this result transmit arielle reference range [...] 777-3) See_Comment [Au tomated message] The system [employer] generated this result transmit arielle reference range : 166 - 358 10*3/?L. The reference range was not used to interpret this result as normal/abnormal . MPV (test code = 10.6 fL 9.5-12.9 34658-9) RDW-CV (test code = 14.3 % 12.0-15.5 788-0) RDW-SD (test code = 41.8 fL 39.0-49.9 84135-5) NRBC x10^3 (test code = <0.01 See_Comment [Au tomated message] 9686247530) The system [employer] h generated this result transmit arielle reference range : 10*3/?L. The reference range was not used to interpret this result as normal/abnormal . NRBC/100 WBC (test code See_Comment [Au tomated message] = 2227870177) The system [employer] generated this result transmit arielle reference range : 0.0 - 10.0 /100 WBC s. The reference r jayne was not used to interpret this result as normal/abnormal . IPF % (test code = 6181003654) Lab Interpretation (test Abnormal code = 10958-3) [facility] Packed RBC (in units), 1 Units 2021-02-20 13:22:40 Test Item Value Reference Range Interpretation Comments Cross Match Result Compatible (test code = 4409) ISBT Blood Type Code (test code = 491138) Unit Blood Type (test O Pos code = 4410) Unit Number (test [id number] code = 4411) Blood Expiration Date & Time (test code = 864396) Status Information Issued (test code = 4412) Product Red Blood Cells Identification (test code = 4413) Product Code (test [id number] Performed at [facility] code = 4414) Laboratory Services - [facility] Blood [address] [place] [address]Iuce Free: [phone] A No. [id number] [facility] Packed RBC (in units), 1 Units 2021-02-20 13:22:40 Test Item Value Reference Range Interpretation Comments Cross Match Result Compatible (test code = 4409) ISBT Blood Type Code (test code = 494502) Unit Blood Type (test O Pos code = 4410) Unit Number (test [id number] code = 4411) Blood Expiration Date & Time (test code = 633551) Status Information Issued (test code = 4412) Product Red Blood Cells Identification (test code = 4413) Product Code (test M1814W65 Performed at [facility] code = 4414) Laboratory Services - [facility] Blood [address] [address]Bpws Free: [phone] A No. [id number] [facility] Center[facility] with Swqrrnwfjnoy5101-93-14 10:11:56 Test Item Value Reference Range Interpretation [...] RDW-SD (test code = 41.5 fL 39.0-49.9 40745-7) RDW-CV (test code = 14.3 % 12.0-15.5 788-0) PLT (test code = See_Comment [Automated 777-3) message] The sy stem which generated this result transmitted reference range : 166 - 358 10*3/ ?L. The reference r jayne was not used to interpret this result as normal/abnormal . MPV (test code = 10.4 fL 9.5-12.9 00934-8) NRBC/100 WBC (test See_Comment [Automat ed code = 5048691013) message] The system which generated this result transmitted reference range : 0.0 - 10.0 /100 WBCs. The refer ence range was not u sed to interpret th is result as normal/abnormal . NRBC x10^3 (test code <0.01 See_Comment [Auto mated = 3993562339) message] The s ystem which generated this result transmitted reference range : 10*3/?L. The reference range was not used to interpret this result as normal/abnormal . GRAN MAT (NEUT) % 64.6 % (test code = 770-8) IMM GRAN % (test code 0.70 % = 8422261709) LYMPH % (test code = 24.7 % 736-9) MONO % (test code = 9.6 % 5905-5) EOS % (test code = 0.2 % 713-8) BASO % (test code = 0.2 % 706-2) GRAN MAT x10^3(ANC) 5.91 10*3/uL 1.88-7.09 (test code = 8576772392) IMM GRAN x10^3 (test 0.06 10*3/uL 0.00-0.06 code = 4811691191) LYMPH x10^3 (test code 2.26 10*3/uL 1.32-3.29 = 731-0) MONO x10^3 (test code 0.88 10*3/uL 0.33-0.92 = 742-7) EOS x10^3 (test code = <0.03 0.03-0.39 L 711-2) BASO x10^3 (test code <0.03 0.01-0.07 = 704-7) Lab Interpretation Abnormal (test code = 46919-4) [facility] with Odgvshtmpgkh3130-56-30 10:11:56 Test Item Value Reference Range Interpretation Comments WBC (test code = See_Comment [Automated 7245-2) message] The sy stem which generated this result transmitted reference range : 4.30 - 11.10 10*3/?L. The reference range was not used to interpret this result as normal/abnormal . RBC (test code = See_Comment L [Automated 460-8) message] The sy stem which generated this [...] RDW-SD (test code = 41.5 fL 39.0-49.9 66234-9) RDW-CV (test code = 14.3 % 12.0-15.5 788-0) PLT (test code = See_Comment [Automated 777-3) message] The sy stem which generated this result transmitted reference range : 166 - 358 10*3/ ?L. The reference r jayne was not used to interpret this result as normal/abnormal . MPV (test code = 10.4 fL 9.5-12.9 79728-1) NRBC/100 WBC (test See_Comment [Automat ed code = 4390693657) message] The system which generated this result transmitted reference range : 0.0 - 10.0 /100 WBCs. The refer ence range was not u sed to interpret th is result as normal/abnormal . NRBC x10^3 (test code <0.01 See_Comment [Auto mated = 6384969820) message] The s ystem which generated this result transmitted reference range : 10*3/?L. The reference range was not used to interpret this result as normal/abnormal . GRAN MAT (NEUT) % 64.6 % (test code = 770-8) IMM GRAN % (test code 0.70 % = 0217065093) LYMPH % (test code = 24.7 % 736-9) MONO % (test code = 9.6 % 5905-5) EOS % (test code = 0.2 % 713-8) BASO % (test code = 0.2 % 706-2) GRAN MAT x10^3(ANC) 5.91 10*3/uL 1.88-7.09 (test code = 0308653926) IMM GRAN x10^3 (test 0.06 10*3/uL 0.00-0.06 code = 6785595806) LYMPH x10^3 (test code 2.26 10*3/uL 1.32-3.29 = 731-0) MONO x10^3 (test code 0.88 10*3/uL 0.33-0.92 = 742-7) EOS x10^3 (test code = <0.03 0.03-0.39 L 711-2) BASO x10^3 (test code <0.03 0.01-0.07 = 704-7) Lab Interpretation Abnormal (test code = 31932-1) [facility] Packed RBC (in units), 1 Units 2021-02-20 00:59:26 Test Item Value Reference Range Interpretation Comments Cross Match Result Compatible (test code = 4409) ISBT Blood Type Code (test code = 094434) Unit Blood Type (test O Pos code = 4410) Unit Number (test [id number] code = 4411) Blood Expiration Date & Time (test code = 640066) Status Information Issued (test code = 4412) Product Red Blood Cells Identification (test code = 4413) Product Code (test [id number] Performed at [facility] code = 4414) Laboratory Services [facility] Blood [address] [place] [address] Free: [phone] A No. [id number] [facility] Packed RBC (in units), 1 Units 2021-02-20 00:59:26 Test Item Value Reference Range Interpretation Comments Cross Match Result Compatible (test code = 4409) ISBT Blood Type Code (test code = 473170) Unit Blood Type (test O Pos code = 4410) Unit Number (test [id number] code = 4411) Blood Expiration Date & Time (test code = 701472) Status Information Issued (test code = 4412) Product Red Blood Cells Identification (test code = 4413) Product Code (test X1034N36 Performed at [facility] code = 4414) Laboratory Services [facility] Blood [address] [place], [place] [address]Toll Free: [phone] A No. [id number] [facility] WITHOUT [id number] 00:03:52 Test Item Value Reference Range Interpretation Comments WBC (test code = 6690-2) See_Comment H [A utomated message] The system [employer] generated this result transmit arielle reference range : 4.30 - 11.10 10*3/?L. The reference range was not used to interpret this result as normal/abnormal . RBC (test code = 789-8) See_Comment L [Au tomated message] The system [employer] generated this result transmit arielle reference range [...] 777-3) See_Comment [Au tomated message] The system [employer] generated this result transmit arielle reference range : 166 - 358 10*3/?L. The reference range was not used to interpret this result as normal/abnormal . MPV (test code = 10.4 fL 9.5-12.9 83357-1) RDW-CV (test code = 14.5 % 12.0-15.5 788-0) RDW-SD (test code = 42.0 fL 39.0-49.9 28551-6) NRBC x10^3 (test code = <0.01 See_Comment [Au tomated message] 1206984089) The system [employer] generated this result transmit arielle reference range : 10*3/?L. The reference range was not used to interpret this result as normal/abnormal . NRBC/100 WBC (test code See_Comment [Au tomated message] = 2216748027) The system [facility] generated this result transmit arielle reference range : 0.0 - 10.0 /100 WBC s. The reference r jayne was not used to interpret this result as normal/abnormal . IPF % (test code = 4646911882) Lab Interpretation (test Abnormal code = 91154-0) [facility] WITHOUT [id number] 00:03:52 Test Item Value Reference Range Interpretation Comments WBC (test code = 6690-2) See_Comment H [A utomated message] The system [employer] generated this result transmit arielle reference range : 4.30 - 11.10 10*3/?L. The reference range was not used to interpret this result as normal/abnormal . RBC (test code = 789-8) See_Comment L [Au tomated message] The system [employer] generated this result transmit arielle reference range [...] 777-3) See_Comment [Au tomated message] The system [employer] generated this result transmit arielle reference range : 166 - 358 10*3/?L. The reference range was not used to interpret this result as normal/abnormal . MPV (test code = 10.4 fL 9.5-12.9 50480-6) RDW-CV (test code = 14.5 % 12.0-15.5 788-0) RDW-SD (test code = 42.0 fL 39.0-49.9 42939-4) NRBC x10^3 (test code = <0.01 See_Comment [Au tomated message] 7120107155) The system [employer] generated this result transmit arielle reference range : 10*3/?L. The reference range was not used to interpret this result as normal/abnormal . NRBC/100 WBC (test code See_Comment [Au tomated message] = 6284122127) The system [employer] generated this result transmit arielle reference range : 0.0 - 10.0 /100 WBC s. The reference r jayne was not used to interpret this result as normal/abnormal . IPF % (test code = 1603306054) Lab Interpretation (test Abnormal code = 21945-5) [facility] Surface [id number] 17:32:12 Test Item Value Reference Range Interpretation Comments HBsAg Semi-Quantitative (test code = Negative Negative 5195-3) [facility] Surface [id number] 17:32:12 Test Item Value Reference Range Interpretation Comments HBsAg Semi-Quantitative (test code = Negative Negative 5195-3) [facility] Packed RBC (in units), 1 Units 2021-02-19 17:27:17 Test Item Value Reference Range Interpretation Comments Cross Match Result Compatible (test code = 4409) ISBT Blood Type Code (test code = 677726) Unit Blood Type (test O Pos code = 4410) Unit Number (test [id number] code = 4411) Blood Expiration Date & Time (test code = 574564) Status Information Issued (test code = 4412) Product Red Blood Cells Identification (test code = 4413) Product Code (test E1246K70 Performed at [facility] code = 4414) Laboratory [facility] Blood [address] Free: [phone] A No. [id number] [facility] Packed RBC (in units), 1 Units 2021-02-19 17:27:17 Test Item Value Reference Range Interpretation Comments Cross Match Result Compatible (test code = 4409) ISBT Blood Type Code (test code = 922478) Unit Blood Type (test O Pos code = 4410) Unit Number (test [id number] code = 4411) Blood Expiration Date & Time (test code = 615589) Status Information Issued (test code = 4412) Product Red Blood Cells Identification (test code = 4413) Product Code (test [id number] Performed at [facility] code = 4414) Laboratory Services [facility] Blood [address] Free: [phone] A No. [id number] [facility] WITHOUT [id number] 16:28:06 Test Item Value Reference Range Interpretation Comments WBC (test code = 6690-2) See_Comment H [A utomated message] The system [employer] generated this result transmit arielle reference range : 4.30 - 11.10 10*3/?L. The reference range was not used to interpret this result as normal/abnormal . RBC (test code = 789-8) See_Comment L [Au tomated message] The system [employer] generated this result transmit arielle reference range [...] 777-3) See_Comment [Au tomated message] The system [employer] generated this result transmit arielle reference range : 166 - 358 10*3/?L. The reference range was not used to interpret this result as normal/abnormal . MPV (test code = 10.4 fL 9.5-12.9 39580-2) RDW-CV (test code = 14.2 % 12.0-15.5 788-0) RDW-SD (test code = 41.6 fL 39.0-49.9 58110-0) NRBC x10^3 (test code = <0.01 See_Comment [Au tomated message] 1646509989) The system [employer] generated this result transmit arielle reference range : 10*3/?L. The reference range was not used to interpret this result as normal/abnormal . NRBC/100 WBC (test code See_Comment [Au tomated message] = 7692783097) The system [facility] generated this result transmit arielle reference range : 0.0 - 10.0 /100 WBC s. The reference r jayne was not used to interpret this result as normal/abnormal . IPF % (test code = 1166149622) Lab Interpretation (test Abnormal code = 03458-2) [facility] WITHOUT [id number] 16:28:06 Test Item Value Reference Range Interpretation Comments WBC (test code = 6690-2) See_Comment H [A utomated message] The system [employer] generated this result transmit arielle reference range : 4.30 - 11.10 10*3/?L. The reference range was not used to interpret this result as normal/abnormal . RBC (test code = 789-8) See_Comment L [Au tomated message] The system [employer] generated this result transmit arielle reference range [...] 777-3) See_Comment [Au tomated message] The system [employer] generated this result transmit arielle reference range : 166 - 358 10*3/?L. The reference range was not used to interpret this result as normal/abnormal . MPV (test code = 10.4 fL 9.5-12.9 50166-5) RDW-CV (test code = 14.2 % 12.0-15.5 788-0) RDW-SD (test code = 41.6 fL 39.0-49.9 14136-7) NRBC x10^3 (test code = <0.01 See_Comment [Au tomated message] 5215724617) The system [employer] generated this result transmit arielle reference range : 10*3/?L. The reference range was not used to interpret this result as normal/abnormal . NRBC/100 WBC (test code See_Comment [Au tomated message] = 3439198717) The system [employer] generated this result transmit arielle reference range : 0.0 - 10.0 /100 WBC s. The reference r jayne was not used to interpret this result as normal/abnormal . IPF % (test code = 3922140900) Lab Interpretation (test Abnormal code = 34630-3) [facility] (D) IMMUNE [id number] 13:26:34 Test Item Value Reference Range Interpretation Comments RHIG CANDIDATE? No- see comment Patient i s not a (test code = candidate for R hIg- 5055) Patient is Rh Positive.Perfor med at [facility] Laboratory Services [facility] Blood [address] [place] [address] Free: [phone] A No. [id number] [facility] (D) IMMUNE [id number] 13:26:34 Test Item Value Reference Range Interpretation Comments RHIG CANDIDATE? No- see comment Patient i s not a (test code = candidate for R hIg- 5055) Patient is Rh Positive.Perfor med at [facility] Laboratory Services - [facility] Blood [address] [place] [address] Free: [phone] A No. [id number] [facility] WITH [id number] 12:03:32 Test Item Value Reference Range Interpretation Comments HIV Negative Negative Semi-quantitative (test code = 12844-9) VERN (test code = Non-reactive for HIV-1 VERN) antigen and HIV-1/HIV-2 antibodies. ?No laboratory evidence of HIV infection. ?Repeat in 2-4 weeks if acute HIV infection is suspected. [facility] WITH [id number] 12:03:32 Test Item Value Reference Range Interpretation Comments HIV Negative Negative Semi-quantitative (test code = 58196-7) VERN (test code = Non-reactive for HIV-1 VERN) antigen and HIV-1/HIV-2 antibodies. ?No laboratory evidence of HIV infection. ?Repeat in 2-4 weeks if acute HIV infection is suspected. [facility] Cord [id number] 11:05:00 Test Item Value Reference Range Interpretation Comments VENOUS BASE EXCESS, mEq/L CORD (test code = 2886617595) VENOUS PH, CORD (test 7.25-7.45 code = 9640194072) VENOUS PC02, CORD See_Comment [Automate d message] The (test code = system which ge nerated 4518218137) this result tra nsmitted reference range : 27 - 49 mmHg. The refer ence range was not used to interpret this result as normal/abnormal . VENOUS PO2, CORD (test See_Comment [Aut omated message] The code = 0037590343) system [employer] generated this result tra nsmitted reference range : 17 - 41 mmHg. The refer ence range was not used to interpret this result as normal/abnormal . VENOUS BICARBONATE, See_Comment [Automa arielle message] The CORD (test code = system [employer] generated 6903380234) this result tra nsmitted reference range : 12 - 29 mEq/L. The refe rence range was not used to interpret this result as normal/abnormal . [facility] Cord [id number] 11:05:00 Test Item Value Reference Range Interpretation Comments VENOUS BASE EXCESS, mEq/L CORD (test code = 1759274690) VENOUS PH, CORD (test 7.25-7.45 code = 5834935352) VENOUS PC02, CORD See_Comment [Automate d message] The (test code = system which ge nerated 2383513219) this result tra nsmitted reference range : 27 - 49 mmHg. The refer ence range was not used to interpret this result as normal/abnormal . VENOUS PO2, CORD (test See_Comment [Aut omated message] The code = 9126250954) system [employer] generated this result tra nsmitted reference range : 17 - 41 mmHg. The refer ence range was not used to interpret this result as normal/abnormal . VENOUS BICARBONATE, See_Comment [Automa arielle message] The CORD (test code = system [facility] generated 2852339408) this result tra nsmitted reference range : 12 - 29 mEq/L. The refe rence range was not used to interpret this result as normal/abnormal . [facility] - ONCE [id number] 10:44:56 Test Item Value Reference Range Interpretation Comments ABO & RH (test code O Positive Performe d at [facility] = 20) Laboratory [facility] Blood [address] [place] [address] Free: [phone] A No. [id number] IAT (test code = Negative Performed a t [facility] 1185) Laboratory [facility] Blood [address] [place], [place] [address]Toll Free: [phone] A No. [id number] [facility] and Screen - ONCE [id number] 10:44:56 Test Item Value Reference Range Interpretation Comments ABO & RH (test code O Positive Performe d at [facility] = 20) Laboratory [facility] Blood [address] Free: [phone] A No. [id number] IAT (test code = Negative Performed a t [facility] 1185) Laboratory [facility] Blood [address] [place], [place] [address]Toll Free: [phone] A No. [id number] [facility] with [id number] 10:08:07 Test Item Value Reference Range Interpretation Comments WBC (test code = See_Comment H [Automated 3590-2) message] The sy stem which generated this result transmitted reference range : 4.30 - 11.10 10*3/?L. The reference range was not used to interpret this result as normal/abnormal . RBC (test code = See_Comment [Automated 809-8) message] The sy stem which generated this [...] RDW-SD (test code = 40.6 fL 39.0-49.9 96699-4) RDW-CV (test code = 14.0 % 12.0-15.5 788-0) PLT (test code = See_Comment [Automated 777-3) message] The sy stem which generated this result transmitted reference range : 166 - 358 10*3/ ?L. The reference r jayne was not used to interpret this result as normal/abnormal . MPV (test code = 10.1 fL 9.5-12.9 92809-1) NRBC/100 WBC (test See_Comment [Automat ed code = 7668958106) message] The system which generated this result transmitted reference range : 0.0 - 10.0 /100 WBCs. The refer ence range was not u sed to interpret th is result as normal/abnormal . NRBC x10^3 (test code <0.01 See_Comment [Auto mated = 2416903752) message] The s ystem which generated this result transmitted reference range : 10*3/?L. The reference range was not used to interpret this result as normal/abnormal . GRAN MAT (NEUT) % 65.5 % (test code = 770-8) IMM GRAN % (test code 0.90 % = 5945553756) LYMPH % (test code = 25.9 % 736-9) MONO % (test code = 7.1 % 5905-5) EOS % (test code = 0.3 % 713-8) BASO % (test code = 0.3 % 706-2) GRAN MAT x10^3(ANC) 7.29 10*3/uL 1.88-7.09 H (test code = 3817480705) IMM GRAN x10^3 (test 0.10 10*3/uL 0.00-0.06 H code = 7967026237) LYMPH x10^3 (test code 2.88 10*3/uL 1.32-3.29 = 731-0) MONO x10^3 (test code 0.79 10*3/uL 0.33-0.92 = 742-7) EOS x10^3 (test code = 0.03 10*3/uL 0.03-0.39 711-2) BASO x10^3 (test code 0.03 10*3/uL 0.01-0.07 = 704-7) Lab Interpretation Abnormal (test code = 40399-4) [facility] with [id number] 10:08:07 Test Item Value Reference Range Interpretation [...] RDW-SD (test code = 40.6 fL 39.0-49.9 11709-2) RDW-CV (test code = 14.0 % 12.0-15.5 788-0) PLT (test code = See_Comment [Automated 777-3) message] The sy stem which generated this result transmitted reference range : 166 - 358 10*3/ ?L. The reference r jayne was not used to interpret this result as normal/abnormal . MPV (test code = 10.1 fL 9.5-12.9 27623-6) NRBC/100 WBC (test See_Comment [Automat ed code = 4659492615) message] The system which generated this result transmitted reference range : 0.0 - 10.0 /100 WBCs. The refer ence range was not u sed to interpret th is result as normal/abnormal . NRBC x10^3 (test code <0.01 See_Comment [Auto mated = 3466172003) message] The s ystem which generated this result transmitted reference range : 10*3/?L. The reference range was not used to interpret this result as normal/abnormal . GRAN MAT (NEUT) % 65.5 % (test code = 770-8) IMM GRAN % (test code 0.90 % = 1963995011) LYMPH % (test code = 25.9 % 736-9) MONO % (test code = 7.1 % 5905-5) EOS % (test code = 0.3 % 713-8) BASO % (test code = 0.3 % 706-2) GRAN MAT x10^3(ANC) 7.29 10*3/uL 1.88-7.09 H (test code = 1555477993) IMM GRAN x10^3 (test 0.10 10*3/uL 0.00-0.06 H code = 7067430956) LYMPH x10^3 (test code 2.88 10*3/uL 1.32-3.29 = 731-0) MONO x10^3 (test code 0.79 10*3/uL 0.33-0.92 = 742-7) EOS x10^3 (test code = 0.03 10*3/uL 0.03-0.39 711-2) BASO x10^3 (test code 0.03 10*3/uL 0.01-0.07 = 704-7) Lab Interpretation Abnormal (test code = 15901-6) [facility] Center[facility] NON-STRESS [id number] 16:02:41 Reactive and reassuringtoco quiescent Boni Danielle MD ?02/16/2021 ?11:02 AM [facility] CenterUS PELVIS > 14 [id number] 03:45:19Impression: 1. ?Single viable intrauterine gestation in cephalic position, withestimated gestationalage of 36 weeks 1 day, EDC 03/13/2021. ? 2. ?Marginal retroplacental hemorrhage from marginal placental abruptionmeasures approximately 4.0 x 1.2 cm. Follow-up complete obstetricalultrasound exam is recommended. 3. No placenta previa. [facility]: [id number]: [id number] Exam: Greater than 14 weeks single [...] 32 cm compatible with estimated gestational age [id number] 1 day. ?Abdominal Circumference 32.1 cm compatible with estimated gestational ageof 36 weeks1 day. ?Femur Length ?7.0 cm compatible with estimated gestational age of 36 weeks1 day. ? Estimated gestational age based on sonographic criteria is 36 weeks 1 day. Estimated weight is 2833 g or6 lbs. 4 oz.. Estimated gestational agebased on last menstrual period is 34 weeks 3 days, EDC 03/25/2021. [facility], Radiant Results Inft User - 02/14/2021 10:46 [...] exam is recommended.3. No placenta previa. AFC: 05386EB: 460 [facility] - ONCE [id number] 02:25:54 Test Item Value Reference Range Interpretation Comments ABO & RH (test code O Positive Performe d at [facility] = 20) Laboratory Serv [facility] Blood Bank[address] [place], [place] [address]Toll Free: [phone] A No. [id number] IAT (test code = Negative Performed a t [facility] 1185) Laboratory [facility] Blood [address] [place] [id number] Free: [phone] A No. [id number] [facility] CenterCOVID-19 (ID NOW RAPID TESTING)2021-02-15 01:55:42 Test Item Value Reference Range Interpretation Comments SARS-CoV-2 Rapid ID NOW Not Detected Not Detected (test code = 50333-6) VERN (test code = VERN) ID NOW COVID-19 Assay is an isothermal nucleic acid amplification test intended for the qualitative detection of nucleic acid from SARS-CoV-2 viral RNA in nasopharyngeal (APARTMENT RENTAL AGENT) specimens. It is used under Emergency Use [...] indicated. Lab Interpretation Normal (test code = 54594-1) [facility] WITH [id number] 01:42:18 Test Item Value Reference Range Interpretation Comments WBC (test code = See_Comment [Automated 2390-2) message] The sy stem which generated this result transmitted reference range : 4.30 - 11.10 10*3/?L. The reference range was not used to interpret this result as normal/abnormal . RBC (test code = See_Comment [Automated 529-8) message] The sy stem which generated this [...] RDW-SD (test code = 40.5 fL 39.0-49.9 60922-4) RDW-CV (test code = 14.0 % 12.0-15.5 788-0) PLT (test code = See_Comment [Automated 777-3) message] The sy stem which generated this result transmitted reference range : 166 - 358 10*3/ ?L. The reference r jayne was not used to interpret this result as normal/abnormal . MPV (test code = 10.4 fL 9.5-12.9 85264-2) NRBC/100 WBC (test See_Comment [Automat ed code = 9494511776) message] The system which generated this result transmitted reference range : 0.0 - 10.0 /100 WBCs. The refer ence range was not u sed to interpret th is result as normal/abnormal . NRBC x10^3 (test code <0.01 See_Comment [Auto mated = 2697032411) message] The s ystem which generated this result transmitted reference range : 10*3/?L. The reference range was not used to interpret this result as normal/abnormal . GRAN MAT (NEUT) % 68.8 % (test code = 770-8) IMM GRAN % (test code 0.60 % = 5923004891) LYMPH % (test code = 23.2 % 736-9) MONO % (test code = 6.9 % 5905-5) EOS % (test code = 0.3 % 713-8) BASO % (test code = 0.2 % 706-2) GRAN MAT x10^3(ANC) 6.19 10*3/uL 1.88-7.09 (test code = 4466449630) IMM GRAN x10^3 (test 0.05 10*3/uL 0.00-0.06 code = 8863010078) LYMPH x10^3 (test code 2.09 10*3/uL 1.32-3.29 = 731-0) MONO x10^3 (test code 0.62 10*3/uL 0.33-0.92 = 742-7) EOS x10^3 (test code = 0.03 10*3/uL 0.03-0.39 711-2) BASO x10^3 (test code <0.03 0.01-0.07 = 704-7) Lab Interpretation Abnormal (test code = 80957-0) [facility] URINALYSIS W/O SPECIFIC [id number] 22:15:00 Test Item Value Reference Range Interpretation [...] code = 3257) N/A Negative - Negative [facility] URINALYSIS W/O SPECIFIC [id number] 16:27:00 Test Item Value Reference Range Interpretation [...] Negative Lab Interpretation (test code = Normal 54419-3) [facility] URINALYSIS W/O SPECIFIC [id number] 16:27:00 Test Item Value Reference Range Interpretation [...] Negative Lab Interpretation (test code = Normal 69599-7) [facility] URINALYSIS W SPECIFIC [id number] 18:59:00 Test Item Value Reference Range Interpretation [...] 3267) Lab Interpretation (test code = Abnormal 24521-0) [facility] CenterPOCO [id number] 16:22:00 Test Item Value Reference Range Interpretation Comments POCT PREG (test code = 1605) Positive On board controls acceptable with C Yes Line (test code = 3574) POCT PREG LOT # (test code = 3575) POCT PREG TEST DATE (test code = 3576) [facility] URINALYSIS W/O SPECIFIC [id number] 16:22:00 Test Item Value Reference Range Interpretation [...] code = 3257) Neg Negative - Negative [facility]
[2023-01-26] MEDS ORDERED: FLUORESCEIN SODIUM 1 MG/WRAP ONE (11:17)
[2023-01-26] MEDS ORDERED: TETRACAINE HCL 0.5% 4ML OPTH ONE (11:17)
--- NOTE | 2023-01-26 11:43 | EDPHYS ---
Physician Documentation [facility] Name: Miryam Holbrook Age: 22 yrs Sex: Female : 2000 Arrival Date: 01/26/2023 Time: 10:52 Bed 12 Private MD: ED Physician García Ray HPI: 01/26 15:16 This 22 yrs old Female presents to ER via Ambulatory with complaints of Eye Pain. kb 15:16 The patient is experiencing pain, The patient sustained None. to the left eye. Onset: kb The symptoms/episode began/occurred this morning. Duration: the symptoms are continuous. Aggravated by nothing. Alleviated by nothing. Associated signs and symptoms: Pertinent positives: None. Patient wears glasses. Severity of symptoms: At their worst the symptoms were mild in the emergency department the symptoms are unchanged. The patient has not experienced similar symptoms in the past. The patient has not recently seen a physician. CURB HOP: 11:00 LMP 12/15/2022 cm9 Historical: - Allergies: 11:00 No Known Allergies; cm9 - PMHx: 11:00 None; cm9 - PSHx: 11:00 Appendectomy; Cholecystectomy; section; cm9 - Immunization history:: Client reports having NOT received the Covid vaccine. - Social history:: Smoking status: Patient denies any tobacco usage or history of. Patient/guardian denies using alcohol. ROS: 15:15 Constitutional: Negative for fever, chills, and weight loss. kb 15:15 Eyes: Positive for pain, redness. 15:15 All other systems are negative. Exam: 15:15 Constitutional: This is a well developed, well nourished patient who is awake, alert, kb and in no acute distress. Head/Face: Normocephalic, atraumatic. Cardiovascular: Regular rate and rhythm with a normal S1 and S2. No gallops, murmurs, or rubs. No pulse deficits. Respiratory: Respirations even and unlabored. No increased work of breathing. Talking in full sentences Skin: Warm, dry with normal turgor. Normal color. MS/ Extremity: Pulses equal, no cyanosis. Neurovascular intact. Full, normal range of motion. Neuro: Awake and alert, GCS 15, oriented to person, place, time, and situation. Moves all extremities. Normal gait. 15:15 Eyes: Periorbital structures: appear normal, Pupils: equal, round, and reactive to light and accomodation, Extraocular movements: intact throughout, Conjunctiva: injected, in the left eye, Corneas: are normal, no evidence of abrasion, no foreign body, a fluorescein strip employed to appreciate the findings, Intraocular pressure: left eye = 17mmHg. Vital Signs: 10:55 BP 137 / 98; Pulse 73; Resp 16; Temp 97.7; Pulse Ox 100% on R/A; Weight 105.23 kg; cm9 Height 5 ft. 3 in. ; Pain 9/10; 10:55 Body Mass Index 41.10 (105.23 kg, 160.02 cm) cm9 10:55 Pain Scale: Adult cm9 Visual Acuity: 11:13 Left Eye Visual acuity 20/25, ; Right Eye Visual acuity 20/25, ; Both Eyes Visual ks8 acuity 20/25; With Lenses; MDM: 10:54 Patient medically screened. kb 15:16 Differential diagnosis: Corneal abrasion of Corneal ulcer of Foreign body in Acute kb glaucoma in Data reviewed: vital signs, nurses notes. Counseling: I had a detailed discussion with the patient and/or guardian regarding: the historical points, exam findings, and any diagnostic results supporting the discharge/admit diagnosis, the need for outpatient follow up, an opthalmologist, to return to the emergency department if symptoms worsen or persist or if there are any questions or concerns that arise at home. 01/26 10:59 Order name: Eye Tray; Complete Time: 11:12 kb 01/26 10:59 Order name: Fluoresene Opth strip; Complete Time: 11:12 kb 01/26 10:59 Order name: Visual Acuity; Complete Time: 11:26 kb Administered Medications: 11:51 Drug: Tetracaine Ophthalmic Drops 0.5 % 1 drops {Note: Administered by matt Camejo.} Route: Ophthalmic; Site: both eyes; Disposition: 19:32 Co-signature as Attending Physician, García SCOTT was immediately available on-site ms3 in the Emergency Department for consultation in the care of the patient. Disposition Summary: 01/26/23 11:43 Discharge Ordered Location: Home Condition: Stable kb Diagnosis - Other conjunctivitis kb Followup: kb - With: Emergency Department - When: As needed - Reason: Worsening of condition Followup: kb - With: Private Physician - When: 2 - 3 days - Reason: Recheck today's complaints, Continuance of care, Re-evaluation by your physician Discharge Instructions: - Discharge Summary Sheet kb - Bacterial Conjunctivitis, Adult, [id number] kb Forms: - Medication Reconciliation Form kb - Thank You Letter kb - Antibiotic Education kb - Prescription Opioid Use kb Prescriptions: - Erythromycin 5 mg/gram (0.5 %) Ophthalmic Ointment - apply 1 centimeter by OPHTHALMIC route 3 times per day for 7 days; 1 unit; kb Refills: 0, Product Selection Permitted Signatures: Emely Hare, MASHA-C García Byrd DO DO ms3 Kelli Ray RN RN ld1 Veda Martins, RN RN cm9
--- NOTE | 2023-01-26 11:43 | ER ---
Nurse's Notes [facility] Name: Miryam Holbrook Age: 22 yrs Sex: Female : 2000 Arrival Date: 01/26/2023 Time: 10:52 Bed 12 Private MD: Diagnosis: Other conjunctivitis Presentation: 01/26 10:55 Chief complaint: Patient states: left eye pain x 1 day. Coronavirus screen: Vaccine cm9 status: Patient reports being unvaccinated. At this time, the client does not indicate any symptoms associated with coronavirus-19. Ebola Screen: No symptoms or risks identified at this time. 10:55 Method Of Arrival: Ambulatory cm9 10:55 Mechanism of Injury: No Mechanism of Injury. The patient denies any loss of vision. cm9 Initial Sepsis Screen: Does the patient meet any 2 criteria? No. Patient's initial sepsis screen is negative. Does the patient have a suspected source of infection? No. Patient's initial sepsis screen is negative. Risk Assessment: Do you want to hurt yourself or someone else? Patient reports no desire to harm self or others. Onset of symptoms was January 25, 2023. 10:55 Acuity: АНДРЕЙ 4 cm9 Triage Assessment: 11:00 General: Appears in no apparent distress. Behavior is calm, cooperative. Pain: cm9 Complains of pain in face and left eye Pain currently is 9 out of 10 on a pain scale. Quality of pain is described as burning, stabbing. EENT: Eyes are tearing on outer aspect of conjuctiva of left eye, iris of left eye and inner aspect of conjunctiva of left eye Sclera/Cornea are reddened in outer aspect of conjuctiva of left eye, iris of left eye and inner aspect of conjunctiva of left eye. Neuro: Level of Consciousness is awake, alert, obeys commands, Oriented to person, place, time, situation. Cardiovascular: Patient's skin is warm and dry. Respiratory: Airway is patent Respiratory effort is even, unlabored. STARS COORDINATOR: 11:00 LMP 12/15/2022 cm9 Historical: - Allergies: 11:00 No Known Allergies; cm9 - PMHx: 11:00 None; cm9 - PSHx: 11:00 Appendectomy; Cholecystectomy; section; cm9 - Immunization history:: Client reports having NOT received the Covid vaccine. - Social history:: Smoking status: Patient denies any tobacco usage or history of. Patient/guardian denies using alcohol. Screenin:02 [facility] ED Fall Risk Assessment (Adult) History of falling in the last 3 months, cm9 including since admission No falls in past 3 months (0 pts) Confusion or Disorientation No (0 pts) Intoxicated or Sedated No (0 pts) Impaired Gait No (0 pts) Mobility Assist Device Used No (0 pt) Altered Elimination No (0 pt) Score/Fall Risk Level 0 - 2 = Low Risk Hourly rounding (assess needs \T\ fall precautionary measures) done. Abuse screen: Denies threats or abuse. Nutritional screening: No deficits noted. Tuberculosis screening: No symptoms or risk factors identified. Assessment: 12:02 Reassessment: see triage assessment. cm9 Vital Signs: 10:55 BP 137 / 98; Pulse 73; Resp 16; Temp 97.7; Pulse Ox 100% on R/A; Weight 105.23 kg; cm9 Height 5 ft. 3 in. ; Pain 9/10; 10:55 Body Mass Index 41.10 (105.23 kg, 160.02 cm) cm9 10:55 Pain Scale: Adult cm9 Visual Acuity: 11:13 Left Eye Visual acuity 20/25, ; Right Eye Visual acuity 20/25, ; Both Eyes Visual ks8 acuity 20/25; With Lenses; ED Course: 10:54 Patient arrived in ED. ts1 10:54 [facility]are [facility]C [facility]. kb 10:54 García Ray DO is Attending Physician. kb 11:00 Triage completed. cm9 11:00 Arm band placed on right wrist. cm9 12:02 Veda Martins, RAJINDER is Primary Nurse. cm9 12:02 Patient has correct armband on for positive identification. Bed in low position. Call cm9 light in reach. Side rails up X 1. 12:02 No provider procedures requiring assistance completed. Patient did not have IV access cm9 during this emergency room visit. Administered Medications: 11:51 Drug: Tetracaine Ophthalmic Drops 0.5 % 1 drops {Note: Administered by matt Camejo.} Route: Ophthalmic; Site: both eyes; Medication: 12:02 VIS not applicable for this client. cm9 Outcome: 11:43 Discharge ordered by MD. davies 12:02 Discharged to home ambulatory. cm9 12:02 Condition: good 12:02 Discharge instructions given to patient, Instructed on follow up and referral plans. medication usage, Demonstrated understanding of instructions, follow-up care, medications, Prescriptions given X 1. 12:05 Patient left the ED. cm9 Signatures: Emely Hare, Kelli Mullins RN RN ld1 Jay Ray ks8 Veda Martins, RAJINDER RN cm9 Eliz Ramirez, PAS PAS ts1
[2023-01-26 12:16] VITALS: BP 137/98; TEMP 97.7; O2SAT 100
== END 2023-01-26 12:05 | disposition home or self-care (01) ==
LOC: ER 10:52
DX: H10.89 Other conjunctivitis (principal)